=== PATIENT | female | born 1975 | race Caucasian/White ===

== ENCOUNTER 2023-02-22 11:29 | Emergency (ER) | payer MEDICAID, SELFPAY ==
[2023-02-22 11:30] VITALS: BP 142/108; PULSE 89; RESP 18; TEMP 36.5; O2SAT 97; BMI 22.8
[2023-02-22 12:55] LABS: Absolute Lymphocyte Count 1.18 X10^3/uL (0.83-4.51); Absolute Neutrophil Count 17.1 X10^3/uL (2.0-7.7); Basophil# 0.07 X10^3/uL; Basophil% 0.4 % (0-1); Eosinophil# 0.01 X10^3/uL; Eosinophils% 0.1 % (0-5); Hematocrit 48.9 % (37-47); Hemoglobin 14.9 g/dL (12.0-15.0); Lymphocyte # 1.18 X10^3/ul (0.83-4.51); Lymphocyte % 6.2 % (19-41); Mean Corp Hgb Conc 30.5 g/dL (32-36); Mean Corpuscular Hgb 30.3 pg (27.0-32.0); Mean Corpuscular Volume 99.6 fL (81-99); Mean Platelet Vol. 10.8 fl (6.2-12.0); Monocyte# 0.48 X10^3/uL; Monocyte% 2.5 % (0-10); NRBC Flagged by Analyzer 0 % (0-5); Neutrophil # 17.06 X10^3/uL (2.7-7.7); Neutrophil % 90.3 % (47-70); Platelet Count 276 K/mm3 (150-450); RBC Distribution Width CV 13.3 % (11.6-14.6); RBC Distribution Width SD 48.9 fl (35.1-43.9); Red Blood Count 4.91 M/mm3 (4.2-5.4); White Blood Count 18.9 K/mm3 (4.4-11.0)
--- NOTE | 2023-02-22 13:04 | NURSING ---
CHEMISTRIES HEMOLIZED
--- NOTE | 2023-02-22 13:13 | EDS_ITS ---
HPI <Dr. Serafin Cody DO - Last Filed: 02/23/23 21:35> HPI - GI History of Present Illness Chief Complaint: Nausea/Vomiting Informant: patient Abdominal Pain/Flank Pain Onset: Today Context: Gradual Onset Timing: Continuous Quality: Sharp Location: Diffuse Worsened by: Nothing Relieved by: Nothing Nausea/Vomiting/Emesis GI Symptom: Positive for Nausea and Vomiting Quality: Positive for Nonbilious; Negative for Blood streaks, Coffee ground or Hematemesis Diarrhea/Melena/Hematochezia GI Symptom: Positive for Diarrhea; Negative for Melena or Hematochezia Associated Symptoms Associated Symptoms: Negative for Dysuria, Frequency or Hematuria Narrative Narrative: Patient presents with abdominal pain that began today. Patient states it began rather suddenly approximately 6 hours prior to arrival. Patient states she has been unable to keep anything down. Daughter states that the patient had 2 seizures because she has been unable to keep her medications down. Patient states that the only thing that helps with her pain, nausea, and vomiting is drinking warm tap water. Patient denies any fevers or chills. Patient states her pain is sharp. Patient states her pain is diffuse across her abdomen. [facility] <Dr. Serafin Cody DO - Last Filed: 02/23/23 21:35> [facility] Medical History Barretts esophagus Home Medications pantoprazole 20 mg tablet,delayed release 20 mg PO DAILY 12/27/15 [History Last Taken Unknown] sertraline 50 mg tablet 50 mg PO DAILY 12/27/15 [History Last Taken Unknown] sucralfate 100 mg/mL oral suspension 1 g PO 4X/DAY 12/27/15 [History Last Taken Unknown] pseudoephedrine-guaifenesin ER 120 mg-1,200 mg tab,extend release 12hr (Mucinex D Maximum Strength) 1 ea PO BID ##14 02/13/16 [Rx Last Taken Unknown] cephalexin 500 mg capsule 500 mg PO BID #14 caps 02/22/23 [Rx Last Taken Unknown] ondansetron 4 mg disintegrating tablet 4 mg PO Q6H PRN nausea and vomiting #20 tabs 02/22/23 [Rx Last Taken Unknown] Allergy/AdvReac Type Severity Reaction Status Date / Time hydrocodone bitartrate Allergy Hives Verified 02/22/23 11:29 [From Vicodin] Surgical History no surgical history no surgical history Social History Smoking Status: Current every day smoker tobacco type: cigarettes ROS <Dr. Serafin Cody DO - Last Filed: 02/23/23 21:35> ROS ED Constitutional Constitutional ED: Denies chills or fever(s) Eyes Eyes: Denies blurry vision or change in vision ENT ENT ED: Denies rhinorrhea or sore throat Cardiovascular Cardiovascular: Denies chest pain or palpitations Respiratory/Chest Respiratory/Chest: Denies cough or dyspnea Gastrointestinal Gastrointestinal: Reports abdominal pain, diarrhea, nausea and vomiting Genitourinary Genitourinary ED: Denies dysuria or hematuria Musculoskeletal Musculoskeletal: Denies back pain or neck pain Integumentary Denies abscess or rash Neurologic Neurologic: Denies headache(s) or weakness Allergic/Immunologic Allergic/Immunologic ED: Denies mouth swelling or urticaria EXAM <Dr. Serafin Cody DO - Last Filed: 02/23/23 21:35> Physical Exam Const Vital Signs: 02/22/23 11:30 02/22/23 15:00 02/22/23 17:50 Temperature 97.7 F L Temperature Source Temporal Pulse Rate 89 75 Respiratory Rate 18 18 18 Blood Pressure 142/108 H Blood Pressure Mean 119 Pulse Ox 97 98 Oxygen Delivery Method Room Air Room Air Room Air <Marvin Katz MD - Last Filed: 02/22/23 18:28> Physical Exam Const Vital Signs: 02/22/23 11:30 02/22/23 15:00 02/22/23 17:50 Temperature 97.7 F L Temperature Source Temporal Pulse Rate 89 75 Respiratory Rate 18 18 18 Blood Pressure 142/108 H Blood Pressure Mean 119 Pulse Ox 97 98 Oxygen Delivery Method Room Air Room Air Room Air MDM <Dr. Serafin Cody DO - Last Filed: 02/23/23 21:35> MDM MDM Narrative Medical decision making narrative: Differential diagnosis includes bowel obstruction, perforation, electrolyte abnormality, peptic ulcer disease, gastritis, pancreatitis, urinary tract infection, pyelonephritis, and cyclic vomiting. CBC will be obtained to assess for leukocytosis and anemia. Basic metabolic profile will be obtained to assess for electrolyte abnormality and renal function. Lipase will be obtained to assess for pancreatitis. Urinalysis will be obtained to assess for urinary tract infection. CT scan of the abdomen and pelvis will be obtained to assess for bowel obstruction, perforation, and ascites. Lab Data Attestation: I reviewed the patient's lab results. Lab results narrative: CBC was reviewed. There is a leukocytosis of 18.9. Hemoglobin was stable at 14.9 and hematocrit was 48.9. Platelets were normal at 276. Basic metabolic profile was reviewed. Glucose was slightly elevated at 152. The remainder is within normal limits. Lipase was reviewed was normal at 11. Labs: Laboratory Results - last 24 hr 02/22/23 02/22/23 02/22/23 12:49 13:40 17:45 WBC 18.9 H RBC 4.91 Hgb 14.9 Hct 48.9 H MCV 99.6 H MCH 30.3 MCHC 30.5 L RDW Std Deviation 48.9 H RDW Coeff of Fina 13.3 Plt Count 276 MPV 10.8 Immature Gran % (Auto) 0.500 Neut % (Auto) 90.3 H Lymph % (Auto) 6.2 L [place] % (Auto) 2.5 Eos % (Auto) 0.1 Baso % (Auto) 0.4 Absolute Neuts (auto) 17.1 H Absolute Lymphs (auto) 1.18 Nucleated RBC % 0 Sodium Cancelled 137 Potassium Cancelled 4.0 Chloride Cancelled 106 Carbon Dioxide Cancelled 23.0 Anion Gap Cancelled 8 BUN Cancelled 14 Creatinine Cancelled 0.87 Estim Creat Clear Calc Cancelled 73.48 Est GFR (MDRD) Af Amer Cancelled 90 Est GFR (MDRD) Non-Af Cancelled 75 BUN/Creatinine Ratio Cancelled 16.1 Glucose Cancelled 152 H Calcium Cancelled 9.2 Lipase 11 L Urine Color Vale Urine Clarity Cloudy Urine pH 6.5 Ur Specific Cornelius 1.010 Urine Protein 100 H Urine Glucose (UA) Normal Urine Ketones 15 H Urine Occult Blood 250 H Urine Nitrite Positive H Urine Bilirubin Negative Urine Urobilinogen 1 H Ur Leukocyte Esterase 500 H Urine RBC > 100 SEEN Urine WBC 10-25 SEEN Ur Squamous Epith Cells 0-5 SEEN Urine Bacteria 1+ Urine Mucus 0 SEEN Radiography Diagnostic Testing: Clinical Impression(s) from Imaging Studies Abdomen/Pelvis CT 02/22/23 13:18 IMPRESSION: Subcentimeter hypoattenuated right hepatic nodule. Small hiatal hernia. Small fatty umbilical hernia. Electronically Signed: Reji Allen DO at 17:39 EST Reading Location ID and State: [facility] / [place] Tel [phone], Service support , Treatment and Re-Evaluation :: Smoking cessation was discussed. Patient was given IV fluids and Zofran. Patient had no improvement of her nausea with Zofran. Patient was given a dose of Reglan. Patient was also given a dose of Ativan. Care of the patient was turned over to the oncoming physician pending CT scan results. <Marvin Katz MD - Last Filed: 02/22/23 18:28> DICK Lab Data Labs: Laboratory Results - last 24 hr 02/22/23 02/22/23 02/22/23 12:49 13:40 17:45 WBC 18.9 H RBC 4.91 Hgb 14.9 Hct 48.9 H MCV 99.6 H MCH 30.3 MCHC 30.5 L RDW Std Deviation 48.9 H RDW Coeff of Fina 13.3 Plt Count 276 MPV 10.8 Immature Gran % (Auto) 0.500 Neut % (Auto) 90.3 H Lymph % (Auto) 6.2 L [place] % (Auto) 2.5 Eos % (Auto) 0.1 Baso % (Auto) 0.4 Absolute Neuts (auto) 17.1 H Absolute Lymphs (auto) 1.18 Nucleated RBC % 0 Sodium Cancelled 137 Potassium Cancelled 4.0 Chloride Cancelled 106 Carbon Dioxide Cancelled 23.0 Anion Gap Cancelled 8 BUN Cancelled 14 Creatinine Cancelled 0.87 Estim Creat Clear Calc Cancelled 73.48 Est GFR (MDRD) Af Amer Cancelled 90 Est GFR (MDRD) Non-Af Cancelled 75 BUN/Creatinine Ratio Cancelled 16.1 Glucose Cancelled 152 H Calcium Cancelled 9.2 Lipase 11 L Urine Color Vale Urine Clarity Cloudy Urine pH 6.5 Ur Specific Cornelius 1.010 Urine Protein 100 H Urine Glucose (UA) Normal Urine Ketones 15 H Urine Occult Blood 250 H Urine Nitrite Positive H Urine Bilirubin Negative Urine Urobilinogen 1 H Ur Leukocyte Esterase 500 H Urine RBC > 100 SEEN Urine WBC 10-25 SEEN Ur Squamous Epith Cells 0-5 SEEN Urine Bacteria 1+ Urine Mucus 0 SEEN Radiography Diagnostic Testing: Clinical Impression(s) from Imaging Studies Abdomen/Pelvis CT 02/22/23 13:18 IMPRESSION: Subcentimeter hypoattenuated right hepatic nodule. Small hiatal hernia. Small fatty umbilical hernia. Electronically Signed: Rejimaria d Allen at 17:39 EST Reading Location ID and State: [facility] / [place] Tel [phone], Service support , Treatment and Re-Evaluation :: Smoking cessation was discussed. Patient was given IV fluids and Zofran. Patient had no improvement of her nausea with Zofran. Patient was given a dose of Reglan. Patient was also given a dose of Ativan. Care of the patient was turned over to the oncoming physician pending CT scan results. Dr. Katz: Patient endorsed to me to check a CT scan on this patient with nausea and vomiting and leukocytosis. I do feel that her leukocytosis may be secondary to demargination from her vomiting. I reviewed the CT scan report which shows no evidence of an acute process, no obstruction. She was trying to drink water prior to the CT results. Her daughter is now at the bedside who states that she had attempted Zofran this morning, but unsuccessfully. Patient states she does not have enough Zofran at home so prescription was written. Additionally, her urinalysis had been sent, and she is positive for nitrites with 10-25 WBCs. She will be given a prescription for Keflex as well. I feel she can be discharged to follow-up with her primary care provider. Disposition is discharged in stable condition. Discharge Plan Triage Chief Complaint: Nausea/Vomiting ED Provider: Serafin Cody Dx/Rx/DC Orders Clinical Impression: Nausea and vomiting, Abdominal pain, HTN (hypertension), UTI (urinary tract infection) Instructions: ED Abdominal Pain Unkn Cause Fem, ED Cystitis Female Adult, ED Vomiting (Adult) Prescriptions: New ondansetron 4 mg tablet,disintegrating 4 mg PO Q6H PRN (Reason: nausea and vomiting) Qty: 20 0RF cephalexin 500 mg capsule 500 mg PO BID Qty: 14 0RF No Action sucralfate 1 GM/10 ML suspension 1 g PO 4X/DAY pantoprazole 20 MG tablet 20 mg PO DAILY sertraline 50 MG tablet 50 mg PO DAILY pseudoephedrine-guaifenesin [Mucinex D Maximum Strength] 1 EACH tablet extended release 12 hr 1 ea PO BID Qty: 14 0RF Primary Care Provider: Care Physician,No Primary Referrals: Care Physician,No Primary [Primary Care Provider] - Disposition Disposition: Home, Self Care Discharge Date/Time: 02/22/23 19:01
--- NOTE | 2023-02-22 13:18 | CT_ITS ---
STUDY: CT ABDOMEN AND PELVIS WITH CONTRAST REASON FOR EXAM: Female, 47 years old. Abdominal pain -- IV ONLY RADIATION DOSAGE (If Supplied By Facility): CTDIvol = ( 12.06 ) mGy, DLP = ( 532.97 ) mGycm TECHNIQUE: Transaxial images were obtained from the dome of the diaphragm to the symphysis pubis without oral contrast. IV 100mL Isovue-300 was administered. Sagittal and coronal images were reconstructed. Individualized dose optimization techniques were used for this CT. COMPARISON: None. FINDINGS: The visualized lung bases are unremarkable. The visualized portions of the heart are within normal limits. Hypoattenuated 7 mm right hepatic nodule in the liver. Normal gallbladder and extrahepatic biliary system. Normal spleen. Normal pancreas. Normal bilateral adrenal glands. Normal right kidney. Normal left kidney. Small hiatal hernia. Normal small intestine. Normal colon. The appendix is not visualized. Normal abdominal aorta. Normal inferior vena cava. Normal retroperitoneum. Normal urinary bladder. Small fatty umbilical hernia. Normal osseous structures. CT/Abdomen/Pelvis WITH Contrast IMPRESSION: Subcentimeter hypoattenuated right hepatic nodule. Small hiatal hernia. Small fatty umbilical hernia. Electronically Signed: Reji Allen DO at 17:39 EST Reading Location ID and State: [id number] / [place] Tel [phone], Service support ,
[2023-02-22] MEDS: Ondansetron 4 MG/2 ML Vial IV (13:40)
[2023-02-22] MEDS: 0.9% Normal Saline (1000mL) 1,000 ML 1000 ML IV (13:40)
[2023-02-22 14:00] LABS: Anion Gap 8 (5-15); BUN 14 mg/dL (7-18); BUN/Creat Ratio 16.1 RATIO (10-20); Calcium,Total 9.2 mg/dL (8.5-10.1); Chloride 106 mmol/L (98-107); Creatinine, Serum 0.87 mg/dL (0.55-1.02); EST Glomerular Filtration Rate 75 mL/min (>60); Est Glom Filt Rate - Afr Amer 90 mL/min (>60); Estimated Creatinine Clearance 73.48 ml/min; Glucose 152 mg/dL (74-106); Sodium Level 137 mmol/L (136-145)
[2023-02-22 14:01] LABS: Lipase 11 U/L (13-75)
[2023-02-22] MEDS: Metoclopramide 10 MG/2 ML Vial IV (14:22)
[2023-02-22 15:00] VITALS: RESP 18
[2023-02-22] MEDS: LORazepam 2 MG/ML Syringe 0.5 MG IV (15:04)
[2023-02-22 17:50] VITALS: PULSE 75; RESP 18; O2SAT 98
[2023-02-22 17:53] LABS: Mucous, Urine 0 SEEN /hpf (<or=2+)
[2023-02-22 18:00] LABS: Color, Urine Amber (Yellow); Glucose, Dipstick Normal (Normal); Ketone-Dipstick 15 mg/dl (Negative); Leukocyte Esterase-Dipstick 500 /ul (Negative); Nitrite-Dipstick Positive (Negative); Occult Blood-Urine 250 /ul (Negative); Protein-Dipstick 100 mg/dl (Negative); Urine Bilirubin Dipstick Negative (Negative); Urine Clarity Cloudy (Clear); Urine Urobilinogen 1 mg/dl (Normal); Urine pH 6.5 (5.0 - 8.0)
[2023-02-22 18:06] LABS: White Blood Cells 10-25 SEEN /hpf (0-5)
[2023-02-22 18:07] LABS: Bacteria 1+ /hpf (None Seen); Red Blood Cells-Urine > 100 SEEN /hpf (0-5); Squamous Epithelial Cells - UA 0-5 SEEN /hpf (5-10)
[2023-02-22] MEDS: Cephalexin 250 MG Capsule 500 MG PO (18:46)
== END 2023-02-22 19:01 | disposition home or self-care (01) ==
PROVIDERS: Emergency Provider Emergency Medicine; Visit Provider Emergency Medicine
DX: R11.2 Nausea with vomiting, unspecified (principal); N39.0 Urinary tract infection, site not specified; F17.210 Nicotine dependence, cigarettes, uncomplicated; I10 Essential (primary) hypertension; R10.9 Unspecified abdominal pain
CPT/HCPCS: 74177; 80048; 81001; 83690; 85025; 96361; 96374; 96375; 99285; J7030; Q9967; A4216; J2405

== ENCOUNTER 2023-02-24 09:22 | Emergency (ER) | payer MEDICAID, SELFPAY ==
[2023-02-24 09:23] VITALS: BP 180/120; PULSE 70; RESP 16; TEMP 36.2; O2SAT 99; BMI 22.4
[2023-02-24] MEDS: Ondansetron 4 MG/2 ML Vial IV (10:20)
[2023-02-24] MEDS: proCHLORPERazine 10 MG/2 ML Vial IM (10:20)
[2023-02-24] MEDS: 0.9% Normal Saline (1000mL) 1,000 ML 1000 ML IV (10:24)
[2023-02-24] MEDS: Ceftriaxone 1 GM/50 ML BAG IV (10:24)
[2023-02-24 10:35] LABS: Absolute Lymphocyte Count 1.57 X10^3/uL (0.83-4.51); Absolute Neutrophil Count 12.4 X10^3/uL (2.0-7.7); Basophil# 0.07 X10^3/uL; Basophil% 0.5 % (0-1); Eosinophil# 0.11 X10^3/uL; Eosinophils% 0.7 % (0-5); Hematocrit 45.3 % (37-47); Hemoglobin 15.1 g/dL (12.0-15.0); Lymphocyte # 1.57 X10^3/ul (0.83-4.51); Lymphocyte % 10.7 % (19-41); Mean Corp Hgb Conc 33.3 g/dL (32-36); Mean Corpuscular Volume 89.9 fL (81-99); Mean Platelet Vol. 10.1 fl (6.2-12.0); Monocyte# 0.45 X10^3/uL; Monocyte% 3.1 % (0-10); NRBC Flagged by Analyzer 0 % (0-5); Neutrophil # 12.41 X10^3/uL (2.7-7.7); Neutrophil % 84.6 % (47-70); Platelet Count 279 K/mm3 (150-450); Red Blood Count 5.04 M/mm3 (4.2-5.4); White Blood Count 14.7 K/mm3 (4.4-11.0)
[2023-02-24 11:04] LABS: ALB/GLOB Ratio 1.2 RATIO (0.9-2.4); AST(SGOT) 24 U/L (15-37); Alanine Aminotransfer ALT/SGPT 23 U/L (13-56); Albumin, Serum 4.1 g/dL (3.2-5.0); Alkaline Phosphatase 35 U/L (45-117); Anion Gap 11 (5-15); BUN 9 mg/dL (7-18); Calcium,Total 9.2 mg/dL (8.5-10.1); Chloride 103 mmol/L (98-107); Creatinine, Serum 0.82 mg/dL (0.55-1.02); EST Glomerular Filtration Rate 80 mL/min (>60); Est Glom Filt Rate - Afr Amer 97 mL/min (>60); Estimated Creatinine Clearance 77.96 ml/min; Globulin 3.4 g/dL (2.2-4.2); Glucose 137 mg/dL (74-106); Lipase 13 U/L (13-75); Potassium 3.4 mmol/L (3.5-5.1); Protein, Total 7.5 g/dL (6.4-8.2); Sodium Level 136 mmol/L (136-145)
[2023-02-24 11:22] VITALS: BP 180/95; PULSE 65; RESP 18; O2SAT 98
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
[2023-02-24] MEDS: LORazepam 2 MG/ML Syringe 1 MG IV (12:02)
[2023-02-24] MEDS: Potassium Chloride Oral Tablet 20 MEQ 40 MEQ PO (12:33)
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
[2023-02-24 12:53] VITALS: BP 176/78; PULSE 64; RESP 16; O2SAT 98
[2023-02-24 14:28] LABS: Reflex Lactate? Y
== END 2023-02-24 12:54 | disposition home or self-care (01) ==
PROVIDERS: Emergency Provider Emergency Medicine; Referring Provider Emergency Medicine; Visit Provider Emergency Medicine
DX: R11.2 Nausea with vomiting, unspecified (principal); N39.0 Urinary tract infection, site not specified; I10 Essential (primary) hypertension; R11.15 Cyclical vomiting syndrome unrelated to migraine; R10.13 Epigastric pain; K21.9 Gastro-esophageal reflux disease without esophagitis; Z79.899 Other long term (current) drug therapy; F17.210 Nicotine dependence, cigarettes, uncomplicated
CPT/HCPCS: 80053; 83605; 83690; 85025; 96361; 96365; 96372; 96375; 99284; J7030; A4216; J2405

== ENCOUNTER 2024-02-10 04:03 | Emergency (ER) | payer MEDICAID, SELFPAY ==
[2024-02-10] VITALS (7 sets, daily range): BP systolic 142–169; BP diastolic 73–89; PULSE 71–89; RESP 16–18; TEMP 36.1–37.4; O2SAT 96–99; BMI 25.0
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
--- NOTE | 2024-02-10 04:14 | CT_ITS ---
STUDY: CT BRAIN WITHOUT CONTRAST REASON FOR EXAM: Female, 48 years old. head injury. Head laceration. RADIATION DOSAGE (If Supplied By Facility): CTDIvol = ( 34.80 ) mGy, DLP = ( 1483.44 ) mGycm TECHNIQUE: Transaxial CT imaging of the brain was performed without administration of intravenous contrast material. Limited examination due to patient motion artifact. Individualized dose optimization techniques were used for this CT. COMPARISON: No relevant priors. FINDINGS: Normal soft tissue structures. Normal calvarium. Normal size ventricles and extra-axial spaces for the patient''s age. Normal white matter tracts of the cerebral hemispheres. Normal basal ganglia and thalami. Normal brainstem. Normal cerebellum. There is no intracranial hemorrhage. There are no findings of an acute ischemic infarction. Mucosal thickening of the right maxillary sinus. Opacification of the ethmoid sinuses as well as fullness of the nasal fossa. CT/Brain/Head without Contrast IMPRESSION: Normal unenhanced CT scan of the brain. Sinusitis. Electronically Signed: Rome Oneil MD at 9:04 EST ,
--- NOTE | 2024-02-10 04:14 | RAD_ITS ---
EXAM: XR RIGHT HUMERUS, 2 OR MORE VIEWS CLINICAL INDICATION: pain TECHNIQUE: Frontal and lateral views of the right humerus. COMPARISON: No relevant prior studies available. FINDINGS: BONES/JOINTS: Unremarkable. No acute fracture. No subluxation. Normal alignment. Preservation of the joint space. No sclerotic or destructive changes observed. SOFT TISSUES: Unremarkable. No soft tissue swelling or gas. No radiopaque foreign body. OTHER: The visualized right ribs are intact. The visualized right lung is clear RAD/Humerus min 2 Views IMPRESSION: Negative right humerus x-rays. Electronically Signed: Javy Gibson MD at 7:18 EST ,
--- NOTE | 2024-02-10 04:14 | RAD_ITS ---
EXAM: XR PELVIS, 1 OR 2 VIEWS CLINICAL INDICATION: fall TECHNIQUE: Frontal view of the pelvis. COMPARISON: No relevant prior studies available. FINDINGS: BONES/JOINTS: Unremarkable. No displaced fracture. No destructive or sclerotic lesions. Note that overlapping bowel shadows may however obscure fine detail. Sacroiliac joints are unremarkable. No widening of the pubic symphysis. The articular structures are unremarkable. SOFT TISSUES: Unremarkable. No soft tissue swelling or gas. RAD/Pelvis 1 or 2 Views IMPRESSION: No acute fracture or dislocation. Electronically Signed: Javy Gibson MD at 7:20 EST ,
--- NOTE | 2024-02-10 04:14 | CT_ITS ---
EXAM: CT CERVICAL SPINE WITHOUT INTRAVENOUS CONTRAST CLINICAL INDICATION: head injury TECHNIQUE: Helically acquired images were obtained of the cervical spine without intravenous contrast. 2D reformatted images were reviewed. This CT exam was performed using one or more of the following dose reduction techniques: automated exposure control, adjustment of the mA and/or kV according to patient size, and/or use of iterative reconstruction technique. RADIATION DOSE: Total DLP: 416.16 mGy-cm. COMPARISON: No relevant prior studies available. FINDINGS: LIMITATIONS: Multiple sets of images are obtained in an effort to include the entire cervical spine within the [id number]. Patient is tilted to the left. VERTEBRAE: Reversal of normal cervical lordosis is present due to patient positioning or muscle spasm. No compression fracture, posterior element fracture or facet dislocation. The odontoid is intact. Mild cervical facet arthritis is noted. DISCS/SPINAL CANAL/NEURAL FORAMINA: C5/6 and C6/7 disc spaces show degenerative narrowing with marginal osteophytes and uncinate hypertrophy. Broad-based annular bulges and posterior osteophytes mildly flatten the ventral aspect of the thecal sac at the degenerated levels ; uncinate hypertrophy causes left-sided neural foraminal encroachment at the C6/7 level. OTHER BONES/JOINTS: Mucosal thickening noted of the base of both maxillary antra, right greater than left, with a right maxillary air-fluid level. SOFT TISSUES: No precervical soft tissue swelling. MASTOID AIR CELLS: Visualized mastoid air cells are clear. DENTAL: Findings of periodontal disease and dental caries are demonstrated. LUNG APICES: No apical pneumothorax is identified. Visualized upper ribs and medial clavicles are intact. CT/Spine Cervical without Contras IMPRESSION: 1. Limited study. 2. Lower cervical degenerative disc disease. 3. No acute fracture or subluxation identified. Electronically Signed: Javy Gibson MD at 7:09 EST ,
[2024-02-10] MEDS: Ondansetron 4 MG/2 ML Vial IV (04:25)
[2024-02-10] MEDS: LORazepam 2 MG/ML Syringe 0.5 MG IV (04:26)
[2024-02-10] MEDS: Lidocaine 2% /Epi 1:100 (20ml) 20 ML VIAL INFILT (04:28)
[2024-02-10] MEDS: HYDROmorphone 1 MG/ML Syringe IV (04:28)
[2024-02-10 04:41] LABS: Absolute Lymphocyte Count 3.09 X10^3/uL (0.83-4.51); Absolute Neutrophil Count 11.5 X10^3/uL (2.0-7.7); Basophil# 0.07 X10^3/uL; Basophil% 0.4 % (0-1); Eosinophil# 0.56 X10^3/uL; Eosinophils% 3.5 % (0-5); Hematocrit 39.4 % (37-47); Hemoglobin 13.3 g/dL (12.0-15.0); Lymphocyte # 3.09 X10^3/ul (0.83-4.51); Lymphocyte % 19.4 % (19-41); Mean Corp Hgb Conc 33.8 g/dL (32-36); Mean Corpuscular Hgb 29.8 pg (27.0-32.0); Mean Corpuscular Volume 88.1 fL (81-99); Mean Platelet Vol. 10.5 fl (6.2-12.0); Monocyte# 0.65 X10^3/uL; Monocyte% 4.1 % (0-10); NRBC Flagged by Analyzer 0 % (0-5); Neutrophil # 11.46 X10^3/uL (2.7-7.7); Neutrophil % 72.2 % (47-70); Platelet Count 260 K/mm3 (150-450); RBC Distribution Width CV 13.2 % (11.6-14.6); RBC Distribution Width SD 42.7 fl (35.1-43.9); Red Blood Count 4.47 M/mm3 (4.2-5.4); White Blood Count 15.9 K/mm3 (4.4-11.0)
[2024-02-10 04:46] LABS: International Normalized Ratio 1.2; Prothrombin Time (Protime)PT. 14.9 SECONDS (11.7-14.9)
[2024-02-10 04:47] LABS: Partial Thromboplast Time 31.9 Seconds (24.1-36.2)
--- NOTE | 2024-02-10 04:48 | ED.RN ---
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
[2024-02-10 04:55] LABS: Alcohol, Blood (Medical)-Serum < 3.0 mg/dL
[2024-02-10 04:57] LABS: Anion Gap 5 (5-15); BUN 9 mg/dL (7-18); BUN/Creat Ratio 11.9 RATIO (10-20); Chloride 106 mmol/L (98-107); Creatinine, Serum 0.75 mg/dL (0.55-1.02); EST Glomerular Filtration Rate 88 mL/min (>60); Est Glom Filt Rate - Afr Amer 106 mL/min (>60); Estimated Creatinine Clearance 84.34 ml/min; Glucose 114 mg/dL (74-106); Potassium 3.4 mmol/L (3.5-5.1); Sodium Level 137 mmol/L (136-145)
[2024-02-10 05:10] LABS: CPK Total, Creatine Kinase 167 U/L (26-192)
--- NOTE | 2024-02-10 05:20 | RAD_ITS ---
EXAM: XR CHEST, 1 VIEW CLINICAL INDICATION: fall TECHNIQUE: 2 frontal views. Of the chest. COMPARISON: Previous chest radiographs of 02/13/2016. FINDINGS: Patient is rotated to the left. LUNGS AND PLEURAL SPACES: Unremarkable. No consolidation or edema. No pneumothorax. No effusion. HEART: Unremarkable. Cardiac silhouette not enlarged. Normal pulmonary vasculature. MEDIASTINUM: Central airways and mediastinal contour are unremarkable. No mediastinal widening. BONES/JOINTS: Unremarkable. No acute fracture. SOFT TISSUES: Unremarkable. RAD/Chest 1 View (Portable) IMPRESSION: No significant interval change. No radiographic evidence of acute cardiopulmonary disease. Electronically Signed: Javy Gibson MD at 7:20 EST ,
[2024-02-10 05:28] LABS: Amphetamine Urine VISTA POSITIVE (<1000 ng/mL); Barbiturate Urine VISTA NEGATIVE (< 200 ng/mL); Benzodiazepine Urine VISTA NEGATIVE (< 200 ng/mL); Cocaine Urine VISTA NEGATIVE (< 300 ng/mL); Ecstacy Urine VISTA POSITIVE (< 500 ng/mL); Methadone Urine VISTA NEGATIVE (< 300 ng/mL); PCP Urine VISTA NEGATIVE (< 25 ng/mL); THC Urine VISTA POSITIVE (< 50 ng/mL); Vista UDS pH Range 6
[2024-02-10] MEDS: Haloperidol Lactate 5 MG/ML Vial IV (07:19)
[2024-02-10] MEDS: DiphenhydrAMINE 50 MG/ML Syringe 25 MG IV (07:19)
--- NOTE | 2024-02-10 07:36 | EX.ED.DYSGE1 ---
HPI History of Present Illness Chief Complaint: Fall Informant: patient and EMS Narrative Narrative: Patient is a 48-year-old female with history of hypertension depression and cyclic vomiting syndrome. She states she was at work this evening when she tripped and fell and struck her head. She states she did sustain loss of consciousness. She states she does not have a bleeding disorder or take blood thinners. She reports that no one was around to witness the event and she is unsure of how long she was unconscious. She states when she awoke she noted that she had pain in her bilateral arms and it folic her right arm would not move. 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 Patient reports that the fall was mechanical that she slipped/tripped. However at this time she reports head and neck pain bilateral arm pain. She states her right arm is numb and that she cannot move it [facility] Medical History Barretts esophagus Home Medications ?Medication ?Instructions ?Recorded ?Last Taken ?Type NK 02/10/24 Unknown History Allergy/AdvReac Type Severity Reaction Status Date / Time hydrocodone bitartrate (From Allergy Hives Verified 02/10/24 04:11 Vicodin) Social History Smoking Status: Current every day smoker tobacco type: cigarettes ROS ROS ED Constitutional Constitutional ED: Denies chills or fever(s) Eyes Eyes: Denies blurry vision, change in vision or diplopia ENT ENT ED: Reports other Details: Positive nosebleed/nasal pain Cardiovascular Cardiovascular: Denies chest pain, palpitations or racing heartbeat Respiratory/Chest Respiratory/Chest: Denies cough or dyspnea Gastrointestinal Gastrointestinal: Denies abdominal pain, diarrhea, nausea or vomiting Musculoskeletal Musculoskeletal: Reports neck pain and other Details: Positive neck pain as well as bilateral arm pain Integumentary Reports other Details: Positive scalp abrasion/laceration Neurologic Neurologic: Reports headache(s), paresthesias and weakness Hematologic/Lymphatic Hematologic/Lymphatic: Denies easy bleeding or easy bruising EXAM Physical Exam Const Vital Signs: 02/10/24 04:04 02/10/24 04:18 02/10/24 05:04 Temperature 99.4 F H Temperature Source Oral Pulse Rate 78 71 Respiratory Rate 16 18 Blood Pressure 164/79 H Blood Pressure Mean 107 Pulse Ox 96 97 Oxygen Delivery Method Room Air Room Air Room Air 02/10/24 06:00 02/10/24 07:00 02/10/24 08:00 Temperature Temperature Source Pulse Rate 75 76 Respiratory Rate 18 18 Blood Pressure 142/73 H 142/86 H Blood Pressure Mean 96 104 Pulse Ox 97 98 Oxygen Delivery Method Positive well nourished and well developed General Appearance ED: well developed HEENT HEENT Narrative: Patient has a dermal layer abrasion that is roughly 2 cm in length to the midportion of the parietal section of the scalp without active bleeding. Otherwise no signs of depressed or basilar skull fracture No septal hematoma No obvious dental fracture or derangement to the maxilla or mandible Eyes PERRL and EOMs intact bilaterally Eyes Narrative: No subconjunctival hemorrhage noted No hyphema Neck Neck Narrative: No bony deformity or step-off of the cervical spine. There is diffuse pain on palpation of the neck Chest Wall palpation of chest normal Chest Narrative: No bony deformity or crepitance with palpation of the chest wall Resp normal respiratory effort and clear to auscultation bilaterally Cardio regular rate and regular rhythm GI normal to inspection, nondistended, normoactive bowel sounds, non-tender, non-distended and no masses GI Narrative: No voluntary guarding or rigidity or pulsatile mass Auscultation: normoactive bowel sounds Palpation: soft Back/Spine Back/Spine Narrative: No bony deformity or step-off of the thoracic or lumbar spine no midline tenderness to palpation Extremity Extremity Narrative: There is mild soft tissue swelling to the midportion of the right humerus. However there is no obvious bony deformity or joint effusion or sulcus sign noted. No obvious fracture noted. Pelvis is stable there is no shortening or external rotation of either lower extremity Patient's lower extremity and upper extremity compartments are soft and compressible going against compartment syndrome Right upper extremity has a strong distal radius pulse and capillary refill less than 3 seconds Patient does report extreme pain to even the lightest touch of both the right and left upper arm. She states it does not matter if you touch her in her fingertips or shoulder this will send pain down the entire arm. Neuro oriented x3 Neuro Narrative: Patient is awake alert and oriented to person place and time She states that there is paresthesias in her bilateral arms and she states that she is unable to move her right arm despite trying. However I feel this is most likely stress response and pain response and that there is no true neurologic dysfunction Sensorium / Orientation: alert Psych Psych Narrative: Patient has a tearful anxious/nervous affect Mood & Affect: anxious and tearful Skin Skin Narrative: Superficial abrasion to the midportion of the parietal section of the scalp as documented above MDM MDM MDM Narrative Medical decision making narrative: Patient reported a mechanical fall so I felt no need for cardiac or syncope workup. However she did strike her head and sustained an abrasion that was bleeding across her face and with her pain in bilateral arms there is concern for traumatic skull fracture versus traumatic subarachnoid or subdural hemorrhage. There is concern for cervical compression fracture and/or nervous compression. Patient may also have a nasal fracture orbital floor fracture or mandible or maxilla fracture. Patient could also have shoulder dislocation versus humeral fracture. Secondary to this basic labs and multiple imaging studies were obtained. As the patient was unsure of how long she was down there was concern for rhabdomyolysis with a CPK was added. The patient is white count is elevated at 15.9 but this is most likely stress response as there is no obvious signs of infection. Otherwise she has no signs of acute kidney injury and no clinically significant electrolyte abnormality which could account for her sensation of paresthesia. The imaging studies revealed no signs of acute fracture or dislocation but the cervical spine did document annular disc bulge that was compressing some of the thecal sac which could relate/cause her pain and sensation of numbness. Based on the fact that after multiple hours in the ER she still complaining of severe pain down bilateral arms with the inability to move them and decrease sensation the patient may have further cervical damage than is showing on her CT scan. As she is technically a trauma based on her fall with syncope she would not be appropriate to keep at this facility and therefore [facility] Was contacted. I discussed the case with Dr. Florez. At this time the patient will be sent from ER to ER so that they can perform a trauma evaluation and potential MRI of her cervical spine. The patient was informed that this needs to be done in order to ensure that there is no cervical spine injury despite CT scans and there is no obvious fracture or spinal cord derangement as her history and physical exam does suggest potential problems with the cervical spine. Patient states she agrees to this and the plan of care and therefore will be sent to [facility] For further evaluation History & Record Review Discussion w/independent historian: EMS personnel and Patient Lab Data Attestation: I reviewed the patient's lab results. Labs: Laboratory Results - last 24 hr 02/10/24 02/10/24 04:25 04:55 WBC 15.9 H RBC 4.47 Hgb 13.3 Hct 39.4 MCV 88.1 MCH 29.8 MCHC 33.8 RDW Std Deviation 42.7 RDW Coeff of Fina 13.2 Plt Count 260 MPV 10.5 Immature Gran % (Auto) 0.400 Neut % (Auto) 72.2 H Lymph % (Auto) 19.4 Walton % (Auto) 4.1 Eos % (Auto) 3.5 Baso % (Auto) 0.4 Absolute Neuts (auto) 11.5 H Absolute Lymphs (auto) 3.09 Nucleated RBC % 0 PT 14.9 INR 1.2 APTT 31.9 Sodium 137 Potassium 3.4 L Chloride 106 Carbon Dioxide 26.0 Anion Gap 5 BUN 9 Creatinine 0.75 Estim Creat Clear Calc 84.34 Est GFR (MDRD) Af Amer 106 Est GFR (MDRD) Non-Af 88 BUN/Creatinine Ratio 11.9 Glucose 114 H Calcium 9.0 Total Creatine Kinase 167 Urine Opiates Screen POSITIVE H Urine Methadone Screen NEGATIVE Ur Barbiturates Screen NEGATIVE Ur Phencyclidine Scrn NEGATIVE Ur Amphetamines Screen POSITIVE H MDMA (Ecstasy) Screen POSITIVE H U Benzodiazepines Scrn NEGATIVE Urine Cocaine Screen NEGATIVE U Cannabinoids Screen POSITIVE H Ur Drug Screen Comment Ethyl Alcohol < 3.0 Radiography Diagnostic Testing: Clinical Impression(s) from Imaging Studies Humerus X-Ray 02/10/24 04:00 IMPRESSION: Negative left humerus x-rays. Electronically Signed: Javy Gibson MD at 7:18 EST , Cervical Spine CT 02/10/24 04:14 IMPRESSION: 1. Limited study. 2. Lower cervical degenerative disc disease. 3. No acute fracture or subluxation identified. Electronically Signed: Javy Gibson MD at 7:09 EST , Facial/Sinus 02/10/24 04:14 IMPRESSION: No acute facial bone fracture. Sinusitis. Dental caries and periodontal disease. Electronically Signed: Javy Gibson MD at 7:14 EST , Humerus X-Ray 02/10/24 04:14 IMPRESSION: Negative right humerus x-rays. Electronically Signed: Javy Gibson MD at 7:18 EST , Pelvis X-Ray 02/10/24 04:14 IMPRESSION: No acute fracture or dislocation. Electronically Signed: Javy Gibson MD at 7:20 EST , Chest X-Ray 02/10/24 05:20 IMPRESSION: No significant interval change. No radiographic evidence of acute cardiopulmonary disease. Electronically Signed: Javy Gibson MD at 7:20 EST , 1 view chest x-ray as interpreted by the emergency medicine physician reveals no acute infiltrate pneumothorax or rib fracture Pelvis x-ray as interpreted by the emergency medicine physician reveals no acute fracture or dislocation Bilateral humeral x-rays as interpreted by the emergency medicine physician reveals no acute fracture or dislocation or joint effusion Discharge Plan Triage Chief Complaint: Fall ED Provider: Endy Taveras Dx/Rx/DC Orders Clinical Impression: Closed head injury, HTN (hypertension), Accidental fall, Paresthesia and pain of both upper extremities Prescriptions: No Action NK Primary Care Provider: Care Physician,No Primary Referrals: Care Physician,No Primary [Primary Care Provider] - Print Language: Vietnamese
[2024-02-10] MEDS: LORazepam 2 MG/ML Syringe 1 MG IV (08:09)
[2024-02-10 09:54] LABS: Bedside Glucose 113 mg/dL (74-106)
== END 2024-02-10 09:55 | disposition short-term general hospital (02) ==
PROVIDERS: Emergency Provider Emergency Medicine; Visit Provider Emergency Medicine
DX: S06.9XAA Unspecified intracranial injury with loss of consciousness status unknown, initial encounter (principal); I10 Essential (primary) hypertension; R20.2 Paresthesia of skin; M79.601 Pain in right arm; M79.602 Pain in left arm; W01.10XA Fall on same level from slipping, tripping and stumbling with subsequent striking against unspecified object, initial encounter; Y92.89 Other specified places as the place of occurrence of the external cause; F17.210 Nicotine dependence, cigarettes, uncomplicated
CPT/HCPCS: 70450; 70486; 71045; 72125; 72170; 73060; 80048; 80307; 82077; 82550; 82962; 85025; 85610; 85730; 96374; 96375; 96376; 99285; A4216; J2405

== ENCOUNTER 2024-05-11 18:05 | Inpatient (IN) | payer SELFPAY ==
[2024-05-11] VITALS (9 sets, daily range): BP systolic 99–153; BP diastolic 69–95; PULSE 66–92; RESP 16–18; TEMP 36.4–36.8; O2SAT 95–100; BMI 21.3
--- NOTE | 2024-05-11 19:10 | RAD_ITS ---
PROCEDURE: CHEST PA AND LATERAL REASON FOR EXAM: Chest pain TECHNIQUE: Frontal and lateral views of the chest. COMPARISON: None. FINDINGS: The heart size is normal. The mediastinal contour is unremarkable. Bilateral lower lung zone opacities, [id number] The bones are unremarkable. RAD/Chest PA and Lateral IMPRESSION: Bilateral lower lobe pneumonia Reading Location: [facility]
[2024-05-11 19:14] LABS: Absolute Lymphocyte Count 2.43 X10^3/uL (0.83-4.51); Absolute Neutrophil Count 5.1 X10^3/uL (2.0-7.7); Basophil# 0.06 X10^3/uL; Basophil% 0.7 % (0-1); Eosinophil# 0.07 X10^3/uL; Eosinophils% 0.8 % (0-5); Hematocrit 33.2 % (37-47); Hemoglobin 10.7 g/dL (12.0-15.0); Lymphocyte # 2.43 X10^3/ul (0.83-4.51); Lymphocyte % 29.5 % (19-41); Mean Corp Hgb Conc 32.2 g/dL (32-36); Mean Corpuscular Hgb 28.2 pg (27.0-32.0); Mean Corpuscular Volume 87.6 fL (81-99); Monocyte# 0.54 X10^3/uL; Monocyte% 6.6 % (0-10); NRBC Flagged by Analyzer 0 % (0-5); Neutrophil # 5.12 X10^3/uL (2.7-7.7); Neutrophil % 62.2 % (47-70); Platelet Count 317 K/mm3 (150-450); RBC Distribution Width CV 13.3 % (11.6-14.6); RBC Distribution Width SD 42.6 fl (35.1-43.9); Red Blood Count 3.79 M/mm3 (4.2-5.4); White Blood Count 8.2 K/mm3 (4.4-11.0)
--- NOTE | 2024-05-11 19:37 | ED.VIS.DYS ---
HPI History of Present Illness Chief Complaint: Shortness of Breath Detail of Chief Complaint: Cough of recent pneumonia. Informant: patient Onset/Context/Timing Onset: Weeks Context: gradual Timing: Continuous Current Severity: Moderate Maximum Severity: Moderate Worsened by: Coughing Associated Symptoms cough Chest Pain: Positive for None Narrative Narrative: 48-year-old female in January tripped and fell fractures of her neck had recent spine surgery at [facility] In January around [facility]. She was doing well until about 2 weeks ago she was diagnosed with pneumonia. Placed on Augmentin for a week that she is only been feeling worse and in the last 3 days developed bilateral lower extremity swelling. Denies chest pain. No hemoptysis. No history of DVT or PE. PE Risk Factors: Negative for Cancer, OCP + Smoking + > 35, Prior DVT or PE, Recent immobilization, Recent surgery or Recent travel Prior similar symptoms: No Recent Illness/Hospitalization: No PFSH FORMERLY [facility], 1928–1983 Medical History Barretts esophagus Home Medications ?Medication ?Instructions ?Recorded ?Last Taken ?Type NK 02/10/24 Unknown History Allergy/AdvReac Type Severity Reaction Status Date / Time hydrocodone bitartrate (From Allergy Hives Verified 05/11/24 18:10 Vicodin) Social History household members: significant other housing: house Smoking Status: Current every day smoker tobacco type: cigarettes ROS ROS ED ROS Narrative Cough. Fever and chills. Body aches. Shortness of breath Constitutional Constitutional ED: Reports chills and fever(s) Eyes Eyes: Denies blurry vision ENT ENT ED: Denies ear pain Cardiovascular Cardiovascular: Denies chest pain Respiratory/Chest Respiratory/Chest: Reports cough Gastrointestinal Gastrointestinal: Reports nausea; Denies abdominal pain, constipation, diarrhea, melena or vomiting Genitourinary Genitourinary ED: Denies dysuria or hematuria Musculoskeletal Musculoskeletal: Denies arthralgias Integumentary Denies abscess Neurologic Neurologic: Denies headache(s) Psychiatric Psychiatric: Denies anxiety Endocrine Endocrinology: Denies cold intolerance Hematologic/Lymphatic Hematologic/Lymphatic: Denies easy bleeding, easy bruising or lymphadenopathy Allergic/Immunologic Allergic/Immunologic ED: Denies mouth swelling, tongue swelling or urticaria EXAM Physical Exam Narrative Exam Narrative: 48-year-old female vital signs are stable afebrile. Pulse ox 97% on room air no hypoxia. H EENT exam pupils round react light. Moist mucous membranes. Neck she is in a cervical collar from her surgery. Trachea midline. Lungs coarse breath sounds with rhonchi in the right base. Heart regular rhythm rate about 90 no murmur. Chest wall and ribs nontender. Abdomen soft nontender. Back nontender. Moving all 4 extremities. She has 1+ pitting edema both lower extremities equal symmetrical. Calves are nontender without edema or cords. Neurologically she is awake and alert answering questions following commands. Const Vital Signs: 05/11/24 18:06 05/11/24 18:45 05/11/24 19:03 Temperature 97.5 F L Temperature Source Temporal Pulse Rate 92 Respiratory Rate 18 Respiratory Effort Normal Non-Labored Respiratory Depth Normal Respiratory Pattern Normal Blood Pressure 123/90 H Blood Pressure Mean 101 Pulse Ox 97 96 Oxygen Delivery Method Room Air Room Air Room Air 05/11/24 19:05 05/11/24 20:00 05/11/24 20:18 Temperature Temperature Source Pulse Rate 78 78 77 Respiratory Rate 16 18 Respiratory Effort Respiratory Depth Respiratory Pattern Normal Blood Pressure 99/69 102/89 H Blood Pressure Mean 79 93 Pulse Ox 99 98 Oxygen Delivery Method 05/11/24 21:00 Temperature Temperature Source Pulse Rate Respiratory Rate Respiratory Effort Respiratory Depth Respiratory Pattern Blood Pressure 151/95 H Blood Pressure Mean 113 Pulse Ox Oxygen Delivery Method Positive well nourished and well developed; Negative for obese, cachectic, contractures or unkempt General Appearance ED: well developed and NAD; Negative for unkempt, cachectic, contractures or pallor Nutritional Appearance: Negative for cachectic or obese HEENT Reports moist mucous membranes atraumatic; Negative for trauma or tenderness Eyes PERRL and EOMs intact bilaterally Neck no lymphadenopathy, supple, no meningeal signs and no JVD Neck Narrative: Neck collar in place from recent neck surgery. Resp normal respiratory effort and No clear to auscultation bilaterally Auscultation: rhonchi right lower Cardio regular rate, regular rhythm, S1 normal heart sound, S2 normal heart sound and no murmurs GI non-tender, non-distended and no masses Palpation: soft; Negative for tender, guarding or rebound tenderness present Back/Spine no CVA tenderness and normal to inspection Extremity Negative for normal to inspection Extremity Narrative: Bilateral lower extremity edema. Nontender no cords. General Extremety ED: Yes edema; Negative for tenderness General Extremity: edema Neuro oriented x3 and CN's II-XII intact bilaterally Sensorium / Orientation: alert, oriented to person, oriented to place and oriented to time; Negative for orientation impaired Motor Exam: strength 5/5 throughout Psych mental status grossly normal Appearance: Negative for unkempt Attitude: No agitated Mood & Affect: Negative for depressed, anxious or tearful Thought Process: normal thought process Skin no wounds General Skin Exam: Negative for jaundice or pallor Lesions: no lesions Rashes: no rashes MDM MDM MDM Narrative Medical decision making narrative: 48-year-old female right lower lobe pneumonia on chest x-ray. Will be started on IV Rocephin and Zithromax. She is already had outpatient Augmentin which she may have failed. Blood cultures will be obtained. She will go through a cardiac and respiratory workup. Repeat exam patient is doing well at 9:13 PM. Will be admitted for observation overnight have already spoken to the hospitalist. History & Record Review Discussion w/independent historian: Patient Lab Data Attestation: I reviewed the patient's lab results. Lab results narrative: CBC shows a white count 8. H&H 10.7 and 33. Platelets 317. Chemistries show a gap 5. Normal BUN and creatinine of 6 and 0.5. Glucose 110. Troponin negative. BNP only 42. Labs: Laboratory Results - last 24 hr 05/11/24 18:53 WBC 8.2 RBC 3.79 L Hgb 10.7 L Hct 33.2 L MCV 87.6 MCH 28.2 MCHC 32.2 RDW Std Deviation 42.6 RDW Coeff of Fina 13.3 Plt Count 317 MPV 10.0 Immature Gran % (Auto) 0.200 Neut % (Auto) 62.2 Lymph % (Auto) 29.5 [place] % (Auto) 6.6 Eos % (Auto) 0.8 Baso % (Auto) 0.7 Absolute Neuts (auto) 5.1 Absolute Lymphs (auto) 2.43 Nucleated RBC % 0 Sodium 139 Potassium 3.9 Chloride 104 Carbon Dioxide 29.0 Anion Gap 5 BUN 6 L Creatinine 0.57 Est GFR (MDRD) Af Amer 146 Est GFR (MDRD) Non-Af 121 BUN/Creatinine Ratio 10.5 Glucose 110 H Calcium 9.3 Troponin I High Sens < 3 L B-Natriuretic Peptide 42.7 Radiography Chest X-Ray - ED: 2 View, Read by ED Physician, Mediastinum, Bony Structures, Chronic Changes, Right Infiltrate (Right lower lobe pneumonia. And left lower lobe pneumonia.) and Left Infiltrate Diagnostic Testing: Clinical Impression(s) from Imaging Studies Chest X-Ray 05/11/24 19:10 IMPRESSION: Bilateral lower lobe pneumonia Reading Location: [facility] Chest x-ray, 2 views, AP and lateral, interpreted both by myself and the radiologist shows by lobar lower lobe pneumonia. Rhythm Strip Rhythm Strip: Sinus Rhythm Rate: 70 Ectopy: None EKG Initial EKG: Attestation: I personally reviewed and interpreted this EKG as follows: Interpretation: Sinus Rhythm and No Acute Injury Pattern Comments: Normal sinus rhythm rate of 70 no acute signs of MO or ischemia. No dysrhythmia. Discharge Plan Triage Chief Complaint: Shortness of Breath ED Provider: Brian Stevenson Dx/Rx/DC Orders Clinical Impression: Bilateral pneumonia, Failure of outpatient treatment, Hx of spinal surgery Prescriptions: No Action NK Primary Care Provider: Care Physician,No Primary Referrals: Care Physician,No Primary [Primary Care Provider] - Print Language: Albanian Disposition Disposition: [facility]
[2024-05-11 19:45] LABS: Anion Gap 5 (5-15); BUN 6 mg/dL (7-18); BUN/Creat Ratio 10.5 RATIO (10-20); Calcium,Total 9.3 mg/dL (8.5-10.1); Chloride 104 mmol/L (98-107); Creatinine, Serum 0.57 mg/dL (0.55-1.02); EST Glomerular Filtration Rate 121 mL/min (>60); Est Glom Filt Rate - Afr Amer 146 mL/min (>60); Glucose 110 mg/dL (74-106); Potassium 3.9 mmol/L (3.5-5.1); Sodium Level 139 mmol/L (136-145); Troponin-I HS < 3 pg/mL (3.0-54.0)
[2024-05-11 19:47] LABS: BNP,B-Type NATRIURETIC PEPTIDE 42.7 pg/mL (0-100)
[2024-05-11] MEDS: Ipratropium/Albuterol Sulfate 3 ML AMPUL.NEB INHALATION (20:00)
[2024-05-11] MEDS: Ceftriaxone 1 GM/50 ML BAG IV (20:09)
[2024-05-11] MEDS: Ondansetron 4 MG/2 ML Vial IV (20:09)
[2024-05-11] MEDS: Morphine 4 MG/ML Syringe IV (20:09)
--- NOTE | 2024-05-11 21:10 | PCM.HP.STD ---
HPI - General General Date of Admission: 05/11/24 Date of Service: 05/11/24 Chief Complaint: Dyspnea, cough HPI Narrative The patient is a 48 y/o F w/ PMHx: Former tobacco use, HTN, Chronic cannabis usage with Hx Cycle vomiting syndrome, GERD w/ Stovall's esophagus, Anxiety and Depression, significant 02/10/2024 trauma resulting in transfer and prolonged stay at tertiary facility with significant surgical intervention of the neck with fractures who presents to the [facility] ED on 05/11/24 with history of persistent cough and dyspnea worse with exertion in addition to fever chills, body aches, decreased appetite with nausea without emesis initially starting 2 weeks previous to current presentation with diagnosis of pneumonia at that time placed on Augmentin for a week however over the last 3 days she has felt more unwell prompting eventual ED reevaluation. Workup in the ED included T97.5 Temporal, heart rate 92, BP 120/90, respiratory rate 18, 97% room air with most recent repeat vitals T98.3, heart 70, BP 123/87, respiratory rate 16, 99% on room air, CBC with WC 8.7, he 1 10.7, MCV 87.6, platelet 317 without marked shift, BMP unremarkable, glucose 110, troponin less than 3, BNP 42.7, chest x-ray with bilateral lower lobe infiltrates concerning for bilateral pneumonia. In the ED patient ministered Zofran 4 mg IV x 1, morphine 4 mg IV x 1, DuoNeb therapy, azithromycin 5 mg IV x 1, Rocephin 1 g IV x 1. [facility] Medical History (Updated 05/11/24 @ 21:[address] Gloria Parekh MD) Former tobacco use GERD (gastroesophageal reflux disease) HTN (hypertension) Cyclical vomiting Cannabis dependence Anxiety and depression Barretts esophagus Home Medications ?Medication ?Instructions ?Recorded ?Last Taken ?Type NK 02/10/24 Unknown History Allergy/AdvReac Type Severity Reaction Status Date / Time hydrocodone bitartrate (From Allergy Hives Verified 05/11/24 18:10 Vicodin) Family History (Updated 05/11/24 @ 21:[address] Gloria Parekh MD) Mother COPD (chronic obstructive pulmonary disease) ETOH abuse Father ETOH abuse Surgical History (Updated 05/11/24 @ 21:[address] Gloria Parekh MD) S/P appendectomy Hx of spinal surgery Social History (Updated 05/11/24 @ 21:[address] Gloria Parekh MD) household members: other details: Currently staying with her mother while she recovers from her trauma. housing: house Smoking Status: Former smoker how long ago did patient quit smoking: Quit 02/10/24, smoked ~ 1 ppd since teen until quit. alcohol intake: never substance use type: marijuana ROS ROS Narrative Admission Review of Systems: CONSTITUTIONAL: No weight loss, + fever, chills, weakness or fatigue. HEENT: + Cough, congestion, rhinorrhea. Eyes: No visual loss, blurred vision, double vision or yellow sclerae. Ears, Nose, Throat: No hearing loss, sneezing. SKIN: No rash or itching, lesions, wounds. CARDIOVASCULAR: No chest pain, chest pressure or chest discomfort, palpitations, edema, orthopnea, syncopal events. RESPIRATORY: + Dyspnea, cough, occasional productive sputum. No wheezing, hemoptysis. GASTROINTESTINAL: + Anorexia/lack of appetite, nausea. No vomiting or diarrhea, abdominal pain, melena, BRBPR. GENITOURINARY: No dysuria, frequency, urgency or retention. NEUROLOGICAL: No headache, dizziness, syncope, paralysis, ataxia, numbness or tingling in the extremities, focal weakness, change in bowel or bladder control, seizure. MUSCULOSKELETAL: + muscle, back pain, joint pain or stiffness. HEMATOLOGIC: + Lab evidence of anemia. No history of easy bleeding or bruising. LYMPHATICS: No enlarged nodes. No history of splenectomy. PSYCHIATRIC: + History of anxiety and depression. ENDOCRINOLOGIC: No reports of sweating, cold or heat intolerance. No polyuria or polydipsia. ALLERGIES: + History of hives. Vital Signs Vital Signs Vital Signs: 05/11/24 18:06 05/11/24 18:45 05/11/24 19:03 Temperature 97.5 F L Temperature Source Temporal Pulse Rate 92 Respiratory Rate 18 Respiratory Effort Normal Non-Labored Respiratory Depth Normal Respiratory Pattern Normal Blood Pressure 123/90 H Blood Pressure Mean 101 Pulse Ox 97 96 Oxygen Delivery Method Room Air Room Air Room Air 05/11/24 19:05 05/11/24 20:00 05/11/24 20:18 Temperature Temperature Source Pulse Rate 78 78 77 Respiratory Rate 16 18 Respiratory Effort Respiratory Depth Respiratory Pattern Normal Blood Pressure 99/69 102/89 H Blood Pressure Mean 79 93 Pulse Ox 99 98 Oxygen Delivery Method 05/11/24 21:00 Temperature Temperature Source Pulse Rate Respiratory Rate Respiratory Effort Respiratory Depth Respiratory Pattern Blood Pressure 151/95 H Blood Pressure Mean 113 Pulse Ox Oxygen Delivery Method Physical Exam Narrative Physical Examination: General: Awaken as initially was sleeping, alert when she woke up, oriented x 3 and cooperative, seated upright in the ED bed, significantly fatigued and ill-appearing. Skin: Normal color, normal turgor, no icterus, no cyanosis except for occasional stage ecchymoses, abrasions. HEENT: AT/NC, EOMI, PERRLA, mildly dry MM, unable to evaluate carotid bruit or JVD as patient does have neck brace in place following her recent trauma and surgical intervention. Lungs: CTA bilaterally, moderate effort, mild decrease BL bases, no rales, ronchi or wheezing. Heart: Regular rate and rhythm; no gallop, rub audible. Abdomen: Soft, NTTP, ND, distant normal BS, no HSM. Extremities: No cyanosis, clubbing, or edema. Neurological: Awaken as initially was sleeping, alert when she woke up, oriented x 3 and cooperative, seated upright in the ED bed, significantly fatigued and ill-appearing, cognitive function appears intact; pupils equally reactive to light and accommodation, cranial nerves grossly normal, moving all 4 extremities, no focal deficits, strength moderately globally decreased secondary to acute presentation complicated by recent history of trauma and requirement of continued neck brace in place. Psychiatric: Affect appears flat, fatigued, ill-appearing, no acute evidence of depressive or anxiety feelings but does have underlying history. Results Lab / Micro Data 05/11/24 18:53 05/11/24 18:53 Labs: Laboratory Results - last 24 hr 05/11/24 18:53: WBC 8.2, RBC 3.79 L, Hgb 10.7 L, Hct 33.2 L, MCV 87.6, MCH 28.2, MCHC 32.2, RDW Std Deviation 42.6, RDW Coeff of Fina 13.3, Plt Count 317, MPV 10.0, Immature Gran % (Auto) 0.200, Neut % (Auto) 62.2, Lymph % (Auto) 29.5, [place] % (Auto) 6.6, Eos % (Auto) 0.8, Baso % (Auto) 0.7, Absolute Neuts (auto) 5.1, Absolute Lymphs (auto) 2.43, Nucleated RBC % 0, Sodium 139, Potassium 3.9, Chloride 104, Carbon Dioxide 29.0, Anion Gap 5, BUN 6 L, Creatinine 0.57, Est GFR (MDRD) Af Amer 146, Est GFR (MDRD) Non-Af 121, BUN/Creatinine Ratio 10.5, Glucose 110 H, Calcium 9.3, Troponin I High Sens < 3 L, B-Natriuretic Peptide 42.7 Rhythm Strip Rhythm Strip: Sinus Rhythm Rate: 70 Ectopy: None Imaging Radiology Impression Chest X-Ray 05/11/24 19:10 IMPRESSION: Bilateral lower lobe pneumonia Reading Location: [facility] Assessment & Plan Assessment/Plan (1) Bilateral pneumonia: (2) Failure of outpatient treatment: PLAN: Plan The patient is a 48 y/o F w/ PMHx: Former tobacco use, HTN, Chronic cannabis usage with Hx Cycle vomiting syndrome, GERD w/ Stovall's esophagus, Anxiety and Depression, significant 02/10/2024 trauma resulting in transfer and prolonged stay at tertiary facility with significant surgical intervention of the neck with fractures who presents to the [facility] ED on 05/11/24 with history of persistent cough and dyspnea worse with exertion in addition to fever chills, body aches, decreased appetite with nausea without emesis initially starting 2 weeks previous to current presentation with diagnosis of pneumonia at that time placed on Augmentin for a week however over the last 3 days she has felt more unwell prompting eventual ED re-evaluation. #1. Bilateral LL Pneumonia, failed outpatient treatment: Will admit to [facility] given stable appearance, given patient is maintaining appropriate vital signs with no evidence of any desaturation suspect likely will need less than 48 hours of inpatient evaluation/treatment of note, maintain on ATC duonebs, PRN albuterol, maintained on IV Rocephin and Azithromycin, HOB, IS parameters w/ pending sputum cultures, full respiratory viral panel, procalcitonin and urine antigens. #2. Normocytic anemia, appears new and chronicity, certainly may have occurred following her trauma with blood loss: Admission hemoglobin 10.7, MCV 87.6, previous lab values in the system noted to be normal, we will continue to trend CBC. #3. Recent history of significant trauma with neck fractures: Status post trauma 01/2024 transfer to tertiary facility, underwent significant intervention in the spine, continues to wear neck brace, encourage continued follow-up with her surgeon as previously arranged, will continue PT/OT evaluations which are ongoing outpatient. #4. Hypertension: Noted history, not on regimen, BP in the ED within normal range, continue to closely monitor, as needed IV hydralazine. #5. Anxiety depression: Per current list not on any regimen, encourage continued outpatient follow-up and evaluation with PCP/counseling as needed. #6. Chronic cannabis usage with history of previous cyclic emesis syndrome: Continue to encourage cessation especially given history of cyclic emesis syndrome associated as well as underlying anxiety/depressive history as this can be exacerbated. #7. Former tobacco use: Encourage continued tobacco cessation. #8. GERD with history of Stovall's esophagus: We will have Mylanta as needed. #9. DVT prophylaxis: Lovenox. Charges/Coding Visit Charges Inpatient E&M: 21870 Init Hosp L3
[2024-05-11] MEDS: Azithromycin 500 MG in 0.9% Normal Saline (250mL Bag) 250 ML 255 MG IV (21:44)
[2024-05-11 23:12] LABS: Procalcitonin 0.06 ng/mL (0.00-0.09)
[2024-05-11] MEDS: 0.9% Normal Saline (1000mL) 1,000 ML 100 ML IV (23:37)
[2024-05-12] VITALS (8 sets, daily range): BP systolic 129–155; BP diastolic 76–90; PULSE 60–88; RESP 14–24; TEMP 36.4–37.1; O2SAT 96–99; BMI 21.4
[2024-05-12] MEDS: Acetaminophen 325 MG Tablet 650 MG PO ×3 (06:52→19:48)
[2024-05-12 07:03] LABS: Absolute Lymphocyte Count 2.11 X10^3/uL (0.83-4.51); Absolute Neutrophil Count 5.7 X10^3/uL (2.0-7.7); Basophil# 0.05 X10^3/uL; Basophil% 0.6 % (0-1); Eosinophil# 0.09 X10^3/uL; Eosinophils% 1.1 % (0-5); Hematocrit 31.8 % (37-47); Hemoglobin 10.2 g/dL (12.0-15.0); Lymphocyte # 2.11 X10^3/ul (0.83-4.51); Lymphocyte % 24.9 % (19-41); Mean Corp Hgb Conc 32.1 g/dL (32-36); Mean Corpuscular Hgb 28.1 pg (27.0-32.0); Mean Corpuscular Volume 87.6 fL (81-99); Monocyte# 0.47 X10^3/uL; Monocyte% 5.6 % (0-10); NRBC Flagged by Analyzer 0 % (0-5); Neutrophil # 5.71 X10^3/uL (2.7-7.7); Neutrophil % 67.4 % (47-70); Platelet Count 273 K/mm3 (150-450); RBC Distribution Width CV 13.1 % (11.6-14.6); Red Blood Count 3.63 M/mm3 (4.2-5.4); White Blood Count 8.5 K/mm3 (4.4-11.0)
[2024-05-12] MEDS: Ipratropium/Albuterol Sulfate 3 ML AMPUL.NEB INHALATION ×4 (07:18→19:35)
[2024-05-12 07:25] LABS: ALB/GLOB Ratio 0.5 RATIO (0.9-2.4); AST(SGOT) 8 U/L (15-37); Alanine Aminotransfer ALT/SGPT 14 U/L (13-56); Alkaline Phosphatase 67 U/L (45-117); Anion Gap 2 (5-15); BUN 4 mg/dL (7-18); BUN/Creat Ratio 7.4 RATIO (10-20); Calcium,Total 8.8 mg/dL (8.5-10.1); Chloride 108 mmol/L (98-107); Creatinine, Serum 0.54 mg/dL (0.55-1.02); EST Glomerular Filtration Rate 128 mL/min (>60); Est Glom Filt Rate - Afr Amer 155 mL/min (>60); Estimated Creatinine Clearance 117.14 ml/min; Globulin 4.1 g/dL (2.2-4.2); Glucose 136 mg/dL (74-106); Potassium 3.9 mmol/L (3.5-5.1); Protein, Total 6.1 g/dL (6.4-8.2); Sodium Level 139 mmol/L (136-145)
[2024-05-12] MEDS: Enoxaparin 40 MG/0.4 ML Syringe SC (09:34)
[2024-05-12] MEDS: Lisinopril 5 MG Tablet PO (09:35)
[2024-05-12] MEDS: Methocarbamol 500 MG Tablet PO ×4 (09:35→21:55)
[2024-05-12] MEDS: Sertraline 100 MG Tablet PO (09:35)
--- NOTE | 2024-05-12 10:14 | PN.HOSP_ITS ---
Reason for Visit Reason for Visit: Diagnoses Pneumonia, unspecified organism (05/11/24) Other specified health status (05/11/24) Objective Data Objective Data Vital Signs: Vital Signs Temp Pulse Resp BP Pulse Ox O2 Del Method 98.3 F 66 16 130/86 H 96 Room Air 05/12/24 09:15 05/12/24 09:15 05/12/24 09:15 05/12/24 09:15 05/12/24 09:15 05/12/24 09:24 Oxygen Delivery Method Room Air Weight: 128 lb 4.944 oz Body Mass Index (BMI) 21.4 Intake & Output: Intake and Output for Last 24 Hours 05/10/24 05/11/24 05/12/24 23:59 23:59 23:59 Intake Total 305 / 305 450 / 450 Balance 305 / 305 450 / 450 Lab / Micro Data 05/12/24 06:57 05/12/24 06:57 Labs: Laboratory Results - last 24 hr 05/11/24 18:53: WBC 8.2, RBC 3.79 L, Hgb 10.7 L, Hct 33.2 L, MCV 87.6, MCH 28.2, MCHC 32.2, RDW Std Deviation 42.6, RDW Coeff of Fina 13.3, Plt Count 317, MPV 10.0, Immature Gran % (Auto) 0.200, Neut % (Auto) 62.2, Lymph % (Auto) 29.5, [place] % (Auto) 6.6, Eos % (Auto) 0.8, Baso % (Auto) 0.7, Absolute Neuts (auto) 5.1, Absolute Lymphs (auto) 2.43, Nucleated RBC % 0, Sodium 139, Potassium 3.9, Chloride 104, Carbon Dioxide 29.0, Anion Gap 5, BUN 6 L, Creatinine 0.57, Est GFR (MDRD) Af Amer 146, Est GFR (MDRD) Non-Af 121, BUN/Creatinine Ratio 10.5, G lucose 110 H, Calcium 9.3, Troponin I High Sens < 3 L, B-Natriuretic Peptide 42.7 05/11/24 22:27: Procalcitonin 0.06 05/12/24 06:57: WBC 8.5, RBC 3.63 L, Hgb 10.2 L, Hct 31.8 L, MCV 87.6, MCH 28.1, MCHC 32.1, RDW Std Deviation 42.0, RDW Coeff of Fina 13.1, Plt Count 273, MPV 10.0, Immature Gran % (Auto) 0.400, Neut % (Auto) 67.4, Lymph % (Auto) 24.9, [place] % (Auto) 5.6, Eos % (Auto) 1.1, Baso % (Auto) 0.6, Absolute Neuts (auto) 5.7, Absolute Lymphs (auto) 2.11, Nucleated RBC % 0, Sodium 139, Potassium 3.9, Chloride 108 H, Carbon Dioxide 29.0, Anion Gap 2 L, BUN 4 L, Creatinine 0.54 L, Estim Creat Clear Calc 117.14, Est GFR (MDRD) Af Amer 155, Est GFR (MDRD) Non-Af 128, BUN/Creatinine Ratio 7.4 L, Glucose 136 H, Calcium 8.8, Total Bilirubin 0.10 L, AST 8 L, ALT 14, Alkaline Phosphatase 67, Total Protein 6.1 L, Albumin 2.0 L, Globulin 4.1, Albumin/Globulin Ratio 0.5 L Micro: Microbiology 05/11/24 23:55 Mucosa - Nasopharyngeal Respiratory Panel (PCR) - Final 05/11/24 22:10 Urine, Clean Catch Legionella Antigen - Final 05/11/24 22:10 Urine, Clean Catch Streptococcus pneumoniae Antigen (M - Final Radiography Diagnostic Testing: Radiology Impression Chest X-Ray 05/11/24 19:10 IMPRESSION: Bilateral lower lobe pneumonia [facility] R[facility] Strip Rhythm Strip: Sinus Rhythm Rate: 70 Ectopy: None Physical Exam Narrative Seen and examined. Shortness of breath is better. Denies fever. Cough with clear to yellowish sputum. She has history of smoking since teenage a pack per day quit 3 months ago when she had neck surgery Physical exam General: Alert, Oriented x3, Cooperative HEENT: Atraumatic, PERRLA, EOMI, Normocephalic Oral: No Gingival or Mucosal Lesions/ Ulcerations Neck: Wearing a hard collar. recent cervical spine surgery. Chest wall/Lungs: Air entry diminished in bilateral lung bases. Bilateral coarse crepitations and wheezing. Cardiovascular: Regular rate, Regular Rhythm, Normal S1, Normal S2, No M/G/R Abdomen: Bowel Sounds Present, Soft, Non Tender, Non-Distended : No dysuria. No renal angle tenderness. No suprapubic tenderness. Extremities: No edema, Capillary Refill Less than 3 Seconds Skin: No rashes, No breakdown Musculoskeletal: No Tenderness to Palpation of Joints or Extremities Neurological: Cranial nerves II-XII grossly intact, DTR 2+/4. No acute focal neurological deficit. Psych/Mental Status: Normal Affect, Appropriate. Assessment & Plan Assessment/Plan (1) Bilateral pneumonia: (2) Failure of outpatient treatment: PLAN: Plan The patient is a 48 y/o F came to ED with increased shortness of breath, persistent cough, dyspnea worse with exertion in addition to fever chills body aches, decreased appetite and nausea without vomiting for last 2 weeks. She was diagnosed with pneumonia and was started on Augmentin about a week ago #1. Bilateral LL Pneumonia, failed outpatient treatment: Patient is admitted MedSurg floor. Failed outpatient treatment. On IV azithromycin and Rocephin. DuoNeb, Mucinex DM, incentive spirometry and Pep. Respiratory panel, urinary antigens are negative #2. Normocytic anemia, chronic: H&H 10.7/33.2%. On baseline. No significant change #3. Recent history of significant trauma with neck fractures: Status post trauma 01/2024 transfer to tertiary facility, underwent significant intervention in the spine, continues to wear neck brace, encourage continued follow-up with her surgeon as previously arranged, will continue PT/OT evaluations which are ongoing outpatient. #4. Hypertension: Not on antihypertensive medication. Monitor BP #5. Anxiety depression: Not on medication. Follow with PCP #6. Chronic cannabis usage with history of previous cyclic emesis syndrome: Patient is send she quit smoking cigarettes, cannabis use about 3 months ago. #7. Former tobacco use: Encourage continued tobacco cessation. #8. GERD with history of Stovall's esophagus: We will have Mylanta as needed. #9. DVT prophylaxis: Lovenox. Charges/Coding Visit Charges Inpatient E&M: 27324 Subs Hosp L2
[2024-05-12] MEDS: guaiFENesin/D-Methorphan TAB.SR.12H 2 TABLET PO ×2 (13:00→21:55)
[2024-05-12] MEDS: Ketorolac 15 MG/ML Vial IV ×2 (13:12→19:48)
--- NOTE | 2024-05-12 13:50 | CASEMGMT ---
SOFIA CM into pt room, pt states she is in pain and nurse is aware. Pt states she lives at home with her and daughter and they are very supportive. Denies any questions or needs at this time.
--- NOTE | 2024-05-12 14:01 | CASEMGMT ---
Social Work SW met w/pt as pt is listed as self pay. Pt reports to SW is in a lot of pain, pt visibly crying. SW left resources with pt and let her know they are self pay resources, as pt not up for reviewing at this time. SW provided the following resources to pt: [facility] assist, prescription assist, [facility] [employer], [facility] Hernandez, [facility], and [facility] resources. SW texted physician to let him know pt is in pain. FLORIAN Rice
[2024-05-12] MEDS: oxyCODONE 5 MG Tablet PO ×2 (16:29→20:53)
[2024-05-12] MEDS: 0.9% Saline Lock 10 ML Syringe IV (19:50)
[2024-05-12] MEDS: Ceftriaxone 1 GM/50 ML BAG IV (21:56)
[2024-05-12] MEDS: Azithromycin 500 MG in 0.9% Normal Saline (250mL Bag) 250 ML 255 MG IV (21:56)
[2024-05-13] VITALS (9 sets, daily range): BP systolic 100–157; BP diastolic 62–95; PULSE 67–81; RESP 16–18; TEMP 36.6–37.2; O2SAT 95–97; BMI 21.4
[2024-05-13] MEDS: oxyCODONE 5 MG Tablet PO ×3 (05:23→21:18)
[2024-05-13] MEDS: Acetaminophen 325 MG Tablet 650 MG PO ×2 (05:23→15:08)
[2024-05-13] MEDS: Ipratropium/Albuterol Sulfate 3 ML AMPUL.NEB INHALATION (07:45)
[2024-05-13] MEDS: Ketorolac 15 MG/ML Vial IV (08:01)
[2024-05-13] MEDS: Enoxaparin 40 MG/0.4 ML Syringe SC (08:02)
[2024-05-13] MEDS: guaiFENesin/D-Methorphan TAB.SR.12H 2 TABLET PO ×2 (08:03→22:58)
[2024-05-13] MEDS: Lisinopril 5 MG Tablet PO (08:03)
[2024-05-13] MEDS: Methocarbamol 500 MG Tablet PO ×4 (08:04→22:58)
[2024-05-13] MEDS: Sertraline 100 MG Tablet PO (08:04)
--- NOTE | 2024-05-13 14:43 | PCM.PN.HOSP ---
Reason for Visit Reason for Visit: Diagnoses Pneumonia, unspecified organism (05/11/24) Other specified health status (05/11/24) Objective Data Objective Data Vital Signs: Vital Signs Temp Pulse Resp BP Pulse Ox O2 Del Method 98.9 F 81 16 142/80 H 96 Room Air 05/13/24 05:19 05/13/24 07:40 05/13/24 11:27 05/13/24 05:19 05/13/24 09:30 05/13/24 11:27 Oxygen Delivery Method Room Air Weight: 128 lb 8.472 oz Body Mass Index (BMI) 21.4 Intake & Output: Intake and Output for Last 24 Hours 05/11/24 05/12/24 05/13/24 23:59 23:59 23:59 Intake Total 305 / 305 2230 / 2230 Balance 305 / 305 2230 / 2230 Lab / Micro Data 05/12/24 06:57 05/12/24 06:57 Micro: Microbiology 05/12/24 00:40 Sputum, Expectorated/Coughed Gram Stain - Final 05/12/24 00:40 Sputum, Expectorated/Coughed Respiratory Culture - Preliminary Appears to be normal respiratory [place]. Further studies to follow. 05/11/24 23:55 Mucosa - Nasopharyngeal Respiratory Panel (PCR) - Final 05/11/24 22:10 Urine, Clean Catch Legionella Antigen - Final 05/11/24 22:10 Urine, Clean Catch Streptococcus pneumoniae Antigen (M - Final Rhythm Strip Rhythm Strip: Sinus Rhythm Rate: 70 Ectopy: None Physical Exam Narrative Seen and examined. Patient complain of severe neck pain yesterday but seems better today. Incision has well-healed. Cough and shortness of breath is better today. She has history of smoking since teenage a pack per day quit 3 months ago when she had neck surgery Physical exam General: Alert, Oriented x3, Cooperative HEENT: Atraumatic, PERRLA, EOMI, Normocephalic Oral: No Gingival or Mucosal Lesions/ Ulcerations Neck: Wearing a hard collar. recent cervical spine surgery. Chest wall/Lungs: Air entry diminished in bilateral lung bases. Mild expiratory wheezing and crepitations. Tachypnea better. Cardiovascular: Regular rate, Regular Rhythm, Normal S1, Normal S2, No M/G/R Abdomen: Bowel Sounds Present, Soft, Non Tender, Non-Distended : No dysuria. No renal angle tenderness. No suprapubic tenderness. Extremities: No edema, Capillary Refill Less than 3 Seconds Skin: No rashes, No breakdown Musculoskeletal: No Tenderness to Palpation of Joints or Extremities Neurological: Cranial nerves II-XII grossly intact, DTR 2+/4. No acute focal neurological deficit. Psych/Mental Status: Normal Affect, Appropriate. Assessment & Plan Assessment/Plan (1) Bilateral pneumonia: (2) Failure of outpatient treatment: PLAN: Plan The patient is a 48 y/o F came to ED with increased shortness of breath, persistent cough, dyspnea worse with exertion in addition to fever chills body aches, decreased appetite and nausea without vomiting for last 2 weeks. She was diagnosed with pneumonia and was started on Augmentin about a week ago #1. Bilateral LL Pneumonia, failed outpatient treatment: Patient is admitted MedSurg floor. Failed outpatient treatment. On IV azithromycin and Rocephin. DuoNeb, Mucinex DM, incentive spirometry and Pep. Respiratory panel, urinary antigens are negative 05/13: Patient on IV antibiotic. Cough and shortness of breath is better. Gram stain of sputum culture shows normal respiratory [place] #2. Normocytic anemia, chronic: H&H 10.7/33.2%. On baseline. No significant change #3. Recent history of significant trauma with neck fractures: Status post trauma 01/2024 transfer to tertiary facility, underwent significant intervention in the spine, continues to wear neck brace, encourage continued follow-up with her surgeon as previously arranged, will continue PT/OT evaluations which are ongoing outpatient. 05/13: Posterior surgical incision at C-spine well-healed. She is tender that she is told not to laterally rotate her neck or flex or extend. PT and OT on board. #4. Hypertension: Not on antihypertensive medication. Monitor BP #5. Anxiety depression: Not on medication. Follow with PCP #6. Chronic cannabis usage with history of previous cyclic emesis syndrome: Patient is send she quit smoking cigarettes, cannabis use about 3 months ago. #7. Former tobacco use: Encourage continued tobacco cessation. #8. GERD with history of Stovall's esophagus: We will have Mylanta as needed. #9. DVT prophylaxis: Lovenox. Charges/Coding Visit Charges Inpatient E&M: 24847 Subs Hosp L2
[2024-05-13] MEDS: Permethrin 1% 1 APPLIC Bottle TOPICAL (15:01)
--- NOTE | 2024-05-13 23:54 | PCM.HOSP.N ---
Hospitalist Note Patient with lost access. Declining further attempts. Will transition to oral azithromycin and cefdinir.
[2024-05-14] MEDS: Cefdinir 300 MG Capsule PO ×2 (00:52→10:15)
[2024-05-14] MEDS: Azithromycin 250 MG Tablet 500 MG PO (00:53)
[2024-05-14 01:04] VITALS: BP 132/86; PULSE 60; RESP 16; TEMP 36.4; O2SAT 96
--- NOTE | 2024-05-14 04:36 | ED.RN ---
Late entry: multiple nurses attempted to start a new IV on pt and were unable to do so. Pt did not want any more attempts to be made. aware. switched omnicef and zithromax to PO
[2024-05-14 06:42] VITALS: BP 156/96; PULSE 60; RESP 17; TEMP 36.6; O2SAT 94
[2024-05-14 06:43] VITALS: BMI 21.3
[2024-05-14] MEDS: Enoxaparin 40 MG/0.4 ML Syringe SC (10:14)
[2024-05-14] MEDS: Methocarbamol 500 MG Tablet PO (10:15)
[2024-05-14] MEDS: guaiFENesin/D-Methorphan TAB.SR.12H 2 TABLET PO (10:15)
[2024-05-14] MEDS: Sertraline 100 MG Tablet PO (10:16)
[2024-05-14] MEDS: Lisinopril 5 MG Tablet PO (10:16)
--- NOTE | 2024-05-14 11:06 | DCINST_ITS ---
Discharge Instructions Diet Discharge Diet: 2000 mg Sodium Diet DC O2, CPAP, BIPAP needs Home O2 Discharge instructions: No Dressing / Incision Discharge Activity: Return to Normal Activity Weight Bearing Status: Weight bearing as tolerated Dressing / Incision Call your doctor if you observe: Fever of 101 or Higher, Coldness, Increased Pain, Numbness or Tingling, Change in Color, Inability to urinate, Inability to have a bowel movement, Shortness of breath, Dizziness, Fainting spells, Swelling in the ankles, Chest pain, Prolonged hiccupping, Increased palpitations (irregular heartbeat) and Calf discomfort Follow Up Care When: IN 2 WEEKS Test Results: Test results from this visit will be discussed in further detail at your follow- up appointment, if applicable. Discharge Plan Admission Admit Date/Time: 05/13/24 15:21 Primary Reason for Your Visit: Pneumonia Attending Provider: Hakeem Quiroz Primary Care Provider: Kevin Pink,Teresita Primary Consulting Providers: Gloria Parekh Discharge Orders/Prescriptions Prescriptions: New cefdinir 300 mg Capsule 300 mg PO Q12 5 Days Qty: 10 0RF dextromethorphan-guaifenesin 60-1,200 mg tablet extended release 12 hr 1 tab PO BID 7 Days Qty: 14 0RF Continued benzonatate 100 mg capsule 100 mg PO BID PRN (Reason: cough) methocarbamol 500 mg tablet 500 mg PO 4X/DAY albuterol sulfate 90 mcg/actuation aerosol powdr breath activated 2 inh inhalation Q6H PRN (Reason: shortness of breath) lisinopril 5 mg tablet 5 mg PO DAILY sertraline 100 mg tablet 100 mg PO Q24H Discontinued amoxicillin-pot clavulanate 875-125 mg tablet 1 tab PO Q12H Referrals / Follow Up: Care Physician,No Primary [Primary Care Provider] - Disposition Disposition (needs filled in before D/C Order can be placed): Home, Self Care
[2024-05-14 11:10] VITALS: O2SAT 96; O2SAT 98
--- NOTE | 2024-05-14 11:10 | DS.PCM_ITS ---
Providers Date of Admission: 05/13/24 Date of Discharge: 05/14/24 Primary Care Physician: No Primary Care Phys Reason For Visit: PNA, FAILED OUTPATIENT Diagnosis Discharge Diagnosis (1) Bilateral pneumonia: Status: Acute Code(s): J18.9 - Pneumonia, unspecified organism (2) Failure of outpatient treatment: Status: Acute Code(s): Z78.9 - Other specified health status Plan The patient is a 48 y/o F came to ED with increased shortness of breath, persistent cough, dyspnea worse with exertion in addition to fever chills body aches, decreased appetite and nausea without vomiting for last 2 weeks. She was diagnosed with pneumonia and was started on Augmentin about a week ago #1. Bilateral LL Pneumonia, failed outpatient treatment: Patient is admitted MedSurg floor. Failed outpatient treatment. On IV azithromycin and Rocephin. DuoNeb, Mucinex DM, incentive spirometry and Pep. Respiratory panel, urinary antigens are negative 05/13: Patient on IV antibiotic. Cough and shortness of breath is better. Gram stain of sputum culture shows normal respiratory [place] 05/14: Patient respiratory symptoms including shortness of breath and cough much improved. Lungs clear. Discharged on 5 days of cefdinir. She had 3 days of inpatient antibiotics. #2. Normocytic anemia, chronic: H&H 10.7/33.2%. On baseline. No significant change #3. Recent history of significant trauma with neck fractures: Status post trauma 01/2024 transfer to tertiary facility, underwent significant intervention in the spine, continues to wear neck brace, encourage continued follow-up with her surgeon as previously arranged, will continue PT/OT evaluations which are ongoing outpatient. 05/13: Posterior surgical incision at C-spine well-healed. She is tender that she is told not to laterally rotate her neck or flex or extend. PT and OT on board. 05/14: Advised follow-up with the [facility] spine surgeon. She has pain medication and muscle relaxant at home #4. Hypertension: Not on antihypertensive medication. Monitor BP #5. Anxiety depression: Not on medication. Follow with PCP #6. Chronic cannabis usage with history of previous cyclic emesis syndrome: Patient is send she quit smoking cigarettes, cannabis use about 3 months ago. #7. Former tobacco use: Encourage continued tobacco cessation. #8. GERD with history of Stovall's esophagus: We will have Mylanta as needed. #9. DVT prophylaxis: Lovenox. Discharge medication reconciliation done. Discharge follow-up instructions completed. Discharge process discussed with the patient and all questions were answered to patient's satisfaction. Follow with PCP in 1 to 2 weeks Total time spent, exact 35 minutes on discharge meds reconciliation, examination, coordination of care with nurses and ancillary staff, review of imaging and blood test and discussion with the patient on follow-up instructions. Medications at Discharge Home Medications albuterol sulfate 90 mcg/actuation breath activated powder inhaler 2 inh inhalation Q6H PRN shortness of breath 05/11/24 benzonatate 100 mg capsule 100 mg PO BID PRN cough 05/11/24 lisinopril 5 mg tablet 5 mg PO DAILY bp 05/11/24 methocarbamol 500 mg tablet 500 mg PO 4X/DAY pain/ cramps 05/11/24 sertraline 100 mg tablet 100 mg PO Q24H depression 05/11/24 cefdinir 300 mg capsule 300 mg PO Q12 5 days #10 caps 05/14/24 dextromethorphan-guaifenesin ER 60 mg-1,200 mg tab,extend release,12hr 1 tab PO BID 7 days #14 tabs 05/14/24 Physical Exam Narrative Seen and examined. Shortness of breath and cough much better. No fever. Neck pain is also improved. She has history of smoking since teenage a pack per day quit 3 months ago when she had neck surgery Physical exam General: Alert, Oriented x3, Cooperative HEENT: Atraumatic, PERRLA, EOMI, Normocephalic Oral: No Gingival or Mucosal Lesions/ Ulcerations Neck: Wearing a hard collar. recent cervical spine surgery. Chest wall/Lungs: Air entry diminished in bilateral lung bases. Dyspnea and tachypnea resolved. Wheezing much improved. Cardiovascular: Regular rate, Regular Rhythm, Normal S1, Normal S2, No M/G/R Abdomen: Bowel Sounds Present, Soft, Non Tender, Non-Distended : No dysuria. No renal angle tenderness. No suprapubic tenderness. Extremities: No edema, Capillary Refill Less than 3 Seconds Skin: No rashes, No breakdown Musculoskeletal: No Tenderness to Palpation of Joints or Extremities Neurological: Cranial nerves II-XII grossly intact, DTR 2+/4. No acute focal neurological deficit. Psych/Mental Status: Normal Affect, Appropriate. Weight / BMI Weight Weight: 128 lb 3.2 oz Body Mass Index (BMI) 21.3 ABG / Lab / Microbiology Data 05/12/24 06:57 05/12/24 06:57 Microbiology: Microbiology 05/11/24 19:51 Blood Culture (Wb) - Right Hand Blood Culture - Preliminary No growth in 48 hours. 05/11/24 19:51 Blood Culture (Wb) - Left Wrist Blood Culture - Preliminary No growth in 48 hours. 05/12/24 00:40 Sputum, Expectorated/Coughed Gram Stain - Final 05/12/24 00:40 Sputum, Expectorated/Coughed Respiratory Culture - Final 05/11/24 23:55 Mucosa - Nasopharyngeal Respiratory Panel (PCR) - Final 05/11/24 22:10 Urine, Clean Catch Legionella Antigen - Final 05/11/24 22:10 Urine, Clean Catch Streptococcus pneumoniae Antigen (M - Final D/C Instructions Discharge Diet: 2000 mg Sodium Diet Weight Bearing Status: Weight bearing as tolerated Call your doctor if you observe: Fever of 101 or Higher, Coldness, Increased Pain, Numbness or Tingling, Change in Color, Inability to urinate, Inability to have a bowel movement, Shortness of breath, Dizziness, Fainting spells, Swelling in the ankles, Chest pain, Prolonged hiccupping, Increased palpitations (irregular heartbeat) and Calf discomfort DC O2, CPAP, BIPAP Needs Home O2 Discharge instructions: No When: IN 2 WEEKS Meaningful Use Info Meaningful Use Meaningful Use Diagnoses (Choose all that apply): None applicable Ischemic Stroke Statin Dosing Therapy Reference: STATIN DOSE THERAPY REFERENCE: * Patients > 75 years receive moderate or high dose statin therapy. * Patients 75 years or YOUNGER should receive HIGH intensity statin dose unless contraindicated. You will be required to document reason for non-treatment if statin daily dose does not meet guidelines. HIGH DOSE STATIN THERAPY DAILY Atorvastatin > than or = to 40 mg Rosuvastatin > than or = to 20 mg Amlodipine + Atorvastatin > than or = to 2.5/40 mg Ezetimibe + Simvastatin 10/80 mg Simvastatin 80mg Discharge Plan Admission Admit Date/Time: 05/13/24 15:21 Primary Reason for Your Visit: Pneumonia Attending Provider: Hakeem Quiroz Primary Care Provider: Care Physician,No Primary Consulting Providers: Gloria Parekh Discharge Orders/Prescriptions Prescriptions: New cefdinir 300 mg Capsule 300 mg PO Q12 5 Days Qty: 10 0RF dextromethorphan-guaifenesin 60-1,200 mg tablet extended release 12 hr 1 tab PO BID 7 Days Qty: 14 0RF Continued benzonatate 100 mg capsule 100 mg PO BID PRN (Reason: cough) methocarbamol 500 mg tablet 500 mg PO 4X/DAY albuterol sulfate 90 mcg/actuation aerosol powdr breath activated 2 inh inhalation Q6H PRN (Reason: shortness of breath) lisinopril 5 mg tablet 5 mg PO DAILY sertraline 100 mg tablet 100 mg PO Q24H Discontinued amoxicillin-pot clavulanate 875-125 mg tablet 1 tab PO Q12H Referrals / Follow Up: Care Physician,No Primary [Primary Care Provider] - Disposition Disposition (needs filled in before D/C Order can be placed): Home, Self Care Charges/Coding Visit Charges Inpatient E&M: 07339 Disch Hosp >30min
[2024-05-14 11:33] VITALS: BP 150/55; PULSE 61; RESP 18; TEMP 36.8; O2SAT 98
== END 2024-05-14 12:00 | disposition home or self-care (01) | DRG 195 ==
LOC: ED 21:15 → MS3 21:30
PROVIDERS: Admitting Provider Family Medicine; Emergency Provider Emergency Medicine; Visit Provider Internal Medicine
DX: J18.9 Pneumonia, unspecified organism (principal); D64.9 Anemia, unspecified; I10 Essential (primary) hypertension; Z87.891 Personal history of nicotine dependence
CPT/HCPCS: 36415; 71046; 80048; 80053; 83880; 84145; 84484; 85025; 87040; 87070; 87205; 87449; 87633; 93005; 94640; 94668; 99285; 99406; A4216; J2405

== ENCOUNTER 2024-05-19 17:10 | Emergency (ER) | payer SELFPAY ==
[2024-05-19] VITALS (7 sets, daily range): BP systolic 133–159; BP diastolic 78–101; PULSE 71–117; RESP 14–18; TEMP 36.7–36.8; O2SAT 94–98; BMI 21.7
--- NOTE | 2024-05-19 17:29 | ED.RN ---
swelling to rt foot/ankle
--- NOTE | 2024-05-19 17:36 | EDS_ITS ---
HPI History of Present Illness Chief Complaint: Numb/Ting Informant: patient Onset/Context/Timing Onset: Days (3) Context: Gradual Onset Timing: Continuous Quality: Sharp Location: Neck Worsened by: Nothing Relieved by: Heat Associated Symptoms Associated Symptoms: Paresthesias, right lower extremity edema Narrative Narrative: Patient presents with neck pain, right leg swelling, and paresthesias that have been getting worse over the past 3 days. Patient describes her pain as sharp. Patient states it is over the posterior neck. Patient states she had recent neck surgery 3 months ago. Patient states she feels some knots in the back of her neck that are painful. Patient denies any fevers or chills. Patient states she recently got over pneumonia. Patient states her cough is improved. Patient admits to some nausea but denies any vomiting. 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 Gloria Parekh MD) Mother COPD (chronic obstructive pulmonary disease) ETOH abuse Father ETOH abuse Surgical History S/P appendectomy Hx of spinal surgery Social History household members: other details: Currently staying with her mother while she recovers from her trauma. housing: house Smoking Status: Former smoker how long ago did patient quit smoking: Quit 02/10/24, smoked ~ 1 ppd since teen until quit. alcohol intake: never substance use type: marijuana ROS ROS ED Constitutional Constitutional ED: Denies chills or fever(s) Eyes Eyes: Denies blurry vision or change in vision ENT ENT ED: Reports rhinorrhea; Denies sore throat Cardiovascular Cardiovascular: Denies chest pain or palpitations Respiratory/Chest Respiratory/Chest: Reports cough; Denies dyspnea Gastrointestinal Gastrointestinal: Reports nausea; Denies vomiting Genitourinary Genitourinary ED: Denies dysuria or hematuria Musculoskeletal Musculoskeletal: Denies back pain or neck pain Integumentary Denies abscess or rash Neurologic Neurologic: Reports paresthesias; Denies headache(s) Allergic/Immunologic Allergic/Immunologic ED: Denies mouth swelling or urticaria EXAM Physical Exam Const Vital Signs: 05/19/24 17:11 05/19/24 18:10 05/19/24 18:56 Temperature 98.1 F Temperature Source Temporal Pulse Rate 117 H 71 79 Respiratory Rate 18 14 14 Blood Pressure 136/101 H 159/96 H 135/90 H Blood Pressure Mean 112 117 105 Pulse Ox 98 97 94 Oxygen Delivery Method Room Air Room Air Room Air 05/19/24 19:00 05/19/24 20:00 05/19/24 21:00 Temperature Temperature Source Pulse Rate 74 75 81 Respiratory Rate 16 16 16 Blood Pressure 135/90 H 133/95 H 139/88 H Blood Pressure Mean 105 107 105 Pulse Ox 95 95 94 Oxygen Delivery Method Room Air Room Air Room Air 05/19/24 21:40 Temperature 98.2 F Temperature Source Pulse Rate 80 Respiratory Rate 16 Blood Pressure 144/78 H Blood Pressure Mean 100 Pulse Ox 96 Oxygen Delivery Method Positive well nourished and well developed General Appearance ED: well developed and NAD HEENT Reports moist mucous membranes Neck Neck Narrative: There is tenderness over the lower cervical and upper thoracic spine. Incision is well-healing. There is no erythema or warmth. There is no discharge or drainage. There are 3 tender swollen nodules over the lower cervical and upper thoracic spinous processes. These are firm. There is no fluctuance. General: tenderness Resp normal respiratory effort and clear to auscultation bilaterally Cardio regular rhythm Rate: tachycardic GI non-tender and non-distended Palpation: soft Neuro oriented x3, CN's II-XII intact bilaterally and no sensory deficits noted Sensorium / Orientation: alert Motor Exam: strength 5/5 throughout Psych mental status grossly normal MDM MDM MDM Narrative Medical decision making narrative: Differential diagnosis includes abscess, electrolyte abnormality, DVT, infection, and postoperative pain. CT scan of the cervical spine will be obtained to assess for fracture and swelling. CBC will be obtained to assess for leukocytosis and anemia. Basic metabolic profile will be obtained to assess for electrolyte abnormality renal function. Urinalysis will be obtained to assess for urinary tract infection and hematuria. Venous duplex of the right lower extremity will be obtained to assess for DVT. Lab Data Attestation: I reviewed the patient's lab results. Lab results narrative: CBC was reviewed. There is a mild anemia with a hemoglobin of 11.6 and hematocrit 36.5. Basic metabolic profile was reviewed and was within normal limits. Serum hCG was reviewed and was negative. Urinalysis was reviewed. There is no evidence of urinary tract infection or hematuria. Labs: Laboratory Results - last 24 hr 05/19/24 05/19/24 18:18 20:40 WBC 8.7 RBC 4.13 L Hgb 11.6 L Hct 36.5 L MCV 88.4 MCH 28.1 MCHC 31.8 L RDW Std Deviation 44.4 H RDW Coeff of Fina 13.9 Plt Count 447 MPV 9.7 Immature Gran % (Auto) 0.600 Neut % (Auto) 59.5 Lymph % (Auto) 30.7 [place] % (Auto) 5.7 Eos % (Auto) 2.8 Baso % (Auto) 0.7 Absolute Neuts (auto) 5.2 Absolute Lymphs (auto) 2.66 Nucleated RBC % 0 Sodium 139 Potassium 3.8 Chloride Direct 103 Carbon Dioxide 26.8 Anion Gap 10 BUN 9 Creatinine 0.51 L Estim Creat Clear Calc 124.03 Est GFR (MDRD) Non-Af 117 BUN/Creatinine Ratio 18.6 Glucose 102 H Calcium 8.9 Serum , Qual NEGATIVE Urine Color Yellow Urine Clarity Sl Cldy Urine pH 7.0 Ur Specific [place] 1.015 Urine Protein Negative Urine Glucose (UA) Normal Urine Ketones Negative Urine Occult Blood Negative Urine Nitrite Negative Urine Bilirubin Negative Urine Urobilinogen Normal Ur Leukocyte Esterase Negative Urine RBC 0-5 SEEN Urine WBC 0 SEEN Ur Squamous Epith Cells 0-5 SEEN Amorphous Sediment 1+ PHOS Urine Bacteria 0 SEEN Urine Mucus 0 SEEN Radiography Diagnostic Testing: Clinical Impression(s) from Imaging Studies Venous Duplex 05/19/24 18:14 IMPRESSION: No evidence of deep venous thrombosis in the bilateral femoral popliteal system. Reading Location: [facility] Cervical Spine CT 05/19/24 18:26 IMPRESSION: Interval posterior spinal fixation and instrumentation of the cervical and upper thoracic vertebral bodies as described. No obvious acute cervical fracture. One or more dose reduction techniques were used (e.g., Automated exposure control, adjustment of the mA and/or kV according to patient size, use of iterative reconstruction technique). Reading Location: [facility] Venous duplex of the right lower extremity was obtained. There is no evidence of DVT. CT scan of the cervical spine was obtained. There is no acute fracture. There is no soft tissue swelling noted. This was interpreted by the radiologist was also independently reviewed by myself. Treatment and Re-Evaluation :: Patient was given IV fluids, morphine, and Zofran. Patient was feeling better on reevaluation. Patient was advised of her findings. Patient was instructed to follow-up with her spine surgeon in 5 to 7 days. Patient was instructed return if worse in any way. Patient understood and was agreeable with the plan. All questions were answered. Discharge Plan Triage Chief Complaint: Numb/Ting ED Provider: Serafin Cody Dx/Rx/DC Orders Clinical Impression: Postoperative pain, Edema of right lower extremity Instructions: ED Post Op Wound Check, Pain Prescriptions: No Action benzonatate 100 mg capsule 100 mg PO BID PRN (Reason: cough) methocarbamol 500 mg tablet 500 mg PO 4X/DAY albuterol sulfate 90 mcg/actuation aerosol powdr breath activated 2 inh inhalation Q6H PRN (Reason: shortness of breath) lisinopril 5 mg tablet 5 mg PO DAILY sertraline 100 mg tablet 100 mg PO Q24H cefdinir 300 mg Capsule 300 mg PO Q12 5 Days Qty: 10 0RF dextromethorphan-guaifenesin 60-1,200 mg tablet extended release 12 hr 1 tab PO BID 7 Days Qty: 14 0RF Primary Care Provider: Jossie Alvarado Referrals: Jossie Alvarado, [Primary Care Provider] - 5-7 Days Activity Restrictions/Additional Instructions: Follow-up with your spine surgeon in 5 to 7 days. Print Language: Setswana Disposition Disposition: Home, Self Care
--- NOTE | 2024-05-19 18:14 | US_ITS ---
EXAM: BILATERAL LOWER EXTREMITY DOPPLER STUDY CLINICAL HISTORY: 48-year-old female, right lower extremity swelling and numbness. COMPARISON: None. TECHNIQUE: Duplex sonography of the bilateral lower extremities with color and spectral Doppler, with and without compression. FINDINGS: The bilateral external iliac, greater saphenous, common femoral, deep femoral, femoral, popliteal, posterior tibial, and peroneal veins are compressed normally and demonstrate color flow with respiratory variation by Doppler. There is no evidence of deep venous thrombosis in the bilateral femoral popliteal system. Additional focal ultrasound imaging was obtained in the patient's area of interest along the right anterior dickens. No fluid collection or mass visualized by ultrasound interrogation. US/Venous Duplex Imag/Limited/Uni IMPRESSION: No evidence of deep venous thrombosis in the bilateral femoral popliteal system . Reading Location: [id number]
[2024-05-19] MEDS: 0.9% Normal Saline (1000mL) 1,000 ML 1000 ML IV (18:20)
[2024-05-19] MEDS: Ondansetron 4 MG/2 ML Vial IV (18:24)
[2024-05-19] MEDS: Morphine 4 MG/ML Syringe IV (18:24)
--- NOTE | 2024-05-19 18:26 | CT_ITS ---
PROCEDURE: SPINE CERVICAL WITHOUT CONTRAS REASON FOR EXAM: 48-year-old female, injury/pain, right leg swelling and numbness x3 days, neck surgery 3 months ago. TECHNIQUE: Cervical spine CT without contrast. COMPARISON: CT C-spine 02/10/2024. FINDINGS: Interval posterior spinal fixation and instrumentation of the C2-C6 and T1-T2 vertebral bodies with laminectomies at the C3-6 vertebral bodies and bilateral bone grafting. Minimal osseous bridging of the bone graft material. The hardware appears intact without lucency or fracture. Alignment: Normal. Visualization of the spinal canal is limited by metallic streak artifact. Vertebrae: No obvious acute fracture. Soft Tissues: No large prevertebral hematoma CT/Spine Cervical without Contras IMPRESSION: Interval posterior spinal fixation and instrumentation of the cervical and uppe r thoracic vertebral bodies as described. No obvious acute cervical fracture. One or more dose reduction techniques were used (e.g., Automated exposure contr ol, adjustment of the mA and/or kV according to patient size, use of iterative reconstruction technique). Reading Location: [id number]
[2024-05-19 18:29] LABS: Absolute Lymphocyte Count 2.66 X10^3/uL (0.83-4.51); Absolute Neutrophil Count 5.2 X10^3/uL (2.0-7.7); Basophil# 0.06 X10^3/uL; Basophil% 0.7 % (0-1); Eosinophil# 0.24 X10^3/uL; Eosinophils% 2.8 % (0-5); Hematocrit 36.5 % (37-47); Hemoglobin 11.6 g/dL (12.0-15.0); Lymphocyte # 2.66 X10^3/ul (0.83-4.51); Lymphocyte % 30.7 % (19-41); Mean Corp Hgb Conc 31.8 g/dL (32-36); Mean Corpuscular Hgb 28.1 pg (27.0-32.0); Mean Corpuscular Volume 88.4 fL (81-99); Mean Platelet Vol. 9.7 fl (6.2-12.0); Monocyte# 0.49 X10^3/uL; Monocyte% 5.7 % (0-10); NRBC Flagged by Analyzer 0 % (0-5); Neutrophil # 5.17 X10^3/uL (2.7-7.7); Neutrophil % 59.5 % (47-70); Platelet Count 447 K/mm3 (150-450); RBC Distribution Width CV 13.9 % (11.6-14.6); RBC Distribution Width SD 44.4 fl (35.1-43.9); Red Blood Count 4.13 M/mm3 (4.2-5.4); White Blood Count 8.7 K/mm3 (4.4-11.0)
[2024-05-19 18:47] LABS: Anion Gap 10 (5-15); BUN 9 mg/dL (4-19); BUN/Creat Ratio 18.6 RATIO (10-20); Calcium 8.9 mg/dL (7.6-11.0); Carbon Dioxide 26.8 mmol/L (22.0-29.0); Chloride 103 mmol/L (96-108); Creatinine, Serum 0.51 mg/dL (0.70-1.20); EST Glomerular Filtration Rate 117 (>60); Estimated Creatinine Clearance 124.03 ml/min; Glucose 102 mg/dL (70-99); Potassium 3.8 mmol/L (3.3-5.1); Sodium Level 139 mmol/L (133-145)
[2024-05-19 19:10] LABS: Internal QC Validated? YES +Cl - CLEAR BKGD; Pregnancy, Serum, hCG Quali. NEGATIVE Negative
[2024-05-19 20:45] LABS: Bacteria 0 SEEN /hpf (None Seen); Mucous, Urine 0 SEEN /hpf (<or=2+); White Blood Cells 0 SEEN /hpf (0-5)
[2024-05-19 20:47] LABS: Glucose, Dipstick Normal (Normal); Ketone-Dipstick Negative (Negative); Leukocyte Esterase-Dipstick Negative /ul (Negative); Nitrite-Dipstick Negative (Negative); Occult Blood-Urine Negative /ul (Negative); Protein-Dipstick Negative (Negative); Specific Gravity, Urine 1.015 (1.002-1.030); Urine Bilirubin Dipstick Negative (Negative); Urine Urobilinogen Normal (Normal)
[2024-05-19 21:14] LABS: Color, Urine Yellow (Yellow)
[2024-05-19 21:15] LABS: Urine Clarity Sl Cldy (Clear)
[2024-05-19 21:19] LABS: Red Blood Cells-Urine 0-5 SEEN /hpf (0-5); Squamous Epithelial Cells - UA 0-5 SEEN /hpf (5-10)
[2024-05-19 21:20] LABS: Amorphous Sediment 1+ PHOS
== END 2024-05-19 21:55 | disposition home or self-care (01) ==
PROVIDERS: Emergency Provider Emergency Medicine; Visit Provider Emergency Medicine
DX: R20.0 Anesthesia of skin (principal); G89.18 Other acute postprocedural pain; R60.0 Localized edema; I10 Essential (primary) hypertension; Z79.899 Other long term (current) drug therapy
CPT/HCPCS: 72125; 80048; 81001; 84703; 85025; 93971; 96361; 96374; 96375; 99283; A4216; J2405

== ENCOUNTER 2024-10-03 14:59 | Emergency (ER) | payer MEDICAID, SELFPAY ==
[2024-10-03 15:00] VITALS: BP 117/87; PULSE 83; RESP 21; TEMP 36.3; O2SAT 97
--- NOTE | 2024-10-03 16:19 | EDS_ITS ---
HPI History of Present Illness Chief Complaint: Back Informant: patient Onset/Context/Timing Onset: Today Mechanism/Context: Blunt Injury and Fall (Slipped and fell injuring her right shoulder and right posterior lower rib cage.) Location of pain/injuries: Right shoulder Quality of Pain: Sharp Current Severity: Moderate Maximum Severity: Moderate Associated Symptoms Associated Symptoms: Negative for Parasthesias, Weakness, Loss of function, Inability to ambulate, Loss of consciousness or Amnesia Narrative Narrative: 49-year-old female history of cervical fracture where she had surgical repair. She has a neck brace. She was walking to her home yesterday slipped fell down about 3 steps injuring her right shoulder and right posterior rib cage. No head injury. No neck injury. She had her neck brace on. Complaining of pain and difficulty moving the right shoulder. And pain in the right posterior rib cage. Prior similar symptoms: No Recent Illness/Hospitalization: No [facility] Medical History Bilateral pneumonia Former tobacco use GERD (gastroesophageal reflux disease) HTN (hypertension) Cyclical vomiting Cannabis dependence Anxiety and depression Barretts esophagus Home Medications ?Medication ?Instructions ?Recorded ?Last Taken ?Type albuterol sulfate 90 mcg/actuation 2 inh inhalation Q6 H PRN shortness 05/11/24 Unknown History breath activated powder inhaler of breath benzonatate 100 mg capsule 100 mg PO BID PRN cough Unknown History lisinopril 5 mg tablet 5 mg PO DAILY bp 05/11/24 Un known History methocarbamol 500 mg tablet 500 mg PO 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 05/11/24 Unknown History sertraline 100 mg tablet 100 mg PO Q24H depression Unknown History cefdinir 300 mg capsule 300 mg PO Q12 5 days #10 cap s 05/14/24 Unknown Rx dextromethorphan-guaifenesin ER 60 1 tab PO BID 7 days #14 tabs 05/14/24 Unknown Rx mg-1,200 mg tab,extend release,12hr oxycodone-acetaminophen 5 mg-325 1 tab PO Q8H PRN pain 2 days #4 10/03/24 Unknown Rx mg tablet (Percocet) tabs Allergy/AdvReac Type Severity Reaction Status Date / Time hydrocodone bitartrate (From Allergy Hives Verified 10/03/24 16:46 Vicodin) Family History Mother COPD (chronic obstructive pulmonary disease) ETOH abuse Father ETOH abuse Surgical History S/P appendectomy Hx of spinal surgery Social History household members: other details: Currently staying with her mother while she recovers from her trauma. housing: house Smoking Status: Light Smoker (<10/day) how long ago did patient quit smoking: Quit 02/10/24, smoked ~ 1 ppd since teen until quit. alcohol intake: never substance use type: marijuana ROS ROS ED ROS Narrative Denies recent illness. Constitutional Constitutional ED: Denies chills or fever(s) Eyes Eyes: Denies blurry vision ENT ENT ED: Denies ear pain Cardiovascular Cardiovascular: Denies chest pain Respiratory/Chest Respiratory/Chest: Denies cough or dyspnea Gastrointestinal Gastrointestinal: Denies abdominal pain, diarrhea, nausea or vomiting Genitourinary Genitourinary ED: Denies dysuria or hematuria Musculoskeletal Musculoskeletal: Denies arthralgias or back pain Integumentary Denies abscess or Abrasions Neurologic Neurologic: Denies headache(s) Psychiatric Psychiatric: Denies anxiety Endocrine Endocrinology: Denies cold intolerance Hematologic/Lymphatic Hematologic/Lymphatic: Denies easy bleeding, easy bruising or lymphadenopathy Allergic/Immunologic Allergic/Immunologic ED: Denies mouth swelling, tongue swelling or urticaria EXAM Physical Exam Narrative Exam Narrative: Presenting female sitting upright in bed. Vital signs are stable afebrile. H EENT exam pupils round react to light. Moist mucous membranes. No trauma to her face or scalp. She is in a cervical collar. C-spine nontender. Lungs clear to auscultation bilaterally. Heart regular rhythm no murmur rate about 80. Anterior chest wall and anterior ribs are nontender. Abdomen soft nontender. Pelvic girdle intact. Moving all 4 extremities. No deformity. She has tenderness of the right shoulder and right posterior shoulder. There is no deformity. It is not dislocated. She is unable to lift her right arm overhead. Bilateral elbows forearms wrist and hands are nontender normal palliative senior np strength and sensation. Hips knees and ankles are nontender. Back her cervical, thoracic and lumbar spine are nontender. There is no bruising. She has pain to palpation of her right posterior rib cage. Neurologically she is awake alert. GCS 15. Answer questions following commands. Const Vital Signs: 10/03/24 15:00 10/03/24 17:01 Temperature 97.4 F L Temperature Source Temporal Pulse Rate 83 89 Respiratory Rate 21 H 15 Blood Pressure 117/87 H Blood Pressure Mean 97 Pulse Ox 97 100 Oxygen Delivery Method Room Air Positive well nourished and well developed; Negative for obese, cachectic, contractures or unkempt General Appearance ED: well developed; Negative for unkempt, cachectic, contractures or NAD Nutritional Appearance: Negative for cachectic or obese HEENT atraumatic; Negative for trauma or tenderness Eyes PERRL and EOMs intact bilaterally Neck No full ROM Neck Narrative: Nontender in a c-collar. Chest Wall inspection of chest normal and palpation of chest normal Resp normal respiratory effort and clear to auscultation bilaterally Cardio regular rhythm, S1 normal heart sound, S2 normal heart sound and no murmurs GI normal to inspection, nondistended, normoactive bowel sounds, non-tender, non- distended and no masses Auscultation: normoactive bowel sounds Palpation: soft; Negative for tender or guarding Back/Spine normal to inspection and no thoracic nor lumbar tenderness Back/Spine Narrative: Spine nontender. Right posterior rib cage tenderness. No crepitance. Extremity normal to inspection and full ROM Extremity Narrative: Except tenderness to the right shoulder with limited range of motion. She is unable to raise her right arm over her shoulder. There is no gross bony deformity. There is tenderness primarily posteriorly. Distal humerus, elbow, forearm, wrist and hand are nontender normal palliative senior np strength normal sensation. General Extremety ED: Yes tenderness; Negative for deformity or edema General Extremity: Negative for deformity or edema Neuro oriented x3, CN's II-XII intact bilaterally, moves all extremities, no focal motor deficits and no sensory deficits noted Gladis Coma Scale: document GCS findings Spontaneous Obeys Commands Oriented 15 Sensorium / Orientation: alert, oriented to place and oriented to time; Negative for orientation impaired Motor Exam: strength 5/5 throughout Psych mental status grossly normal Appearance: Negative for unkempt Mood & Affect: tearful Skin no rashes or lesions noted, no wounds, skin turgor normal and no jaundice Rashes: No rashes noted Trauma: Negative for abrasion Wounds: Negative for wounds noted MDM MDM MDM Narrative Medical decision making narrative: 49-year-old female fell last night at 3 AM this morning complaining of right shoulder and right posterior rib cage pain both will be x-rayed. Concern for possible rotator cuff is limited range of motion of the right shoulder might also be due to pain. Should be given IM morphine and p.o. Zofran. She has no spine tenderness. I do not think she needs any CAT scans. Repeat exam patient doing well at 5:35 PM. Pains improved after the IM injection of morphine. She still has limited range of motion in her right shoulder and this may be due to pain. We discussed if is not improving she needs further orthopedic evaluation to rule out a rotator cuff injury. The x- ray of her right shoulder and chest x-ray and ribs was unremarkable. Ice to all sore areas. Motrin Tylenol for pain. A total of 4 Percocet were prescribed for more severe pain. Radiography Diagnostic Testing: Clinical Impression(s) from Imaging Studies Shoulder X-Ray 10/03/24 16:35 IMPRESSION: No acute fracture or dislocation. Reading Location: [facility] Right shoulder x-ray, 4 views, interpreted both by myself and the radiologist shows no acute fracture. No dislocation. Chest x-ray, 2 views interpreted by myself again shows no acute fracture. No pneumothorax. Normal lung koenig. Normal cardiac silhouette. Discharge Plan Triage Chief Complaint: Back ED Provider: Brian Stevenson Dx/Rx/DC Orders Clinical Impression: Fall, Right shoulder strain, Contusion of rib on right side Instructions: ED Muscle Strain, Extremity Prescriptions: New oxycodone-acetaminophen [Percocet] 5-325 mg tablet 1 tab PO Q8H PRN (Reason: pain) 2 Days Qty: 4 0RF No Action benzonatate 100 mg capsule 100 mg PO BID PRN (Reason: cough) methocarbamol 500 mg tablet 500 mg PO 4X/DAY albuterol sulfate 90 mcg/actuation aerosol powdr breath activated 2 inh inhalation Q6H PRN (Reason: shortness of breath) lisinopril 5 mg tablet 5 mg PO DAILY sertraline 100 mg tablet 100 mg PO Q24H cefdinir 300 mg Capsule 300 mg PO Q12 5 Days Qty: 10 0RF dextromethorphan-guaifenesin 60-1,200 mg tablet extended release 12 hr 1 tab PO BID 7 Days Qty: 14 0RF Primary Care Provider: Jossie Alvarado Referrals: Heladio Tucker DO [Med Staff - Active Staff] - 10-14 Days if not better Jossie Alvarado DO [Primary Care Provider] - 1 Week if not improving Activity Restrictions/Additional Instructions: Ice to your right shoulder and right posterior rib cage. The x-rays were negative. Nothing broken or dislocated. The shoulder should progressively start getting better. Ice. Motrin and Tylenol for pain and swelling. Percocet for limited pain. If the shoulder is not getting better you need to have further evaluation with an orthopedic surgeon. If you do not get normal range of motion back you may need an MRI of the shoulder. But it may just be limited currently due to the pain. Percocet for more severe pain. Print Language: Romansh Disposition Disposition: Home, Self Care
--- NOTE | 2024-10-03 16:35 | RAD_ITS ---
PROCEDURE: CHEST PA AND LATERAL 10/03/2024 REASON FOR EXAM: FALL AND RIGHT LOWER POSTERIOR RIB INJURY TECHNIQUE: CHEST PA AND LATERAL COMPARISON: 05/11/2024 FINDINGS: Lungs/Pleura: Clear. Hazy opacities projecting over the [id number]-left mid lung zones secondary to shadow summation artifact from overlying breast soft tissues. Heart/Mediastinum: Normal in size. Bones/Soft tissues: Unremarkable. No acute right-sided rib fractures are seen. Partially imaged cervicothoracic metallic posterior instrumented fusion hardware. RAD/Chest PA and Lateral IMPRESSION: No acute cardiopulmonary disease. No acute fracture identified. Reading Location: [id number]
--- NOTE | 2024-10-03 16:35 | RAD_ITS ---
PROCEDURE: SHOULDER MIN 2 VIEWS 10/03/2024 REASON FOR EXAM: FALL TECHNIQUE: SHOULDER MIN 2 VIEWS COMPARISON: None. FINDINGS: No acute fracture or dislocation. Alignment is anatomic. Well preserved glenohumeral joint space. Mild degenerative arthrosis of the right AC joint. Partially imaged cervicothoracic metallic posterior instrumented fusion hardware. Imaged right lung field is clear. Unremarkable soft tissues. RAD/Shoulder min 2 Views IMPRESSION: No acute fracture or dislocation. Reading Location: [id number]
--- NOTE | 2024-10-03 16:35 | RAD_ITS ---
PROCEDURE: SHOULDER MIN 2 VIEWS 10/03/2024 REASON FOR EXAM: FALL TECHNIQUE: SHOULDER MIN 2 VIEWS COMPARISON: None. FINDINGS: No acute fracture or dislocation. Alignment is anatomic. Well preserved glenohumeral joint space. Mild degenerative arthrosis of the right AC joint. Partially imaged cervicothoracic metallic posterior instrumented fusion hardware. Imaged right lung field is clear. Unremarkable soft tissues. RAD/Shoulder min 2 Views IMPRESSION: No acute fracture or dislocation. Reading Location: [id number]
--- NOTE | 2024-10-03 16:35 | RAD_ITS ---
PROCEDURE: CHEST PA AND LATERAL 10/03/2024 REASON FOR EXAM: FALL AND RIGHT LOWER POSTERIOR RIB INJURY TECHNIQUE: CHEST PA AND LATERAL COMPARISON: 05/11/2024 FINDINGS: Lungs/Pleura: Clear. Hazy opacities projecting over the [id number]-erkdory-drcj-left mid lung zones secondary to shadow summation artifact from overlying breast soft tissues. Heart/Mediastinum: Normal in size. Bones/Soft tissues: Unremarkable. No acute right-sided rib fractures are seen. Partially imaged cervicothoracic metallic posterior instrumented fusion hardware. RAD/Chest PA and Lateral IMPRESSION: No acute cardiopulmonary disease. No acute fracture identified. Reading Location: [id number]
[2024-10-03 17:01] VITALS: PULSE 89; RESP 15; O2SAT 100
[2024-10-03 17:52] VITALS: BP 153/76; PULSE 83; RESP 16; TEMP 36.6; O2SAT 100
== END 2024-10-03 17:53 | disposition home or self-care (01) ==
PROVIDERS: Emergency Provider Emergency Medicine; Visit Provider Emergency Medicine
DX: S20.211A Contusion of right front wall of thorax, initial encounter (principal); I10 Essential (primary) hypertension; S46.911A Strain of unspecified muscle, fascia and tendon at shoulder and upper arm level, right arm, initial encounter; W10.9XXA Fall (on) (from) unspecified stairs and steps, initial encounter; Z79.899 Other long term (current) drug therapy; F41.8 Other specified anxiety disorders; Z90.49 Acquired absence of other specified parts of digestive tract; Z87.891 Personal history of nicotine dependence
CPT/HCPCS: 71046; 73030; 96372; 99282

== ENCOUNTER 2025-02-11 15:02 | Emergency (ER) | payer MEDICAID, SELFPAY ==
[2025-02-11 15:04] VITALS: BP 112/87; PULSE 85; RESP 18; TEMP 36.6; O2SAT 95; BMI 19.0
--- NOTE | 2025-02-11 16:53 | CT_ITS ---
PROCEDURE: SPINE CERVICAL WITHOUT CONTRAS 02/11/2025 REASON FOR EXAM: NECK PAIN, CT 6 RADICULOPATHY AND POSITIVE BLANCO TECHNIQUE: Procedure Code: CTS Modality: CT Procedure: SPINE CERVICAL WITHOUT CONTRAS Coronal and Sagittal reconstruction series were provided. One or more dose reduction techniques were used (e.g., Automated exposure control, adjustment of the mA and/or kV according to patient size, use of iterative reconstruction technique. RADIATION DOSE SUMMARY: CTDlvol: 12 mGy DLP: 248 mGycm FINDINGS: Prior posterior cervical fusion. Dorsal decompression at C3, C4, C5 and C6. Articular cervical screws and upper thoracic pedicle screws are intact. No compression deformity or subluxation. Normal occipital condyles, C1 and C2. Normal odontoid process. No skull base deformity. Fusion screws appear well seated without abnormal lucency. The lung apices are clear. No discrete soft tissue mass. A history supplied of radiculopathy. Given the presence of the fusion hardware, CT is limited secondary to streak artifact. No foraminal narrowing at C2-3. Right-sided bony foraminal narrowing at C3-4. Other levels demonstrate streak artifact with foraminal stenosis on the right at C5-6 and on the left at C6-7. CT/Spine Cervical without Contras IMPRESSION: Multilevel bony foraminal stenosis. Negative for fracture. If there is specif ic radiculopathy, recommend MRI Reading Location[facility]
--- OUTSIDE RECORDS SUMMARY | 2025-02-11 17:06 | XMS RPT_ITS | CCD ---
Author Organization [facility] Care Team Providers Care Physical Optics Teacher Name Role Phone ESSENCE CASILLAS, DR BAUER Primary Care Physician ESSENCE CASILLAS, DR BAUER Primary Care Unavailable LILLIAM CASILLAS, HARRIET Attending Unavailable HERLINDA CLARKE MD Attending Unavailable ESSENCE CASILLAS, DR BAUER Primary Care Unavailable HERLINDA CLARKE MD Attending Unavailable ESSENCE CASILLAS, DR BAUER Primary Care Unavailable ESSENCE CASILLAS, DR BAUER Primary Care Physician Unavailable Primary Care Provider UnavailSABINO Diaz Consulting Unavailable KENNY FISHER Admitting Unavailable SAMANTHA MCCLOUD Attending Unavailable LILLIAM CASILLAS, HARRIET Attending Unavailable ESSENCE CASILLAS, DR BAUER Primary Care Unavailable ESSENCE CASILLAS, DR BAUER Primary Care Unavailable PRASHANTH WEBER MD Attending Unavail able ESSENCE CASILLAS, DR ABUER Primary Care Unavailable HUBERT MIRZA, DR LISA Esteban Attending Swathi Alvarado DO, Dr. Juancarlos Bhandari Primary Care Provider Graham MIRZA, Dr. Torres Emergency Provider [phone] Richie Hakeem Attending Unavailable White, Gloria L Consulting Unavailable White, Gloria L Admitting Unavailable Care Physician, No Primary Primary Care Unava ilable Richie, Hakeem Consulting Unavailable Rcihie, Hakeem Attending Unavailable White, Gloria L Consulting Unavailable White, Gloria L Admitting Unavailable Care Physician, No Primary Primary Care Unava ilable Richie, Hakeem Consulting Unavailable Juancarlos Alvarado Primary Care Unavailable Juancarlos Alvarado Referring Unavailable Heladio Tucker Attending Unavailable RUPERT BAGLEY Attending Unavailable RUPERT BAGLEY Referring Unavailable Care Physician, No Primary Primary Care Unava ilable Care Physician, No Primary Primary Care Unava ilable Endy Taveras Attending Unavailable Juancarlos Alvarado Primary Care Unavailable Serafin Cody Attending Unavailable Juancarlos Alvarado Primary Care Unavailable Brian Stevenson Attending Unavailable Hakeem Quiroz Attending Unavailable Gloria Parekh Admitting Unavailable Gloria Parekh Consulting Unavailable Care Physician, No Primary Primary Care Unaemily ilJuancarlos Au Primary Care Unavailable Juancarlos Alvarado Referring Unavailable Heladio Tucker Attending Unavailable Gloria Parekh Attending Unavailable CELSO KNOWLES Referring Unavailable CELSO KNOWLES Attending Unavailable Allergies Allergy Classification Reported Allergen(s) Allergy Type Date of Onset Reaction(s) Facility (20 sources) Acetaminophen / HYDROcodone; Translations: [acetaminophen-hy drocodone] Drug Allergy 4 [facility], [facility] (6 sources) Promethazine; Translations: [promethazine] Drug Allergy [facility] (3 sources) Acetaminophen / HYDROcodone; Translations: [HYDROCODONE-ACET AMINOPHEN] Drug Allergy 4 [facility] (1 source) HYDROcodone Drug Allergy 5 [facility] Medications Current Medications Medication Drug Class(es) Dates Sig (Normalized) Sig (Original) acetaminophen 300 mg / butalbital 50 mg / caffeine 40 mg oral capsule (1 source) Barbiturate, Central Nervous System Stimulant, Methylxanthine Start: 12-08-2022 End: 12-11-2022 take 1 capsule by mouth every four hours as needed for headache, then take 6 capsules by mouth once daily as needed for headache Fioricet oral capsule - use generic Fioricet tablet Dose = 2 cap(s), Oral, q4h, PRN as needed for headache, not to exceed 6 capsules/day, X 3 day(s), # 18 cap(s), 0 Refill(s) Start Date: 12/08/22 Stop Date: 12/11/22 Status: Ordered acetaminophen 325 mg / oxyCODONE hydrochloride 5 mg oral tablet (7 sources) Opioid Agonist Start: 10-03-2024 take 1 tablet by mouth every eight hours as needed for pain Oxycodone-Acetam inophen (Percocet) 5-325 mg tablet Active 1 {tbl} PO Q8H as needed for pain 4 2 0 October 03, 2024 Contusion of rib on right side Strain of right shoulder Other specified injuries of thorax, initial encounter Start: 01-18-2014 End: 01-22-2014 Oxycodone-Acetaminophen 1 TA BLET tablet Discontinued 1 {tbl} PO EVERY 6 HOURS NEEDED as needed for Pain January 18, 2014 4:02pm January 22, 2014 2:19pm Start: 01-18-2014 End: 01-22-2014 take 1 tablet by mouth every six hours as needed Oxycodone-Acetaminophen Discontinued 1 TABLET PO EVERY 6 HOURS NEEDED January 18, 2014 3:02pm January 22, 2014 1:19pm Start: 02-06-2013 End: 03-13-2013 Oxycodone-Acetaminophen 1 TA BLET tablet Discontinued 1 - 2 {tbl} PO EVERY 4 HOURS NEEDED as needed for Pain February 06, 2013 1:00am March 13, 2013 11:13am Start: 02-06-2013 End: 03-13-2013 take 1 tablet by mouth every four hours as needed Oxycodone-Acetaminophen Discontinued 1 - 2 TABLET PO EVERY 4 HOURS NEEDED February 06, 2013 12:00am March 13, 2013 10:13am 200 actuat albuterol 0.09 mg/actuat dry powder inhaler (1 source) beta2-Adrenergic Agonist Start: 05-11-2024 Albuterol Sulfate 90 mcg/actuation aerosol powdr breath activated Active 2 NMA INHALATION EVERY 6 HOURS as needed for shortness of breath May 11, 2024 1:00am albuterol MDI (90 mcg/inh) CFC free inhalation aerosol (1 source) Start: 05-02-2024 take 2 puff(s) by inhalation every four hours albuterol MDI (90 mcg/inh) CFC free inhalation aerosol 2 puff(s), Inhalation, q4h, # 8.5 gram(s), 0 Refill(s) Start Date: 05/02/24 Status: Ordered Quantity: 8.5 Unit: g Repeat number: 1 atenolol 50 mg oral tablet (3 sources) beta-Adrenergic Mert Start: 06-21-2017 atenolol 50 mg oral tablet Dose : 50 mg = 1 tab(s), Oral, qDay, take 1 tablet by mouth once daily Start Date: 06/21/17 Status: Ordered benzonatate 100 mg oral capsule (2 sources) Non-narcotic Antitussive Start: 05-02-2024 End: 05-12-2024 take 1 capsule by mouth twice daily as needed for cough Benzonatate 100 mg capsule Active 100 mg PO TWICE A DAY as needed for cough May 11, 2024 1:00am cefdinir 300 mg oral capsule (1 source) Cephalosporin Antibacterial Start: 05-14-2024 take 1 capsule by mouth every twelve hours Cefdinir 300 mg Capsule Active 300 mg PO EVERY 12 HOURS 10 5 0 May 14, 2024 1:00am clindamycin 300 mg oral capsule (1 source) Lincosamide Antibacterial Start: 12-05-2021 End: 12-15-2021 clindamycin 300 mg oral capsule Dose : 300 mg = 1 cap(s), Oral, q6h, X 10 day(s), # 40 cap(s), 0 Refill(s), 12/15/21 13:02:00 EDT, Dental infection, 57.8 Start Date: 12/05/21 Stop Date: 12/15/21 Status: Ordered cyclobenzaprine hydrochloride 10 mg oral tablet (4 sources) Muscle Relaxant Start: 03-28-2024 End: 04-12-2024 take 1 tablet by mouth three times daily as needed for muscle spasms cyclobenzaprine (FLEXERIL) 10 mg tablet Indications: Right shoulder pain , Right shoulder injury Take 1 tablet by mouth three times a day as needed for muscle spasm for up to 7 days. 21 tablet 04/05/2024 04/12/2024 Active Start: 12-03-2022 End: 12-10-2022 cyclobenzaprine 10 mg oral t ablet Dose : 10 mg = 1 tab(s), Oral, TID, X 7 day(s), # 21 tab(s), 0 Refill(s), 12/10/22 4:16:00 PM EDT Start Date: 12/03/22 Stop Date: 12/10/22 Status: Ordered 12 hr dextromethorphan hydrobromide 60 mg / guaiFENesin 1200 mg extended release oral tablet (1 source) Uncompetitive K-lembov-K-aspartate Receptor Antagonist, Sigma-1 Agonist Start: 05-14-2024 Dextromethorphan-Guaifenesin 60-1,200 mg tablet extended release 12 hr Active 1 {tbl} PO TWICE A DAY 14 7 0 May 14, 2024 1:00am gabapentin 300 mg oral capsule (19 sources) Anti-epileptic Agent Start: 02-17-2024 take 2 caps ules by mout h thre e time s narda y gabapentin (NEURONTIN) 300 mg capsule Take 2 capsules by mouth three times a day for 4 doses. 8 capsule 02/17/2024 Active hydroCHLOROthiazide 12.5 mg oral tablet (6 sources) Thiazide Diuretic Start: 06-21-2017 hydroCHLOROthiazide 12.5 mg oral tablet Dose : 12.5 mg = 1 tab(s), Oral, qDay, take 1 tablet by mouth once daily Start Date: 06/21/17 Status: Ordered Start: 03-13-2013 End: 01-22-2014 take 1 capsule by mouth once daily Hydrochlorothiazide 12.5 MG capsule Discontinued 12.5 mg PO DAILY March 13, 2013 1:00am January 22, 2014 2:18pm lisinopril 5 mg oral tablet (1 source) Angiotensin Converting Enzyme Inhibitor Start: 05-11-2024 take 1 tablet by mouth once daily Lisinopril 5 mg tablet Active 5 mg PO DAILY May 11, 2024 1:00am bp methocarbamol 500 mg oral tablet (9 sources) Muscle Relaxant Start: 05-11-2024 take 1 tablet by mouth four times daily Methocarbamol 500 mg tablet Active 500 mg PO 4 TIMES DAILY May 11, 2024 1:00am pain/ cramps Start: 03-03-2024 End: 03-27-2024 take 1 tablet by mouth four times daily methocarbamol (ROBAXIN) 500 mg tablet Take 1 tablet by mouth four times daily for 14 days. 56 tablet 03/13/2024 03/27/2024 Active Start: 03-02-2024 End: 03-03-2024 take 1 tablet by mouth three times daily methocarbamol (ROBAXIN) 750 mg tablet Take 1 tablet by mouth three times a day for 5 doses. 5 tablet 03/02/2024 03/03/2024 Discontinued (Course of therapy completed) naproxen 500 mg oral tablet (2 sources) Nonsteroidal Anti-inflammatory Drug Start: 12-03-2022 End: 12-10-2022 naproxen 500 mg oral tablet Dose : 500 mg = 1 tab(s), Oral, BID, X 7 day(s), # 14 tab(s), 0 Refill(s), 12/10/22 4:17:00 PM EDT Start Date: 12/03/22 Stop Date: 12/10/22 Status: Ordered oxyCODONE hydrochloride 5 mg oral tablet (15 sources) Opioid Agonist Start: 02-24-2024 End: 04-12-2024 take 1 tablet by mouth every six hours as needed for pain oxyCODONE IR (ROXICODONE) 5 mg immediate release tablet Indications: Status post cervical spinal fusion Take 1 tablet by mouth every 6 hours as needed for pain for up to 7 days. for pain. 28 tablet 04/05/2024 04/12/2024 Active pantoprazole 40 mg delayed release oral tablet (9 sources) Proton Pump Inhibitor Start: 06-21-2017 pantoprazole 40 mg oral enteric coated tablet Dose : 40 mg = 1 tab(s), Oral, qDay, # 90 tab(s), 0 Refill(s) Start Date: 06/21/17 Status: Ordered Start: 12-27-2015 End: 02-10-2024 take 1 tablet by mouth once daily Pantoprazole 20 MG tablet Discontinued 20 mg PO DAILY December 27, 2015 12:00am February 10, 2024 7:50am Start: 06-21-2013 End: 01-22-2014 take 1 tablet by mouth once daily Pantoprazole 40 MG tablet Discontinued 40 mg PO DAILY 30 0 June 21, 2013 12:00am January 22, 2014 2:19pm predniSONE 10 mg oral tablet (1 source) Start: 05-02-2024 End: 05-14-2024 prednisone 10mg tab (TAPER) Taper 40-30-20-10 x 3 days each dose, Oral, qDay, Take with food/meal, # 30 tab(s), 0 Refill(s) Start Date: 05/02/24 Stop Date: 05/14/24 Status: Ordered Quantity: 30.0 Unit: tab(s) Repeat number: 1 sertraline 100 mg oral tablet (7 sources) Serotonin Reuptake Inhibitor Start: 05-11-2024 take 1 tablet by mouth every twenty-four hours Sertraline 100 mg tablet Active 100 mg PO Q24H May 11, 2024 1:00am depression Start: 06-21-2017 sertraline 100 mg oral tablet Dose : 100 mg = 1 tab(s), Oral, qDay, take 1 tablet by mouth once daily Start Date: 06/21/17 Status: Ordered Start: 12-27-2015 End: 02-10-2024 take 1 tablet by mouth once daily Sertraline 50 MG tablet Discontinued 50 mg PO DAILY December 27, 2015 12:00am February 10, 2024 7:50am SUMAtriptan 50 mg oral tablet (3 sources) Serotonin-1b and Serotonin-1d Receptor Agonist Start: 07-28-2017 SUMAtriptan 50 mg oral tablet Dose : 50 mg = 1 tab(s), Oral, Daily, PRN for migraine headache, # 9 tab(s), 0 Refill(s) Start Date: 07/28/17 Status: Ordered Completed/Discontinued Medications Medication Drug Class(es) Dates Sig (Normalized) Sig (Original) acetaminophen 500 mg oral tablet (15 sources) Start: 02-17-2024 End: 03-18-2024 take 2 tablets by mouth four times daily acetaminophen (TYLENOL) 500 mg tablet Take 2 tablets by mouth four times daily. 240 tablet 02/17/2024 03/18/2024 Start: 07-28-2017 Tylenol 325 mg oral capsule Dose : 650 mg = 2 cap(s), Oral, q4h, PRN as needed for pain, # 20 cap(s), 0 Refill(s) Start Date: 07/28/17 Status: Ordered Quantity: 20.0 Unit: cap(s) Repeat number: 1 amoxicillin 875 mg / clavulanate 125 mg oral tablet (6 sources) Penicillin-class Antibacterial Start: 05-11-2024 End: 05-14-2024 Amoxicillin-Pot Clavulanate 875-125 mg tablet Discontinued 1 {tbl} PO Q12H May 11, 2024 1:00am May 14, 2024 12:09pm atb Start: 05-02-2024 End: 05-09-2024 take 1 tablet by mouth every twelve hours amoxicillin-clavulanate 875 mg-125 mg or al tablet 1 tab(s), Oral, q12h, X 7 day(s), # 14 tab(s), 0 Refill(s), 05/09/24 3:34:00 PM EST, 61.4 Start Date: 05/02/24 Stop Date: 05/09/24 Status: Ordered Quantity: 14.0 Unit: tab(s) Repeat number: 1 Start: 01-08-2024 End: 01-15-2024 take 1 tablet by mouth every twelve hours amoxicillin-clavulanate 875 mg-125 mg or al tablet 1 tab(s), Oral, q12h, X 7 day(s), # 14 tab(s), 0 Refill(s), 01/15/24 2:12:00 PM EDT, 61.9 Start Date: 01/08/24 Stop Date: 01/15/24 Status: Ordered Start: 02-06-2013 End: 03-13-2013 Amoxicillin-Pot Clavulanate 875 MG tablet Discontinued 1 {tbl} PO Q12H 20 0 February 06, 2013 1:00am March 13, 2013 11:13am cephalexin 500 mg oral capsule (3 sources) Cephalosporin Antibacterial Start: 02-22-2023 End: 02-10-2024 take 1 capsule by mouth twice daily Cephalexin 500 mg capsule Discontinued 500 mg PO TWICE A DAY 14 0 February 22, 2023 1:00am February 10, 2024 7:49am diazePAM 2 mg oral tablet (2 sources) Benzodiazepine Start: 02-24-2023 End: 02-10-2024 take 1 tablet by mouth at bedtime as needed for anxiety and vomiting Diazepam (Valium) 2 mg tablet Discontinued 2 mg PO AT BEDTIME as needed for anxiety, nausea and vomiting 4 0 February 24, 2023 1:00am February 10, 2024 7:49am docusate sodium 50 mg / sennosides, alf 8.6 mg oral tablet (10 sources) Start: 02-17-2024 End: 03-18-2024 take 1 tablet by mouth twice daily senna-docusate (SENNA-S) 8.6-50 mg per tablet Take 1 tablet by mouth two times a day. 60 tablet 02/17/2024 03/18/2024 12 hr guaiFENesin 1200 mg / pseudoephedrine hydrochloride 120 mg extended release oral tablet (3 sources) alpha-Adrenergic Agonist Start: 02-13-2016 End: 02-10-2024 Pseudoephedrine-G uaifenesin (Mucinex D Er 1,200-120 Mg Tab) 1 EACH tablet extended release 12 hr Discontinued 1 NMA PO TWICE A DAY 14 February 13, 2016 1:00am February 10, 2024 7:50am ondansetron 4 mg disintegrating oral tablet (11 sources) Serotonin-3 Receptor Antagonist Start: 02-24-2023 End: 02-10-2024 take 1 tablet by mouth every eight hours as needed for nausea Ondansetron 4 mg tablet,disintegra ting Discontinued 4 mg PO EVERY 8 HOURS NEEDED as needed for Nausea 10 February 24, 2023 1:00am February 10, 2024 7:50am Start: 02-22-2023 End: 02-10-2024 take 1 tablet by mouth every six hours as needed for nausea and vomiting Ondansetron 4 mg tablet,disintegrating Discontinued 4 mg PO EVERY 6 HOURS as needed for nausea and vomiting 20 February 22, 2023 1:00am February 10, 2024 7:50am Start: 06-21-2017 Zofran 4 mg or al tablet Dose : 4 mg = 1 tab(s), Oral, q8h, PRN abdominal discomfort Start Date: 06/21/17 Status: Ordered Start: 06-13-2013 End: 01-22-2014 take 1 tablet by mouth every eight hours as needed for nausea Ondansetron (Zofran Odt) 8 MG Tab.Rapdis Discontinued 8 mg PO EVERY 8 HOURS NEEDED as needed for Nausea June 13, 2013 12:00am January 22, 2014 2:19pm polyethylene glycol 3350 75165 mg powder for oral solution (10 sources) Osmotic Laxative Start: 02-17-2024 End: 03-18-2024 polyethylene glycol 3350 17 gram packet Take 1 Packet by mouth once daily. Dissolve dose in 4 - 8 ounces of liquid and take as directed. 30 Packet 02/17/2024 03/18/2024 promethazine hydrochloride 25 mg rectal suppository (11 sources) Phenothiazine Start: 02-24-2023 End: 02-10-2024 take 25 mg rectal route every six hours as needed for nausea Promethazine (Promethegan) 25 mg suppository Discontinued 25 mg RECTAL EVERY 6 HOURS NEEDED as needed for Nausea 6 0 February 24, 2023 1:00am February 10, 2024 7:50am Start: 03-03-2020 End: 03-08-2020 promethazine 25 mg oral tabl et Dose : 25 mg = 1 tab(s), Oral, TID, # 15 tab(s), 0 Refill(s) Start Date: 03/03/20 Stop Date: 03/08/20 Status: Ordered Start: 10-08-2017 End: 10-11-2017 Phenergan 25 mg rectal suppo sitory Dose : 25 mg = 1 supp, Rectal, q6hr, # 12 supp, 0 Refill(s) Start Date: 10/08/17 Stop Date: 10/11/17 Status: Ordered Start: 01-18-2014 End: 01-22-2014 take 1 tablet by mouth every eight hours as needed for nausea Promethazine 25 MG tablet Discontinued 25 mg PO EVERY 8 HOURS NEEDED as needed for Nausea January 18, 2014 12:00am January 22, 2014 2:19pm sucralfate 1000 mg oral tablet (6 sources) Aluminum Complex Start: 07-28-2017 Carafate 1 g oral tablet Dose : 1 gram(s) = 1 tab(s), Oral, QID, # 120 tab(s), 0 Refill(s) Start Date: 07/28/17 Status: Ordered Start: 12-27-2015 End: 02-10-2024 take 1 g by mouth four times daily Sucralfate 1 GM/10 ML suspension Discontinued 1 g PO 4 TIMES DAILY December 27, 2015 12:00am February 10, 2024 7:50am Zofran ODT 4 mg oral tablet, disintegrating (3 sources) Start: 10-08-2017 End: 10-11-2017 Zofran ODT 4 mg oral tablet, disintegrating Dose : 4 mg = 1 tab(s), PO, TID, PRN as needed for nausea/vomiting, # 9 tab(s), 0 Refill(s) Start Date: 10/08/17 Stop Date: 10/11/17 Status: Ordered Problems Active Problems Problem Classification Problem Date Documented Da te Episodic/Chronic Acute bronchitis (3 sources) Acute bronchitis; Translations: [Acute bronchitis, unspecified] 02-14-2016 Episodic Anxiety disorders (18 sources) Anxiety; Translations: [Panic attack] 07-28-2017 Chronic Chronic obstructive pulmonary disease and bronchiectasis (1 source) Acute exacerbation of chronic obstructive airways disease; Translations: [Chronic obstructive pulmonary disease with (acute) exacerbation] Onset: 05-02-2024 Chronic Conditions associated with dizziness or vertigo (6 sources) Dizzy spells 07-28-2017 Episodic Disorders of lipid metabolism (19 sources) Hypercholesterolemia ; Translations: [Pure hypercholesterolemia , unspecified] Onset: 04-11-2013 04-11-2013 Chronic Disorders of teeth and jaw (1 source) Periapical abscess; Translations: [Periapical abscess without sinus] Onset: 12-05-2021 Episodic Ectopic (6 sources) Ectopic 10-08-2014 Episodic Esophageal disorders (6 sources) Stovall's esophagus 11-23-2015 Chronic Essential hypertension (20 sources) Hypertensive disorder; Translations: [Essential (primary) hypertension] Onset: 04-11-2013 08-28-2013 Chronic Fluid and electrolyte disorders (6 sources) Dehydration; Translations: [Dehydration] 06-14-2013 Episodic Headache; including migraine (6 sources) Migraine 07-28-2017 Chronic Mood disorders (9 sources) Depressive disorder; Translations: [Depression] 08-28-2013 Chronic Nausea and vomiting (18 sources) Vomiting; Translations: [Nausea and vomiting] 07-28-2017 Episodic Nonspecific chest pain (6 sources) Chest pain 07-28-2017 Episodic Comment on above: THINKS IS DUE TO PNE UMANN MARIE, DOCTORS ARE AWARE Nutritional deficiencies (19 sources) Vitamin D deficiency; Translations: [Vitamin D deficiency, unspecified] Onset: 04-11-2013 04-11-2013 Chronic Osteoarthritis (6 sources) Arthritis 07-28-2017 Chronic Other connective tissue disease (8 sources) History of cervical spine fusion; Translations: [Arthrodesis status] 02-23-2024 Episodic Other ear and sense organ disorders (3 sources) Otitis externa; Translations: [Unspecified otitis externa, unspecified ear] 06-07-2015 Chronic Other ear and sense organ disorders (3 sources) Excessive cerumen in ear canal ; Translations: [Impacted cerumen, left ear] 06-07-2015 Episodic Other gastrointestinal disorders (6 sources) Constipation 07-28-2017 Episodic Other gastrointestinal disorders (6 sources) Dysphagia 07-28-2017 Episodic Other injuries and conditions due to external causes (6 sources) At risk for falls 07-28-2017 Episodic Other injuries and conditions due to external causes (1 source) Closed injury of head; Translations: [Unspecified injury of head, initial encounter] 02-18-2024 Episodic Other injuries and conditions due to external causes (1 source) Other specified injuries of thorax, initial encounter; Translations: [Contusion of rib on right side] 10-03-2024 Episodic Other lower respiratory disease (6 sources) Dyspnea 10-14-2017 Episodic Other nervous system disorders (1 source) Pain in limb - multiple; Translations: [Paresthesia of skin] 02-18-2024 Episodic Other nervous system disorders (1 source) Postoperative pain ; Translations: [Other acute postprocedural pain] 05-27-2024 Episodic Other non-traumatic joint disorders (1 source) Pain of right shoulder joint; Translations: [Pain in right shoulder] Onset: 05-05-2024 Episodic Other nutritional; endocrine; and metabolic disorders (6 sources) Weight loss 07-28-2017 Episodic Comment on above: 65# IN LAST YEAR Other skin disorders (6 sources) Swollen ankle region 07-28-2017 Episodic Other upper respiratory disease (6 sources) Hoarse 07-28-2017 Episodic Residual codes; unclassified (6 sources) Chronic back pain 07-28-2017 Episodic Residual codes; unclassified (1 source) Edema of right lower limb; Translations: [Localized edema] 05-27-2024 Episodic Residual codes; unclassified (1 source) H/O Spinal surgery; Translations: [Other specified postprocedural states] 05-11-2024 Episodic Spinal cord injury (20 sources) 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; Translations: [Central cord syndrome at C3 level of cervical spinal cord, initial encounter] Onset: 02-10-2024 02-10-2024 Chronic Spondylosis; intervertebral disc disorders; other back problems (1 source) Neck pain; Translations: [Cervicalgia] Onset: 05-05-2024 Episodic Sprains and strains (1 source) Shoulder strain; Translations: [Strain of unspecified muscle, fascia and tendon at shoulder and upper arm level, right arm, initial encounter] 10-03-2024 Episodic Substance-related disorders (20 sources) Cannabis abuse; Translations: [Cigarette smoker ] Onset: 02-14-2024 07-28-2017 Chronic Superficial injury; contusion (1 source) Contusion of right front wall of thorax, initial encounter; Translations: [Contusion of right front wall of thorax, initial encounter] Onset: 10-09-2024 Episodic Unclassified (6 sources) Eye glasses, device (physical object) 07-28-2017 Comment on above: READING Unclassified (1 source) Unspecified intracranial injury with loss of consciousness status unknown, initial encounter; Translations: [Unspecified intracranial injury with loss of consciousness status unknown, initial encounter] Onset: 03-10-2024 Urinary tract infections (3 sources) Urinary tract infectious disease; Translations: [Urinary tract infection, site not specified] 02-22-2023 Episodic Past or Other Problems Problem Classification Problem Date Documented Date Episodic/Chronic Abdominal pain (20 sources) Abdominal pain; Translations: [Unspecified abdominal pain] Onset: 07-13-2013 02-22-2023 Episodic E Codes: Fall (20 sources) Fall; Translations: [Unspecified fall, initial encounter] Onset: 02-17-2024 02-17-2024 Episodic Open wounds of head; neck; and trunk (19 sources) Scalp laceration; Translations: [Laceration without foreign body of scalp, initial encounter] Onset: 02-17-2024 02-17-2024 Episodic Other connective tissue disease (19 sources) Bilateral weakness of upper limbs; Translations: [Other symptoms and signs involving the musculoskeletal system] Onset: 02-17-2024 02-17-2024 Episodic Other connective tissue disease (10 sources) H/O: arthrodesis; Translations: [Arthrodesis status] Onset: 03-20-2024 03-20-2024 Episodic Other connective tissue disease (3 sources) Arthrodesis status; Translations: [Arthrodesis status] Onset: 02-23-2024 Episodic Other disorders of stomach and duodenum (20 sources) Cyclical vomiting syndrome; Translations: [Cyclical vomiting syndrome unrelated to migraine] Onset: 06-20-2013 06-06-2015 Episodic Other injuries and conditions due to external causes (19 sources) Traumatic injury; Translations: [Injury, unspecified, initial encounter] Onset: 02-17-2024 02-17-2024 Episodic Other nervous system disorders (10 sources) Abnormal sensation; Translations: [Other disturbances of skin sensation] Onset: 03-20-2024 03-20-2024 Episodic Other nervous system disorders (10 sources) Numbness; Translations: [Anesthesia of skin] Onset: 03-20-2024 03-20-2024 Episodic Other nervous system disorders (1 source) Anesthesia of skin; Translations: [Anesthesia of skin] Onset: 06-01-2024 Episodic Pneumonia (except that caused by tuberculosis or sexually transmitted disease) (10 sources) Pneumonia; Translations: [Pneumonia, unspecified organism] Onset: 05-02-2024 07-28-2017 Episodic Residual codes; unclassified (10 sources) Presence of other specified devices; Translations: [Other postprocedural status] Onset: 03-20-2024 03-20-2024 Episodic Residual codes; unclassified (2 sources) Other specified health status; Translations: [Failure of outpatient treatment] Onset: 05-16-2024 05-11-2024 Episodic Spinal cord injury (3 sources) Central cord syndrome; Translations: [Central cord syndrome at unspecified level of cervical spinal cord, subsequent encounter] Onset: 02-23-2024 02-23-2024 Episodic Results Test Name Value Interpretation Reference Range Facility [facility] 10-26-2024 [facility] Telephone ([facility]) JENNIFER PRICE ([id number]) 1975 F Date Time Provider Department 10/26/24 CELSO KNOWLES [facility] During your visit today, we recorded the following information about you: Audelia Menchaca 10/26/2024 12:37 PM Signed Spoke with patient and she is advised of xray needed prior to appointment. She stated understanding and had no questions at this time Allergies As of Date: 10/26/2024 Noted Allergy Reaction HYDROCODONE-ACETAMINO PHEN 03/31/2013 4 - Hives 11 - Vomiting Date Reviewed: 02/23/2024 Reviewed by: Rosa Palomino MA - Fully Assessed Reason for Visit: Orders [681] Cmt: Xray order placed for 11/02/2024 appointment Prescriptions as of 10/26/2024 - gabapentin (NEURONTIN) 300 mg capsule Take 2 capsules by mouth three times a day for 4 doses. Problem List As Of Date 10/26/2024 Noted Resolved Vitamin D deficiency [E55.9] 04/11/2013 Hypertension [I10] 04/11/2013 Hypercholesteremia [E78.00] 04/11/2013 Cyclic vomiting syndrome [R11.15] 06/20/2013 Acute pelvic pain, female [R10.2] 07/13/2013 Central cord syndrome at C3 level of cervical s*02/10/2024 Nicotine use disorder, F17.2 [F17.200] 02/14/2024 Fall [W19.XXXA] 02/17/2024 Trauma [T14.90XA] 02/17/2024 Scalp laceration, initial encounter [S01.01XA] 02/17/2024 Bilateral arm weakness [R29.898] 02/17/2024 Dysesthesia [R20.8] 03/20/2024 Numbness [R20.0] 03/20/2024 Arthrodesis status [Z98.1] 03/20/2024 Presence of other specified devices [Z97.8] 03/20/2024 Encounter Status:Closed by AUDELIA MENCHACA on 10/26/24 [facility] Silvia 10-05-2024 [facility] Telephone ([facility]) JENNIFER PRICE ([id number]) 1975 F Date Time Provider Department 10/05/24 CELSO KNOWLES [facility] During your visit today, we recorded the following information about you: Kenyetta Bloom 10/05/2024 9:21 AM Signed Called patient to schedule a follow up with Dr Knowles, I had to leave a VM Allergies As of Date: 10/05/2024 Noted Allergy Reaction HYDROCODONE-ACETAMINO PHEN 03/31/2013 4 - Hives 11 - Vomiting Date Reviewed: 02/23/2024 Reviewed by: Rosa Palomino MA - Fully Assessed Prescriptions as of 10/05/2024 - gabapentin (NEURONTIN) 300 mg capsule Take 2 capsules by mouth three times a day for 4 doses. Problem List As Of Date 10/05/2024 Noted Resolved Vitamin D deficiency [E55.9] 04/11/2013 Hypertension [I10] 04/11/2013 Hypercholesteremia [E78.00] 04/11/2013 Cyclic vomiting syndrome [R11.15] 06/20/2013 Acute pelvic pain, female [R10.2] 07/13/2013 Central cord syndrome at C3 level of cervical s*02/10/2024 Nicotine use disorder, F17.2 [F17.200] 02/14/2024 Fall [W19.XXXA] 02/17/2024 Trauma [T14.90XA] 02/17/2024 Scalp laceration, initial encounter [S01.01XA] 02/17/2024 Bilateral arm weakness [R29.898] 02/17/2024 Dysesthesia [R20.8] 03/20/2024 Numbness [R20.0] 03/20/2024 Arthrodesis status [Z98.1] 03/20/2024 Presence of other specified devices [Z97.8] 03/20/2024 Encounter Status:Closed by KENYETTA BLOOM on 10/05/24 [facility] Chest PA and Lateralon 10-03 Chest PA and Lateral [facility] Imaging Services [address] [place] [id number] Chest PA and Lateral MR#: [id number] Acct: [id number] Name: JENNIFER PRICE Rep #: [id number] : 1975 F 49 From: Hugh Craig MD PCP: Dr. Juancarlos Alvarado, DO Status: REG ER Study: Chest PA and Lateral Date of Exam: 10/03/24 Exam# [id number] Ordering Dr: Brian Stevenson MD PROCEDURE: CHEST PA AND LATERAL 10/03/2024 REASON FOR EXAM: FALL AND RIGHT LOWER POSTERIOR RIB INJURY TECHNIQUE: CHEST PA AND LATERAL COMPARISON: 05/11/2024 FINDINGS: Lungs/Pleura: Clear. Hazy opacities projecting over the tdtcb-nylhiqt-wfdw-le ft mid lung zones secondary to shadow summation artifact from overlying breast soft tissues. Heart/Mediastinum: Normal in size. Bones/Soft tissues: Unremarkable. No acute right-sided rib fractures are seen. Partially imaged cervicothoracic metallic posterior instrumented fusion hardware. RAD/Chest PA and Lateral IMPRESSION: No acute cardiopulmonary disease. No acute fracture identified. Reading Location: [facility] CC: Dr. Brian Stevenson MD; Dr. Juancarlos Alvarado DO Job Interviewer: Signed Normal [facility] Emergency Department Summary on 10-03-2024 Emergency Department Summary [facility] Medical Records Department [address] [place] [address] Emergency Department Summary 10/03/24 MR#: [id number] Acct: [id number] Name: JENNIFER PRICE Rep #: [id number] : 1975 49 From: Brian Stevenson MD PCP: Dr. Juancarlos Alvarado DO Status:REG ER Location: ED HPI History of Present Illness Chief Complaint: Back Informant: patient Onset/Context/Timing Onset: Today Mechanism/Context: Blunt Injury and Fall (Slipped and fell injuring her right shoulder and right posterior lower rib cage.) Location of pain/injuries: Right shoulder Quality of Pain: Sharp Current Severity: Moderate Maximum Severity: Moderate Associated Symptoms Associated Symptoms: Negative for Parasthesias, Weakness, Loss of function, Inability to ambulate, Loss of consciousness or Amnesia Narrative Narrative: 49-year-old female history of cervical fracture where she had surgical repair. She has a neck brace. She was walking to her home yesterday slipped fell down about 3 steps injuring her right shoulder and right posterior rib cage. No head injury. No neck injury. She had her neck brace on. Complaining of pain and difficulty moving the right shoulder. And pain in the right posterior rib cage. Prior similar symptoms: No Recent Illness/Hospitalizati on: No PFSH PFSH Medical History Bilateral pneumonia Former tobacco use GERD (gastroesophageal reflux disease) HTN (hypertension) Cyclical vomiting Cannabis dependence Anxiety and depression Barretts esophagus Home Medications ???Medication ???Instructions ???Recorded ???Last Taken ???Type albuterol sulfate 90 mcg/actuation 2 inh inhalation Q6H PRN shortne ss 05/11/24 Unknown History breath activated powder inhaler of breath benzonatate 100 mg capsule 100 mg PO BID PRN cough 05/11/24 U nknown History lisinopril 5 mg tablet 5 mg PO DAILY bp 05/11/24 Unknown History methocarbamol 500 mg tablet 500 mg PO 4X/DAY pain/ cramps 04/23 Unknown History sertraline 100 mg tablet 100 mg PO Q24H depression 05/11/24 Unknown History cefdinir 300 mg capsule 300 mg PO Q12 5 days #10 caps 04/23 06/13 Unknown Rx dextromethorphan-guai fenesin ER 60 1 tab PO BID 7 days #14 tabs Unknown Rx mg-1,200 mg tab,extend release,12hr oxycodone-acetaminoph en 5 mg-325 1 tab PO Q8H PRN pain 2 days #4 Unknown Rx mg tablet (Percocet) tabs Allergy/AdvReac Type Severity Reaction Status Date / Time hydrocodone bitartrate (From Allergy Hives Verified 10/03/24 16:46 Vicodin) Family History Mother COPD (chronic obstructive pulmonary disease) ETOH abuse Father ETOH abuse Surgical History S/P appendectomy Hx of spinal surgery Social History household members: other details: Currently staying with her mother while she recovers from her trauma. housing: house Smoking Status: Light Smoker (<10/day) how long ago did patient quit smoking: Quit 02/10/24, smoked 1 ppd since teen until quit. alcohol intake: never substance use type: marijuana ROS ROS ED ROS Narrative Denies recent illness. Constitutional Constitutional ED: Denies chills or fever(s) Eyes Eyes: Denies blurry vision ENT ENT ED: Denies ear pain Cardiovascular Cardiovascular: Denies chest pain Respiratory/Chest Respiratory/Chest: Denies cough or dyspnea Gastrointestinal Gastrointestinal: Denies abdominal pain, diarrhea, nausea or vomiting Genitourinary Genitourinary ED: Denies dysuria or hematuria Musculoskeletal Musculoskeletal: Denies arthralgias or back pain Integumentary Denies abscess or Abrasions Neurologic Neurologic: Denies headache(s) Psychiatric Psychiatric: Denies anxiety Endocrine Endocrinology: Denies cold intolerance Hematologic/Lymphatic Hematologic/Lymphatic : Denies easy bleeding, easy bruising or lymphadenopathy Allergic/Immunologic Allergic/Immunologic ED: Denies mouth swelling, tongue swelling or urticaria EXAM Physical Exam Narrative Exam Narrative: Presenting female sitting upright in bed. Vital signs are stable afebrile. H EENT exam pupils round react to light. Moist mucous membranes. No trauma to her face or scalp. She is in a cervical collar. C-spine nontender. Lungs clear to auscultation bilaterally. Heart regular rhythm no murmur rate about 80. Anterior chest wall and anterior ribs are nontender. Abdomen soft nontender. Pelvic girdle intact. Moving all 4 extremities. No deformity. She has tenderness of the right shoulder and right posterior shoulder. There is no deformity. It is not dislocated. She is unable to lift her right arm overhead. Bilateral elbows for (more content not included)... Normal [facility] Shoulder min 2 Viewson 10-03 Shoulder min 2 Views [facility] Imaging Services [address] [place] [address] Shoulder min 2 Views MR#: [id number] Acct: [id number] Name: JENNIFER PRICE Rep #: [id number] : 1975 F 49 From: Hugh Craig MD PCP: Dr. Juancarlos Alvarado, DO Status: REG ER Study: Shoulder min 2 Views Date of Exam: 10/03/24 Exam# [id number] Ordering Dr: Brian Stevenson MD PROCEDURE: SHOULDER MIN 2 VIEWS 10/03/2024 REASON FOR EXAM: FALL TECHNIQUE: SHOULDER MIN 2 VIEWS COMPARISON: None. FINDINGS: No acute fracture or dislocation. Alignment is anatomic. Well preserved glenohumeral joint space. Mild degenerative arthrosis of the right AC joint. Partially imaged cervicothoracic metallic posterior instrumented fusion hardware. Imaged right lung field is clear. Unremarkable soft tissues. RAD/Shoulder min 2 Views IMPRESSION: No acute fracture or dislocation. Reading Location: [id number] CC: Dr. Brian Stevenson MD; Dr. Juancarlos Alvarado DO Job Interviewer: Signed Normal [facility] Basic Metabolic Profile (BMP )on 05-19-2024 Anion gap [Moles/Vol] 10 mmol/L Normal 5-15 [facility] Comment on above: Performed By: #### L 505.5000, L300.3900, L501.9100, L500.2500, L300.4310, L100.0100 #### [facility] [address] [place], [address] BUN/CRE 18.6 RATIO Normal 10-20 [facility] Comment on above: Performed By: #### L 505.5000, L300.3900, L501.9100, L500.2500, L300.4310, L100.0100 #### [facility] [address] [place], [address] Calcium [Mass/Vol] 8.9 mg/dL Normal 7.6-11.0 [facility] Comment on above: Performed By: #### L 505.5000, L300.3900, L501.9100, L500.2500, L300.4310, L100.0100 #### [facility] [address] [place], [address] Chloride [Moles/Vol] 103 mmol/L Normal 96-108 [facility] Comment on above: Performed By: #### L 505.5000, L300.3900, L501.9100, L500.2500, L300.4310, L100.0100 #### [facility] [address] [place], [address] CO2 [Moles/Vol] 26.8 mmol/L Normal 22.0-29.0 [facility] Comment on above: Performed By: #### L 505.5000, L300.3900, L501.9100, L500.2500, L300.4310, L100.0100 #### [facility] [address] [place], [address] Creatinine [Mass/Vol] 0.51 mg/dL Low 0.70-1.20 [facility] Comment on above: Performed By: #### L 505.5000, L300.3900, L501.9100, L500.2500, L300.4310, L100.0100 #### [facility] [address] [place], [address] ECRCL 124.03 ml/min Normal [facility] Comment on above: Performed By: #### L 505.5000, L300.3900, L501.9100, L500.2500, L300.4310, L100.0100 #### [facility] [address] [place], [address] GFR/1.73 sq M.predicted among non-blacks MDRD (S/P/Bld) [Vol rate/Area] 117 mL/min/{1.73_m2} Normal >60 [facility] Comment on above: Result Comment: mL/m in/1.73m2 CKD-EPI Creatinine Equation (2020) Performed By: #### L 505.5000, L300.3900, L501.9100, L500.2500, L300.4310, L100.0100 #### [facility] [address] [place], [address] Glucose [Mass/Vol] 102 mg/dL High 70-99 [facility] Comment on above: Performed By: #### L 505.5000, L300.3900, L501.9100, L500.2500, L300.4310, L100.0100 #### [facility] [address] [place], [address] Potassium [Moles/Vol] 3.8 mmol/L Normal 3.3-5.1 [facility] Comment on above: Performed By: #### L 505.5000, L300.3900, L501.9100, L500.2500, L300.4310, L100.0100 #### [facility] [address] [place], [address] Sodium [Moles/Vol] 139 mmol/L Normal 133-145 [facility] Comment on above: Performed By: #### L 505.5000, L300.3900, L501.9100, L500.2500, L300.4310, L100.0100 #### [facility] [address] [place], [address] Urea nitrogen [Mass/Vol] 9 mg/dL Normal 4-19 [facility] Comment on above: Performed By: #### L 505.5000, L300.3900, L501.9100, L500.2500, L300.4310, L100.0100 #### [facility] [address] [place], [address] CBC W/Diff, Automatedon 04-23 Absolute Lymph 2.66 X10 3/uL Normal 0.83-4.51 [facility] Comment on above: Performed By: #### L 505.5000, L300.3900, L501.9100, L500.2500, L300.4310, L100.0100 #### [facility] [address] [place], [address] Absolute Neut 5.2 X10 3/uL Normal 2.0-7.7 [facility] Comment on above: Performed By: #### L 505.5000, L300.3900, L501.9100, L500.2500, L300.4310, L100.0100 #### [facility] [address] [place], [address] Basophils/100 WBC (Bld) 0.7 % Normal 0-1 [facility] Comment on above: Performed By: #### L 505.5000, L300.3900, L501.9100, L500.2500, L300.4310, L100.0100 #### [facility] [address] [place], [address] Eosinophils/100 WBC (Bld) 2.8 % Normal 0-5 [facility] Comment on above: Performed By: #### L 505.5000, L300.3900, L501.9100, L500.2500, L300.4310, L100.0100 #### [facility] [address] [place], [address] Erythrocyte distribution width (RBC) [Ratio] 13.9 % Normal 11.6-14.6 [facility] Comment on above: Performed By: #### L 505.5000, L300.3900, L501.9100, L500.2500, L300.4310, L100.0100 #### [facility] [address] [place], [address] Hematocrit (Bld) [Volume fraction] 36.5 % Low 37-47 [facility] Comment on above: Performed By: #### L 505.5000, L300.3900, L501.9100, L500.2500, L300.4310, L100.0100 #### [facility] [address] [place], [address] Hemoglobin (Bld) [Mass/Vol] 11.6 g/dL Low 12.0-15.0 [facility] Comment on above: Performed By: #### L 505.5000, L300.3900, L501.9100, L500.2500, L300.4310, L100.0100 #### [facility] [address] [place], [address] IG% 0.600 Normal 0.0-0.9 [facility] Comment on above: Result Comment: IG% - Immature Granulocytes (promyelocytes, myelocytes and metamyelocytes) > 1% indicates that a LEFT SHIFT is Present. Performed By: #### L 505.5000, L300.3900, L501.9100, L500.2500, L300.4310, L100.0100 #### [facility] [address] [place], [address] Lymphocytes/100 WBC (Bld) 30.7 % Normal 19-41 [facility] Comment on above: Performed By: #### L 505.5000, L300.3900, L501.9100, L500.2500, L300.4310, L100.0100 #### [facility] [address] [place], [address] MCH (RBC) [Entitic mass] 28.1 pg Normal 27.0-32.0 [facility] Comment on above: Performed By: #### L 505.5000, L300.3900, L501.9100, L500.2500, L300.4310, L100.0100 #### [facility] [address] [place], [address] MCHC (RBC) [Mass/Vol] 31.8 g/dL Low 32-36 [facility] Comment on above: Performed By: #### L 505.5000, L300.3900, L501.9100, L500.2500, L300.4310, L100.0100 #### [facility] [address] [place], [address] MCV (RBC) [Entitic vol] 88.4 fL Normal 81-99 [facility] Comment on above: Performed By: #### L 505.5000, L300.3900, L501.9100, L500.2500, L300.4310, L100.0100 #### [facility] [address] [place], [address] Monocytes/100 WBC (Bld) 5.7 % Normal 0-10 [facility] Comment on above: Performed By: #### L 505.5000, L300.3900, L501.9100, L500.2500, L300.4310, L100.0100 #### [facility] [address] [place], [address] Neutrophils/100 WBC (Bld) 59.5 % Normal 47-70 [facility] Comment on above: Performed By: #### L 505.5000, L300.3900, L501.9100, L500.2500, L300.4310, L100.0100 #### [facility] [address] [place], [address] Nucleated RBC (Bld) [#/Vol] 0 10*3/uL Normal 0-5 [facility] Comment on above: Performed By: #### L 505.5000, L300.3900, L501.9100, L500.2500, L300.4310, L100.0100 #### [facility] [address] [place], [address] Platelet mean volume (Bld) [Entitic vol] 9.7 fL Normal 6.2-12.0 [facility] Comment on above: Performed By: #### L 505.5000, L300.3900, L501.9100, L500.2500, L300.4310, L100.0100 #### [facility] [address] [place], [address] Platelets (Bld) [#/Vol] 447 10*3/uL Normal 150-450 [facility] Comment on above: Performed By: #### L 505.5000, L300.3900, L501.9100, L500.2500, L300.4310, L100.0100 #### [facility] [address] [place], [address] RBC (Bld) [#/Vol] 4.13 10*6/uL Low 4.2-5.4 [facility] Comment on above: Performed By: #### L 505.5000, L300.3900, L501.9100, L500.2500, L300.4310, L100.0100 #### [facility] [address] [place], [address] RDW SD 44.4 fl High 35.1-43.9 [facility] Comment on above: Performed By: #### L 505.5000, L300.3900, L501.9100, L500.2500, L300.4310, L100.0100 #### [facility] [address] [place], [address] WBC (Bld) [#/Vol] 8.7 10*3/uL Normal 4.4-11.0 [facility] Comment on above: Performed By: #### L 505.5000, L300.3900, L501.9100, L500.2500, L300.4310, L100.0100 #### [facility] [address] [place], [address] Emergency Department Summary on 05-19-2024 Emergency Department Summary [facility] Medical Records Department [address] [place] [address] Emergency Department Summary 05/19/24 MR#: [id number] Acct: [id number] Name: JENNIFER PRICE Rep #: [id number] : 1975 48 From: Serafin Cody DO PCP: Dr. Juancarlos Alvarado, DO Status:DEP ER Location: ED HPI History of Present Illness Chief Complaint: Numb/Ting Informant: patient Onset/Context/Timing Onset: Days (3) Context: Gradual Onset Timing: Continuous Quality: Sharp Location: Neck Worsened by: Nothing Relieved by: Heat Associated Symptoms Associated Symptoms: Paresthesias, right lower extremity edema Narrative Narrative: Patient presents with neck pain, right leg swelling, and paresthesias that have been getting worse over the past 3 days. Patient describes her pain as sharp. Patient states it is over the posterior neck. Patient states she had recent neck surgery 3 months ago. Patient states she feels some knots in the back of her neck that are painful. Patient denies any fevers or chills. Patient states she recently got over pneumonia. Patient states her cough is improved. Patient admits to some nausea but denies any vomiting. [facility] Medical History Former tobacco use GERD (gastroesophageal reflux disease) HTN (hypertension) Cyclical vomiting Cannabis dependence Anxiety and depression Barretts esophagus Home Medications ???Medication ???Instructions ???Recorded ???Last Taken ???Type albuterol sulfate 90 mcg/actuation 2 inh inhalation Q6H PRN shortne ss 05/11/24 Unknown History breath activated powder inhaler of breath benzonatate 100 mg capsule 100 mg PO BID PRN cough 05/11/24 U nknown History lisinopril 5 mg tablet 5 mg PO DAILY bp 05/11/24 Unknown History methocarbamol 500 mg tablet 500 mg PO 4X/DAY pain/ cramps 04/23 Unknown History sertraline 100 mg tablet 100 mg PO Q24H depression 05/11/24 Unknown History cefdinir 300 mg capsule 300 mg PO Q12 5 days #10 caps 04/23 06/13 Unknown Rx dextromethorphan-guai fenesin ER 60 1 tab PO BID 7 days #14 tabs Unknown Rx mg-1,200 mg tab,extend release,12hr Allergy/AdvReac Type Severity Reaction Status Date / Time hydrocodone bitartrate (From Allergy Hives Verified 05/19/24 17:10 Vicodin) Family History (Updated 05/11/24 @ 21:[address] Gloria Parekh MD) Mother COPD (chronic obstructive pulmonary disease) ETOH abuse Father ETOH abuse Surgical History S/P appendectomy Hx of spinal surgery Social History household members: other details: Currently staying with her mother while she recovers from her trauma. housing: house Smoking Status: Former smoker how long ago did patient quit smoking: Quit 02/10/24, smoked 1 ppd since teen until quit. alcohol intake: never substance use type: marijuana ROS ROS ED Constitutional Constitutional ED: Denies chills or fever(s) Eyes Eyes: Denies blurry vision or change in vision ENT ENT ED: Reports rhinorrhea; Denies sore throat Cardiovascular Cardiovascular: Denies chest pain or palpitations Respiratory/Chest Respiratory/Chest: Reports cough; Denies dyspnea Gastrointestinal Gastrointestinal: Reports nausea; Denies vomiting Genitourinary Genitourinary ED: Denies dysuria or hematuria Musculoskeletal Musculoskeletal: Denies back pain or neck pain Integumentary Denies abscess or rash Neurologic Neurologic: Reports paresthesias; Denies headache(s) Allergic/Immunologic Allergic/Immunologic ED: Denies mouth swelling or urticaria EXAM Physical Exam Const Vital Signs: 05/19/24 17:11 05/19/24 18:10 05/19/24 18:56 Temperature 98.1 F Temperature Source Temporal Pulse Rate 117 H 71 79 Respiratory Rate 18 14 14 Blood Pressure 136/101 H 159/96 H 135/90 H Blood Pressure Mean 112 117 105 Pulse Ox 98 97 94 Oxygen Delivery Method Room Air Room Air Room Air 05/19/24 19:00 05/19/24 20:00 05/19/24 21:00 Temperature Temperature Source Pulse Rate 74 75 81 Respiratory Rate 16 16 16 Blood Pressure 135/90 H 133/95 H 139/88 H Blood Pressure Mean 105 107 105 Pulse Ox 95 95 94 Oxygen Delivery Method Room Air Room Air Room Air 05/19/24 21:40 Temperature 98.2 F Temperature Source Pulse Rate 80 Respiratory Rate 16 Blood Pressure 144/78 H Blood Pressure Mean 100 Pulse Ox 96 Oxygen Delivery Method Positive well nourished and well developed General Appearance ED: well developed and NAD HEENT Reports moist mucous membranes Neck Neck Narrative: There is tenderness over the lower cervical and upper thoracic spine. Incision is well-healing. (more content not included)... Normal [facility] ,Serum,hCG Quali.on 05-19-2024 HCG, SERUM QUAL Negative Normal [facility] [facility] Comment on above: Performed By: #### L 505.5000, L300.3900, L501.9100, L500.2500, L300.4310, L100.0100 #### [facility] [address] [place], [address] Spine Cervical without Contr ason 05-19-2024 Spine Cervical without Contras [facility] Imaging Services [address] [place] [address] Spine Cervical without Contras MR#: [id number] Acct: [id number] Name: JENNIFER PRICE Rep #: [id number] : 1975 F 48 From: Bobbi Robison nd, MD PCP: Dr. Juancarlos Alvarado, DO Status: REG ER Study: Spine Cervical without Contras Date of Exam: 0 05/19/24 Exam# [id number] Ordering Dr: Serafin Cody DO PROCEDURE: SPINE CERVICAL WITHOUT CONTRAS REASON FOR EXAM: 48-year-old female, injury/pain, right leg swelling and numbness x3 days, neck surgery 3 months ago. TECHNIQUE: Cervical spine CT without contrast. COMPARISON: CT C-spine 02/10/2024. FINDINGS: Interval posterior spinal fixation and instrumentation of the C2-C6 and T1-T2 vertebral bodies with laminectomies at the C3-6 vertebral bodies and bilateral bone grafting. Minimal osseous bridging of the bone graft material. The hardware appears intact without lucency or fracture. Alignment: Normal. Visualization of the spinal canal is limited by metallic streak artifact. Vertebrae: No obvious acute fracture. Soft Tissues: No large prevertebral hematoma CT/Spine Cervical without Contras IMPRESSION: Interval posterior spinal fixation and instrumentation of the cervical and upper thoracic vertebral bodies as described. No obvious acute cervical fracture. One or more dose reduction techniques were used (e.g., Automated exposure control, adjustment of the mA and/or kV according to patient size, use of iterative reconstruction technique). Reading Location: [id number] CC: Dr. Serafin Cody, DO; Dr. Juancarlos Alvarado, DO Job Interviewer: Signed Normal [facility] Urinalysis, Completeon 05-19 AMORPHOUS 1+ PHOS Normal [facility] Comment on above: Order Comment: CLEAN CATCH Performed By: #### L 505.5000, L300.3900, L501.9100, L500.2500, L300.4310, L100.0100 #### [facility] [address] [place], [address] EPI,SQUAMOUS 0-5 SEEN Normal 5-10 [facility] Comment on above: Order Comment: CLEAN CATCH Performed By: #### L 505.5000, L300.3900, L501.9100, L500.2500, L300.4310, L100.0100 #### [facility] [address] [place], [address] RBC 0-5 SEEN Normal 0-5 [facility] Comment on above: Order Comment: CLEAN CATCH Performed By: #### L 505.5000, L300.3900, L501.9100, L500.2500, L300.4310, L100.0100 #### [facility] [address] [place], [address] BACTERIA 0 SEEN Normal None Seen [facility] Comment on above: Order Comment: CLEAN CATCH Performed By: #### L 505.5000, L300.3900, L501.9100, L500.2500, L300.4310, L100.0100 #### [facility] [address] [place], [address] Mucus Ql (Urine sed) [address] [facility] Comment on above: Order Comment: CLEAN CATCH Performed By: #### L 505.5000, L300.3900, L501.9100, L500.2500, L300.4310, L100.0100 #### [facility] [address] [place], [place], [id number] WBC 0 SEEN Normal 0-5 [facility] Comment on above: Order Comment: CLEAN CATCH Performed By: #### L 505.5000, L300.3900, L501.9100, L500.2500, L300.4310, L100.0100 #### [facility] [address] [place], [address] Venous Duplex Imag/Limited/U nion 05-19-2024 Venous Duplex Imag/Limited/Uni [facility] Imaging Services [address] [place] [address] Venous Duplex Imag/Limited/Uni MR#: [id number] Acct: [id number] Name: JENNIFER PRICE Rep #: [id number] : 1975 F 48 From: Bobbi Robison nd, MD PCP: Dr. Juancarlos Alvarado DO Status: [facility] ER Study: Venous Duplex Imag/Limited/Uni Date of Exam: 0 05/19/24 Exam# [id number] Ordering Dr: Serafin Cody DO EXAM: BILATERAL LOWER EXTREMITY DOPPLER STUDY CLINICAL HISTORY: 48-year-old female, right lower extremity swelling and numbness. COMPARISON: None. TECHNIQUE: Duplex sonography of the bilateral lower extremities with color and spectral Doppler, with and without compression. FINDINGS: The bilateral external iliac, greater saphenous, common femoral, deep femoral, femoral, popliteal, posterior tibial, and peroneal veins are compressed normally and demonstrate color flow with respiratory variation by Doppler. There is no evidence of deep venous thrombosis in the bilateral femoral popliteal system. Additional focal ultrasound imaging was obtained in the patient's area of interest along the right anterior dickens. No fluid collection or mass visualized by ultrasound interrogation. US/Venous Duplex Imag/Limited/Uni IMPRESSION: No evidence of deep venous thrombosis in the bilateral femoral popliteal system. Reading Location: [facility] CC: Dr. Serafin Cody DO; Dr. Juancarlos Alvarado DO Job Interviewer: Signed Normal [facility] Basic Metabolic Profile (BMP )on 05-17-2024 BUN Normal 7-18 [facility] Comment on above: Result Comment: Canc elled via OM: Order cancelled - Patient discharged Performed By: #### L 500.2500 #### [facility] [address] [place], [address] BUN/CRE Normal 10-20 [facility] Comment on above: Result Comment: Canc elled via OM: Order cancelled - Patient discharged Performed By: #### L 500.2500 #### [facility] [address] [place], [address] CA,Total Normal 8.5-10.1 [facility] Comment on above: Result Comment: Canc elled via OM: Order cancelled - Patient discharged Performed By: #### L 500.2500 #### [facility] [address] [place], [address] CL Normal 98-107 [facility] Comment on above: Result Comment: Canc elled via OM: Order cancelled - Patient discharged Performed By: #### L 500.2500 #### [facility] [address] [place], [address] CO2 Normal 21.0-32.0 [facility] Comment on above: Result Comment: Canc elled via OM: Order cancelled - Patient discharged Performed By: #### L 500.2500 #### [facility] [address] [place], [address] CREAT,SERUM Normal 0.55-1.02 [facility] Comment on above: Result Comment: Canc elled via OM: Order cancelled - Patient discharged Performed By: #### L 500.2500 #### [facility] [address] [place], [address] EST GFR Normal >60 [facility] Comment on above: Result Comment: Canc elled via OM: Order cancelled - Patient discharged Performed By: #### L 500.2500 #### [facility] [address] [place], [address] EST GFR - AA Normal >60 [facility] Comment on above: Result Comment: Canc elled via OM: Order cancelled - Patient discharged Performed By: #### L 500.2500 #### [facility] [address] [place], [address] GAP Normal 5-15 [facility] Comment on above: Result Comment: Canc elled via OM: Order cancelled - Patient discharged Performed By: #### L 500.2500 #### [facility] [address] [place], [address] GLU Normal 74-106 [facility] Comment on above: Result Comment: Canc elled via OM: Order cancelled - Patient discharged Performed By: #### L 500.2500 #### [facility] [address] [place], [address] Potassium Normal 3.5-5.1 [facility] Comment on above: Result Comment: Canc elled via OM: Order cancelled - Patient discharged Performed By: #### L 500.2500 #### [facility] [address] [place], [address] Basic Metabolic Profile (BMP) Normal 136-145 [facility] Comment on above: Result Comment: Canc elled via OM: Order cancelled - Patient discharged Performed By: #### L 500.2500 #### [facility] [address] [place], [address] Culture, Blood (WB)on 2024 CUB Blood cultures x2, from two different sites No growth in 5 days. Normal [facility] Comment on above: Performed By: #### M 200.1000 #### [facility] [address] [place], [address] Basic Metabolic Profile (BMP )on 05-15-2024 BUN Normal 7-18 [facility] Comment on above: Result Comment: Canc elled via OM: Order cancelled - Patient discharged Performed By: #### L 100.0100, L500.2500 #### [facility] [address] [place], [address] BUN/CRE Normal 10-20 [facility] Comment on above: Result Comment: Canc elled via OM: Order cancelled - Patient discharged Performed By: #### L 100.0100, L500.2500 #### [facility] [address] [place], [address] CA,Total Normal 8.5-10.1 [facility] Comment on above: Result Comment: Canc elled via OM: Order cancelled - Patient discharged Performed By: #### L 100.0100, L500.2500 #### [facility] [address] [place], [address] CL Normal 98-107 [facility] Comment on above: Result Comment: Canc elled via OM: Order cancelled - Patient discharged Performed By: #### L 100.0100, L500.2500 #### [facility] [address] [place], [address] CO2 Normal 21.0-32.0 [facility] Comment on above: Result Comment: Canc elled via OM: Order cancelled - Patient discharged Performed By: #### L 100.0100, L500.2500 #### [facility] [address] [place], [address] CREAT,SERUM Normal 0.55-1.02 [facility] Comment on above: Result Comment: Canc elled via OM: Order cancelled - Patient discharged Performed By: #### L 100.0100, L500.2500 #### [facility] [address] [place], [address] EST GFR Normal >60 [facility] Comment on above: Result Comment: Canc elled via OM: Order cancelled - Patient discharged Performed By: #### L 100.0100, L500.2500 #### [place] [facility] [address] [place], [address] EST GFR - AA Normal >60 [facility] Comment on above: Result Comment: Canc elled via OM: Order cancelled - Patient discharged Performed By: #### L 100.0100, L500.2500 #### [facility] [address] [place], [address] GAP Normal 5-15 [facility] Comment on above: Result Comment: Canc elled via OM: Order cancelled - Patient discharged Performed By: #### L 100.0100, L500.2500 #### [facility] [address] [place], [address] GLU Normal 74-106 [facility] Comment on above: Result Comment: Canc elled via OM: Order cancelled - Patient discharged Performed By: #### L 100.0100, L500.2500 #### [facility] [address] [place], [address] Potassium Normal 3.5-5.1 [facility] Comment on above: Result Comment: Canc elled via OM: Order cancelled - Patient discharged Performed By: #### L 100.0100, L500.2500 #### [facility] [address] [place], [address] Basic Metabolic Profile (BMP) Normal 136-145 [facility] Comment on above: Result Comment: Canc elled via OM: Order cancelled - Patient discharged Performed By: #### L 100.0100, L500.2500 #### [facility] [address] [place], [address] CBC W/Diff, Automatedon 02-2 Absolute Neut Normal 2.0-7.7 [facility] Comment on above: Result Comment: Canc elled via OM: Order cancelled - Patient discharged Performed By: #### L 505.5000, L300.3900, L501.9100, L500.2500, L300.4310, L100.0100 #### [facility] [address] [place], [address] HCT Normal 37-47 [facility] Comment on above: Result Comment: Canc elled via OM: Order cancelled - Patient discharged Performed By: #### L 505.5000, L300.3900, L501.9100, L500.2500, L300.4310, L100.0100 #### [facility] [address] [place], [address] HGB Normal 12.0-15.0 [facility] Comment on above: Result Comment: Canc elled via OM: Order cancelled - Patient discharged Performed By: #### L 505.5000, L300.3900, L501.9100, L500.2500, L300.4310, L100.0100 #### [facility] [address] [place], [address] MCH Normal 27.0-32.0 [facility] Comment on above: Result Comment: Canc elled via OM: Order cancelled - Patient discharged Performed By: #### L 505.5000, L300.3900, L501.9100, L500.2500, L300.4310, L100.0100 #### [facility] [address] [place], [address] MCHC Normal 32-36 [facility] Comment on above: Result Comment: Canc elled via OM: Order cancelled - Patient discharged Performed By: #### L 505.5000, L300.3900, L501.9100, L500.2500, L300.4310, L100.0100 #### [facility] [address] [place], [address] MCV Normal 81-99 [facility] Comment on above: Result Comment: Canc elled via OM: Order cancelled - Patient discharged Performed By: #### L 505.5000, L300.3900, L501.9100, L500.2500, L300.4310, L100.0100 #### [facility] [address] [place], [address] NEUT% Normal 47-70 [facility] Comment on above: Result Comment: Canc elled via OM: Order cancelled - Patient discharged Performed By: #### L 505.5000, L300.3900, L501.9100, L500.2500, L300.4310, L100.0100 #### [facility] [address] [place], [address] PLT Normal 150-450 [facility] Comment on above: Result Comment: Canc elled via OM: Order cancelled - Patient discharged Performed By: #### L 505.5000, L300.3900, L501.9100, L500.2500, L300.4310, L100.0100 #### [facility] [address] [place], [address] RBC Normal 4.2-5.4 [facility] Comment on above: Result Comment: Canc elled via OM: Order cancelled - Patient discharged Performed By: #### L 505.5000, L300.3900, L501.9100, L500.2500, L300.4310, L100.0100 #### [facility] [address] [place], [address] RDW CV Normal 11.6-14.6 [facility] Comment on above: Result Comment: Canc elled via OM: Order cancelled - Patient discharged Performed By: #### L 505.5000, L300.3900, L501.9100, L500.2500, L300.4310, L100.0100 #### [facility] [address] [place], [address] RDW SD Normal 35.1-43.9 [facility] Comment on above: Result Comment: Canc elled via OM: Order cancelled - Patient discharged Performed By: #### L 505.5000, L300.3900, L501.9100, L500.2500, L300.4310, L100.0100 #### [facility] [address] [place], [address] WBC Normal 4.4-11.0 [facility] Comment on above: Result Comment: Canc elled via OM: Order cancelled - Patient discharged Performed By: #### L 505.5000, L300.3900, L501.9100, L500.2500, L300.4310, L100.0100 #### [facility] [address] [place], [place], [address] Discharge Instructionon 04-23 Discharge Instruction [facility] Medical Records Department [address] [place] [address] Instructions for Home/Discharge Instructions 05/14/24 1106 MR#: [id number] Acct: [id number] Name: JENNIFER PRICE Rep #: [id number] : 1975 48 From: Hakeem Quiroz MD PCP: Kevin Physician,No Primary Status:ADM IN Discharge Instructions Diet Discharge Diet: 2000 mg Sodium Diet DC O2, CPAP, BIPAP needs Home O2 Discharge instructions: No Dressing / Incision Discharge Activity: Return to Normal Activity Weight Bearing Status: Weight bearing as tolerated Dressing / Incision Call your doctor if you observe: Fever of 101 or Higher, Coldness, Increased Pain, Numbness or Tingling, Change in Color, Inability to urinate, Inability to have a bowel movement, Shortness of b reath, Dizziness, Fainting spells, Swelling in the ankles, Chest pain, Prolonged hiccupping, Increased palpitations (irregular heartbeat) and Calf discomfort Follow Up Care When: IN 2 WEEKS Test Results: Test results from this visit will be discussed in further detail at your follow-up appointment, if applicable. Discharge Plan Admission Admit Date/Time: 05/13/24 15:21 Primary Reason for Your Visit: Pneumonia Attending Provider: Hakeem Quiroz Primary Care Provider: Care Physician,No Primary Consulting Providers: Gloria Parekh Discharge Orders/Prescriptions Prescriptions: New cefdinir 300 mg Capsule 300 mg PO Q12 5 Days Qty: 10 0RF dextromethorphan-guai fenesin 60-1,200 mg tablet extended release 12 hr 1 tab PO BID 7 Days Qty: 14 0RF Continued benzonatate 100 mg capsule 100 mg PO BID PRN (Reason: cough) methocarbamol 500 mg tablet 500 mg PO 4X/DAY albuterol sulfate 90 mcg/actuation aerosol powdr breath activated 2 inh inhalation Q6H PRN (Reason: shortness of breath) lisinopril 5 mg tablet 5 mg PO DAILY sertraline 100 mg tablet 100 mg PO Q24H Discontinued amoxicillin-pot clavulanate 875-125 mg tablet 1 tab PO Q12H Referrals / Follow Up: Care Physician,No Primary [Primary Care Provider] - Disposition Disposition (needs filled in before D/C Order can be placed): Home, Self Care 05/14/24 1110 Hakeem Quiroz MD CC: Dr. Gloria Parekh MD; No Primary Care Physician Signed Normal [facility] Respiratory Cultureon 2024 RESPC List Antibiotics [place] 48 Hours? Rocephin, Zithromax List Antibiotics to be Started? Rocephin, Zithromax Mixed normal respiratory [place]. No Haemophilus, Streptococcus pneumoniae, beta-hemolytic Streptococcus or Staphylococcus aureus isolated. Normal [facility] Comment on above: Performed By: #### L 505.5000, L300.3900, L501.9100, L500.2500, L300.4310, L100.0100 #### [facility] [address] [place], [address] CBC W/Diff, Automatedon 04-23 Absolute Lymph 2.11 X10 3/uL Normal 0.83-4.51 [facility] Comment on above: Performed By: #### L 505.5000, L300.3900, L501.9100, L500.2500, L300.4310, L100.0100 #### [facility] [address] [place], [place], [id number] Absolute Neut 5.7 X10 3/uL Normal 2.0-7.7 [facility] Comment on above: Performed By: #### L 505.5000, L300.3900, L501.9100, L500.2500, L300.4310, L100.0100 #### [facility] [address] [place], [address] Basophils/100 WBC (Bld) 0.6 % Normal 0-1 [facility] Comment on above: Performed By: #### L 505.5000, L300.3900, L501.9100, L500.2500, L300.4310, L100.0100 #### [facility] [address] [place], [address] Eosinophils/100 WBC (Bld) 1.1 % Normal 0-5 [facility] Comment on above: Performed By: #### L 505.5000, L300.3900, L501.9100, L500.2500, L300.4310, L100.0100 #### [facility] [address] [place], [address] Erythrocyte distribution width (RBC) [Ratio] 13.1 % Normal 11.6-14.6 [facility] Comment on above: Performed By: #### L 505.5000, L300.3900, L501.9100, L500.2500, L300.4310, L100.0100 #### [facility] [address] [place], [place], [facility] Hematocrit (Bld) [Volume fraction] 31.8 % Low 37-47 [facility] Comment on above: Performed By: #### L 505.5000, L300.3900, L501.9100, L500.2500, L300.4310, L100.0100 #### [facility] [address] [place], [address] Hemoglobin (Bld) [Mass/Vol] 10.2 g/dL Low 12.0-15.0 [facility] Comment on above: Performed By: #### L 505.5000, L300.3900, L501.9100, L500.2500, L300.4310, L100.0100 #### [facility] [address] [place], [address] IG% 0.400 Normal 0.0-0.9 [facility] Comment on above: Result Comment: IG% - Immature Granulocytes (promyelocytes, myelocytes and metamyelocytes) > 1% indicates that a LEFT SHIFT is Present. Performed By: #### L 505.5000, L300.3900, L501.9100, L500.2500, L300.4310, L100.0100 #### [facility] [address] [place], [address] Lymphocytes/100 WBC (Bld) 24.9 % Normal 19-41 [facility] Comment on above: Performed By: #### L 505.5000, L300.3900, L501.9100, L500.2500, L300.4310, L100.0100 #### [facility] [address] [place], [address] MCH (RBC) [Entitic mass] 28.1 pg Normal 27.0-32.0 [facility] Comment on above: Performed By: #### L 505.5000, L300.3900, L501.9100, L500.2500, L300.4310, L100.0100 #### [facility] [address] [place], [address] MCHC (RBC) [Mass/Vol] 32.1 g/dL Normal 32-36 [facility] Comment on above: Performed By: #### L 505.5000, L300.3900, L501.9100, L500.2500, L300.4310, L100.0100 #### [facility] [address] [place], [address] MCV (RBC) [Entitic vol] 87.6 fL Normal 81-99 [facility] Comment on above: Performed By: #### L 505.5000, L300.3900, L501.9100, L500.2500, L300.4310, L100.0100 #### [facility] [address] [place], [address] Monocytes/100 WBC (Bld) 5.6 % Normal 0-10 [facility] Comment on above: Performed By: #### L 505.5000, L300.3900, L501.9100, L500.2500, L300.4310, L100.0100 #### [facility] [address] [place], [address] Neutrophils/100 WBC (Bld) 67.4 % Normal 47-70 [facility] Comment on above: Performed By: #### L 505.5000, L300.3900, L501.9100, L500.2500, L300.4310, L100.0100 #### [facility] [address] [place], [address] Nucleated RBC (Bld) [#/Vol] 0 10*3/uL Normal 0-5 [facility] Comment on above: Performed By: #### L 505.5000, L300.3900, L501.9100, L500.2500, L300.4310, L100.0100 #### [facility] [address] [place], [address] Platelet mean volume (Bld) [Entitic vol] 10.0 fL Normal 6.2-12.0 [facility] Comment on above: Performed By: #### L 505.5000, L300.3900, L501.9100, L500.2500, L300.4310, L100.0100 #### [facility] [address] [place], [address] Platelets (Bld) [#/Vol] 273 10*3/uL Normal 150-450 [facility] Comment on above: Performed By: #### L 505.5000, L300.3900, L501.9100, L500.2500, L300.4310, L100.0100 #### [facility] [address] [place], [address] RBC (Bld) [#/Vol] 3.63 10*6/uL Low 4.2-5.4 [facility] Comment on above: Performed By: #### L 505.5000, L300.3900, L501.9100, L500.2500, L300.4310, L100.0100 #### [facility] [address] [place], [address] RDW SD 42.0 fl Normal 35.1-43.9 [facility] Comment on above: Performed By: #### L 505.5000, L300.3900, L501.9100, L500.2500, L300.4310, L100.0100 #### [facility] [address] [place], [address] WBC (Bld) [#/Vol] 8.5 10*3/uL Normal 4.4-11.0 [facility] Comment on above: Performed By: #### L 505.5000, L300.3900, L501.9100, L500.2500, L300.4310, L100.0100 #### [facility] [address] [place], [address] Comprehensive Metabolic Prof [facility] 05-12-2024 Albumin [Mass/Vol] 2.0 g/dL Low 3.2-5.0 [facility] Comment on above: Performed By: #### L 505.5000, L300.3900, L501.9100, L500.2500, L300.4310, L100.0100 #### [facility] [address] [place], [address] Albumin/Globulin [Mass ratio] 0.5 {ratio} Low 0.9-2.4 [facility] Comment on above: Performed By: #### L 505.5000, L300.3900, L501.9100, L500.2500, L300.4310, L100.0100 #### [facility] [address] [place], [address] ALK P 67 U/L Normal 45-117 [facility] Comment on above: Performed By: #### L 505.5000, L300.3900, L501.9100, L500.2500, L300.4310, L100.0100 #### [facility] [address] [place], [address] ALT [Catalytic activity/Vol] 14 U/L Normal 13-56 [facility] Comment on above: Performed By: #### L 505.5000, L300.3900, L501.9100, L500.2500, L300.4310, L100.0100 #### [facility] [address] [place], [address] AST [Catalytic activity/Vol] 8 U/L Low 15-37 [facility] Comment on above: Performed By: #### L 505.5000, L300.3900, L501.9100, L500.2500, L300.4310, L100.0100 #### [facility] [address] [place], [address] Bilirubin [Mass/Vol] 0.10 mg/dL Low 0.20-1.00 [facility] Comment on above: Result Comment: For patients on eltrombopag therapy, use of Dimension [place] TBIL is not recommended. Performed By: #### L 505.5000, L300.3900, L501.9100, L500.2500, L300.4310, L100.0100 #### [facility] [address] [place], [address] BUN/CRE 7.4 RATIO Low 10-20 [facility] Comment on above: Performed By: #### L 505.5000, L300.3900, L501.9100, L500.2500, L300.4310, L100.0100 #### [facility] [address] [place], [address] CA,Total 8.8 mg/dL Normal 8.5-10.1 [facility] Comment on above: Performed By: #### L 505.5000, L300.3900, L501.9100, L500.2500, L300.4310, L100.0100 #### [facility] [address] [place], [address] Chloride [Moles/Vol] 108 mmol/L High 98-107 [facility] Comment on above: Performed By: #### L 505.5000, L300.3900, L501.9100, L500.2500, L300.4310, L100.0100 #### [facility] [address] [place], [address] CO2 [Moles/Vol] 29.0 mmol/L Normal 21.0-32.0 [facility] Comment on above: Performed By: #### L 505.5000, L300.3900, L501.9100, L500.2500, L300.4310, L100.0100 #### [facility] [address] [place], [address] Creatinine [Mass/Vol] 0.54 mg/dL Low 0.55-1.02 [facility] Comment on above: Result Comment: The validity of the calculated GFR GFRAA in patients over 70 years has not been determined. Clinical correlation is essential. Performed By: #### L 505.5000, L300.3900, L501.9100, L500.2500, L300.4310, L100.0100 #### [facility] [address] [place], [address] ECRCL 117.14 ml/min Normal [facility] Comment on above: Performed By: #### L 505.5000, L300.3900, L501.9100, L500.2500, L300.4310, L100.0100 #### [facility] [address] [place], [address] EST GFR - AA 155 mL/min Normal >60 [facility] Comment on above: Result Comment: Afri can Gabonese GFR Calc Performed By: #### L 505.5000, L300.3900, L501.9100, L500.2500, L300.4310, L100.0100 #### [facility] [address] [place], [address] GAP 2 Low 5-15 [facility] Comment on above: Performed By: #### L 505.5000, L300.3900, L501.9100, L500.2500, L300.4310, L100.0100 #### [facility] [address] [place], [address] GFR/1.73 sq M.predicted among non-blacks MDRD (S/P/Bld) [Vol rate/Area] 128 mL/min/{1.73_m2} Normal >60 [facility] Comment on above: Result Comment: Non- GFR Calc Performed By: #### L 505.5000, L300.3900, L501.9100, L500.2500, L300.4310, L100.0100 #### [facility] [address] [place], [address] Globulin (S) [Mass/Vol] 4.1 g/dL Normal 2.2-4.2 [facility] Comment on above: Performed By: #### L 505.5000, L300.3900, L501.9100, L500.2500, L300.4310, L100.0100 #### [facility] [address] [place], [address] Glucose [Mass/Vol] 136 mg/dL High 74-106 [facility] Comment on above: Result Comment: Fast ing Glucose result greater than or equal to 126 mg/dL suggests DIABETES MELLITUS per A.D.A. criteria. Performed By: #### L 505.5000, L300.3900, L501.9100, L500.2500, L300.4310, L100.0100 #### [facility] [address] [place], [address] Potassium [Moles/Vol] 3.9 mmol/L Normal 3.5-5.1 [facility] Comment on above: Performed By: #### L 505.5000, L300.3900, L501.9100, L500.2500, L300.4310, L100.0100 #### [facility] [address] [place], [address] Sodium [Moles/Vol] 139 mmol/L Normal 136-145 [facility] Comment on above: Performed By: #### L 505.5000, L300.3900, L501.9100, L500.2500, L300.4310, L100.0100 #### [facility] [address] [place], [address] T PROT 6.1 g/dL Low 6.4-8.2 [facility] Comment on above: Performed By: #### L 505.5000, L300.3900, L501.9100, L500.2500, L300.4310, L100.0100 #### [facility] [address] [place], [address] Urea nitrogen [Mass/Vol] 4 mg/dL Low 7-18 [facility] Comment on above: Performed By: #### L 505.5000, L300.3900, L501.9100, L500.2500, L300.4310, L100.0100 #### [facility] [address] [place], [address] Gram Stainon 05-12-2024 GS List Antibiotics Las t 48 Hours? Rocephin, Zithromax List Antibiotics to be Started? Rocephin, Zithromax Acceptable Specimen? Yes (<25 Epithelial cells per/lpf) Gram Stain No organisms seen No cells seen Normal [facility] Comment on above: Performed By: #### L 505.5000, L300.3900, L501.9100, L500.2500, L300.4310, L100.0100 #### [facility] [address] [place], [address] RESPIRATORY PANEL MOLECULARo n 05-12-2024 RP PANEL Normal Reference Range = Not Detected Nucleic acid amplification test method ADENOVIRUS Not Detected INFLUENZA A Not Detected INFLUENZA A (SUBTYPE H1) Not Detected INFLUENZA A (SUBTYPE H3) Not Detected INFLUENZA B Not Detected HUMAN METAPHNEUMO Not Detected PARAINFLUENZA 1 Not Detected PARAINFLUENZA 2 Not Detected PARAINFLUENZA 3 Not Detected PARAINFLUENZA 4 Not Detected RHINOVIRUS Not Detected RSV A Not Detected RSV B Not Detected Normal [facility] Comment on above: Performed By: #### L 505.5000, L300.3900, L501.9100, L500.2500, L300.4310, L100.0100 #### [facility] [address] [place], [address] BNP,B-Type NATRIURETIC PEPTI Zoey 05-11-2024 Natriuretic peptide B (Bld) [Mass/Vol] 42.7 pg/mL Normal 0-100 [facility] Comment on above: Performed By: #### L 505.5000, L300.3900, L501.9100, L500.2500, L300.4310, L100.0100 #### [facility] [address] [place], [address] Basic Metabolic Profile (BMP )on 05-11-2024 BUN/CRE 10.5 RATIO Normal 10-20 [facility] Comment on above: Order Comment: 'TROP ' Serial specimen #1, #2 or #3: 1 Performed By: #### L 505.5000, L300.3900, L501.9100, L500.2500, L300.4310, L100.0100 #### [facility] [address] [place], [address] CA,Total 9.3 mg/dL Normal 8.5-10.1 [facility] Comment on above: Order Comment: 'TROP ' Serial specimen #1, #2 or #3: 1 Performed By: #### L 505.5000, L300.3900, L501.9100, L500.2500, L300.4310, L100.0100 #### [facility] [address] [place], [address] Chloride [Moles/Vol] 104 mmol/L Normal 98-107 [facility] Comment on above: Order Comment: 'TROP ' Serial specimen #1, #2 or #3: 1 Performed By: #### L 505.5000, L300.3900, L501.9100, L500.2500, L300.4310, L100.0100 #### [facility] [address] [place], [address] CO2 [Moles/Vol] 29.0 mmol/L Normal 21.0-32.0 [facility] Comment on above: Order Comment: 'TROP ' Serial specimen #1, #2 or #3: 1 Performed By: #### L 505.5000, L300.3900, L501.9100, L500.2500, L300.4310, L100.0100 #### [facility] [address] [place], [address] Creatinine [Mass/Vol] 0.57 mg/dL Normal 0.55-1.02 [facility] Comment on above: Order Comment: 'TROP ' Serial specimen #1, #2 or #3: 1 Result Comment: The validity of the calculated GFR GFRAA in patients over 70 years has not been determined. Clinical correlation is essential. Performed By: #### L 505.5000, L300.3900, L501.9100, L500.2500, L300.4310, L100.0100 #### [facility] [address] [place], [address] EST GFR - AA 146 mL/min Normal >60 [facility] Comment on above: Order Comment: 'TROP ' Serial specimen #1, #2 or #3: 1 Result Comment: Afri can Gabonese GFR Calc Performed By: #### L 505.5000, L300.3900, L501.9100, L500.2500, L300.4310, L100.0100 #### [facility] [address] [place], [address] GAP 5 Normal 5-15 [facility] Comment on above: Order Comment: 'TROP ' Serial specimen #1, #2 or #3: 1 Performed By: #### L 505.5000, L300.3900, L501.9100, L500.2500, L300.4310, L100.0100 #### [facility] [address] [place], [address] GFR/1.73 sq M.predicted among non-blacks MDRD (S/P/Bld) [Vol rate/Area] 121 mL/min/{1.73_m2} Normal >60 [facility] Comment on above: Order Comment: 'TROP ' Serial specimen #1, #2 or #3: 1 Result Comment: Non- GFR Calc Performed By: #### L 505.5000, L300.3900, L501.9100, L500.2500, L300.4310, L100.0100 #### [facility] [address] [place], [address] Glucose [Mass/Vol] 110 mg/dL High 74-106 [facility] Comment on above: Order Comment: 'TROP ' Serial specimen #1, #2 or #3: 1 Result Comment: Fast ing Glucose result from 100 to 125 mg/dL suggests IMPAIRED HOMEOSTASIS per A.D.A. criteria. Performed By: #### L 505.5000, L300.3900, L501.9100, L500.2500, L300.4310, L100.0100 #### [facility] [address] [place], [address] Potassium [Moles/Vol] 3.9 mmol/L Normal 3.5-5.1 [facility] Comment on above: Order Comment: 'TROP ' Serial specimen #1, #2 or #3: 1 Performed By: #### L 505.5000, L300.3900, L501.9100, L500.2500, L300.4310, L100.0100 #### [facility] [address] [place], [address] Sodium [Moles/Vol] 139 mmol/L Normal 136-145 [facility] Comment on above: Order Comment: 'TROP ' Serial specimen #1, #2 or #3: 1 Performed By: #### L 505.5000, L300.3900, L501.9100, L500.2500, L300.4310, L100.0100 #### [facility] [address] [place], [address] Urea nitrogen [Mass/Vol] 6 mg/dL Low 7-18 [facility] Comment on above: Order Comment: 'TROP ' Serial specimen #1, #2 or #3: 1 Performed By: #### L 505.5000, L300.3900, L501.9100, L500.2500, L300.4310, L100.0100 #### [facility] [address] [place], [address] CBC W/Diff, Automatedon - 0-2024 Absolute Lymph 2.43 X10 3/uL Normal 0.83-4.51 [facility] Comment on above: Performed By: #### L 505.5000, L300.3900, L501.9100, L500.2500, L300.4310, L100.0100 #### [facility] [address] [place], [address] Absolute Neut 5.1 X10 3/uL Normal 2.0-7.7 [facility] Comment on above: Performed By: #### L 505.5000, L300.3900, L501.9100, L500.2500, L300.4310, L100.0100 #### [facility] [address] [place], [address] Basophils/100 WBC (Bld) 0.7 % Normal 0-1 [facility] Comment on above: Performed By: #### L 505.5000, L300.3900, L501.9100, L500.2500, L300.4310, L100.0100 #### [facility] [address] [place], [address] Eosinophils/100 WBC (Bld) 0.8 % Normal 0-5 [facility] Comment on above: Performed By: #### L 505.5000, L300.3900, L501.9100, L500.2500, L300.4310, L100.0100 #### [facility] [address] [place], [address] Erythrocyte distribution width (RBC) [Ratio] 13.3 % Normal 11.6-14.6 [facility] Comment on above: Performed By: #### L 505.5000, L300.3900, L501.9100, L500.2500, L300.4310, L100.0100 #### [facility] [address] [place], [address] Hematocrit (Bld) [Volume fraction] 33.2 % Low 37-47 [facility] Comment on above: Performed By: #### L 505.5000, L300.3900, L501.9100, L500.2500, L300.4310, L100.0100 #### [facility] [address] [place], [address] Hemoglobin (Bld) [Mass/Vol] 10.7 g/dL Low 12.0-15.0 [facility] Comment on above: Performed By: #### L 505.5000, L300.3900, L501.9100, L500.2500, L300.4310, L100.0100 #### [facility] [address] [place], [address] IG% 0.200 Normal 0.0-0.9 [facility] Comment on above: Result Comment: IG% - Immature Granulocytes (promyelocytes, myelocytes and metamyelocytes) > 1% indicates that a LEFT SHIFT is Present. Performed By: #### L 505.5000, L300.3900, L501.9100, L500.2500, L300.4310, L100.0100 #### [facility] [address] [place], [address] Lymphocytes/100 WBC (Bld) 29.5 % Normal 19-41 [facility] Comment on above: Performed By: #### L 505.5000, L300.3900, L501.9100, L500.2500, L300.4310, L100.0100 #### [facility] [address] [place], [address] MCH (RBC) [Entitic mass] 28.2 pg Normal 27.0-32.0 [facility] Comment on above: Performed By: #### L 505.5000, L300.3900, L501.9100, L500.2500, L300.4310, L100.0100 #### [facility] [address] [place], [address] MCHC (RBC) [Mass/Vol] 32.2 g/dL Normal 32-36 [facility] Comment on above: Performed By: #### L 505.5000, L300.3900, L501.9100, L500.2500, L300.4310, L100.0100 #### [facility] [address] [place], [address] MCV (RBC) [Entitic vol] 87.6 fL Normal 81-99 [facility] Comment on above: Performed By: #### L 505.5000, L300.3900, L501.9100, L500.2500, L300.4310, L100.0100 #### [facility] [address] [place], [address] Monocytes/100 WBC (Bld) 6.6 % Normal 0-10 [facility] Comment on above: Performed By: #### L 505.5000, L300.3900, L501.9100, L500.2500, L300.4310, L100.0100 #### [facility] [address] [place], [address] Neutrophils/100 WBC (Bld) 62.2 % Normal 47-70 [facility] Comment on above: Performed By: #### L 505.5000, L300.3900, L501.9100, L500.2500, L300.4310, L100.0100 #### [facility] [address] [place], [address] Nucleated RBC (Bld) [#/Vol] 0 10*3/uL Normal 0-5 [facility] Comment on above: Performed By: #### L 505.5000, L300.3900, L501.9100, L500.2500, L300.4310, L100.0100 #### [facility] [address] [place], [address] Platelet mean volume (Bld) [Entitic vol] 10.0 fL Normal 6.2-12.0 [facility] Comment on above: Performed By: #### L 505.5000, L300.3900, L501.9100, L500.2500, L300.4310, L100.0100 #### [facility] [address] [place], [address] Platelets (Bld) [#/Vol] 317 10*3/uL Normal 150-450 [facility] Comment on above: Performed By: #### L 505.5000, L300.3900, L501.9100, L500.2500, L300.4310, L100.0100 #### [facility] [address] [place], [address] RBC (Bld) [#/Vol] 3.79 10*6/uL Low 4.2-5.4 [facility] Comment on above: Performed By: #### L 505.5000, L300.3900, L501.9100, L500.2500, L300.4310, L100.0100 #### [facility] [address] [place], [address] RDW SD 42.6 fl Normal 35.1-43.9 [facility] Comment on above: Performed By: #### L 505.5000, L300.3900, L501.9100, L500.2500, L300.4310, L100.0100 #### [facility] [address] [place], [address] WBC (Bld) [#/Vol] 8.2 10*3/uL Normal 4.4-11.0 [facility] Comment on above: Performed By: #### L 505.5000, L300.3900, L501.9100, L500.2500, L300.4310, L100.0100 #### [facility] [address] [place], [address] Chest PA and Lateralon 05-11 Chest PA and Lateral [facility] Imaging Services [address] [place] [address] Chest PA and Lateral MR#: [id number] Acct: [id number] Name: JENNIFER PRICE Rep #: [id number] : 1975 F 48 From: Lacho Estrada MD PCP: Care Physician,No Primary Status: REG ER Study: Chest PA and Lateral Date of Exam: 05/11/24 Exam# [id number] Ordering Dr: Brian Stevenson MD PROCEDURE: CHEST PA AND LATERAL REASON FOR EXAM: Chest pain TECHNIQUE: Frontal and lateral views of the chest. COMPARISON: None. FINDINGS: The heart size is normal. The mediastinal contour is unremarkable. Bilateral lower lung zone opacities, [id number] ft The bones are unremarkable. RAD/Chest PA and Lateral IMPRESSION: Bilateral lower lobe pneumonia Reading Location: [facility] CC: Dr. 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 Informant: patient Onset/Context/Timing Onset: Weeks Context: gradual Timing: Continuous Current Severity: Moderate Maximum Severity: Moderate Worsened by: Coughing Associated Symptoms cough Chest Pain: Positive for None Narrative Narrative: 48-year-old female in January tripped and fell fractures of her neck had recent spine surgery at [facility] In January around [facility]. She was doing well until about 2 weeks ago she was diagnosed with pneumonia. Placed on Augmentin for a week that she is only been feeling worse and in the last 3 days developed bilateral lower extremity swelling. Denies chest pain. No hemoptysis. No history of DVT or PE. PE Risk Factors: Negative for Cancer, OCP + Smoking + > 35, Prior DVT or PE, Recent immobilization, Recent surgery or Recent travel Prior similar symptoms: No Recent Illness/Hospitalizati on: No PFSH PFS Medical History Barretts esophagus Home Medications ???Medication ???Instructions ???Recorded ???Last Taken ???Type NK 02/10/24 Unknown History Allergy/AdvReac Type Severity Reaction Status Date / Time hydrocodone bitartrate (From Allergy Hives Verified 05/11/24 18:10 Vicodin) Social History household members: significant other housing: house Smoking Status: Current every day smoker tobacco type: cigarettes ROS ROS ED ROS Narrative Cough. Fever and chills. Body aches. Shortness of breath Constitutional Constitutional ED: Reports chills and fever(s) Eyes Eyes: Denies blurry vision ENT ENT ED: Denies ear pain Cardiovascular Cardiovascular: Denies chest pain Respiratory/Chest Respiratory/Chest: Reports cough Gastrointestinal Gastrointestinal: Reports nausea; Denies abdominal pain, constipation, diarrhea, melena or vomiting Genitourinary Genitourinary ED: Denies dysuria or hematuria Musculoskeletal Musculoskeletal: Denies arthralgias Integumentary Denies abscess Neurologic Neurologic: Denies headache(s) Psychiatric Psychiatric: Denies anxiety Endocrine Endocrinology: Denies cold intolerance Hematologic/Lymphatic Hematologic/Lymphatic : Denies easy bleeding, easy bruising or lymphadenopathy Allergic/Immunologic Allergic/Immunologic ED: Denies mouth swelling, tongue swelling or urticaria EXAM Physical Exam Narrative Exam Narrative: 48-year-old female vital signs are stable afebrile. Pulse ox 97% on room air no hypoxia. H EENT exam pupils round react light. Moist mucous membranes. Neck she is in a cervical collar from her surgery. Trachea midline. Lungs coarse breath sounds with rhonchi in the right base. Heart regular rhythm rate about 90 no murmur. Chest wall and ribs nontender. Abdomen soft nontender. Back nontender. Moving all 4 extremities. She has 1+ pitting edema both lower extremities equal symmetrical. Calves are nontender without edema or cords. Neurologically she is awake and alert answering questions following commands. Const Vital Signs: 05/11/24 18:06 05/11/24 18:45 05/11/24 19:03 Temperature 97.5 F L Temperature Source Temporal Pulse Rate 92 Respiratory Rate 18 Respiratory Effort Normal Non-Labored Respiratory Depth Normal Respiratory Pattern Normal Blood Pressure 123/90 H Blood Pressure Mean 101 Pulse Ox 97 96 Oxygen Delivery Method Room Air Room Air Room Air 05/11/24 19:05 05/11/24 20:00 05/11/24 20:18 Temperature Temperature Source Pulse Rate 78 78 77 Respiratory Rate 16 18 Respiratory Effort Respiratory Depth Respiratory Pattern Normal Blood Pressure 99/69 102/89 H Blood Pressure Mean 79 93 Pulse Ox 99 98 Oxygen Delivery Method 05/11/24 21:00 Temperature Temperature Source Pulse Rate Respiratory Rate Respiratory Effort Respiratory Depth Respiratory Pattern Blood Pressure 151/95 H Blood Pressure Mean 113 Pulse Ox Oxygen Delivery Method Positive well nourished and well developed; Negative for obese, cachectic, contractures or unkempt General Appearance ED: well developed and NAD; Negative for unkempt, cachectic, contractures or pallor Nutritional Appearance: Negative for cachectic or obese HEENT Reports moist mucous membranes atraumatic; Negative for trauma or tenderness Eyes PERRL (more content not included)... Normal [facility] H AND P Exam - Hospitaliston 05-11-2024 H&P Exam - Hospitalist [facility] Medical Records Department [address] [place] [address] H P Exam - Hospitalist 05/11/24 2110 MR#: [id number] Acct: [id number] Name: JENNIFER PRICE Rep #: [id number] : 1975 48 From: Gloria Parekh MD PCP: Care Physician,No Primary Status:ADM DOMINICK Location: [place] [address] HPI - General General Date of Admission: 05/11/24 Date of Service: 05/11/24 Chief Complaint: Dyspnea, cough HPI Narrative The patient is a 48 y/o F w/ PMHx: Former tobacco use, HTN, Chronic cannabis usage with Hx Cycle vomiting syndrome, GERD w/ Stovall's esophagus, Anxiety and Depression, significant 02/10/2024 trauma resulting in transfer and prolonged stay at tertiary facility with significant surgical intervention of the neck with fractures who presents to the [facility] ED on 05/11/24 with history of persistent cough and dyspnea worse with exertion in addition to fever chills, body aches, decreased appetite with nausea without emesis initially starting 2 weeks previous to current presentation with diagnosis of pneumonia at that time placed on Augmentin for a week however over the last 3 days she has felt more unwell prompting eventual ED reevaluation. Workup in the ED included T97.5 Temporal, heart rate 92, BP 120/90, respiratory rate 18, 97% room air with most recent repeat vitals T98.3, heart 70, BP 123/87, respiratory rate 16, 99% on room air, CBC with WC 8.7, he 1 10.7, MCV 87.6, platelet 317 without marked shift, BMP unremarkable, glucose 110, troponin less than 3, BNP 42.7, chest x-ray with bilateral lower lobe infiltrates concerning for bilateral pneumonia. In the ED patient ministered Zofran 4 mg IV x 1, morphine 4 mg IV x 1, DuoNeb therapy, azithromycin 5 mg IV x 1, Rocephin 1 g IV x 1. [facility] Medical History (Updated 05/11/24 @ 21:[address] Gloria Parekh MD) Former tobacco use GERD (gastroesophageal reflux disease) HTN (hypertension) Cyclical vomiting Cannabis dependence Anxiety and depression Barretts esophagus Home Medications ???Medication ???Instructions ???Recorded ???Last Taken ???Type NK 02/10/24 Unknown History Allergy/AdvReac Type Severity Reaction Status Date / Time hydrocodone bitartrate (From Allergy Hives Verified 05/11/24 18:10 Vicodin) Family History (Updated 05/11/24 @ 21:[address] Gloria Parekh MD) Mother COPD (chronic obstructive pulmonary disease) ETOH abuse Father ETOH abuse Surgical History (Updated 05/11/24 @ 21:[address] Gloria Parekh MD) S/P appendectomy Hx of spinal surgery Social History (Updated 05/11/24 @ 21:[address] Gloria Parekh MD) household members: other details: Currently staying with her mother while she recovers from her trauma. housing: house Smoking Status: Former smoker how long ago did patient quit smoking: Quit 02/10/24, smoked 1 ppd since teen until quit. alcohol intake: never substance use type: marijuana ROS ROS Narrative Admission Review of Systems: CONSTITUTIONAL: No weight loss, + fever, chills, weakness or fatigue. HEENT: + Cough, congestion, rhinorrhea. Eyes: No visual loss, blurred vision, double vision or yellow sclerae. Ears, Nose, Throat: No hearing loss, sneezing. SKIN: No rash or itching, lesions, wounds. CARDIOVASCULAR: No chest pain, chest pressure or chest discomfort, palpitations, edema, orthopnea, syncopal events. RESPIRATORY: + Dyspnea, cough, occasional productive sputum. No wheezing, hemoptysis. GASTROINTESTINAL: + Anorexia/lack of appetite, nausea. No vomiting or diarrhea, abdominal pain, melena, BRBPR. GENITOURINARY: No dysuria, frequency, urgency or retention. NEUROLOGICAL: No headache, dizziness, syncope, paralysis, ataxia, numbness or tingling in the extremities, focal weakness, change in bowel or bladder control, seizure. MUSCULOSKELETAL: + muscle, back pain, joint pain or stiffness. HEMATOLOGIC: + Lab evidence of anemia. No history of easy bleeding or bruising. LYMPHATICS: No enlarged nodes. No history of splenectomy. PSYCHIATRIC: + History of anxiety and depression. ENDOCRINOLOGIC: No reports of sweating, cold or heat intolerance. No polyuria or polydipsia. ALLERGIES: + History of hives. Vital Signs Vital Signs Vital Signs: 05/11/24 18:06 05/11/24 18:45 05/11/24 19:03 Temperature 97.5 F L Temperature Source Temporal Pulse Rate 92 Respiratory Rate 18 Respiratory Effort Normal Non-Labored Respiratory Depth Normal Respiratory Pattern Normal Blood Pressure 123/90 H Blood Pressure Mean 101 Pulse Ox 97 96 Oxygen Delivery Method Room Air Room Air Room Air 05/11/24 19:05 05/11/24 20:00 05/11/24 20:18 Temperature Temperature Source Pulse Rate 78 78 77 Respiratory Rate 16 18 Respiratory Effort Respiratory Depth Respiratory Pattern Normal Blood Pressure 99/69 102/89 H B (more content not included)... Normal [facility] L501.4020on 05-11-2024 TROPONIN-I HS < 3 Low 3.0-54.0 [facility] Comment on above: Order Comment: 'TROP ' Serial specimen #1, #2 or #3: 1 Result Comment: Plea se Note: New Test Units and Gender Specific Reference Ranges. For more information see Policy Stat Procedure [place] High Sensitivity Troponin (TNIH) and attachments. Performed By: #### L 505.5000, L300.3900, L501.9100, L500.2500, L300.4310, L100.0100 #### [facility] [address] [place], [address] Legionella Antigen Urineon 0 05-11-2024 LEGU URINE, CLEAN CATCH Legionella Antigen result interpretation: L pneumo Ag Ur Ql Negative Presumptive negative for Legionella pneumophila serogroup 1 antigen in urine, suggesting no recent or current infection. Legionella Ag, Urine Negative (See interpretation below) Normal [facility] Comment on above: Performed By: #### L 505.5000, L300.3900, L501.9100, L500.2500, L300.4310, L100.0100 #### [facility] [address] [place], [address] Procalcitoninon 05-11-2024 Procalcitonin 0.06 ng/mL Normal 0.00-0.09 [facility] Comment on above: Result Comment: A procalcitonin (PCT) level above 2.0 ng/mL on the first day of ICU admission is associated with a high risk for progression to severe sepsis and/or septic shock. A PCT level below 0.5 ng/mL on the first day of ICU admission is associated with a low risk for progression to severe and/or septic shock. Note: Concentrations <0.5 ng/mL do not exclude an infection on account of localized infections (without systemic signs) which can be associated with such low concentrations, or a systemic infection in its initial stages (<6 hours). Furthermore, increased procalcitonin can occur without infection. PCT concentrations between 0.5 and 2.0 ng/mL should be interpreted taking into account the patient's history. It is recommended to retest PCT within 6-24 hours if any concentrations <2 ng/mL are obtained. Performed By: #### L 505.5000, L300.3900, L501.9100, L500.2500, L300.4310, L100.0100 #### [facility] [address] [place], [address] Strep pneumoniae Antig(UR,CS F)on 05-11-2024 STPAG URINE INTERPRETATION Strep pneumoniae Antig(UR,CSF) Negative Urine Presumptive negative for pneumococcal pneumonia, suggesting no current or recent pneumococcal infection. Infection due to S pneumoniae cannot be ruled out since the antigen present in the sample may be below the detection limit of the test. Strep pneumo Test Negative URINE (See interpretation below) Normal [facility] Comment on above: Performed By: #### L 505.5000, L300.3900, L501.9100, L500.2500, L300.4310, L100.0100 #### [facility] [address] [place], [address] XR SHOULDER MINIMUM 2 VIEWS RIGHTon 05-05-2024 XR SHOULDER MINIMUM 2 VIEWS RIGHT ORIGINAL EXAMINATION: XR right shoulder four views 05/05/2024 3:16 pm COMPARISON: None HISTORY: ORDERING SYSTEM PROVIDED HISTORY: Reason for Exam: FALL IN JANUARY. COUGH/PNEUMONIA RECENTLY & INCREASING PAIN IN RIGHT SHOULDER FOR LAST 2 DAYS. Pain; previous neck surgery, FINDINGS: No acute fracture, dislocation, bony lytic process or periosteal reaction is seen in the visualized bones and joints. No significant degenerative or erosive type of arthritis or soft tissue calcification. Glenohumeral and AC joints are normal. No decrease in subacromial space. IMPRESSION: No significant skeletal abnormality is seen. Interpreted by: Sandra Bourgeois MD Preliminary Report By: Sandra Bourgeois MD Electronically signed By Sandra Bourgeois MD Dictated Date: 05/05/2024 3:32:34 PM Prelim Date: 05/05/2024 3:33:10 PM Sign Date: 05/05/2024 3:33:10 PM Ordering Provider: CARLYN Spencer [facility] XR CHEST 1 VIEWon 05-02-2024 XR CHEST 1 VIEW ORIGINAL EXAMINATION: ONE XRAY VIEW OF THE CHEST05/02/2024 3:04 pm COMPARISON: 12/04/2019 HISTORY: ORDERING SYSTEM PROVIDED HISTORY: Reason for Exam: Cough, congestion, SOB; former smoker FINDINGS: Cardiomediastinal contours are within normal limits. Hazy infiltrative changes can be seen within the right lower lung. There is no edema. No pneumothorax or pleural effusion. No acute osseous abnormalities. Postsurgical changes of the lower cervical spine are noted with hardware intact. IMPRESSION: Right lower lung pneumonia, follow-up to complete resolution.. I have personally reviewed the images of this examination and agree with the resident's findings and interpretation. Interpreted by: Sandra Bourgeois MD Preliminary Report By: Pau Hayward Electronically signed By Sandra Bourgeois MD Dictated Date: 05/02/2024 3:09:26 PM Prelim Date: 05/02/2024 3:24:51 PM Sign Date: 05/02/2024 3:24:51 PM Ordering Provider: CARLYN MENDOZA [facility] CNCOon 04-11-2024 CNCO Letter Text [facility] CNPNon 04-11-2024 CNPN Telephone ([facility]) JENNIFER PRIEC ([id number]) 1975 F Date Time Provider Department 04/11/24 CELSO KNOWLES [facility] During your visit today, we recorded the following information about you: Kenyetta Bloom 04/11/2024 4:08 PM Signed [facility] No-Show Documentation Jennifer Price no showed for an appointment on 04-11-24 with Celso Knowles MD. at 1:45 pm. The patient was was scheduled for a post-operative visit. I called and spoke with the patient regarding missed appointment. No The patient stated the reason that they missed the appointment was because no reason given I had to leave a . Resources discussed/offered to patient: No No show determined to be fault of patient: Yes This is the patients second no show in the last 12 months. Patient was no rescheduled. Letter mailed regular mail AND certified : No Is this the Third or Fourth No Show? Teresita Bloom April 11, 2024 4:07 PM Allergies As of Date: 04/11/2024 Noted Allergy Reaction HYDROCODONE-ACETAMINO PHEN 03/31/2013 4 - Hives 11 - Vomiting Date Reviewed: 02/23/2024 Reviewed by: Rosa Palomino MA - Fully Assessed Prescriptions as of 04/11/2024 - oxyCODONE IR (ROXICODONE) 5 mg immediate release tablet Take 1 tablet by mouth every 6 hours as needed for pain for up to 7 days. for pain. - cyclobenzaprine (FLEXERIL) 10 mg tablet Take 1 tablet by mouth three times a day as needed for muscle spasm for up to 7 days. - gabapentin (NEURONTIN) 300 mg capsule Take 2 capsules by mouth three times a day for 4 doses. Problem List As Of Date 04/11/2024 Noted Resolved Vitamin D deficiency [E55.9] 04/11/2013 Hypertension [I10] 04/11/2013 Hypercholesteremia [E78.00] 04/11/2013 Cyclic vomiting syndrome [R11.15] 06/20/2013 Acute pelvic pain, female [R10.2] 07/13/2013 Central cord syndrome at C3 level of cervical s*02/10/2024 Nicotine use disorder, F17.2 [F17.200] 02/14/2024 Fall [W19.XXXA] 02/17/2024 Trauma [T14.90XA] 02/17/2024 Scalp laceration, initial encounter [S01.01XA] 02/17/2024 Bilateral arm weakness [R29.898] 02/17/2024 Dysesthesia [R20.8] 03/20/2024 Numbness [R20.0] 03/20/2024 Arthrodesis status [Z98.1] 03/20/2024 Presence of other specified devices [Z97.8] 03/20/2024 Encounter Status:Closed by KENYETTA BLOOM on 04/11/24 [facility] 04-05-2024 [facility] Telephone ([facility]) JENNIFER PRICE ([id number]) 1975 F Date Time Provider Department 04/05/24 CELSO KNOWLES [facility] During your visit today, we recorded the following information about you: Kenyetta Bloom 04/05/2024 12:56 PM Signed Spoke to patient to inform her to have x-rays done before seeing Dr Knowles on 04-11-24, she will do so. Allergies As of Date: 04/05/2024 Noted Allergy Reaction HYDROCODONE-ACETAMINO PHEN 03/31/2013 4 - Hives 11 - Vomiting Date Reviewed: 02/23/2024 Reviewed by: Rosa Palomino MA - Fully Assessed Prescriptions as of 04/05/2024 - oxyCODONE IR (ROXICODONE) 5 mg immediate release tablet Take 1 tablet by mouth every 6 hours as needed for pain for up to 7 days. for pain. - gabapentin (NEURONTIN) 300 mg capsule Take 2 capsules by mouth three times a day for 4 doses. Problem List As Of Date 04/05/2024 Noted Resolved Vitamin D deficiency [E55.9] 04/11/2013 Hypertension [I10] 04/11/2013 Hypercholesteremia [E78.00] 04/11/2013 Cyclic vomiting syndrome [R11.15] 06/20/2013 Acute pelvic pain, female [R10.2] 07/13/2013 Central cord syndrome at C3 level of cervical s*02/10/2024 Nicotine use disorder, F17.2 [F17.200] 02/14/2024 Fall [W19.XXXA] 02/17/2024 Trauma [T14.90XA] 02/17/2024 Scalp laceration, initial encounter [S01.01XA] 02/17/2024 Bilateral arm weakness [R29.898] 02/17/2024 Dysesthesia [R20.8] 03/20/2024 Numbness [R20.0] 03/20/2024 Arthrodesis status [Z98.1] 03/20/2024 Presence of other specified devices [Z97.8] 03/20/2024 Encounter Status:Closed by KENYETTA BLOOM on 04/05/24 [facility] Silvia 03-20-2024 ANDIEN Telephone ([facility]) ALBERTJENNIFER Powell ([id number]) 1975 F Date Time Provider Department 03/20/24 CELSO KNOWLES During your visit today, we recorded the following information about you: Rosa Palomino MA 03/20/2024 11:10 AM Signed Spoke with Jennifer. She is aware to complete xrays prior to her appointment on 03/28/2024 Allergies As of Date: 03/20/2024 Noted Allergy Reaction HYDROCODONE-ACETAMINO PHEN 03/31/2013 4 - Hives 11 - Vomiting Date Reviewed: 02/23/2024 Reviewed by: Rosa Palomino MA - Fully Assessed Prescriptions as of 03/20/2024 - methocarbamol (ROBAXIN) 500 mg tablet Take 1 tablet by mouth four times daily for 14 days. - oxyCODONE IR (ROXICODONE) 5 mg immediate release tablet Take 1 tablet by mouth every 6 hours as needed for pain for up to 7 days. for pain. - gabapentin (NEURONTIN) 300 mg capsule Take 2 capsules by mouth three times a day for 4 doses. Problem List As Of Date 03/20/2024 Noted Resolved Vitamin D deficiency [E55.9] 04/11/2013 Hypertension [I10] 04/11/2013 Hypercholesteremia [E78.00] 04/11/2013 Cyclic vomiting syndrome [R11.15] 06/20/2013 Acute pelvic pain, female [R10.2] 07/13/2013 Central cord syndrome at C3 level of cervical s*02/10/2024 Nicotine use disorder, F17.2 [F17.200] 02/14/2024 Fall [W19.XXXA] 02/17/2024 Trauma [T14.90XA] 02/17/2024 Scalp laceration, initial encounter [S01.01XA] 02/17/2024 Bilateral arm weakness [R29.898] 02/17/2024 Encounter Status:Closed by ROSA PALOMINO on 03/20/24 [facility] Silvia 02-25-2024 CNPN Telephone (AGPOB3) JENNIFER PRICE ([id number]) 1975 F Date Time Provider Department 02/25/24 CLINTON MARCOS During your visit today, we recorded the following information about you: Charo Biswas 02/25/2024 1:59 PM Signed ----- Message from Rach Shannon sent at 02/25/2024 12:42 PM EST ----- Regarding: [facility]nrpi-Vawer-Hobrtunke n refiil issue Subject Line Format: Orthopedics / [Provider Name or Open AND Body Part] / [Issue] Patient has been identified by name and Date of (Y/N): y Patient: Jennifer Price Date of : 1975 Previous Provider Seen: Yana Body Part(s) Identified: back Diagnosis/Reason For Visit: n/a Reason for the call/escalation: Patient states medication instructions or dosage is wrong for her oxycodone States that it needs to be 10mg 1 week supply-------pharmacy [facility] If reason for call/escalation is discharge from ED/ER or Hospital, which facility was the patient seen at: n/a Was an appointment scheduled (Y/N): n/a Person calling if other than patient: n/a Return call to if other than patient: n/a Best contact number: [phone] Thank you, Rach Lopez February 25, 2024 12:42 PM Charo Biswas 02/25/2024 2:30 PM Signed Patient was advised that Dr. Knowles send in 5MG IR. She will pick that up from the pharmacy and take as directed. Allergies As of Date: 02/25/2024 Noted Allergy Reaction HYDROCODONE-ACETAMINO PHEN 03/31/2013 4 - Hives 11 - Vomiting Date Reviewed: 02/23/2024 Reviewed by: Rosa Palomino MA - Fully Assessed Reason for Visit: Patient Question [7187] Cmt: RX Prescriptions as of 02/25/2024 - oxyCODONE IR (ROXICODONE) 5 mg immediate release tablet Take 1 tablet by mouth every 6 hours as needed for pain for up to 7 days. for pain. - oxyCODONE IR (ROXICODONE) 5 mg immediate release tablet Take 1 tablet by mouth every 6 hours as needed for pain for up to 1 day. - acetaminophen (TYLENOL) 500 mg tablet Take 2 tablets by mouth four times daily. - gabapentin (NEURONTIN) 300 mg capsule Take 2 capsules by mouth three times a day for 4 doses. - polyethylene glycol 3350 17 gram packet Take 1 Packet by mouth once daily. Dissolve dose in 4 - 8 ounces of liquid and take as directed. - senna-docusate (SENNA-S) 8.6-50 mg per tablet Take 1 tablet by mouth two times a day. Problem List As Of Date 02/25/2024 Noted Resolved Vitamin D deficiency [E55.9] 04/11/2013 Hypertension [I10] 04/11/2013 Hypercholesteremia [E78.00] 04/11/2013 Cyclic vomiting syndrome [R11.15] 06/20/2013 Acute pelvic pain, female [R10.2] 07/13/2013 Central cord syndrome at C3 level of cervical s*02/10/2024 Nicotine use disorder, F17.2 [F17.200] 02/14/2024 Fall [W19.XXXA] 02/17/2024 Trauma [T14.90XA] 02/17/2024 Scalp laceration, initial encounter [S01.01XA] 02/17/2024 Bilateral arm weakness [R29.898] 02/17/2024 Encounter Status:Closed by CHARO BISWAS on 02/25/24 [facility] CNOVon 02-23-2024 CNOV Office Visit ([facility] ) JENNIFER [id number]) 1975 F Date Time Provider Department 02/23/24 2:00 PM CELSO KNOWLES During your visit today, we recorded the following information about you: Pulse Weight Height 68/minute 64.4 kg 1.651 m Rosa Palomino SVITLANA 02/23/2024 2:29 PM Signed 48 y/o female presents to office for a routine post op. She had fallen at work and fell. She reports she was unable to use any limbs for a few minutes. She presented to the ED and had surgery of C2-T2 fusion. She states she is overall feeling much better. She is still finding it difficult with her right arm. She was completing PT in rehab, but will need a new order for PT. She will also need a refill on her pain medication. Celso Knowles MD 02/23/2024 2:29 PM Signed Celso Knowles MD [facility] Orthopedics - Orthopaedic Spine Surgeon [address] [facility], [facility] [address], [place] [address] Phone: [phone] ([phone] FAX: [phone] Spine Surgery Post-op Follow-up Service Date: 02/23/2024 Surgery Date: 02/10/2024 Surgery(ies): C2-T2 PSF, C3-6 laminectomy Pre-operative Symptoms: Dysesthetic upper extremity pain, bilateral hand weakness, episode of quadriplegia HPI: Jennifer Price is seen for 2 week post operative follow up. She is doing very well. She has had almost complete resolution of numbness and dysesthetic pain in the upper extremities. Has had significant improvement in bilateral upper extremity strength. She was discharged from [facility] secondary to rapid improvement in symptoms. She has at home and plans to start outpatient physical therapy soon. She has been compliant with collar wear. She has minimal pain in cervical spine. ALLERGIES Allergen Reactions Hydrocodone-Acetami* Hives, Vomiting Current Outpatient Medications Medication Sig Dispense Refill acetaminophen (TYLENOL) 500 mg tablet Take 2 tablets by mouth four times daily. 240 tablet 0 polyethylene glycol 3350 17 gram packet Take 1 Packet by mouth once daily. Dissolve dose in 4 - 8 ounces of liquid and take as directed. 30 Packet 0 senna-docusate (SENNA-S) 8.6-50 mg per tablet Take 1 tablet by mouth two times a day. 60 tablet 0 gabapentin (NEURONTIN) 300 mg capsule Take 2 capsules by mouth three times a day for 4 doses. 8 capsule 0 No current facility-administered medications for this visit. Physical Examination: Vital Signs: Pulse 68 Ht 165.1 cm (5' 5) Wt 64.4 kg (142 lb) LMP 05/28/2014 SpO2 98% BMI 23.63 kg/m? General Appearance: Well nourished, well developed, and no apparent distress. Incision: Clean, dry, and intact. No active drainage. No erythema. Sensory: Sensation intact to light touch in C5-T1 and L1-S1 dermatomes. 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 Long Tract Signs: No clonus. No Hoffmanns. Reflexes: Symmetric, non-brisk. Imaging AP and lateral x-rays of the cervical spine were obtained independent interpreted. Imaging demonstrates C2-T2 posterior spinal fusion instrumentation in stable position as compared to postoperative images. No evidence of hardware loosening or failure. Assessment 48 year old female who presents 2 weeks status-post C2-T2 PSF, C3-6 laminectomy: recovering well. Plan Hard cervical collar at all times except showering. Continue with restrictions on bending, lifting, and twisting. Referral to outpatient PT provided. Follow-up in 4 weeks for repeat x-rays and evaluation. Advised to call the office if symptoms worsen or new symptoms develop. Patient expressed understanding and is in agreement with plan. Celso Knowles MD Orthopaedic Spine Surgery This note was generated all or in part using [employer] voice recognition software. Please excuse any minor errors in spelling, grammar, or punctuation. Celso Knowles MD 02/25/2024 10:49 AM Signed Addended by: CELSO KNOWLES on: 02/25/2024 10:49 AM Modules accepted: Orders Allergies As of Date: 02/23/2024 Noted Allergy Reaction HYDROCODONE-ACETAMINO PHEN 03/31/2013 4 - Hives 11 - Vomiting Date Reviewed: 02/23/2024 Reviewed by: Rosa Palomino MA - Fully Assessed Reason for Visit: Post Op [174] Cmt: C2-T2 fusion 02/09 Primary Visit Diagnosis:Status post cervical spinal fusion [Z98.1] Other Visit Diagnosis:Central cord syndrome, subsequent encounter ([facility]) [S14.129D] Order(s):CONSULT TO PHYSICAL THERAPY [9032] Order #: [id number]: 1 FUTURE oxyCODONE IR (ROXICODONE) 5 mg immediate release tabletTake 1 tablet by mouth every 6 hours as needed for pain for up to 7 days. for pain.Disp: 28 tabletR (more content not included)... [facility] XR CERVICAL 2V AP/LATon 12-0 XR CERVICAL 2V AP/LAT * * *Final Report* * * DATE OF EXAM: Feb 23 2024 1:45PM RHX [id number] - XR CERVICAL 2V AP/LAT / PROCEDURE REASON: S/P cervical spinal fusion * * * * Physician Interpretation * * * * XR CERVICAL 2V AP/LAT Ordering Physician: CELSO KNOWLES CERVICAL SPINE SERIES 2 VIEWS Clinical Statement: Status post cervical spinal fusion. Comparison 02/11/2024 FINDINGS: Postoperative changes status post multilevel decompression with fusion from the C2-T2 levels. The hardware is intact. The alignment is unchanged. No prevertebral soft tissue swelling. The upper lungs are clear. IMPRESSION: Postoperative changes status post C2-L2 fusion. No hardware complication identified. Job Interviewer: PSCB Transcribe Date/Time: Feb 26 2024 6:19A Dictated by : MEGHA CRABTREE MD This examination was interpreted and the report reviewed and electronically signed by: MEGHA CRABTREE MD on Feb 26 2024 6:21AM EST [id number] [facility] JENNIFER PRICE ([id number]) 1975 F Date Time Provider Department 02/21/24 CELSO KNOWLES AGPOB1 During your visit today, we recorded the following information about you: Benton Vargas 02/21/2024 9:58 AM Signed ----- Message from Lilian Fierro sent at 02/21/2024 8:05 AM EST ----- Regarding: Orthopedics / Celso Knowles) Neck: (Cervical) Pain / Post Op Within 90 Day Period Orthopedics / Celso Knowles) Neck: (Cervical) Pain / Post Op Within 90 Day Period Patient has been identified by name and Date of (Y/N): Y Patient: Jennifer Price Date of : 1975 Previous Provider Seen: Yana Body Part(s) Identified: Neck Diagnosis/Reason For Visit: Post Op Reason for the call/escalation: Pt needs post op appt scheduled has been released from [facility] If reason for call/escalation is discharge from ED/ER or Hospital, which facility was the patient seen at: na Was an appointment scheduled (Y/N): n Person calling if other than patient: pt Return call to if other than patient: pt Best contact number: [phone] Thank you, Lilian Gutierrez February 21, 2024 8:05 AM Benton Vargas 02/21/2024 10:00 AM Signed Patient has been scheduled at [facility]. Benton Kennedy February 21, 2024 10:00 AM Allergies As of Date: 02/21/2024 Noted Allergy Reaction HYDROCODONE-ACETAMINO PHEN 03/31/2013 4 - Hives 11 - Vomiting Date Reviewed: 02/14/2024 Reviewed by: Thania Street, RN - Fully Assessed Reason for Visit: Appointment [186] Cmt: Received message from Dr. Knowles asking me to scheduled a post op visit Prescriptions as of 02/21/2024 - acetaminophen (TYLENOL) 500 mg tablet Take 2 tablets by mouth four times daily. - gabapentin (NEURONTIN) 300 mg capsule Take 2 capsules by mouth three times a day for 4 doses. - polyethylene glycol 3350 17 gram packet Take 1 Packet by mouth once daily. Dissolve dose in 4 - 8 ounces of liquid and take as directed. - senna-docusate (SENNA-S) 8.6-50 mg per tablet Take 1 tablet by mouth two times a day. 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 Knowles would like for her to have xrays done prior to the time of her appointment. I made her aware that if these are not completed we will have to reschedule her appointment. She understood and said she will have them done here at [facility] prior to her appointment on 02/23/24. Allergies As of Date: 02/21/2024 Noted Allergy Reaction HYDROCODONE-ACETAMINO PHEN 03/31/2013 4 - Hives 11 - Vomiting Date Reviewed: 02/14/2024 Reviewed by: Thania Street, RN - Fully Assessed Reason for Visit: Appointment [186] Prescriptions as of 02/21/2024 - acetaminophen (TYLENOL) 500 mg tablet Take 2 tablets by mouth four times daily. - gabapentin (NEURONTIN) 300 mg capsule Take 2 capsules by mouth three times a day for 4 doses. - polyethylene glycol 3350 17 gram packet Take 1 Packet by mouth once daily. Dissolve dose in 4 - 8 ounces of liquid and take as directed. - senna-docusate (SENNA-S) 8.6-50 mg per tablet Take 1 tablet by mouth two times a day. Problem List As Of Date 02/21/2024 Noted Resolved Vitamin D deficiency [E55.9] 04/11/2013 Hypertension [I10] 04/11/2013 Hypercholesteremia [E78.00] 04/11/2013 Cyclic vomiting syndrome [R11.15] 06/20/2013 Acute pelvic pain, female [R10.2] 07/13/2013 Central cord syndrome at C3 level of cervical s*02/10/2024 Nicotine use disorder, F17.2 [F17.200] 02/14/2024 Fall [W19.XXXA] 02/17/2024 Trauma [T14.90XA] 02/17/2024 Scalp laceration, initial encounter [S01.01XA] 02/17/2024 Bilateral arm weakness [R29.898] 02/17/2024 Encounter Status:Closed by ANTHONY BYRD on 02/21/24 Normal [facility] Basic metabolic 2000 panelon 02-18-2024 Anion gap [Moles/Vol] 11 mmol/L 8 - 15 mmol/L [facility] Calcium [Mass/Vol] 9.1 mg/dL 8.5 - 10. 2 mg/dL [facility] Chloride [Moles/Vol] 100 mmol/L 98 - 10 7 mmol/L [facility] CO2 [Moles/Vol] 24 mmol/L 22 - 30 mmol/L [facility] Creatinine [Mass/Vol] 0.64 mg/dL 0.58 - 0.96 mg/dL [facility] GFR/1.73 sq M.predicted among non-blacks MDRD (S/P/Bld) [Vol rate/Area] 111 mL/min/{1.73_m2} - PINF [facility] Comment on above: Estimated Glomerular Filtration Rate (eGFR) is calculated using the 2020 CKD-EPI creatinine equation. This equation utilizes serum creatinine, sex, and age as parameters. The creatinine assay has traceable calibration to isotope dilution-mass spectrometry. Refer to KDIGO guidelines for clinical interpretation. In patients with unstable renal function, e.g. those with acute kidney injury, the eGFR may not accurately reflect actual GFR. Glucose [Mass/Vol] 97 mg/dL 74 - 99 mg/dL [facility] Comment on above: The [place] Diab[employer] s Association (ADA) provides guidance for cutoff values for fasting glucose and random glucose. The ADA defines fasting as no caloric intake for at least 8 hours. Fasting plasma glucose results between 100 to 125 mg/dL indicate increased risk for diabetes (prediabetes). Fasting plasma glucose results greater than or equal to 126 mg/dL meet the criteria for diagnosis of diabetes. In the absence of unequivocal hyperglycemia, results should be confirmed by repeat testing. In a patient with classic symptoms of hyperglycemia or hyperglycemic crisis, random plasma glucose results greater than or equal to 200 mg/dL meet the criteria for diagnosis of diabetes. Reference: Standards of Medical Care in Diabetes 2016, [place] [employer] Association. Diabetes Care. 2016.39(Suppl 1). Interpretation and review of laboratory results Abnormal [facility] Potassium [Moles/Vol] 4.5 mmol/L 3.7 - 5.1 mmol/L [facility] Sodium [Moles/Vol] 135 mmol/L Low 136 - 144 mmol/L [facility] Urea nitrogen [Mass/Vol] 12 mg/dL 7 - 21 mg/dL [facility] Anion gap [Moles/Vol] 11 mmol/L Normal 8-15 [facility] Comment on above: Order Comment: Speci men Type: BLOOD SPECIMEN Ordering Facility: [facility] Diandra Summers Address: [address] [place] [address] Performed By: #### 2 4321-2 #### [facility] CLIA [id number] [address] [place] [address] [place] Calcium [Mass/Vol] 9.1 mg/dL Normal 8.5-10.2 [facility] Comment on above: Order Comment: Speci men Type: BLOOD SPECIMEN Ordering Facility: [facility] Address: [address] [place] [address] Performed By: #### 2 4321-2 #### [facility] CLIA [id number] [address] [place] [address] [place] Chloride [Moles/Vol] 100 mmol/L Normal 98-107 [facility] Comment on above: Order Comment: Speci men Type: BLOOD SPECIMEN Ordering Facility: [facility] Address: [address] [place] [address] Performed By: #### 2 4321-2 #### [facility] CLIA [id number] [address] [place] [address] [place] CO2 [Moles/Vol] 24 mmol/L Normal 22-30 [facility] Comment on above: Order Comment: Speci men Type: BLOOD SPECIMEN Ordering Facility: [facility] Address: [address] [place] [address] Performed By: #### 2 4321-2 #### [facility] CLIA [id number] [address] [place] [address] [place] Creatinine [Mass/Vol] 0.64 mg/dL Normal 0.58-0.96 [facility] Comment on above: Order Comment: Speci men Type: BLOOD SPECIMEN Ordering Facility: [facility] Address: [address] [place] [address] Performed By: #### 2 4321-2 #### [facility] CLIA [id number] [address] [place] [address] [place] Creatinine and Glomerular filtration rate.predicted panel (S/P/Bld) 111 mL/min/1.73m??? Normal >=60 [facility] Comment on above: Order Comment: Speci men Type: BLOOD SPECIMEN Ordering Facility: [facility] Address: [address] [place] [address] Result Comment: Xiomara mated Glomerular Filtration Rate (eGFR) is calculated using the 2020 CKD-EPI creatinine equation. This equation utilizes serum creatinine, sex, and age as parameters. The creatinine assay has traceable calibration to isotope dilution-mass spectrometry. Refer to KDIGO guidelines for clinical interpretation. In patients with unstable renal function, e.g. those with acute kidney injury, the eGFR may not accurately reflect actual GFR. Performed By: #### 2 4321-2 #### [facility] CLIA [id number] [address] [place] [address] [place] Glucose [Mass/Vol] 97 mg/dL Normal 74-99 [facility] Comment on above: Order Comment: Oneida adame Type: BLOOD SPECIMEN Ordering Facility: [facility] Address: [address] [place] [address] Result Comment: The [place] Diabetes Association (ADA) provides guidance for cutoff values for fasting glucose and random glucose. The ADA defines fasting as no caloric intake for at least 8 hours. Fasting plasma glucose results between 100 to 125 mg/dL indicate increased risk for diabetes (prediabetes). Fasting plasma glucose results greater than or equal to 126 mg/dL meet the criteria for diagnosis of diabetes. In the absence of unequivocal hyperglycemia, results should be confirmed by repeat testing. In a patient with classic symptoms of hyperglycemia or hyperglycemic crisis, random plasma glucose results greater than or equal to 200 mg/dL meet the criteria for diagnosis of diabetes. Reference: Standards of Medical Care in Diabetes 2016, [place] [employer]. Diabetes Care. 2016.39(Suppl 1). Performed By: #### 2 4321-2 #### [facility] CLIA [id number] [address] [place] [address] [place] Potassium [Moles/Vol] 4.5 mmol/L Normal 3.7-5.1 [facility] Comment on above: Order Comment: Oneida adame Type: BLOOD SPECIMEN Ordering Facility: [facility] Address: [address] [place] [address] Performed By: #### 2 4321-2 #### [facility] CLIA [id number] [address] [place] [address] [place] Sodium [Moles/Vol] 135 mmol/L Low 136-144 [facility] Comment on above: Order Comment: Speci men Type: BLOOD SPECIMEN [facility] [place] [place] Address: [address] [place] [address] Performed By: #### 2 4321-2 #### [facility] CLIA [id number] [address] Urea nitrogen [Mass/Vol] 12 mg/dL Normal 7-21 [facility] Comment on above: Order Comment: Speci men Type: BLOOD SPECIMEN Ordering Facility: [facility] Address: [address] [place] [address] Performed By: #### 2 4321-2 #### [facility] CLIA [id number] [address] CBC panel Auto (Bld)on 02-17 Erythrocyte distribution width (RBC) [Ratio] 13.2 % 11.5 - 15.0 % [facility] Hematocrit (Bld) [Volume fraction] 37.0 % 36.0 - 46.0 % [facility] Hemoglobin (Bld) [Mass/Vol] 11.7 g/dL 11.5 - 15.5 g/dL [facility] Interpretation and review of laboratory results Abnormal [facility] MCH (RBC) [Entitic mass] 29.6 pg 26.0 - 34.0 pg [facility] MCHC (RBC) [Mass/Vol] 31.6 g/dL 30.5 - 36.0 g/dL [facility] MCV (RBC) [Entitic vol] 93.7 fL 80.0 - 100.0 fL [facility] Nucleated RBC (Bld) [#/Vol] NINF [facility] Platelet mean volume (Bld) [Entitic vol] 10.8 fL 9.0 - 12.7 fL [facility] Platelets (Bld) [#/Vol] 228 10*3/uL [facility] RBC (Bld) [#/Vol] 3.95 10*6/uL 3.90 - 5.2 0 m/uL [facility] WBC (Bld) [#/Vol] 11.41 10*3/uL [facility] Erythrocyte distribution width (RBC) [Ratio] 13.2 % Normal 11.5-15.0 [facility] Comment on above: Order Comment: Speci men Type: BLOOD SPECIMEN Ordering Facility: [facility] Address: [address] [place] [address] Performed By: #### 5 8410-2 #### [facility] CLIA [id number] [address] [place] Hematocrit (Bld) [Volume fraction] 37.0 % Normal 36.0-46.0 [facility] Comment on above: Order Comment: Speci men Type: BLOOD SPECIMEN Ordering Facility: [facility] Address: [address] [place] [address] Performed By: #### 5 8410-2 #### [facility] CLIA [id number] [address] [place] [address] [place] Hemoglobin (Bld) [Mass/Vol] 11.7 g/dL Normal 11.5-15.5 [facility] Comment on above: Order Comment: Speci men Type: BLOOD SPECIMEN Ordering Facility: [facility] Address: [address] [place] [address] Performed By: #### 5 8410-2 #### [facility] CLIA [id number] [address] [place] MCH (RBC) [Entitic mass] 29.6 pg Normal 26.0-34.0 [facility] Comment on above: Order Comment: Speci men Type: BLOOD SPECIMEN Ordering Facility: [facility] Address: [address] [place] [address] Performed By: #### 5 8410-2 #### [facility] CLIA [id number] [address] [place] MCHC (RBC) [Mass/Vol] 31.6 g/dL Normal 30.5-36.0 [facility] Comment on above: Order Comment: Speci men Type: BLOOD SPECIMEN Ordering Facility: [facility] Address: [address] [place] [address] Performed By: #### 5 8410-2 #### [facility] CLIA [id number] [address] [place] [address] [place] MCV (RBC) [Entitic vol] 93.7 fL Normal 80.0-100.0 [facility] Comment on above: Order Comment: Speci men Type: BLOOD SPECIMEN Ordering Facility: [facility] Address: [address] [place] [address] Performed By: #### 5 8410-2 #### [facility] CLIA [id number] [address] [place] [address] [place] Nucleated RBC (Bld) [#/Vol] 10*3/uL Normal <0.01 [facility] Comment on above: Order Comment: Speci men Type: BLOOD SPECIMEN Ordering Facility: [facility] Address: [address] [place] [address] Performed By: #### 5 8410-2 #### [facility] CLIA [id number] [address] [place] [address] [place] Platelet mean volume (Bld) [Entitic vol] 10.8 fL Normal 9.0-12.7 [facility] Comment on above: Order Comment: Speci men Type: BLOOD SPECIMEN Ordering Facility: [facility] Address: [address] [place] [address] Performed By: #### 5 8410-2 #### [facility] CLIA [id number] [address] [place] [address] [place] Platelets (Bld) [#/Vol] 228 10*3/uL Normal 150-400 [facility] Comment on above: Order Comment: Speci men Type: BLOOD SPECIMEN Ordering Facility: [facility] Address: [address] [place] [address] Performed By: #### 5 8410-2 #### [facility] CLIA [id number] [address] [place] [address] [place] RBC (Bld) [#/Vol] 3.95 10*6/uL Normal 3.90-5.20 [facility] Comment on above: Order Comment: Speci men Type: BLOOD SPECIMEN Ordering Facility: [facility] Address: [address] [place] [address] Performed By: #### 5 8410-2 #### [facility] CLIA [id number] [address] [place] [address] [place] WBC (Bld) [#/Vol] 11.41 10*3/uL High 3.70-11.00 [facility] Comment on above: Order Comment: Speci men Type: BLOOD SPECIMEN Ordering Facility: [facility] Sum[facility] Address: [facility] [place] [address] Performed By: #### 5 8410-2 #### [facility] CLIA [id number] [address] [place] [address] [place] Basic metabolic 2000 panelon 02-17-2024 Anion gap [Moles/Vol] 15 mmol/L Normal 8-15 [facility] Comment on above: Order Comment: Speci men Type: BLOOD SPECIMENOrdering Facility: [facility] Address: [address] [place] [address] Performed By: #### 2 4321-2 ####[facility]ORY[facility]IA [id number] [place] [address] [place] Calcium [Mass/Vol] 9.0 mg/dL Normal 8.5-10.2 [facility] Comment on above: Order Comment: Speci men Type: BLOOD SPECIMENOrdering Facility: [facility] Address: [address] [place] [address] Performed By: #### 2 4321-2 ####[facility]ORY[facility] [id number] [place] [address] [place] Chloride [Moles/Vol] 95 mmol/L Low 98-107 [facility] Comment on above: Order Comment: Speci men Type: BLOOD SPECIMENOrdering Facility: [facility] Address: [address] [place] [address] Performed By: #### 2 4321-2 ####[facility]ORY[facility] [id number] [place] [address] [place] CO2 [Moles/Vol] 22 mmol/L Normal 22-30 [facility] Comment on above: Order Comment: Speci men Type: BLOOD SPECIMENOrdering Facility: [facility] Address: [address] [place] [address] Performed By: #### 2 4321-2 ####[facility]ORYCLIA [id number] [place] [id number] [place] OF [facility] Creatinine [Mass/Vol] 0.58 mg/dL Normal 0.58-0.96 [facility] Comment on above: Order Comment: Rafiajoana adame Type: BLOOD SPECIMENOrdering Facility: [facility] Address: [address] [place] [address] Performed By: #### 2 4321-2 ####[facility] [id number] [address] Creatinine and Glomerular filtration rate.predicted panel (S/P/Bld) 113 mL/min/1.73m??? Normal >=60 [facility] Comment on above: Order Comment: Rafiajoana adame Type: BLOOD SPECIMENOrdering Facility: [facility] Address: [address] [place] [address] Result Comment: Xiomara mated Glomerular Filtration Rate (eGFR) is calculated using the 2020 CKD-EPI creatinine equation. This equation utilizes serum creatinine, sex, and age as parameters. The creatinine assay has traceable calibration to isotope dilution-mass spectrometry. Refer to KDIGO guidelines for clinical interpretation. In patients with unstable renal function, e.g. those with acute kidney injury, the eGFR may not accurately reflect actual GFR. Performed By: #### 2 4321-2 ####[facility] [id number] [address] STATES OF [facility] Glucose [Mass/Vol] 125 mg/dL High 74-99 [facility] Comment on above: Order Comment: Oneida adame Type: BLOOD SPECIMENOrdering Facility: [facility] Address: [address] [place] [address] Result Comment: The [place] Diabetes Association (ADA) provides guidance for cutoff values for fasting glucose and random glucose. The ADA defines fasting as no caloric intake for at least 8 hours. Fasting plasma glucose results between 100 to 125 mg/dL indicate increased risk for diabetes (prediabetes). Fasting plasma glucose results greater than or equal to 126 mg/dL meet the criteria for diagnosis of diabetes. In the absence of unequivocal hyperglycemia, results should be confirmed by repeat testing. In a patient with classic symptoms of hyperglycemia or hyperglycemic crisis, random plasma glucose results greater than or equal to 200 mg/dL meet the criteria for diagnosis of diabetes. Reference: Standards of Medical Care in Diabetes 2016, [place] [employer]. Diabetes Care. 2016.39(Suppl 1). Performed By: #### 2 4321-2 ####[facility]ORY[facility]IA [id number] [address] OF [facility] Potassium [Moles/Vol] 3.8 mmol/L Normal 3.7-5.1 [facility] Comment on above: Order Comment: Speci wendi Type: BLOOD SPECIMENOrdering Facility: [facility] Address: [address] [place] [address] Performed By: #### 2 4321-2 ####[facility] [id number] [address] STATES [facility] Sodium [Moles/Vol] 132 mmol/L Low 136-144 [facility] Comment on above: Order Comment: Speci wendi Type: BLOOD SPECIMENOrdering Facility: [facility] Address: [address] [place] [address] Performed By: #### 2 4321-2 ####[facility]ORYCLIA [id number] [address] Urea nitrogen [Mass/Vol] 12 mg/dL Normal 7-21 [facility] Comment on above: Order Comment: Speci men Type: BLOOD SPECIMENOrdering Facility: [facility] Address: [address] [place] [address] Performed By: #### 2 4321-2 ####[facility]ORYCLIA [id number] [address] OF [facility] CBC panel Auto (Bld)on 02-16 Erythrocyte distribution width (RBC) [Ratio] 13.4 % Normal 11.5-15.0 [facility] Comment on above: Order Comment: Speci men Type: BLOOD SPECIMENOrdering Facility: [facility] Address: [address] [place] [address] Performed By: #### 5 8410-2 ####[facility]ORYCLIA [id number] [address] Hematocrit (Bld) [Volume fraction] 42.4 % Normal 36.0-46.0 [facility] Comment on above: Order Comment: Speci men Type: BLOOD SPECIMENOrdering Facility: [facility] Address: [address] [place] [address] Performed By: #### 5 8410-2 ####[facility]ORYCLIA [id number] [address] OF [facility] Hemoglobin (Bld) [Mass/Vol] 13.7 g/dL Normal 11.5-15.5 [facility] Comment on above: Order Comment: Speci men Type: BLOOD SPECIMENOrdering Facility: [facility] Address: [address] [place] [address] Performed By: #### 5 8410-2 ####[facility]ORYCLIA [id number] [address] MCH (RBC) [Entitic mass] 29.7 pg Normal 26.0-34.0 [facility] Comment on above: Order Comment: Speci men Type: BLOOD SPECIMENOrdering Facility: [facility] Address: [address] [place] [address] Performed By: #### 5 8410-2 ####[facility]ORYCLIA [id number] [address] MCHC (RBC) [Mass/Vol] 32.3 g/dL Normal 30.5-36.0 [facility] Comment on above: Order Comment: Speci men Type: BLOOD SPECIMENOrdering Facility: [facility] Address: [address] [place] [address] Performed By: #### 5 8410-2 ####[facility]ORYCLIA [id number] [address] MCV (RBC) [Entitic vol] 92.0 fL Normal 80.0-100.0 [facility] Comment on above: Order Comment: Speci men Type: BLOOD SPECIMENOrdering Facility: [facility] Address: [address] [place] [address] Performed By: #### 5 8410-2 ####[facility]ORYCLIA [id number] [address] [place] Nucleated RBC (Bld) [#/Vol] 10*3/uL Normal <0.01 [facility] Comment on above: Order Comment: Speci men Type: BLOOD SPECIMENOrdering Facility: [facility] Address: [address] [place] [address] Performed By: #### 5 8410-2 ####[facility]ORYCLIA [id number] [address] [place] Platelet mean volume (Bld) [Entitic vol] 10.4 fL Normal 9.0-12.7 [facility] Comment on above: Order Comment: Speci men Type: BLOOD SPECIMENOrdering Facility: [facility] Address: [address] [place] [address] Performed By: #### 5 8410-2 ####[facility]ORYCLIA [id number] [address] [place] Platelets (Bld) [#/Vol] 254 10*3/uL Normal 150-400 [facility] Comment on above: Order Comment: Speci men Type: BLOOD SPECIMENOrdering Facility: [facility] Address: [address] [place] [address] Performed By: #### 5 8410-2 ####[facility]ORYCLIA [id number] [place] [address] [place] RBC (Bld) [#/Vol] 4.61 10*6/uL Normal 3.90-5.20 [facility] Comment on above: Order Comment: Speci men Type: BLOOD SPECIMENOrdering Facility: [facility] Address: [address] [place] [address] Performed By: #### 5 8410-2 ####[facility] [facility]ATORYCLIA [id number] [place] [address] [place] WBC (Bld) [#/Vol] 14.11 10*3/uL High 3.70-11.00 [facility] Comment on above: Order Comment: Oneida adame Type: BLOOD SPECIMENOrdering Facility: [facility] Address: [address] [place] [address] Performed By: #### 5 8410-2 ####[facility]ORYCLIA [id number] [place] [address] [facility] CNDSon 02-17-2024 [facility] HNO ID: [id number] Author: GILDARDO DRAKE MD Service: General Surgery Author Type: Physician Copy Lathe Operator Type: Discharge Summary Filed: 02/17/2024 14:20 Note Text: Attestation signed by Gildardo Drake MD at 02/17/2024 2:20 PM Attending Attestation The patient will be discharged. I spent less than 30 minutes coordinating the discharge. Gildardo Drake MD DISCHARGE SUMMARY PATIENT NAME: Jennifer Price Code Status: Full Code Highest Readmission Risk Score: 19 The 30 day readmissions risk score is derived from an internally validated risk model which evaluates patient level characteristics, utilization history, medication orders and lab results up until the day of discharge. Patients with a score of 40 or above are considered highest risk for readmission. Specific patient level drivers will be listed at the bottom of the summary. Admission Information Admission Information ADMIT DATE: 02/10/2024 DISCHARGE DATE: 02/17/2024 MY DOCTORS AND MEDICAL TEAM: My Main Hospital Doctor: Gildardo Drake MD Primary Care Provider: No primary care provider on file. My Medical Team Members: Treatment Team: Attending Provider: Gildardo Drake MD Consulting: Celso Knowles MD MY CONDITION AT DISCHARGE: Stable REASON I WAS IN THE HOSPITAL: For evaluation and treatment of injuries sustained from a fall. SUMMARY OF WHAT HAPPENED WHILE I WAS IN THE HOSPITAL: Patient was evaluated in the ED at [facility] on 02/10/2024 as a trauma transfer from an outside hospital. She had reportedly had a mechanical fall at home earlier that morning. When she woke up from her fall, she had severe pain, weakness, and numbness in both of her arms. Due to her fall and neurological symptoms, she would undergo extensive CT, MRI, and X-ray imaging. She was found to have a scalp laceration, a possible C4 facet fracture, and central cord syndrome. Her scalp laceration would be repaired with lenny, and she was admitted under the trauma surgery service to the surgical intensive care unit. The orthopedic spine surgery team was consulted for management of her spine injury. She would be taken emergently to the operating room with Dr. Celso Knowles for C2-T2 posteriorspinal fusion with instrumentation, KAI surgical drain placement, and C3-C6 laminectomy. Her neck was immobilized in a hard cervical collar as well. She would be monitored post operatively in the ICU for MAP goals. She would be given as needed pain medication and her neurological exam was monitored closely. Her bilateral arm pain, numbness, and weakness improved throughout her admission (left greater than right). She was transferred to the regular nursing floor in stable condition. She would tolerate a diet and have return of bowel function. She was evaluated by physical and occupational therapy, and they would recommend placement at an acute rehab facility. Her KAI surgical drain was removed on 02/16/2024. She is to continue wearing her cervical collar at all times. She would be deemed medically stable for discharge to an acute rehab facility by the attending trauma surgeon on 02/17/2024. Ms Price will need to follow up with in one week. Her scalp lenny will need to be removed at [facility] on 02/21/2024. OTHER PROBLEMS/DIAGNOSIS: Principal Problem: Central cord syndrome at C3 level of cervical spinal cord, initial encounter ([facility]) Active Problems: Nicotine use disorder, F17.2 Fall Trauma Scalp laceration, initial encounter Bilateral arm weakness Resolved Problems: * No resolved hospital problems. * Operations/Procedures : 1. OR with Dr. Knowles on 02/09: a. C2-T2 posterior spinal fusion with instrumentation b. C3-6 laminectomy 2. Scalp laceration repaired with lenny on 02/09 TEST RESULTS NOT AVAILABLE AT THIS TIME: No pending results Discharge Disposition Discharge Disposition: Acute Care Facility Activity When You Leave the Hospital Do not bend over at the waist to lift heavy objects No driving for: Until cleared by your spinal surgeon. No prolonged bedrest, longer than 8 hours in a 24 hour period No walking restrictions Other: Continue wearing your cervical collar (neck brace) at all times until cleared by your spinal surgeon to remove it. Diet Instructions Avoid Alcohol Drink 6 to 8 glasses of fluids per day Regular For Pain When You Leave the Hospital No alcohol or driving while on pain medication Use acetaminophen (Tylenol) as recommended on the bottle Use the dispensed medication (see prescription) You should use an bkle-wqe-nusslcx stool softener (Docusate sodium) and/or a fiber supplement (Metamucil, Fiber Con) every day while taking prescribed pain medication Wound/Surgical Site Care Keep your dress (more content not included)... Normal [facility] NURSING PROGon 02-17-2024 NURSING PROG HNO ID: [id number] Author: SYDNEE QURESHI RN Service: Nursing Author Type: Registered Nurse Type: Nursing Progress Note Filed: 02/17/2024 10:56 Note Text: RN attempted to report off to nursing at [facility]. No answer. Unfortunately RN will not be able to give report to facility. Normal [facility] NURSING PROG HNO ID: [id number] Author: SYDNEE QURESHI RN Service: Nursing Author Type: Registered Nurse Type: Nursing Progress Note Filed: 02/17/2024 10:33 Note Text: RN attempted to call report to [facility], nursing supervisor [employer]aking shop transferred me to Missy the nurse to take report. Once transferred via phone she did not black pickler. RN attempted again. No response. Will attempt later in am if no callback. Patient enroute via spouse to [facility] to be admitted there. Normal [facility] Basic metabolic 2000 panelon 02-16-2024 Anion gap [Moles/Vol] 14 mmol/L Normal 8-15 [facility] Comment on above: Order Comment: Speci men Type: BLOOD SPECIMENOrdering Facility: [facility] Address: [address] [place] [address] Performed By: #### 2 4321-2 ####[facility] LABORATORYCLIA [id number] [place] [address] [place] Calcium [Mass/Vol] 9.3 mg/dL Normal 8.5-10.2 [facility] Comment on above: Order Comment: Speci men Type: BLOOD SPECIMENOrdering Facility: [facility] Address: [address] [place] [address] Performed By: #### 2 4321-2 ####[facility] LABORATORYCLIA [id number] [place] [address] [place] Chloride [Moles/Vol] 96 mmol/L Low 98-107 [facility] Comment on above: Order Comment: Speci men Type: BLOOD SPECIMENOrdering Facility: [facility] Address: [address] [place] [address] Performed By: #### 2 4321-2 ####[facility] LABORATORYCLIA [id number] [place] [address] [place] CO2 [Moles/Vol] 23 mmol/L Normal 22-30 [facility] Comment on above: Order Comment: Speci men Type: BLOOD SPECIMENOrdering Facility: [facility] Address: [address] [place] [address] Performed By: #### 2 4321-2 ####[facility] LABORATORYCLIA [id number] [place] [address] [place] Creatinine [Mass/Vol] 0.57 mg/dL Low 0.58-0.96 [facility] Comment on above: Order Comment: Speci men Type: BLOOD SPECIMENOrdering Facility: [facility] Address: [address] [place] [address] Performed By: #### 2 4321-2 ####[facility]IA [id number] [place] [id number] [place] Creatinine and Glomerular filtration rate.predicted panel (S/P/Bld) 114 mL/min/1.73m??? Normal >=60 [facility] Comment on above: Order Comment: Oneida adame Type: BLOOD SPECIMENOrdering Facility: [facility] Address: [address] [place] [address] Result Comment: Xiomara mated Glomerular Filtration Rate (eGFR) is calculated using the 2020 CKD-EPI creatinine equation. This equation utilizes serum creatinine, sex, and age as parameters. The creatinine assay has traceable calibration to isotope dilution-mass spectrometry. Refer to KDIGO guidelines for clinical interpretation. In patients with unstable renal function, e.g. those with acute kidney injury, the eGFR may not accurately reflect actual GFR. Performed By: #### 2 4321-2 ####[facility]PITALIA [id number] [place] [id number] [place] Glucose [Mass/Vol] 126 mg/dL High 74-99 [facility] Comment on above: Order Comment: Oneida adame Type: BLOOD SPECIMENOrdering Facility: [facility] Address: [address] [place] [address] Result Comment: The [place] Diabetes [employer] (ADA) provides guidance for cutoff values for fasting glucose and random glucose. The ADA defines fasting as no caloric intake for at least 8 hours. Fasting plasma glucose results between 100 to 125 mg/dL indicate increased risk for diabetes (prediabetes). Fasting plasma glucose results greater than or equal to 126 mg/dL meet the criteria for diagnosis of diabetes. In the absence of unequivocal hyperglycemia, results should be confirmed by repeat testing. In a patient with classic symptoms of hyperglycemia or hyperglycemic crisis, random plasma glucose results greater than or equal to 200 mg/dL meet the criteria for diagnosis of diabetes. Reference: Standards of Medical Care in Diabetes 2016, [place] [employer]. Diabetes Care. 2016.39(Suppl 1). Performed By: #### 2 4321-2 ####[facility] LABORATORYIA [id number] [address] [place] Potassium [Moles/Vol] 4.0 mmol/L Normal 3.7-5.1 [facility] Comment on above: Order Comment: Speci men Type: BLOOD SPECIMENOrdering Facility: [facility] Address: [address] [place] [address] Performed By: #### 2 4321-2 ####[facility] LABORATORYCLIA [id number] [address] [place] Sodium [Moles/Vol] 133 mmol/L Low 136-144 [facility] Comment on above: Order Comment: Speci men Type: BLOOD SPECIMENOrdering Facility: [facility] Address: [address] [place] [address] Performed By: #### 2 4321-2 ####[facility] LABORATORYCLIA [id number] [address] STATES OF [facility] Urea nitrogen [Mass/Vol] 10 mg/dL Normal 7-21 [facility] Comment on above: Order Comment: Speci men Type: BLOOD SPECIMENOrdering Facility: [facility] Address: [address] [place] [address] Performed By: #### 2 4321-2 ####[facility] LABORATORYCLIA [id number] [address] [place] CBC panel Auto (Bld)on 02-15 Erythrocyte distribution width (RBC) [Ratio] 13.3 % Normal 11.5-15.0 [facility] Comment on above: Order Comment: Speci men Type: BLOOD SPECIMENOrdering Facility: [facility] Address: [address] [place] [address] Performed By: #### 5 8410-2 ####[facility] LABORATORYCLIA [id number] [address] STATES OF [facility] Hematocrit (Bld) [Volume fraction] 48.4 % High 36.0-46.0 [facility] Comment on above: Order Comment: Speci men Type: BLOOD SPECIMENOrdering Facility: [facility] Address: [address] [place] [address] Performed By: #### 5 8410-2 ####[facility] LABORATORYCLIA [id number] [address] STATES OF [facility] Hemoglobin (Bld) [Mass/Vol] 15.8 g/dL High 11.5-15.5 [facility] Comment on above: Order Comment: Speci men Type: BLOOD SPECIMENOrdering Facility: [facility] Address: [address] [place] [address] Performed By: #### 5 8410-2 ####[facility] LABORATORYCLIA [id number] [address] OF [facility] MCH (RBC) [Entitic mass] 29.9 pg Normal 26.0-34.0 [facility] Comment on above: Order Comment: Speci men Type: BLOOD SPECIMENOrdering Facility: [facility] Address: [address] [place] [address] Performed By: #### 5 8410-2 ####[facility] LABORATORYCLIA [id number] [address] MCHC (RBC) [Mass/Vol] 32.6 g/dL Normal 30.5-36.0 [facility] Comment on above: Order Comment: Speci men Type: BLOOD SPECIMENOrdering Facility: [facility] Address: [address] [place] [address] Performed By: #### 5 8410-2 ####[facility] LABORATORYCLIA [id number] [address] [place] MCV (RBC) [Entitic vol] 91.5 fL Normal 80.0-100.0 [facility] Comment on above: Order Comment: Speci men Type: BLOOD SPECIMENOrdering Facility: [facility] Address: [address] [place] [address] Performed By: #### 5 8410-2 ####[facility] LABORATORYCLIA [id number] [address] OF [facility] Nucleated RBC (Bld) [#/Vol] 10*3/uL Normal <0.01 [facility] Comment on above: Order Comment: Speci men Type: BLOOD SPECIMENOrdering Facility: [facility] Address: [address] [place] [address] Performed By: #### 5 8410-2 ####[facility] LABORATORYCLIA [id number] [address] [place] Platelet mean volume (Bld) [Entitic vol] 10.5 fL Normal 9.0-12.7 [facility] Comment on above: Order Comment: Speci men Type: BLOOD SPECIMENOrdering Facility: [facility] Address: [address] [place] [address] Performed By: #### 5 8410-2 ####[facility] LABORATORYCLIA [id number] [address] [place] Platelets (Bld) [#/Vol] 220 10*3/uL Normal 150-400 [facility] Comment on above: Order Comment: Speci men Type: BLOOD SPECIMENOrdering Facility: [facility] Address: [address] [place] [address] Performed By: #### 5 8410-2 ####[facility] LABORATORYCLIA [id number] [place] [address] [place] RBC (Bld) [#/Vol] 5.29 10*6/uL High 3.90-5.20 [facility] Comment on above: Order Comment: Speci men Type: BLOOD SPECIMENOrdering Facility: [facility] Address: [address] [place] [address] Performed By: #### 5 8410-2 ####[facility] LABORATORYCLIA [id number] [place] [address] [place] WBC (Bld) [#/Vol] 12.40 10*3/uL High 3.70-11.00 [facility] Comment on above: Order Comment: Speci men Type: BLOOD SPECIMENOrdering Facility: [facility] Address: [address] [place] [address] Performed By: #### 5 8410-2 ####[facility] [id number] [place] [address] [place] [facility] THERAPY NTon 02-16-2024 THERAPY NT HNO ID: [id number] Author: JANE WONG PT Service: Physical Therapy Author Type: Long Wall Shear Operator Type: Therapy (PT/OT/Speech/Resp) Filed: 02/16/2024 15:26 Note Text: Attestation signed by Jane Wong PT at 02/16/2024 3:26 PM I reviewed and agree with the documentation corresponding to this therapy visit. SIGNATURE: Jane Wong PT DATE: February 16, 2024 TIME: 3:26 PM Physical Therapy Treatment Summary SERVICE DATE: 02/16/2024 SERVICE TIME: 1324 to 1340 ROOM: [place] [address] PT 6 Clicks Score: 17 DISCHARGE RECOMMENDATIONS Acute Rehab Recommended Discharge Disposition Due to: Functional deficits requiring ongoing therapy service prior to discharge home., Patient requires active, intensive rehabilitation by multiple therapy disciplines. Anticipate the patient will tolerate 3 hours of therapy per day., Functional status decline, Requires multiple therapy disciplines ASSESSMENT Response to Therapy Interventions: Good Participation in Activities, Improved Tolerance for Activity Patient continues to require intermittent hands-on assist and cues to maintain spinal precautions. Pt is very motivated to return to her prior level of function- pt would tolerate 15hrs of therapy weekly- continue to recommend Acute Rehab at discharge. 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 THERAPY DIAGNOSIS Reduced mobility-other, Unsteadiness on feet, Abnormalities of gait and mobility-other TREATMENT INTERVENTIONS Therapeutic Activity (48582) Timed Code Treatment (minutes): 16 Skilled Treatment Time (minutes): 16 Therapeutic Activity (89137) Treatment Minutes: 16 $ Therapeutic Activity (19694) Billed Units: 1 unit Cues for bed mobility, transfers, toileting, and ambulation. Pt continues to present with decreased strength in her RUE and required intermittent assist for r hand positioning on walker needle control cheniller. See grid below for details- pt able to recite 3/3 precautions this date. TRAINING AND EDUCATION PROVIDED Benefits of In-Hospital Mobility, Discharge Planning, Disease Specific Education, Falls Prevention, Home Safety, Role of Physical Therapy, Transfers, Exercise Program, Gait Pattern, Reduction of Deviations, Precautions/Restricti ons THERAPEUTIC SKILLS USED Activity Dosing, Assessment of Tolerance Including Vitals Response to Activity, Cues for Sequencing/Proper Technique for Activity, Physical Assist, Movement Facilitation FUNCTIONAL STATUS mobility performed during session in bold, other mobility completed during prior session and may no longer be correct or appropriate to complete. Bed Mobility Rolling: Minimal Assistance Supine To Sit: Minimal Assistance, Additional Information Cues for log roll technique- pt able to complete via long sit pivot while maintaining spinal precautions Sit to Supine: Contact Guard Assistance, Additional Information Increased time and effort from the right side of the bed. Cues for continuous breathing. Cues for reverse log roll, pt completed via long sit pivot while maintaining spinal precautions. Transfers Sit To Stand: Contact Guard Assistance, Additional Information Cues to increase safety overall, pt slightly impulsive. Cues to complete to FWW with appropriate hand placement to avoid retro LOB. Stand To Sit: Contact Guard Assistance, Additional Information Cues for body positioning towards the HOB to allow for optimal bed mobility. Cues for hand placement to prevent retro LOB Bed to Chair Gait Minimal Assistance, Additional Information Cues for tall, upright posture and forward gaze. Cues during directional changes and conversation to maintain spinal precautions- pt occasionally twisting. Slight path deviation and instability. Intermittent difficulty keeping RUE on needle control cheniller due to weakness. Gait Device: Wheeled Walker General Deviations/Observatio ns: Holly decreased, Step length decreased Gait Distance (feet): 50 feet intervals Stairs GOALS Transfer Supine to/from Sit with: Stand By Assistance Transfer Sit to/from Stand with: Stand By Assistance Ambulate with: Stand By Assistance Distan (more content not included)... Normal [facility] Basic metabolic 2000 panelon 02-15-2024 Anion gap [Moles/Vol] 13 mmol/L Normal 8-15 [facility] Comment on above: Order Comment: Speci men Type: BLOOD SPECIMENOrdering Facility: [facility] Address: [address] [place] [address] Performed By: #### 2 4321-2 ####[facility] LABORATORYCLIA [id number] [place] [address] [place] Calcium [Mass/Vol] 8.8 mg/dL Normal 8.5-10.2 [facility] Comment on above: Order Comment: Speci men Type: BLOOD SPECIMENOrdering Facility: [facility] Address: [address] [place] [address] Performed By: #### 2 4321-2 ####[facility] LABORATORYCLIA [id number] [place] [address] [place] Chloride [Moles/Vol] 97 mmol/L Low 98-107 [facility] Comment on above: Order Comment: Speci men Type: BLOOD SPECIMENOrdering Facility: [facility] Address: [address] [place] [address] Performed By: #### 2 4321-2 ####[facility] LABORATORYCLIA [id number] [place] [address] [place] CO2 [Moles/Vol] 23 mmol/L Normal 22-30 [facility] Comment on above: Order Comment: Speci men Type: BLOOD SPECIMENOrdering Facility: [facility] Address: [address] [place] [address] Performed By: #### 2 4321-2 ####[facility] LABORATORYCLIA [id number] [place] [id number] [place] Creatinine [Mass/Vol] 0.56 mg/dL Low 0.58-0.96 [facility] Comment on above: Order Comment: Oneida adame Type: BLOOD SPECIMENOrdering Facility: [facility] Address: [address] [place] [address] Performed By: #### 2 4321-2 ####[facility]ITALCLIA [id number] [address] Creatinine and Glomerular filtration rate.predicted panel (S/P/Bld) 114 mL/min/1.73m??? Normal >=60 [facility] Comment on above: Order Comment: Oneida daame Type: BLOOD SPECIMENOrdering Facility: [facility] Address: [address] [place] [address] Result Comment: Xiomara mated Glomerular Filtration Rate (eGFR) is calculated using the 2020 CKD-EPI creatinine equation. This equation utilizes serum creatinine, sex, and age as parameters. The creatinine assay has traceable calibration to isotope dilution-mass spectrometry. Refer to KDIGO guidelines for clinical interpretation. In patients with unstable renal function, e.g. those with acute kidney injury, the eGFR may not accurately reflect actual GFR. Performed By: #### 2 4321-2 ####[facility] LABORATORYCLIA [id number] [address] [place] Glucose [Mass/Vol] 115 mg/dL High 74-99 [facility] Comment on above: Order Comment: Oneida adame Type: BLOOD SPECIMENOrdering Facility: [facility] Address: [address] [place] [address] Result Comment: The [place] Diabetes [employer] (ADA) provides guidance for cutoff values for fasting glucose and random glucose. The ADA defines fasting as no caloric intake for at least 8 hours. Fasting plasma glucose results between 100 to 125 mg/dL indicate increased risk for diabetes (prediabetes). Fasting plasma glucose results greater than or equal to 126 mg/dL meet the criteria for diagnosis of diabetes. In the absence of unequivocal hyperglycemia, results should be confirmed by repeat testing. In a patient with classic symptoms of hyperglycemia or hyperglycemic crisis, random plasma glucose results greater than or equal to 200 mg/dL meet the criteria for diagnosis of diabetes. Reference: Standards of Medical Care in Diabetes 2016, [place] [employer]. Diabetes Care. 2016.39(Suppl 1). Performed By: #### 2 4321-2 ####[facility] LABORATORYCLIA [id number] [address] STATES OF [facility] Potassium [Moles/Vol] 4.4 mmol/L Normal 3.7-5.1 [facility] Comment on above: Order Comment: Speci men Type: BLOOD SPECIMENOrdering Facility: [facility] Address: [address] [place] [address] Performed By: #### 2 4321-2 ####[facility] LABORATORYCLIA [id number] [address] STATES [facility] Sodium [Moles/Vol] 133 mmol/L Low 136-144 [facility] Comment on above: Order Comment: Speci men Type: BLOOD SPECIMENOrdering Facility: [facility] Address: [address] [place] [address] Performed By: #### 2 4321-2 ####[facility] LABORATORYCLIA [id number] [address] STATES [facility] Urea nitrogen [Mass/Vol] 11 mg/dL Normal 7-21 [facility] Comment on above: Order Comment: Speci men Type: BLOOD SPECIMENOrdering Facility: [facility] Address: [address] [place] [address] Performed By: #### 2 4321-2 ####[facility]ORATORYCLIA [id number] [address] [place] CBC panel Auto (Bld)on 02-14 Erythrocyte distribution width (RBC) [Ratio] 13.1 % Normal 11.5-15.0 [facility] Comment on above: Order Comment: Speci men Type: BLOOD SPECIMENOrdering Facility: [facility] Address: [address] [place] [address] Performed By: #### 5 8410-2 ####[facility] LABORATORYCLIA [id number] [address] Hematocrit (Bld) [Volume fraction] 43.7 % Normal 36.0-46.0 [facility] Comment on above: Order Comment: Speci men Type: BLOOD SPECIMENOrdering Facility: [facility] Address: [address] [place] [address] Performed By: #### 5 8410-2 ####[facility] LABORATORYCLIA [id number] [address] Hemoglobin (Bld) [Mass/Vol] 14.2 g/dL Normal 11.5-15.5 [facility] Comment on above: Order Comment: Speci men Type: BLOOD SPECIMENOrdering Facility: [facility] Address: [address] [place] [address] Performed By: #### 5 8410-2 ####[facility] LABORATORYCLIA [id number] [address] MCH (RBC) [Entitic mass] 29.4 pg Normal 26.0-34.0 [facility] Comment on above: Order Comment: Speci men Type: BLOOD SPECIMENOrdering Facility: [facility] Address: [address] [place] [address] Performed By: #### 5 8410-2 ####[facility] LABORATORYCLIA [id number] [address] [place] MCHC (RBC) [Mass/Vol] 32.5 g/dL Normal 30.5-36.0 [facility] Comment on above: Order Comment: Speci men Type: BLOOD SPECIMENOrdering Facility: [facility] Address: [address] [place] [address] Performed By: #### 5 8410-2 ####[facility] LABORATORYCLIA [id number] [address] MCV (RBC) [Entitic vol] 90.5 fL Normal 80.0-100.0 [facility] Comment on above: Order Comment: Speci men Type: BLOOD SPECIMENOrdering Facility: [facility] Address: [address] [place] [address] Performed By: #### 5 8410-2 ####[facility] LABORATORYCLIA [id number] [address] [place] Nucleated RBC (Bld) [#/Vol] 10*3/uL Normal <0.01 [facility] Comment on above: Order Comment: Speci men Type: BLOOD SPECIMENOrdering Facility: [facility] Address: [address] [place] [address] Performed By: #### 5 8410-2 ####[facility] LABORATORYCLIA [id number] [address] [place] Platelet mean volume (Bld) [Entitic vol] 10.9 fL Normal 9.0-12.7 [facility] Comment on above: Order Comment: Speci men Type: BLOOD SPECIMENOrdering Facility: [facility] Address: [address] [place] [address] Performed By: #### 5 8410-2 ####[facility] LABORATORYCLIA [id number] [address] [place] Platelets (Bld) [#/Vol] 191 10*3/uL Normal 150-400 [facility] Comment on above: Order Comment: Speci men Type: BLOOD SPECIMENOrdering Facility: [facility] Address: [address] [place] [address] Performed By: #### 5 8410-2 ####[facility] LABORATORYCLIA [id number] [address] [place] RBC (Bld) [#/Vol] 4.83 10*6/uL Normal 3.90-5.20 [facility] Comment on above: Order Comment: Speci men Type: BLOOD SPECIMENOrdering Facility: [facility] Address: [address] [place] [address] Performed By: #### 5 8410-2 ####[facility] LABORATORYCLIA [id number] [place] [address] [place] WBC (Bld) [#/Vol] 9.27 10*3/uL Normal 3.70-11.00 [facility] Comment on above: Order Comment: Speci men Type: BLOOD SPECIMENOrdering Facility: [facility] Address: [address] [place] [id number] Performed By: #### 5 8410-2 ####[facility] LABORATORYCLIA [id number] [place] [address] [facility] THERAPY NTon 02-15-2024 THERAPY NT HNO ID: [id number] Author: ANTONIO CARBALLO, OTR/L Service: Occupational Therapy Author Type: Occupational Therapist Type: Therapy (PT/OT/Speech/Resp) Filed: 02/15/2024 15:06 Note Text: Occupational Therapy Treatment Summary SERVICE DATE: 02/15/2024 SERVICE TIME: 1311 to 1336 ROOM: [place] [address] OT 6 Clicks Score: 16 DISCHARGE RECOMMENDATIONS Acute Rehab Recommended Discharge Disposition Due to: Functional deficits requiring ongoing therapy service prior to discharge home., ADL impairment, Patient requires active, intensive rehabilitation by multiple therapy disciplines. Anticipate the patient will tolerate 3 hours of therapy per day., Dominant side deficits, Requires multiple therapy disciplines ASSESSMENT Response to Therapy Interventions: Good Participation in Activities, Requires Additional Time to Complete Activities Patient is very motivated for therapy this date and agrees to get up to the bathroom. Participates in functional mobility to bathroom and completes toileting and clothing management well with fall guarding for safety. Patient demonstrates good ability to manage clothing in standing and is able to stand at sink for grooming. Facilitated grooming at sink to increase activity tolerance and independence in ADLs. Completes oral care with education for one handed grooming techniques and patient requires verbal cues for washing face as she becomes distracting discussing current medical acuity. Provided patient with emotional support and reassurance as she demonstrates difficulty coping due to various life difficulties. Patient reports she is motivated to continue to improve and be more independent as she was at baseline. Anticipating patient to tolerate 3 hrs of therapy 5x/week and is appropriate for acute rehab at discharge due to being well below baseline functioning. 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 counter; +central cord syndrome s/p C2-T2 posterior spinal fusion with C3-6 posterior cervical decompression on 02/09 Relevant Past Medical History: +THC, depression HOME LIVING Patient Lives With: Spouse Assistance Available: Part-Time Entry To Home: Stairs, With Rail Number Of Stairs Into Home: 2 Number Of Stairs To Bed/Bath: 0 Tub/Shower Type: standard Equipment Owned: Shower Chair PRIOR FUNCTIONAL LEVEL Within Functional Limits independent, working, driving Baseline Cognition: Oriented to self, Oriented to place, Oriented to time, Oriented to situation SUBJECTIVE Pt agreeable to therapy and very motivated to get up and wants to get washed up but prefers showering so defers sponge bath offer COGNITION Responsiveness: Alert, Awake Follows Commands: 3-step Commands Confusion Assessment Method (CAM - ICU Score): Negative (02/14/24) THERAPY DIAGNOSIS Reduced mobility-other, Decreased activities of daily living (ADL) TREATMENT INTERVENTIONS Self Half-Way Management (60450) Timed Code Treatment (minutes): 25 Skilled Treatment Time (minutes): 25 Self Half-Way Management (52579) Treatment Minutes: 25 $ Self Half-Way Management (55546) Billed Units: 2 units TRAINING AND EDUCATION PROVIDED Activity Adaptation/Compensato ry Strategies, Adaptive Equipment/DME, Benefits of In-Hospital Mobility, Command Following, Functional Mobility Involving ADLs THERAPEUTIC SKILLS USED Activity Dosing, Cues for Sequencing/Proper Technique for Activity, Cuing Tactile, Cuing Verbal, Movement Facilitation, Physical Assist, Therapeutic Use of Self FUNCTIONAL STATUS mobility performed during session in bold, other mobility completed during prior session and may no longer be correct or appropriate to complete. Activities of Daily Living Assist Level Additional Information Feeding Minimal Assistance Grooming Stand By Assistance, Additional Information Pt completes grroming standing at sink with fall guard for safety. Set up for grooming provided and verbal cues to initiate washing face, Educated pt one one handed grooming techniques to increase independence in ADLs/IADLs Bathing Upper Body Moderate Assistance Bathing Lower Body Maximal Assistance Dressing Upper Body Moderate Assistance Dressing Lower Body Maximal Assistance Toileting Contact Guard Assistance, Additional Information Pt completes toileting seated at toilet with prei-care seated Mobility Assist Level Additional Information Bed Mobility Supine To Sit: Minimal Assistance Sit to Stand Contact Guard Assistance, Additional Information Verbal cues for hand placement Stand to Sit Contact Guard Assistance, Additional Information Educated on eccentric control Bed to Chair Minimal Assistance Bed To Chair Transfer Type: Stepping Toilet/Commode Contact Guard Assistance, Additional Information Fall guard for safety Shower Functional Mobility Contact Guard A (more content not included)... Normal [facility] THERAPY NT HNO ID: [id number] Author: JANE WONG, PT Service: Physical Therapy Author Type: Physical Therapist Type: Therapy (PT/OT/Speech/Resp) Filed: 02/15/2024 09:49 Note Text: Physical Therapy Treatment Summary SERVICE DATE: 02/15/2024 SERVICE TIME: 900 ROOM: [place] [address] PT 6 Clicks Score: 17 DISCHARGE RECOMMENDATIONS Acute Rehab Recommended Discharge Disposition Due to: Functional deficits requiring ongoing therapy service prior to discharge home., Patient requires active, intensive rehabilitation by multiple therapy disciplines. Anticipate the patient will tolerate 3 hours of therapy per day., Functional status decline, Requires multiple therapy disciplines ASSESSMENT Response to Therapy Interventions: Good Participation in Activities, Improved Tolerance for Activity Goals ongoing. Patient very motivated to participate, able to tolerate increased ambulation distance this date. Patient remains below baseline, using a wheeled walker to ambulate, demo weakness in Left arm/hand. Continue to rec acute rehab at discharge. Patient would be an excellent acute rehab candidate as she has good support at home and can tolerate 3 hours of combined therapies a day. Patient was independent and working prior to fall. 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 counter; +central cord syndrome s/p C2-T2 posterior spinal fusion with C3-6 posterior cervical decompression on 02/09 Relevant Past Medical History: +THC, depression HOME LIVING Patient Lives With: Spouse Assistance Available: Part-Time Entry To Home: Stairs, With Rail Number Of Stairs Into Home: 2 Number Of Stairs To Bed/Bath: 0 Tub/Shower Type: standard Equipment Owned: Shower Chair PRIOR FUNCTIONAL LEVEL Within Functional Limits independent, working, driving SUBJECTIVE Pleasant and cooperative THERAPY DIAGNOSIS Reduced mobility-other, Unsteadiness on feet, Abnormalities of gait and mobility-other TREATMENT INTERVENTIONS Therapeutic Activity (42147) Therapeutic Activity (70348) Treatment Minutes: 27 $ Therapeutic Activity (00807) Billed Units: 2 units Education regarding importance of OOB, to chair, ambulate in room to regulate BP, improve lung function and overall blood flow, and to aid with bodily functions somewhat dependent on gravity. See grid for functional mobility facilitated and education provided Education on spinal precautions - limiting bending, lifting, twisting. Issued and reviewed handout of post op spinal precautions. Pt demo good understanding. - patient able to verbalize understanding but will need reinforcement Encouraged increased ambulation at home with frequent position changes, educated on log roll for into/out of bed and pillow use between knees, encouraged patient to place frequently used objects at/near shoulder height to avoid excessive overhead reaching or bending down to reach for objects, encouraged patient to use handrail for the steps for safety Encouraged patient to complete active range of motion Bilateral lower extremities in available planes x10-15 reps mutliple times a day. Patient states she has been doing active range of motion Left hand often. Encouraged patient to continue. Answered questions on acute rehab and expectations at discharge. Timed Code Treatment (minutes): 27 Skilled Treatment Time (minutes): 27 TRAINING AND EDUCATION PROVIDED Benefits of In-Hospital Mobility, Discharge Planning, Disease Specific Education, Falls Prevention, Home Safety, Role of Physical Therapy, Transfers, Exercise Program, Gait Pattern, Reduction of Deviations, Precautions/Restricti ons THERAPEUTIC SKILLS USED Activity Dosing, Assessment of Tolerance Including Vitals Response to Activity, Cues for Sequencing/Proper Technique for Activity, Physical Assist, Movement Facilitation FUNCTIONAL STATUS Bed Mobility Rolling: Minimal Assistance Cues for log roll Supine To Sit: Minimal Assistance Assist at trunk Transfers Sit To Stand: Minimal Assistance Cues for hand placement Stand To Sit: Minimal Assistance Cues to reach back to chair, lower slowly Bed to Chair Gait Minimal Assistance Patient motivated to ambulate, ambulated several trials into the hallway with wheeled walker. Cues for upright posture and forward gaze. Patient unsteady at times but no loss of balance. Decreased pace vs baseline. Gait Device: Wheeled Walker General Deviations/Observatio ns: Holly decreased, Step length decreased Gait Distance (feet): 50 feet intervals Stairs GOALS Transfer Supine to/from Sit with: Stand By Assistance Transfer Sit to/from Stand with: Stand By Assistance Ambulate with: Stand By Assistance Distance: 50'x2 Device: No Device Ambulate Up and Down Steps with: Stand By Assistance Number of Steps: 4 Device: Rail Goal: standing bi (more content not included)... Normal [facility] Basic metabolic 2000 panelon 02-14-2024 Anion gap [Moles/Vol] 9 mmol/L Normal 8-15 [facility] Comment on above: Order Comment: Speci men Type: BLOOD SPECIMENOrdering Facility: [facility] Address: [address] [place] [address] Performed By: #### 2 4321-2, , 2776-03 ####[facility] LABORATORYCLIA [id number] [place] [address] [place] Calcium [Mass/Vol] 8.7 mg/dL Normal 8.5-10.2 [facility] Comment on above: Order Comment: Speci men Type: BLOOD SPECIMENOrdering Facility: [facility] Address: [address] [place] [address] Performed By: #### 2 4321-2, , 2776-03 ####[facility] LABORATORYCLIA [id number] [place] [address] [place] Chloride [Moles/Vol] 98 mmol/L Normal 98-107 [facility] Comment on above: Order Comment: Speci men Type: BLOOD SPECIMENOrdering Facility: [facility] Address: [address] [place] [address] Performed By: #### 2 4321-2, , 2776-03 ####[facility] LABORATORYCLIA [id number] [place] [address] [place] CO2 [Moles/Vol] 26 mmol/L Normal 22-30 [facility] Comment on above: Order Comment: Speci men Type: BLOOD SPECIMENOrdering Facility: [facility] Address: [address] [place] [address] Performed By: #### 2 4321-2, , 2776-03 ####[facility] LABORATORYCLIA [id number] [place] [address] [place] Creatinine [Mass/Vol] 0.58 mg/dL Normal 0.58-0.96 [facility] Comment on above: Order Comment: Speci men Type: BLOOD SPECIMENOrdering Facility: [facility] Address: [address] [place] [address] Performed By: #### 2 4321-2, 26384-4, 1 ####[facility]OSPITALIA [id number] [place] [id number] [place] Creatinine and Glomerular filtration rate.predicted panel (S/P/Bld) 113 mL/min/1.73m??? Normal >=60 [facility] Comment on above: Order Comment: Oneida adame Type: BLOOD SPECIMENOrdering Facility: [facility] Address: [address] [place] [address] Result Comment: Xiomara mated Glomerular Filtration Rate (eGFR) is calculated using the 2020 CKD-EPI creatinine equation. This equation utilizes serum creatinine, sex, and age as parameters. The creatinine assay has traceable calibration to isotope dilution-mass spectrometry. Refer to KDIGO guidelines for clinical interpretation. In patients with unstable renal function, e.g. those with acute kidney injury, the eGFR may not accurately reflect actual GFR. Performed By: #### 2 4321-2, 65018-3, 27709-19 ####[facility] LABORATORYCLIA [id number] [place] [id number] [place] Glucose [Mass/Vol] 88 mg/dL Normal 74-99 [facility] Comment on above: Order Comment: Oneida adame Type: BLOOD SPECIMENOrdering Facility: [facility] Address: [address] [place] [address] Result Comment: The [place] Diabetes [employer] (ADA) provides guidance for cutoff values for fasting glucose and random glucose. The ADA defines fasting as no caloric intake for at least 8 hours. Fasting plasma glucose results between 100 to 125 mg/dL indicate increased risk for diabetes (prediabetes). Fasting plasma glucose results greater than or equal to 126 mg/dL meet the criteria for diagnosis of diabetes. In the absence of unequivocal hyperglycemia, results should be confirmed by repeat testing. In a patient with classic symptoms of hyperglycemia or hyperglycemic crisis, random plasma glucose results greater than or equal to 200 mg/dL meet the criteria for diagnosis of diabetes. Reference: Standards of Medical Care in Diabetes 2016, [place] [employer] Association. Diabetes Care. 2016.39(Suppl 1). Performed By: #### 2 4321-2, , 2776-03 ####[facility] LABORATORYCLIA [id number] [place] [address] [place] Potassium [Moles/Vol] 3.9 mmol/L Normal 3.7-5.1 [facility] Comment on above: Order Comment: Speci men Type: BLOOD SPECIMENOrdering Facility: [facility] Address: [address] [place] [address] Performed By: #### 2 4321-2, , 2776-03 ####[facility] LABORATORYCLIA [id number] [place] [address] [place] Sodium [Moles/Vol] 133 mmol/L Low 136-144 [facility] Comment on above: Order Comment: Speci men Type: BLOOD SPECIMENOrdering Facility: [facility] Address: [address] [place] [address] Performed By: #### 2 4321-2, , 2776-03 ####[facility] LABORATORYCLIA [id number] [address] STATES OF [facility] Urea nitrogen [Mass/Vol] 9 mg/dL Normal 7-21 [facility] Comment on above: Order Comment: Speci men Type: BLOOD SPECIMENOrdering Facility: [facility] Address: [address] [place] [address] Performed By: #### 2 4321-2, , 2776-03 ####[facility] LABORATORYCLIA [id number] [address] STATES OF [facility] CBC panel Auto (Bld)on 02-13 Erythrocyte distribution width (RBC) [Ratio] 13.1 % Normal 11.5-15.0 [facility] Comment on above: Order Comment: Speci men Type: BLOOD SPECIMENOrdering Facility: [facility] Address: [address] [place] [address] Performed By: #### 5 8410-2 ####[facility] LABORATORYCLIA [id number] [place] [address] [place] Hematocrit (Bld) [Volume fraction] 41.4 % Normal 36.0-46.0 [facility] Comment on above: Order Comment: Speci men Type: BLOOD SPECIMENOrdering Facility: [facility] Address: [address] [place] [address] Performed By: #### 5 8410-2 ####[facility] LABORATORYCLIA [id number] [address] [place] Hemoglobin (Bld) [Mass/Vol] 13.5 g/dL Normal 11.5-15.5 [facility] Comment on above: Order Comment: Speci men Type: BLOOD SPECIMENOrdering Facility: [facility] Address: [address] [place] [address] Performed By: #### 5 8410-2 ####[facility] LABORATORYCLIA [id number] [address] [place] MCH (RBC) [Entitic mass] 29.5 pg Normal 26.0-34.0 [facility] Comment on above: Order Comment: Speci men Type: BLOOD SPECIMENOrdering Facility: [facility] Address: [address] [place] [address] Performed By: #### 5 8410-2 ####[facility] LABORATORYCLIA [id number] [address] [place] MCHC (RBC) [Mass/Vol] 32.6 g/dL Normal 30.5-36.0 [facility] Comment on above: Order Comment: Speci men Type: BLOOD SPECIMENOrdering Facility: [facility] Address: [address] [place] [address] Performed By: #### 5 8410-2 ####[facility] LABORATORYCLIA [id number] [address] [place] MCV (RBC) [Entitic vol] 90.4 fL Normal 80.0-100.0 [facility] Comment on above: Order Comment: Speci men Type: BLOOD SPECIMENOrdering Facility: [facility] Address: [address] [place] [address] Performed By: #### 5 8410-2 ####[facility] LABORATORYCLIA [id number] [address] [place] Nucleated RBC (Bld) [#/Vol] 10*3/uL Normal <0.01 [facility] Comment on above: Order Comment: Speci men Type: BLOOD SPECIMENOrdering Facility: [facility] Address: [address] [place] [address] Performed By: #### 5 8410-2 ####[facility] LABORATORYCLIA [id number] [address] [place] Platelet mean volume (Bld) [Entitic vol] 10.7 fL Normal 9.0-12.7 [facility] Comment on above: Order Comment: Speci men Type: BLOOD SPECIMENOrdering Facility: [facility] Address: [address] [place] [address] Performed By: #### 5 8410-2 ####[facility] LABORATORYCLIA [id number] [address] Platelets (Bld) [#/Vol] 183 10*3/uL Normal 150-400 [facility] Comment on above: Order Comment: Speci men Type: BLOOD SPECIMENOrdering Facility: [facility] Address: [address] [place] [address] Performed By: #### 5 8410-2 ####[facility] LABORATORYCLIA [id number] [address] [place] RBC (Bld) [#/Vol] 4.58 10*6/uL Normal 3.90-5.20 [facility] Comment on above: Order Comment: Speci men Type: BLOOD SPECIMENOrdering Facility: [facility] Address: [address] [place] [address] Performed By: #### 5 8410-2 ####[facility] LABORATORYCLIA [id number] [address] [place] WBC (Bld) [#/Vol] 11.21 10*3/uL High 3.70-11.00 [facility] Comment on above: Order Comment: Speci men Type: BLOOD SPECIMENOrdering Facility: [facility] Address: [facility] [place] [address] Performed By: #### 5 8410-2 ####[facility] LABORATORYCLIA [id number] [place] [address] [place] CONSULT PROGon 02-14-2024 CONSULT PROG HNO ID: [id number] Author: DENILSON VIRK MD Service: General Surgery Author Type: Physician Type: Consult Progress Note Filed: 02/14/2024 10:33 Note Text: INPATIENT SICU PROGRESS NOTE SERVICE DATE: 02/14/2024 SERVICE TIME: 7:43 AM Subjective Patient seen and examined this morning, RUE improved mobility sensation and strength, plan for MAP goals to end today, poss Rnf today 02/13 Current Facility-Administered Medications Medication Dose Route Frequency bacitracin 500 unit/gram 1 Packet 1 Packet TOPICAL PRN NaCl 0.9% iv flush bag 20 mL INTRAVENOUS PRN oxyCODONE IR 5-10 mg tab(s) (ROXICODONE) 5-10 mg ORAL q 4 H PRN ondansetron 4 mg tab(s) (ZOFRAN) 4 mg ORAL q 6 H PRN Or ondansetron (PF) 4 mg injection (ZOFRAN) 4 mg INTRAVENOUS q 6 H PRN senna-docusate 8.6-50 mg 1 tablet (SENNA-S) 1 tablet ORAL BID polyethylene glycol 3350 17 g packet 17 g ORAL DAILY NORepinephrine 16 mg in D5W 250 mL (LEVOPHED) 0.6-15 mcg/min INTRAVENOUS CONTINUOUS phentolamine injection 5 mg (REGITINE) Extravasation Antidote 5 mg SUBCUTANEOUS PRN HYDROmorphone 0.4 mg injection (DILAUDID) 0.4 mg INTRAVENOUS q 3 H PRN acetaminophen 1,000 mg tab(s) (TYLENOL) 1,000 mg ORAL QID methocarbamol 750 mg tab(s) (ROBAXIN) 750 mg ORAL TID potassium chloride 20-40 mEq oral powder (KLOR-CON) 20-40 mEq ORAL/FEEDING TUBE PRN Or potassium chloride iv piggyback 20 mEq/100 mL 20 mEq INTRAVENOUS PRN magnesium sulfate iv piggyback in sterile water 2 g 50 mL 2 g INTRAVENOUS PRN calcium gluconate iv piggyback 2 g in NaCl (iso-osmotic) 100 mL 2 g INTRAVENOUS PRN(NO DISPENSE) gabapentin 300 mg cap(s) (NEURONTIN) 300 mg ORAL TID phosphorus 250 mg tab(s) (K PHOS NEUTRAL) 250 mg ORAL PC and HS prochlorperazine 5 mg injection (COMPAZINE) 5 mg INTRAVENOUS q 6 H PRN Objective VITAL SIGNS BP 164/94 Pulse 56 Temp (Src) 98.6 (Oral) Resp 9 Ht 5' 5 (1.65m) Wt 142 lb 13.7 oz (64.8kg) SpO2 95% LMP 05/28/2014 BMI 23.77 kg/(m2). O2 Therapy: Room Air Temp (24hrs), Av.1 ?C (98.7 ?F), Min:36.8 ?C (98.2 ?F), Max:37.2 ?C (99 ?F) Date 02/13/24 07 - 02/14/24 0659 02/14/24 07 - 02/15/24 0659 Shift 8338-8598 3644-0889 0820-0209 24 Hour Total 6119-0492 6760-1643 8412-5952 24 Hour Total INTAKE PO 200 760 960 PO 200 760 960 IV 9470 515 5892 Volume (mL) (NaCl 0.9% 1,000 mL iv bolus) 1000 1000 Volume (mL) (magnesium sulfate iv piggyback in sterile water 2 g 50 mL) 50 50 Volume (mL) (calcium gluconate iv piggyback 2 g in NaCl (iso-osmotic) 100 mL) 200 200 Shift Total 200 4121 606 4403 OUTPUT Urine 590 7111 945 5261 Void (ml) 590 041 966 5457 Amount Voided Before Bladder Scan 120 120 Urine Not Saved. 5 x 4 x 9 x Tubes 15 15 35 65 Drain/Tube Output (Drain/Tube 02/11/24 0140 Jose Miguel López Posterior Neck) 15 15 35 65 # of BMs Number of BMs 0 x 0 x Shift Total 605 0062 844 2257 Weight (kg) 64.7 64.7 64.8 64.8 64.8 64.8 64.8 64.8 PHYSICAL EXAM: GENERAL: Alert. No distress. Resting comfortably. NEURO: AANDOx3. No focal neurologic deficits. Sensation grossly intact. HEENT: Normocephalic. Atraumatic. EOMI. C collar at all times LUNGS: Unlabored breathing. Equal excursion bilaterally. CARDIAC: Regular rate, on tele, Good perfusion throughout. ABDOMEN: Soft, non-tender, non-distended. No rebound or guarding. EXTREMITIES: BHANDARI. No deformities. RUE improved mobility sensation and strength SKIN: No obvious jaundice or pallor. KAI drain in place sero sang output DATA: Diagnostic tests reviewed for today's visit: No results for input(s): BODSITE, CTYPE, PH, PCO2, PO2, BE, HCO3, CO2CT, O2HB, COHB, MHGB, TEMP, PHTC, PCO2T, PO2T, O2AD in the last 72 hours. 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 She suffered a GLF on 02/10/2024 in which she hit her head on a kitchen counter and had LOC. She presented to [facility] where she obtained a CT and MRI of her C-spine that was concerning for central cord syndrome and was subsequently transferred to [facility] for further management. Hospital course: - 02/09 SICU admission, MAPs goals > 80 - 02/10 cont MAP goals - 02/11 cont MAPs goals - 02/12 cont MAP goals - 02/13 plan for RNF Neuro: Central cord (more content not included)... Normal [facility] Calcium.ionized [Moles/Vol]o n 02-14-2024 Calcium.ionized (BldV) [Mass/Vol] 1.09 mmol/L Normal 1.08-1.30 [facility] Comment on above: Order Comment: Speci men Type: BLOOD SPECIMENOrdering Facility: [facility] Address: [address] [place] [address] Performed By: #### 1 995-0 ####[facility] LABORATORYCLIA [id number] [place] [address] [place] Calcium.ionized adjusted to pH 7.4 (Bld) [Moles/Vol] 1.11 mmol/L Normal 1.08-1.30 [facility] Comment on above: Order Comment: Speci men Type: BLOOD SPECIMENOrdering Facility: [facility] Address: [address] [place] [address] Performed By: #### 1 995-0 ####[facility] LABORATORYCLIA [id number] [place] [address] [place] Magnesium SerPl-mCncon 02-13 Magnesium [Mass/Vol] 1.6 mg/dL Low 1.7-2.3 [facility] Comment on above: Order Comment: Speci men Type: BLOOD SPECIMENOrdering Facility: [facility] Address: [address] [place] [address] Performed By: #### 2 4321-2, 85378-0, 2777-1 ####[facility] LABORATORYCLIA [id number] [place] [address] [place] Phosphate SerPl-mCncon 02-13 Phosphate [Mass/Vol] 3.5 mg/dL Normal 2.7-4.8 [facility] Comment on above: Order Comment: Speci men Type: BLOOD SPECIMENOrdering Facility: [facility] Address: [address] [place] [address] Performed By: #### 2 4321-2, 09811-4, 2777- ####[facility] LABORATORYCLIA [id number] [place] [address] [place] Basic metabolic 2000 panelon 02-13-2024 Anion gap [Moles/Vol] 8 mmol/L Normal 8-15 [facility] Comment on above: Order Comment: Speci men Type: BLOOD SPECIMENOrdering Facility: [facility] Address: [address] [place] [address] Performed By: #### 2 4321-2, , 2776-03 ####[facility] LABORATORYCLIA [id number] [place] [address] [place] Calcium [Mass/Vol] 8.8 mg/dL Normal 8.5-10.2 [facility] Comment on above: Order Comment: Speci men Type: BLOOD SPECIMENOrdering Facility: [facility] Address: [address] [place] [address] Performed By: #### 2 4320-2, , 2776-03 ####[facility] LABORATORYCLIA [id number] [place] [address] [place] Chloride [Moles/Vol] 98 mmol/L Normal 98-107 [facility] Comment on above: Order Comment: Speci men Type: BLOOD SPECIMENOrdering Facility: [facility] Address: [address] [place] [address] Performed By: #### 2 4321-2, , 2776-03 ####[facility] LABORATORYCLIA [id number] [place] [address] [place] CO2 [Moles/Vol] 29 mmol/L Normal 22-30 [facility] Comment on above: Order Comment: Speci men Type: BLOOD SPECIMENOrdering Facility: [facility] Address: [address] [place] [address] Performed By: #### 2 4321-2, , 2776-03 ####[facility] LABORATORYCLIA [id number] [place] [address] [place] Creatinine [Mass/Vol] 0.60 mg/dL Normal 0.58-0.96 [facility] Comment on above: Order Comment: Oneida adame Type: BLOOD SPECIMENOrdering Facility: [facility] Address: [address] [place] [address] Performed By: #### 2 4321-2, , 2776-03 ####[facility] LABORATORYCLIA [id number] [place] [id number] [facility] [place] Creatinine and Glomerular filtration rate.predicted panel (S/P/Bld) 112 mL/min/1.73m??? Normal >=60 [facility] Comment on above: Order Comment: Oneida adame Type: BLOOD SPECIMENOrdering Facility: [facility] Address: [address] [place] [address] Result Comment: Xiomara mated Glomerular Filtration Rate (eGFR) is calculated using the 2020 CKD-EPI creatinine equation. This equation utilizes serum creatinine, sex, and age as parameters. The creatinine assay has traceable calibration to isotope dilution-mass spectrometry. Refer to KDIGO guidelines for clinical interpretation. In patients with unstable renal function, e.g. those with acute kidney injury, the eGFR may not accurately reflect actual GFR. Performed By: #### 2 4321-2, , 2776-03 ####[facility] LABORATORYCLIA [id number] [place] [id number] [place] Glucose [Mass/Vol] 97 mg/dL Normal 74-99 [facility] Comment on above: Order Comment: Oneida adame Type: BLOOD SPECIMENOrdering Facility: [facility] Address: [address] [place] [address] Result Comment: The [place] Diabetes [employer] (ADA) provides guidance for cutoff values for fasting glucose and random glucose. The ADA defines fasting as no caloric intake for at least 8 hours. Fasting plasma glucose results between 100 to 125 mg/dL indicate increased risk for diabetes (prediabetes). Fasting plasma glucose results greater than or equal to 126 mg/dL meet the criteria for diagnosis of diabetes. In the absence of unequivocal hyperglycemia, results should be confirmed by repeat testing. In a patient with classic symptoms of hyperglycemia or hyperglycemic crisis, random plasma glucose results greater than or equal to 200 mg/dL meet the criteria for diagnosis of diabetes. Reference: Standards of Medical Care in Diabetes 2016, [place] [employer]. Diabetes Care. 2016.39(Suppl 1). Performed By: #### 2 4321-2, , 2776-03 ####[facility] LABORATORYCLIA [id number] [place] [address] [place] Potassium [Moles/Vol] 4.1 mmol/L Normal 3.7-5.1 [facility] Comment on above: Order Comment: Speci men Type: BLOOD SPECIMENOrdering Facility: [facility] Address: [address] [place] [address] Performed By: #### 2 4321-2, , 2776-03 ####[facility] LABORATORYCLIA [id number] [address] [place] Sodium [Moles/Vol] 135 mmol/L Low 136-144 [facility] Comment on above: Order Comment: Speci men Type: BLOOD SPECIMENOrdering Facility: [facility] Address: [address] [place] [address] Performed By: #### 2 4321-2, , 2776-03 ####[facility] LABORATORYCLIA [id number] [address] [place] Urea nitrogen [Mass/Vol] 9 mg/dL Normal 7-21 [facility] Comment on above: Order Comment: Speci men Type: BLOOD SPECIMENOrdering Facility: [facility] Address: [address] [place] [address] Performed By: #### 2 4321-2, , 2776-03 ####[facility] LABORATORYCLIA [id number] [place] [address] [place] CBC panel Auto (Bld)on 02-12 Erythrocyte distribution width (RBC) [Ratio] 13.2 % Normal 11.5-15.0 [facility] Comment on above: Order Comment: Speci men Type: BLOOD SPECIMENOrdering Facility: [facility] Address: [address] [place] [address] Performed By: #### 5 8410-2 ####[facility] LABORATORYCLIA [id number] [address] Hematocrit (Bld) [Volume fraction] 39.3 % Normal 36.0-46.0 [facility] Comment on above: Order Comment: Speci men Type: BLOOD SPECIMENOrdering Facility: [facility] Address: [address] [place] [address] Performed By: #### 5 8410-2 ####[facility] LABORATORYCLIA [id number] [address] [facility] Hemoglobin (Bld) [Mass/Vol] 13.1 g/dL Normal 11.5-15.5 [facility] Comment on above: Order Comment: Speci men Type: BLOOD SPECIMENOrdering Facility: [facility] Address: [address] [place] [address] Performed By: #### 5 8410-2 ####[facility] LABORATORYCLIA [id number] [address] MCH (RBC) [Entitic mass] 29.4 pg Normal 26.0-34.0 [facility] Comment on above: Order Comment: Speci men Type: BLOOD SPECIMENOrdering Facility: [facility] Address: [address] [place] [address] Performed By: #### 5 8410-2 ####[facility] LABORATORYCLIA [id number] [address] [place] MCHC (RBC) [Mass/Vol] 33.3 g/dL Normal 30.5-36.0 [facility] Comment on above: Order Comment: Speci men Type: BLOOD SPECIMENOrdering Facility: [facility] Address: [address] [place] [address] Performed By: #### 5 8410-2 ####[facility] LABORATORYCLIA [id number] [address] MCV (RBC) [Entitic vol] 88.3 fL Normal 80.0-100.0 [facility] Comment on above: Order Comment: Speci men Type: BLOOD SPECIMENOrdering Facility: [facility] Address: [address] [place] [address] Performed By: #### 5 8410-2 ####[facility]ORATORYCLIA [id number] [address] Nucleated RBC (Bld) [#/Vol] 10*3/uL Normal <0.01 [facility] Comment on above: Order Comment: Speci men Type: BLOOD SPECIMENOrdering Facility: [facility] Address: [address] [place] [address] Performed By: #### 5 8410-2 ####[facility] LABORATORYCLIA [id number] [address] [place] Platelet mean volume (Bld) [Entitic vol] 10.6 fL Normal 9.0-12.7 [facility] Comment on above: Order Comment: Speci men Type: BLOOD SPECIMENOrdering Facility: [facility] Address: [address] [place] [address] Performed By: #### 5 8410-2 ####[facility]ORATORYCLIA [id number] [address] [place] Platelets (Bld) [#/Vol] 225 10*3/uL Normal 150-400 [facility] Comment on above: Order Comment: Speci men Type: BLOOD SPECIMENOrdering Facility: [facility] Address: [address] [place] [address] Performed By: #### 5 8410-2 ####[facility]ORATORYCLIA [id number] [address] [place] RBC (Bld) [#/Vol] 4.45 10*6/uL Normal 3.90-5.20 [facility] Comment on above: Order Comment: Speci men Type: BLOOD SPECIMENOrdering Facility: [facility] Address: [address] [place] [address] Performed By: #### 5 8410-2 ####[facility]ORATORYCLIA [id number] [address] [place] WBC (Bld) [#/Vol] 13.84 10*3/uL High 3.70-11.00 [facility] Comment on above: Order Comment: Speci men Type: BLOOD SPECIMENOrdering Facility: [facility] Address: [address] [place] [id number] Performed By: #### 5 8410-2 ####[facility] LABORATORYCLIA [id number] [address] CONSULT PROGon 02-13-2024 CONSULT PROG HNO ID: [id number] Author: OBED BRYANT MD Service: General Surgery Author Type: Physician Type: Consult Progress Note Filed: 02/13/2024 08:43 Note Text: INPATIENT SICU PROGRESS NOTE SERVICE DATE: 02/13/2024 SERVICE TIME: 6:58 AM Subjective Patient seen and examined this morning, Feeling in better spirits, improved mobility to RUE, sensation improved on RUE, sensation AND strength intact LLE and bilateral LE. Current Facility-Administered Medications Medication Dose Route Frequency bacitracin 500 unit/gram 1 Packet 1 Packet TOPICAL PRN NaCl 0.9% iv flush bag 20 mL INTRAVENOUS PRN oxyCODONE IR 5-10 mg tab(s) (ROXICODONE) 5-10 mg ORAL q 4 H PRN ondansetron 4 mg tab(s) (ZOFRAN) 4 mg ORAL q 6 H PRN Or ondansetron (PF) 4 mg injection (ZOFRAN) 4 mg INTRAVENOUS q 6 H PRN senna-docusate 8.6-50 mg 1 tablet (SENNA-S) 1 tablet ORAL BID polyethylene glycol 3350 17 g packet 17 g ORAL DAILY NORepinephrine 16 mg in D5W 250 mL (LEVOPHED) 0.6-15 mcg/min INTRAVENOUS CONTINUOUS phentolamine injection 5 mg (REGITINE) Extravasation Antidote 5 mg SUBCUTANEOUS PRN HYDROmorphone 0.4 mg injection (DILAUDID) 0.4 mg INTRAVENOUS q 3 H PRN ALPRAZolam 0.5 mg tab(s) (XANAX) 0.5 mg ORAL TID PRN acetaminophen 1,000 mg tab(s) (TYLENOL) 1,000 mg ORAL QID methocarbamol 750 mg tab(s) (ROBAXIN) 750 mg ORAL TID potassium chloride 20-40 mEq oral powder (KLOR-CON) 20-40 mEq ORAL/FEEDING TUBE PRN Or potassium chloride iv piggyback 20 mEq/100 mL 20 mEq INTRAVENOUS PRN magnesium sulfate iv piggyback in sterile water 2 g 50 mL 2 g INTRAVENOUS PRN calcium gluconate iv piggyback 2 g in NaCl (iso-osmotic) 100 mL 2 g INTRAVENOUS PRN(NO DISPENSE) gabapentin 300 mg cap(s) (NEURONTIN) 300 mg ORAL TID phosphorus 250 mg tab(s) (K PHOS NEUTRAL) 250 mg ORAL PC and HS prochlorperazine 5 mg injection (COMPAZINE) 5 mg INTRAVENOUS q 6 H PRN Objective VITAL SIGNS BP 95/58 Pulse 61 Temp (Src) 97.7 (Oral) Resp 10 Ht 5' 5 (1.65m) Wt 142 lb 10.2 oz (64.7kg) SpO2 93% LMP 05/28/2014 BMI 23.74 kg/(m2). O2 Therapy: Room Air Temp (24hrs), Av.6 ?C (97.9 ?F), Min:36.5 ?C (97.7 ?F), Max:36.8 ?C (98.2 ?F) Date 02/12/24 07 - 02/13/24 0659 02/13/24 07 - 02/14/24 0659 Shift 3894-6274 0728-6579 0007-3619 24 Hour Total 8988-5580 2364-8813 0816-0745 24 Hour Total INTAKE PO 500 300 800 PO 500 300 800 IV 200 200 Volume (mL) (calcium gluconate iv piggyback 2 g in NaCl (iso-osmotic) 100 mL) 200 200 Shift Total 290 119 8190 OUTPUT Urine 1000 424 912 8109 Void (ml) 400 999 719 7807 Urine Not Saved. 2 x 2 x 4 x Output ([REMOVED] External Collection Device 02/12/24 0300 [facility] 02/12/24 1000) 600 600 Tubes 40 30 50 120 Drain/Tube Output (Drain/Tube 02/11/24 0140 Jose Miguel López Posterior Neck) 40 30 50 120 # of BMs Number of BMs 0 x 0 x Shift Total 1040 561 804 4259 Weight (kg) 63.1 63.1 64.7 64.7 64.7 64.7 64.7 64.7 PHYSICAL EXAM: GENERAL: Alert. No distress. Resting comfortably. NEURO: AANDOx3. No focal neurologic deficits. Sensation grossly intact. HEENT: Normocephalic. Atraumatic. EOMI. LUNGS: Unlabored breathing. Equal excursion bilaterally. CARDIAC: Regular rate. Good perfusion throughout. ABDOMEN: Soft, non-tender, non-distended. No rebound or guarding. EXTREMITIES: BHANDARI. No deformities. Improved sensation AND strength on Rue, intact LUE sensation 7 strength AND bilat LE SKIN: No obvious jaundice or pallor. Back Kai drain sero sang. DATA: Diagnostic tests reviewed for today's visit: No results for input(s): BODSITE, CTYPE, PH, PCO2, PO2, BE, HCO3, CO2CT, O2HB, COHB, MHGB, TEMP, PHTC, PCO2T, PO2T, O2AD in the last 72 hours. Recent Labs 02/13/24 0209 02/12/24 0420 02/11/24 0424 02/10/24 1724 CREAT 0.60 0.50* 0.55* 1.16* BUN 9 7 6* 6* NA 135* 129* 134* 132* K 4.1 3.5* 3.5* 3.4* CHLOR 98 93* 100 97* CO2 29 25 22 24 ANION 8 11 12 11 GLUC 97 156* 153* 98 CA 8.8 8.8 8.0* 8.9 P 3.3 2.9 2.7 -- MG 2.1 1.9 1.5* -- ALB -- -- -- 4.0 AST -- -- -- 32 ALT -- -- -- 13 ALKPHOS -- -- -- 42 TBILI -- -- -- 0.3 WBC 13.84* 14.93* 17.33* 11.44* HB 13.1 13.3 12.9 13.5 HCT 39.3 39.3 38.3 41.1 PLT 225 236 231 225 Assessment AND Plan ACTIVE PROBLEM LIST Vitamin D Deficiency Hypertension Hypercholesteremia Cyclic Vomiting Syndrome Acute Pelvic Pain, Female 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 She suffered a GLF on 02/10/2024 in which she hit her head on a kitchen counter and had LOC. She presented to [facility] where she obtained a CT and MRI of her C-spine that was concerning for central cord syndrome and was subsequently transferred to [facility] for further management. Hospital course: - 1 (more content not included)... Normal [facility] Calcium.ionized [Moles/Vol]o n 02-13-2024 Calcium.ionized (BldV) [Mass/Vol] 1.13 mmol/L Normal 1.08-1.30 [facility] Comment on above: Order Comment: Speci men Type: BLOOD SPECIMENOrdering Facility: [facility] Address: [address] [place] [address] Performed By: #### 1 995-0 ####[facility] LABORATORYCLIA [id number] [place] [address] [place] Calcium.ionized adjusted to pH 7.4 (Bld) [Moles/Vol] 1.16 mmol/L Normal 1.08-1.30 [facility] Comment on above: Order Comment: Speci men Type: BLOOD SPECIMENOrdering Facility: [facility] Address: [address] [place] [address] Performed By: #### 1 995-0 ####[facility] LABORATORYCLIA [id number] [place] [address] [place] Magnesium SerPl-ncon 02-12 Magnesium [Mass/Vol] 2.1 mg/dL Normal 1.7-2.3 [facility] Comment on above: Order Comment: Speci men Type: BLOOD SPECIMENOrdering Facility: [facility] Address: [address] [place] [address] Performed By: #### 2 4321-2, 44246-8, 2777-1 ####[facility] LABORATORYCLIA [id number] [place] [id number] [place] Phosphate SerPl-mCncon 02-12 Phosphate [Mass/Vol] 3.3 mg/dL Normal 2.7-4.8 [facility] Comment on above: Order Comment: Speci men Type: BLOOD SPECIMENOrdering Facility: [facility] Address: [facility] [place] [address] Performed By: #### 2 4321-2, 32923-6, 2777-1 ####[facility] LABORATORYCLIA [id number] [place] [address] [place] US ABD RIGHT UPPER QUADRANTo n 02-13-2024 US ABD RIGHT UPPER QUADRANT * * *Final Report* * * DATE OF EXAM: Feb 13 2024 6:55AM [id number] - US ABD RIGHT UPPER QUADRANT / PROCEDURE REASON: Liver lesion * * * * Physician Interpretation * * * * EXAMINATION: RIGHT UPPER QUADRANT ULTRASOUND CLINICAL HISTORY: Liver lesion TECHNIQUE: Sonography of the right upper quadrant was performed. Images were obtained and stored in a permanent archive. MQ: [id number] COMPARISON: CT abdomen 02/11/2024 and 06/16/2013 RESULT: Pancreas: Normal sonographic appearance. Portions obscured: tail Liver: Echotexture: Normal, homogeneous. Echogenicity: Normal Surface contour: Smooth Lesions: Within the inferior aspect of the right hepatic lobe there is a 0.9 x 1 x 0.8 cm hyperechoic lesion. This corresponds to the recent CT. Sonographic characteristics would be suggestive of benign hemangioma. In comparison to CT abdomen from May 2013, this lesion is also not significantly changed. Biliary: No intrahepatic biliary duct dilation. CBD: 0.7 cm at the hilum. Main portal vein is patent Gallbladder: Normal in appearance Right Kidney: No hydronephrosis. Ascites: None. IMPRESSION: 1. 1 cm right hepatic lobe lesion with sonographic characteristics consistent with hemangioma. This also appears to be relatively stable compared to 2014. 2. Slight prominence of the common bile duct of uncertain etiology. Negative for cholelithiasis. Job Interviewer: PSCB Transcribe Date/Time: Feb 13 2024 7:30A Dictated by : ROSANGELA MORENO MD This examination was interpreted and the report reviewed and electronically signed by: ROSANGELA MORENO MD on Feb 13 2024 7:35AM EST [id number] N Normal [facility] XR HAND 3V PA/LAT/OBL RTon 1 04-14-2023 XR HAND 3V PA/LAT/OBL RT * * *Final Report* * * DATE OF EXAM: Feb 13 2024 5:03PM [id number] - XR HAND 3V PA/LAT/OBL RT / PROCEDURE REASON: Trauma * * * * Physician Interpretation * * * * EXAM: XR HAND 3V PA/LAT/OBL RT PATIENT HISTORY: Right hand pain TECHNIQUE: PA, lateral, and oblique radiograph of the right hand COMPARISON: No relevant prior available FINDINGS: No acute fracture or dislocation. No soft tissue swelling. Angiocatheter at radial wrist. IMPRESSION: Negative for fracture or malalignment of the right hand. Job Interviewer: PSCB Transcribe Date/Time: Feb 13 2024 6:36P Dictated by : JEOVANY PERAZA MD This examination was interpreted and the report reviewed and electronically signed by: JEOVANY PERAZA MD on Feb 13 2024 6:38PM EST [id number] N Normal [facility] Basic metabolic 2000 panelon 02-12-2024 Anion gap [Moles/Vol] 11 mmol/L Normal 8-15 [facility] Comment on above: Order Comment: Speci men Type: BLOOD SPECIMENOrdering Facility: [facility] Address: [address] [place] [address] Performed By: #### 2 777-1, 58582-8, ####[facility] LABORATORYCLIA [id number] [place] [address] [place] Calcium [Mass/Vol] 8.8 mg/dL Normal 8.5-10.2 [facility] Comment on above: Order Comment: Speci men Type: BLOOD SPECIMENOrdering Facility: [facility] Address: [address] [place] [address] Performed By: #### 2 777-1, 89161-0, ####[facility] LABORATORYCLIA [id number] [place] [address] [place] Chloride [Moles/Vol] 93 mmol/L Low 98-107 [facility] Comment on above: Order Comment: Speci men Type: BLOOD SPECIMENOrdering Facility: [facility] Address: [address] [place] [address] Performed By: #### 2 777-1, , ####[facility] LABORATORYCLIA [id number] [address] CO2 [Moles/Vol] 25 mmol/L Normal 22-30 [facility] Comment on above: Order Comment: Speci men Type: BLOOD SPECIMENOrdering Facility: [facility] Address: [address] [place] [address] Performed By: #### 2 777-1, , ####[facility]ITALIA [id number] [address] [facility] Creatinine [Mass/Vol] 0.50 mg/dL Low 0.58-0.96 [facility] Comment on above: Order Comment: Speci men Type: BLOOD SPECIMENOrdering Facility: [facility] Address: [address] [place] [address] Performed By: #### 2 777-1, , ####[facility]OSPITALIA [id number] [address] Creatinine and Glomerular filtration rate.predicted panel (S/P/Bld) 117 mL/min/1.73m??? Normal >=60 [facility] Comment on above: Order Comment: Speci men Type: BLOOD SPECIMENOrdering Facility: [facility] Address: [address] [place] [address] Result Comment: Xiomara mated Glomerular Filtration Rate (eGFR) is calculated using the 2020 CKD-EPI creatinine equation. This equation utilizes serum creatinine, sex, and age as parameters. The creatinine assay has traceable calibration to isotope dilution-mass spectrometry. Refer to KDIGO guidelines for clinical interpretation. In patients with unstable renal function, e.g. those with acute kidney injury, the eGFR may not accurately reflect actual GFR. Performed By: #### 2 777-1, 12701-3, ####[facility] LABORATORYCLIA [id number] [place] [address] [place] Glucose [Mass/Vol] 156 mg/dL High 74-99 [facility] Comment on above: Order Comment: Speci men Type: BLOOD SPECIMENOrdering Facility: [facility] Address: [address] [place], [place] [id number] Result Comment: The [place] [employer] (ADA) provides guidance for cutoff values for fasting glucose and random glucose. The ADA defines fasting as no caloric intake for at least 8 hours. Fasting plasma glucose results between 100 to 125 mg/dL indicate increased risk for diabetes (prediabetes). Fasting plasma glucose results greater than or equal to 126 mg/dL meet the criteria for diagnosis of diabetes. In the absence of unequivocal hyperglycemia, results should be confirmed by repeat testing. In a patient with classic symptoms of hyperglycemia or hyperglycemic crisis, random plasma glucose results greater than or equal to 200 mg/dL meet the criteria for diagnosis of diabetes. Reference: Standards of Medical Care in Diabetes 2016, [place] [employer]. Diabetes Care. 2016.39(Suppl 1). Performed By: #### 2 777-1, 03948-5, ####[facility] LABORATORYCLIA [id number] [place] [address] [place] Potassium [Moles/Vol] 3.5 mmol/L Low 3.7-5.1 [facility] Comment on above: Order Comment: Rafiai men Type: BLOOD SPECIMENOrdering Facility: [facility] Address: [address] [place] [address] Performed By: #### 2 777-1, , ####[facility] LABORATORYCLIA [id number] [place] [address] [place] Sodium [Moles/Vol] 129 mmol/L Low 136-144 [facility] Comment on above: Order Comment: Speci men Type: BLOOD SPECIMENOrdering Facility: [facility] Address: [address] [place], [place] [address] Performed By: #### 2 777-1, 61221-5, ####[facility] LABORATORYCLIA [id number] [address] OF [facility] Urea nitrogen [Mass/Vol] 7 mg/dL Normal 7-21 [facility] Comment on above: Order Comment: Speci men Type: BLOOD SPECIMENOrdering Facility: [facility] Address: [address] [place] [address] Performed By: #### 2 777-1, 61403-4, 70865-8 ####[facility] LABORATORYCLIA [id number] [address] STATES OF [facility] CBC panel Auto (Bld)on 02-11 Erythrocyte distribution width (RBC) [Ratio] 12.8 % Normal 11.5-15.0 [facility] Comment on above: Order Comment: Speci men Type: BLOOD SPECIMENOrdering Facility: [facility] Address: [address] [place] [address] Performed By: #### 5 8410-2 ####[facility] LABORATORYCLIA [id number] [address] STATES OF [facility] Hematocrit (Bld) [Volume fraction] 39.3 % Normal 36.0-46.0 [facility] Comment on above: Order Comment: Speci men Type: BLOOD SPECIMENOrdering Facility: [facility] Address: [address] [place] [address] Performed By: #### 5 8410-2 ####[facility]ORATORYCLIA [id number] [address] [place] Hemoglobin (Bld) [Mass/Vol] 13.3 g/dL Normal 11.5-15.5 [facility] Comment on above: Order Comment: Speci men Type: BLOOD SPECIMENOrdering Facility: [facility] Address: [address] [place] [address] Performed By: #### 5 8410-2 ####[facility] LABORATORYCLIA [id number] [address] MCH (RBC) [Entitic mass] 29.4 pg Normal 26.0-34.0 [facility] Comment on above: Order Comment: Speci men Type: BLOOD SPECIMENOrdering Facility: [facility] Address: [address] [place] [address] Performed By: #### 5 8410-2 ####[facility]ORATORYCLIA [id number] [address] MCHC (RBC) [Mass/Vol] 33.8 g/dL Normal 30.5-36.0 [facility] Comment on above: Order Comment: Speci men Type: BLOOD SPECIMENOrdering Facility: [facility] Address: [address] [place] [address] Performed By: #### 5 8410-2 ####[facility] LABORATORYCLIA [id number] [address] MCV (RBC) [Entitic vol] 86.9 fL Normal 80.0-100.0 [facility] Comment on above: Order Comment: Speci men Type: BLOOD SPECIMENOrdering Facility: [facility] Address: [address] [place] [address] Performed By: #### 5 8410-2 ####[facility]ORATORYCLIA [id number] [address] Nucleated RBC (Bld) [#/Vol] 10*3/uL Normal <0.01 [facility] Comment on above: Order Comment: Speci men Type: BLOOD SPECIMENOrdering Facility: [facility] Address: [address] [place] [address] Performed By: #### 5 8410-2 ####[facility]ORATORYCLIA [id number] [address] Platelet mean volume (Bld) [Entitic vol] 10.7 fL Normal 9.0-12.7 [facility] Comment on above: Order Comment: Speci men Type: BLOOD SPECIMENOrdering Facility: [facility] Address: [address] [place] [address] Performed By: #### 5 8410-2 ####[facility]ORATORYCLIA [id number] [address] [place] Platelets (Bld) [#/Vol] 236 10*3/uL Normal 150-400 [facility] Comment on above: Order Comment: Speci men Type: BLOOD SPECIMENOrdering Facility: [facility] Address: [address] [place] [address] Performed By: #### 5 8410-2 ####[facility]ORATORYCLIA [id number] [address] OF [facility] RBC (Bld) [#/Vol] 4.52 10*6/uL Normal 3.90-5.20 [facility] Comment on above: Order Comment: Speci men Type: BLOOD SPECIMENOrdering Facility: [facility] Address: [address] [place] [address] Performed By: #### 5 8410-2 ####[facility]ORATORYCLIA [id number] [address] STATES OF [facility] WBC (Bld) [#/Vol] 14.93 10*3/uL High 3.70-11.00 [facility] Comment on above: Order Comment: Speci men Type: BLOOD SPECIMENOrdering Facility: [facility] Address: [address] [place] [address] Performed By: #### 5 8410-2 ####[facility]ORATORYCLIA [id number] [address] OF [facility] CONSULT PROGon 02-12-2024 CONSULT PROG HNO ID: [id number] Author: OBED BRYANT MD Service: General Surgery Author Type: Physician Type: Consult Progress Note Filed: 02/12/2024 11:34 Note Text: INPATIENT SICU PROGRESS NOTE SERVICE DATE: 02/12/2024 SERVICE TIME: 9:32 AM Subjective 48 yo female s/p C2-T2 posterior spinal fusion with C3-C6 posterior cervical decompression. Reporting continued weakness to bilateral UE but reports improvement. Denies any LE issues. Reports feeling more calm than yesterday. Tolerating diet. Current Facility-Administered Medications Medication Dose Route Frequency bacitracin 500 unit/gram 1 Packet 1 Packet TOPICAL PRN NaCl 0.9% iv flush bag 20 mL INTRAVENOUS PRN oxyCODONE IR 5-10 mg tab(s) (ROXICODONE) 5-10 mg ORAL q 4 H PRN ondansetron 4 mg tab(s) (ZOFRAN) 4 mg ORAL q 6 H PRN Or ondansetron (PF) 4 mg injection (ZOFRAN) 4 mg INTRAVENOUS q 6 H PRN senna-docusate 8.6-50 mg 1 tablet (SENNA-S) 1 tablet ORAL BID polyethylene glycol 3350 17 g packet 17 g ORAL DAILY NORepinephrine 16 mg in D5W 250 mL (LEVOPHED) 0.6-15 mcg/min INTRAVENOUS CONTINUOUS phentolamine injection 5 mg (REGITINE) Extravasation Antidote 5 mg SUBCUTANEOUS PRN HYDROmorphone 0.4 mg injection (DILAUDID) 0.4 mg INTRAVENOUS q 3 H PRN ALPRAZolam 0.5 mg tab(s) (XANAX) 0.5 mg ORAL TID PRN acetaminophen 1,000 mg tab(s) (TYLENOL) 1,000 mg ORAL QID methocarbamol 750 mg tab(s) (ROBAXIN) 750 mg ORAL TID potassium chloride 20-40 mEq oral powder (KLOR-CON) 20-40 mEq ORAL/FEEDING TUBE PRN Or potassium chloride iv piggyback 20 mEq/100 mL 20 mEq INTRAVENOUS PRN magnesium sulfate iv piggyback in sterile water 2 g 50 mL 2 g INTRAVENOUS PRN calcium gluconate iv piggyback 2 g in NaCl (iso-osmotic) 100 mL 2 g INTRAVENOUS PRN(NO DISPENSE) gabapentin 300 mg cap(s) (NEURONTIN) 300 mg ORAL TID phosphorus 250 mg tab(s) (K PHOS NEUTRAL) 250 mg ORAL PC and HS prochlorperazine 5 mg injection (COMPAZINE) 5 mg INTRAVENOUS q 6 H PRN potassium phosphate 45 mmol in NaCl 0.9% 500 mL 45 mmol INTRAVENOUS ONCE Objective VITAL SIGNS BP 157/87 Pulse 59 Temp (Src) 97.9 (Oral) Resp 12 Ht 5' 5 (1.65m) Wt 139 lb 1.8 oz (63.1kg) SpO2 93% LMP 05/28/2014 BMI 23.15 kg/(m2). O2 Therapy: Nasal Cannula, Liters: 2 Temp (24hrs), Av.8 ?C (98.3 ?F), Min:36.6 ?C (97.9 ?F), Max:37.1 ?C (98.8 ?F) Date 02/11/24699 - 02/12/24 0602/12/24699 - 02/13/24 0659 Shift 5721-9049 1671-8944 7955-1408 24 Hour Total 0462-7931 9521-8769 0234-5246 24 Hour Total INTAKE PO 120 120 PO 120 120 IV 500 300 800 Volume (mL) (magnesium sulfate iv piggyback in sterile water 2 g 50 mL) 100 100 Volume (mL) (calcium gluconate iv piggyback 2 g in NaCl (iso-osmotic) 100 mL) 200 200 Volume (mL) (potassium phosphate 45 mmol in NaCl 0.9% 500 mL) 500 500 Shift Total 500 120 300 920 OUTPUT Urine 1000 0732 953 0555 Void (ml) 850 1200 2050 Urine Incontinence/Not Saved 2 x 2 x Urine Not Saved. 1 x 1 x Output ( External Collection Device 02/12/24 0300 [facility]) 700 700 Output ([REMOVED] Indwelling Urinary Catheter 02/10/24 2249 [facility] Weiss 16 Fr 02/11/24 1000) 150 150 Emesis 150 150 Emesis (ml) 150 150 Tubes 90 70 40 200 Drain/Tube Output (Drain/Tube 02/11/24 0140 Jose [facility] L[facility]pez Posterior Neck) 90 70 40 200 Shift Total 1090 2401 845 6988 Weight (kg) 66.4 66.4 63.1 63.1 63.1 63.1 63.1 63.1 PHYSICAL EXAM: GENERAL: Alert. No distress. Resting comfortably. In C collar NEURO: AANDOx3.Bilateral UE weakness. 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 HEENT: Normocephalic. Atraumatic. EOMI. LUNGS: Unlabored breathing. Equal excursion bilaterally. CARDIAC: Regular rate, on tele, Good perfusion throughout. ABDOMEN: Soft, non-tender, non-distended. No rebound or guarding. EXTREMITIES: BHANDARI. No deformities. SKIN: No obvious jaundice or pallor. DATA: Diagnostic tests reviewed for today's visit: No results for input(s): BODSITE, CTYPE, PH, PCO2, PO2, BE, HCO3, CO2CT, O2HB, COHB, MHGB, TEMP, PHTC, PCO2T, PO2T, O2AD in the last 72 hours. 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 S (more content not included)... Normal [facility] Calcium.ionized [Moles/Vol]o n 02-12-2024 Calcium.ionized (BldV) [Mass/Vol] 1.09 mmol/L Normal 1.08-1.30 [facility] Comment on above: Order Comment: Speci men Type: BLOOD SPECIMENOrdering Facility: [facility] Address: [address] [place] [address] Performed By: #### 1 995-0 ####[facility]ORATORYCLIA [id number] [place] [address] [place] Calcium.ionized adjusted to pH 7.4 (Bld) [Moles/Vol] 1.14 mmol/L Normal 1.08-1.30 [facility] Comment on above: Order Comment: [place] men Type: BLOOD SPECIMENOrdering Facility: [facility] Address: [address] [place], [place] [address] Performed By: #### 1 995-0 ####[facility]ORATORYCLIA [id number] [place] [address] [place] ECG COMPLETEon 02-12-2024 ECG COMPLETE Ventricular Rate : 5 8 BPM Atrial Rate : 58 BPM P-R Interval : 124 ms QRS Duration : 80 ms Q-T Interval : 460 ms QTC Calculation(Bazett) : 451 ms Calculated P [place] : 15 degrees Calculated R [place] : 31 degrees Calculated T [place] : 14 degrees SINUS BRADYCARDIA OTHERWISE NORMAL ECG NO PREVIOUS ECGS AVAILABLE Confirmed by MD ROWE VINAY ([id number]) on 02/14/2024 8:12:52 AM NAME : JENNIFER PRICE PID : [id number] : 1975 Gender : Female Race : ORD : [id number] Procedure Date : Feb 12 2024 23:28:36 Edit Date : Feb 14 2024 08:12:55 Diagnosis: SINUS BRADYCARDIA OTHERWISE NORMAL ECG NO PREVIOUS ECGS AVAILABLE Confirmed by MD ROWE VINAY ([id number]) on 02/14/2024 8:12:52 AM Test Reason : Arrhythmia Location : [address] : [place] [address] Overread By : MD ROWE VINAY Edited By : MD ROWE VINAY Referred By : , Acquired by : HELADIO DELA CRUZ [facility] Magnesium SerPl-mCncon 02-11 Magnesium [Mass/Vol] 1.9 mg/dL Normal 1.7-2.3 [facility] Comment on above: Order Comment: Speci men Type: BLOOD SPECIMENOrdering Facility: [facility] Address: [address] [place] [address] Performed By: #### 2 777-1, 54003-9, 18758-1 ####[facility]ORATORYCLIA [id number] [place] [address] [place] Phosphate SerPl-mCncon 02-11 Phosphate [Mass/Vol] 2.9 mg/dL Normal 2.7-4.8 [facility] Comment on above: Order Comment: Speci men Type: BLOOD SPECIMENOrdering Facility: [facility] Address: [address] [place] [address] Performed By: #### 2 777-1, 44424-7, 49834-3 ####[facility]ORATORYCLIA [id number] [address] THERAPY NTon 02-12-2024 THERAPY NT HNO ID: [id number] Author: ALE SALAZAR PT Service: Physical Therapy Author Type: Physical Therapist Type: Therapy (PT/OT/Speech/Resp) Filed: 02/12/2024 17:35 Note Text: Physical Therapy Evaluation Summary SERVICE DATE: 02/12/2024 SERVICE TIME: 1530 to 1546 ROOM: [place] [address] PT 6 Clicks Score: 17 DISCHARGE RECOMMENDATIONS Acute Rehab Recommended Discharge Disposition Due to: Functional deficits requiring ongoing therapy service prior to discharge home., Patient requires active, intensive rehabilitation by multiple therapy disciplines. 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 THERAPY DIAGNOSIS Reduced mobility-other, Unsteadiness on feet, Abnormalities of gait and mobility-other TREATMENT INTERVENTIONS Evaluation Skilled Treatment Time (minutes): 16 $ Evaluation-Moderate (78085) Billed Units: 1 unit Cues for safe mobility per grid below Cues for safe transfers Steps recliner to/from bed multiple times--steps forward/backward/pivo ting around--limited by arterial line monitor Educated on ARF LOC--pt receptive and agreeable TRAINING AND EDUCATION PROVIDED Benefits of In-Hospital Mobility, Discharge Planning, Disease Specific Education, Falls Prevention, Home Safety, Role of Physical Therapy, Transfers THERAPEUTIC SKILLS USED Activity Dosing, Assessment of Tolerance Including Vitals Response to Activity, Cues for Sequencing/Proper Technique for Activity, Physical Assist, Movement Facilitation FUNCTIONAL STATUS Bed Mobility Transfers Sit To Stand: Minimal Assistance, Additional Information cues for hand placement and safety Stand To Sit: Minimal Assistance, Additional Information cues for hand placement and safety Bed to Chair Gait Minimal Assistance, Additional Information Gait Device: Hand Held Assist Gait Distance (feet): steps recliner to/from bedx2--limited by art line monitoring Stairs Range of Motion: WFL (bilat LEs) Strength: WFL (bilat LEs) GOALS Transfer Supine to/from Sit with: Stand By Assistance Transfer Sit to/from Stand with: Stand By Assistance Ambulate with: Stand By Assistance Distance: 50'x2 Device: No Device Ambulate Up and Down Steps with: Stand By Assistance Number of Steps: 4 Device: Rail Goal: standing bilat LE AROM exercises--for balance x10 reps with CG/SB Rehab Potential: Good PLAN PT Frequency: Once Daily (5-7) Treatment Interventions: Education, Functional Mobility Training, Balance Training, Neuromuscular Re-education SIGNATURE: Ale Salazar PT PATIENT NAME: Jennifer Price DATE: February 12, 2024 TIME: 5:33 PM Normal [facility] THERAPY NT HNO ID: [id number] Author: RANDALL CEJA OTR/L Service: Occupational Therapy Author Type: Occupational Therapist Type: Therapy (PT/OT/Speech/Resp) Filed: 02/12/2024 11:59 Note Text: Occupational Therapy Evaluation Summary SERVICE DATE: 02/12/2024 SERVICE TIME: 1035 to 1102 ROOM: [place] [address] OT 6 Clicks Score: 14 DISCHARGE RECOMMENDATIONS Acute Rehab Recommended Discharge Disposition Due to: Functional deficits requiring ongoing therapy service prior to discharge home., ADL impairment, Patient requires active, intensive rehabilitation by multiple therapy disciplines. 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 counter; +central cord syndrome s/p C2-T2 posterior spinal fusion with C3-6 posterior cervical decompression HOME LIVING Patient Lives With: Spouse Assistance Available: Part-Time Entry To Home: Stairs, With Rail Number Of Stairs Into Home: 2 Number Of Stairs To Bed/Bath: 0 Tub/Shower Type: standard Equipment Owned: Shower Chair PRIOR FUNCTIONAL LEVEL Within Functional Limits independent, working, driving Baseline Cognition: Oriented to self, Oriented to place, Oriented to time, Oriented to situation SUBJECTIVE agreeable to session; very motivated to get better; tearful during session due to recent life events/stressors COGNITION Responsiveness: Alert Follows Commands: 3-step Commands THERAPY DIAGNOSIS Reduced mobility-other, Decreased activities of daily living (ADL) TREATMENT INTERVENTIONS Evaluation, Therapeutic Activity (78892) Timed Code Treatment (minutes): 10 Skilled Treatment Time (minutes): 27 $ Evaluation - High (46927) Billed Units: 1 unit Therapeutic Activity (41625) Treatment Minutes: 10 $ Therapeutic Activity (01288) Billed Units: 1 unit Facilitated safe bed mobility with min verbal cues and min assistance to transition safely. Instructed patient on safe sit to stand transfer and utilizing L UE to assist into standing. Stood on patient's R side to offer additional support due to R sided weakness (UE and LE). Provided min assistance with fall guarding and min verbal cues for step sequencing and safety when transitioning from bed to bedside commode. Pt able to complete toileting/gianfranco-care with min assistance. Then facilitated safe sit to stand transfer from commode and over to chair with min verbal cues for proper hand and body placement as well as fall guarding assistance due to R sided weakness and impaired motor planning. Instructed patient on self guided exercises to range R wrist/digits as well shoulder and elbow. TRAINING AND EDUCATION PROVIDED Activity Adaptation/Compensato ry Strategies, Adaptive Equipment/DME, Assistive Device Use, Bed Mobility, Benefits of In-Hospital Mobility, Cognitive Skills, Command Following, Expected Functional Level, Functional Mobility Involving ADLs, Grooming Tasks, Lower Extremity Dressing, Orientation, Positioning, Precautions/Restricti ons, Safety/Judgment, Role of Occupational Therapy, Sitting Balance to Improve [place] with ADLs/Self-Care, Standing Balance to Improve [place] with ADLs/Self-Care, Transfer - Sit to Stand, Transfer - Toilet/Commode, Transfer - Bed to Chair, Toileting , Exercise Program THERAPEUTIC SKILLS USED Activity Dosing, Assessment of Tolerance Including Vitals Response to Activity, Cues for Sequencing/Proper Technique for Activity, Cuing Verbal, Physical Assist FUNCTIONAL STATUS Activities of Daily Living Assist Level Additional Information Feeding Minimal Assistance Grooming Moderate Assistance Bathing Upper Body Moderate Assistance Bathing Lower Body Maximal Assistance Dressing Upper Body Moderate Assistance Dressing Lower Body Maximal Assistance Toileting Minimal Assistance Mobility Assist Level Additional Information Bed Mobility Supine To Sit: Minimal Assistance Sit to Stand Minimal Assistance Stand to Sit Minimal Assistance Bed to Chair Minimal Assistance Bed To Chair Transfer Type: Stepping Toilet/Commode Minimal Assistance (to BSC) Shower Functional Mobility ROM R Upper Extremity ROM Comments: R shoulder ~90* AROM, R elbow intact; no active extension in wrist (+tenodesis); needle control cheniller flexion intact ~50% L Upper Extremity ROM Comments: L UE WFL STRENGTH Right Upper Extremity Strength Comments: R shoulder 2+/5, R elbow 3/5, R needle control cheniller 3/5 Left Upper Extremity Strength Comments: L UE 4/5 ACTIVITY TOLERANCE Standing Activity: steps from bed to BSC; then from BSC to chair BALANCE Static Sitting Balance: Good Dynamic Sitting Balance: Fair Static Standing Balance: Fair Dynamic Standing Balance: Jerome (more content not included)... Normal [facility] ALLIED HEALTHon 02-11-2024 ALLIED HEALTH HNO ID: [id number] Author: OBIE MONTENEGRO RT(Miguel) Service: Radiology Author Type: Technologist Type: Allied Health Filed: 02/11/2024 11:42 Note Text: Radiology Service Progress Note DATE OF SERVICE: February 11, 2024 TIME: 11:41 AM PATIENT IDENTITY VERIFICATION COMPLETED USING TWO (2) STANDARD IDENTIFIERS: Name and Date of confirmed by patient verbally and Name and Date of confirmed by identification band. FALL SCREENING: Has the patient had 2 falls in the last year or 1 fall with injury or currently using an Ambulatory Assistive Device (Walker, Cane, Wheelchair, Crutches, etc.)? Inpatient: Screened on floor PATIENT GENDER DATA: Female. status: : No status: NO. PATIENT RELEVANT IMPLANT DATA REVIEWED: Not Applicable PATIENT PRESENTS WITH AN IMPLANTABLE OR ATTACHED ANIMAL CARE ASSISTANT: No ALLERGIES: Reviewed and unchanged CONTRAST ALLERGY: NO. EXAM: CT -CONTRAST INDUCED NEPHROPATHY RISK FACTORS: Not applicable CREATININE: Creatinine Date Value Ref Range Status 02/11/2024 0.55 (L) 0.58 - 0.96 mg/dL Final 02/10/2024 1.16 (H) 0.58 - 0.96 mg/dL Final 02/05/2014 0.74 0.70 - 1.40 mg/dL Final Estimated Glomerular Filtration Rate Date Value Ref Range Status 02/11/2024 115 >=60 mL/min/1.73m? Final Comment: Estimated Glomerular Filtration Rate (eGFR) is calculated using the 2020 CKD-EPI creatinine equation. This equation utilizes serum creatinine, sex, and age as parameters. The creatinine assay has traceable calibration to isotope dilution-mass spectrometry. Refer to KDIGO guidelines for clinical interpretation. In patients with unstable renal function, e.g. those with acute kidney injury, the eGFR may not accurately reflect actual GFR. eGFR- Date Value Ref Range Status 02/05/2014 >60 Final P.O.C.T. RESULTS: POC done: Yes, See Lab Tab February 11, 2024 TREATMENT: N/A and No Hydration needed. PERIPHERAL IV DATA: Inpatient - refer to [facility] documentation RADIOLOGY DEPARTMENT: CT; Exam(s) Completed: Abdomen/Pelvis SIGNATURE: RT Stan(R) PATIENT NAME: Jennifer Price DATE: February 11, 2024 TIME: 11:41 AM Normal [facility] ANES POSTPROC EVALon 024 ANES POSTPROC EVAL HNO ID: [id number] Author: PATITO DE LA PAZ MD Service: Anesthesiology Author Type: Anesthesiologist Type: Anesthesia Postprocedure Evaluation Filed: 02/11/2024 06:48 Note Text: POST ANESTHESIA EVALUATION NOTE : 1975 Procedure Summary Date: 02/10/24 Room / Location: [place] OR / [place] OR Anesthesia Start: 2228 Anesthesia Stop: Procedure: POSTERIOR SEGMENTAL INSTRUMENTATION FOLLOWING CERVICAL FUSION 7-12 LEVELS (Neck) Diagnosis: Central cord syndrome (HCC) (Central cord syndrome (HCC) [S14.129A]) Surgeons: Celso Knowles MD Responsible Provider: Patito De La Paz MD Anesthesia Type: general ASA Status: 3 - Emergent Anesthesia Type: general Airway Type: ETT Last Vitals Vitals Value Taken Time BP 145/98 02/11/24334 Temp 36.7 ?C (98.1 ?F) 02/11/24334 HR SpO2 82 02/11/24334 Resp 19 02/11/24334 SpO2 96 % 02/11/24334 Vitals shown include unfiled device data. Post Anesthesia Patient Status Patient Evaluation: PACU. PACU/ICU Patient Condition: stable. Anticipated Disposition: ICU planned admission. Neurological Status: sleepy but arousable. Pulmonary Status: breathing comfortably on supplemental oxygen Airway Control: returned to baseline unsupported. Cardiovascular Status: stable. Pain Management: clinically adequate Postoperative Hydration: acceptable. Intraoperative Events: no significant anesthesia events Post Operative Nausea/Vomiting Status: no significant post operative nausea or vomiting Recommendation: continue current plan of care and further care per PACU/ICU/floor team. Anesthesia Observations No Documentation SIGNATURE: Patito De La Paz MD PATIENT NAME: Jennifer Price DATE: February 11, 2024 TIME: 6:44 AM CSN: [id number] [facility] BRIEF OP NOTon 02-11-2024 BRIEF OP NOT HNO ID: [id number] Author: ESEQUIEL JEFFRIES MD Service: Orthopaedic Surgery Author Type: Resident Type: Brief Op Note Filed: 02/11/2024 03:17 Note Text: BRIEF OPERATIVE / PROCEDURE NOTE LOG ID: [id number] Surgery/Procedure Date: 02/10/2024 Incision/Procedure Start Time: 11:31 PM Incision Close/Procedure End Time: 2:16 AM Surgeon(s)/Procedural ist(s) and Copy Lathe Operator(s): Surgeons and Role: * Celso Knowles MD - Primary * Esequiel Jeffries MD - Resident - Assisting No Additional Staff Procedure(s): C2-T2 posterior spinal fusion with C3-C6 posterior cervical decompression Anesthesia: General Specimens: None Complications: None Implant: Implant Name Type Inv. Item Serial No. Top Loader Lot No. LRB No. Used Action GRAFT BONE SUB DBM PUTTY OSTEOSURGE - [id number] Bone GRAFT BONE SUB DBM PUTTY OSTEOSURGE [id number] [employer] [id number] N/A 1 Implanted GRAFT BONE SUB L DEMINERALIZED BONE FIBER SYRINGE STRAND - [id number] Bone GRAFT BONE SUB L DEMINERALIZED BONE FIBER SYRINGE STRAND [id number] [employer] [id number] N/A 1 Implanted CAP QUARTEX LOCKING THREAD SPINE - [id number] Implant CAP QUARTEX LOCKING THREAD SPINE [employer] N/A 14 Implanted SCREW QUARTEX 3.5MM 12MM BONE POLYAXIAL SPINE Implant [employer] N/A 8 Implanted QUARTEX POLYAXIAL SCREW 5.0MM X 26MM [id number] Implant [employer] N/A 2 Implanted QUARTEX POLYAXIAL SCREW 5.0MM X 24MM 1149.5024 Implant [employer] N/A 2 Implanted QUARTEX POLYAXIAL SCREW 3.5MM X 10MM Implant [employer] N/A 2 Implanted QUARTEX POLYAXIAL SCREW 3.5MM X 16MM Implant [employer] N/A 1 Implanted QUARTEX CURVED TIP 4.0MM X 110MM 1149.7610 Implant [employer] N/A 2 Implanted TAP Implant N/A 1 Implanted Pre-Op/Pre-Procedure Diagnosis: Central cord syndrome (HCC) [S14.129A] Post-Op/Post-Procedur e Diagnosis: Central cord syndrome (HCC) [S14.129A] Weight Bearing Status: Okay to mobilize after uprights completed Post-Op Plan: -Management per primary -Pain control -MAP goal >80 -Dressings: Mepilex dressing x 10 days -Diet: per primary -DVTppx: SCDs, hold chemo ppx -Ancef 2g x 2 doses -Decadron 6mg q6hr x 24hrs -Upright cervical films in collar -Maintain weiss -Maintain cervical collar at all times -KAI drain to suction; record output q 8hr shift -Bed rest pending upright cervical films -Dispo: pending SIGNATURE: Esequiel Jeffries MD PATIENT NAME: Jennifer Price DATE: February 11, 2024 TIME: 3:12 AM Normal [facility] Basic metabolic 2000 panelon 02-11-2024 Anion gap [Moles/Vol] 12 mmol/L Normal 8-15 [facility] Comment on above: Order Comment: Speci men Type: BLOOD SPECIMENOrdering Facility: [facility] Address: [address] [place] [address] Performed By: #### 1 0123-9, 2776-03, 19969-3 ####[facility] LABORATORYCLIA [id number] [place] [address] [place] Calcium [Mass/Vol] 8.0 mg/dL Low 8.5-10.2 [facility] Comment on above: Order Comment: Speci men Type: BLOOD SPECIMENOrdering Facility: [facility] Address: [address] [place] [address] Performed By: #### 1 9123-9, 2776-03, 52132-4 ####[facility] LABORATORYCLIA [id number] [place] [address] [place] Chloride [Moles/Vol] 100 mmol/L Normal 98-107 [facility] Comment on above: Order Comment: Speci men Type: BLOOD SPECIMENOrdering Facility: [facility] Address: [address] [place] [address] Performed By: #### 1 9123-9, 2776-03, ####[facility] LABORATORYCLIA [id number] [place] [address] [place] CO2 [Moles/Vol] 22 mmol/L Normal 22-30 [facility] Comment on above: Order Comment: Speci men Type: BLOOD SPECIMENOrdering Facility: [facility] Address: [address] [place] [address] Performed By: #### 1 9123-9, 2776-03, ####[facility] LABORATORYCLIA [id number] [place] [address] [place] Creatinine [Mass/Vol] 0.55 mg/dL Low 0.58-0.96 [facility] Comment on above: Order Comment: Speci men Type: BLOOD SPECIMENOrdering Facility: [facility] Address: [address] [place] [address] Performed By: #### 1 9123-9, 27709-19, 82855-0 ####[facility] LABORATORYCLIA [id number] [address] [place] Creatinine and Glomerular filtration rate.predicted panel (S/P/Bld) 115 mL/min/1.73m??? Normal >=60 [facility] Comment on above: Order Comment: Oneida adame Type: BLOOD SPECIMENOrdering Facility: [facility] Address: [address] [place] [address] Result Comment: Xiomara mated Glomerular Filtration Rate (eGFR) is calculated using the 2020 CKD-EPI creatinine equation. This equation utilizes serum creatinine, sex, and age as parameters. The creatinine assay has traceable calibration to isotope dilution-mass spectrometry. Refer to KDIGO guidelines for clinical interpretation. In patients with unstable renal function, e.g. those with acute kidney injury, the eGFR may not accurately reflect actual GFR. Performed By: #### 1 9123-9, 2777-1, 50404-1 ####[facility]IA [id number] [place] [address] [place] Glucose [Mass/Vol] 153 mg/dL High 74-99 [facility] Comment on above: Order Comment: Oneida adame Type: BLOOD SPECIMENOrdering Facility: [facility] Address: [address] [place] [address] Result Comment: The [place] Diabetes Association (ADA) provides guidance for cutoff values for fasting glucose and random glucose. The ADA defines fasting as no caloric intake for at least 8 hours. Fasting plasma glucose results between 100 to 125 mg/dL indicate increased risk for diabetes (prediabetes). Fasting plasma glucose results greater than or equal to 126 mg/dL meet the criteria for diagnosis of diabetes. In the absence of unequivocal hyperglycemia, results should be confirmed by repeat testing. In a patient with classic symptoms of hyperglycemia or hyperglycemic crisis, random plasma glucose results greater than or equal to 200 mg/dL meet the criteria for diagnosis of diabetes. Reference: Standards of Medical Care in Diabetes 2016, [place] Diabetes Association. Diabetes Care. 2016.39(Suppl 1). Performed By: #### 1 9123-9, 2777-1, 14209-7 ####[facility]ITALCLIA [id number] [place] [address] [place] Potassium [Moles/Vol] 3.5 mmol/L Low 3.7-5.1 [facility] Comment on above: Order Comment: Speci men Type: BLOOD SPECIMENOrdering Facility: [facility] Address: [address] [place] [address] Performed By: #### 1 9123-9, 27771, 19471-0 ####[facility] LABORATORYCLIA [id number] [address] Sodium [Moles/Vol] 134 mmol/L Low 136-144 [facility] Comment on above: Order Comment: Speci men Type: BLOOD SPECIMENOrdering Facility: [facility] Address: [address] [place] [address] Performed By: #### 1 9123-9, 27709-19, 61433-0 ####[facility] LABORATORYCLIA [id number] [address] STATES [facility] Urea nitrogen [Mass/Vol] 6 mg/dL Low 7-21 [facility] Comment on above: Order Comment: Speci men Type: BLOOD SPECIMENOrdering Facility: [facility] Address: [address] [place] [address] Performed By: #### 1 9123-9, 27709-19, 66112-5 ####[facility] LABORATORYCLIA [id number] [address] CBC panel Auto (Bld)on 02-10 Erythrocyte distribution width (RBC) [Ratio] 13.1 % Normal 11.5-15.0 [facility] Comment on above: Order Comment: Speci men Type: BLOOD SPECIMENOrdering Facility: [facility] Address: [address] [place] [address] Performed By: #### 5 8410-2 ####[facility] LABORATORYCLIA [id number] [address] Hematocrit (Bld) [Volume fraction] 38.3 % Normal 36.0-46.0 [facility] Comment on above: Order Comment: Speci men Type: BLOOD SPECIMENOrdering Facility: [facility] Address: [address] [place] [address] Performed By: #### 5 8410-2 ####[facility] LABORATORYCLIA [id number] [address] STATES OF [facility] Hemoglobin (Bld) [Mass/Vol] 12.9 g/dL Normal 11.5-15.5 [facility] Comment on above: Order Comment: Speci men Type: BLOOD SPECIMENOrdering Facility: [facility] Address: [address] [place] [address] Performed By: #### 5 8410-2 ####[facility] LABORATORYCLIA [id number] [address] MCH (RBC) [Entitic mass] 30.0 pg Normal 26.0-34.0 [facility] Comment on above: Order Comment: Speci men Type: BLOOD SPECIMENOrdering Facility: [facility] Address: [address] [place] [address] Performed By: #### 5 8410-2 ####[facility] LABORATORYCLIA [id number] [address] MCHC (RBC) [Mass/Vol] 33.7 g/dL Normal 30.5-36.0 [facility] Comment on above: Order Comment: Speci men Type: BLOOD SPECIMENOrdering Facility: [facility] Address: [address] [place] [address] Performed By: #### 5 8410-2 ####[facility] LABORATORYCLIA [id number] [address] [place] MCV (RBC) [Entitic vol] 89.1 fL Normal 80.0-100.0 [facility] Comment on above: Order Comment: Speci men Type: BLOOD SPECIMENOrdering Facility: [facility] Address: [address] [place] [address] Performed By: #### 5 8410-2 ####[facility] LABORATORYCLIA [id number] [address] Nucleated RBC (Bld) [#/Vol] 10*3/uL Normal <0.01 [facility] Comment on above: Order Comment: Speci men Type: BLOOD SPECIMENOrdering Facility: [facility] Address: [address] [place] [address] Performed By: #### 5 8410-2 ####[facility] LABORATORYCLIA [id number] [address] Platelet mean volume (Bld) [Entitic vol] 10.5 fL Normal 9.0-12.7 [facility] Comment on above: Order Comment: Speci men Type: BLOOD SPECIMENOrdering Facility: [facility] Address: [facility] [place] [address] Performed By: #### 5 8410-2 ####[facility] LABORATORYCLIA [id number] [address] [place] Platelets (Bld) [#/Vol] 231 10*3/uL Normal 150-400 [facility] Comment on above: Order Comment: Speci men Type: BLOOD SPECIMENOrdering Facility: [facility] Address: [address] [place] [address] Performed By: #### 5 8410-2 ####[facility] LABORATORYCLIA [id number] [address] [place] RBC (Bld) [#/Vol] 4.30 10*6/uL Normal 3.90-5.20 [facility] Comment on above: Order Comment: Speci men Type: BLOOD SPECIMENOrdering Facility: [facility] Address: [address] [place] [address] Performed By: #### 5 8410-2 ####[facility] LABORATORYCLIA [id number] [address] [place] WBC (Bld) [#/Vol] 17.33 10*3/uL High 3.70-11.00 [facility] Comment on above: Order Comment: Speci men Type: BLOOD SPECIMENOrdering Facility: [facility] Address: [address] [place] [address] Performed By: #### 5 8410-2 ####[facility] LABORATORYCLIA [id number] [address] OF [facility] CONSULT PROGon 02-11-2024 CONSULT PROG HNO ID: [id number] Author: KAMILAH BURLESON MD Service: General Surgery Author Type: Resident Type: Consult Progress Note Filed: 02/11/2024 11:07 Note Text: INPATIENT SICU PROGRESS NOTE SERVICE DATE: 02/11/2024 SERVICE TIME: 7:02 AM Subjective 48 yo female who is POD#0 s/p C2-T2 posterior spinal fusion with C3-C6 posterior cervical decompression. Currently complaining of severe neck and back and neck pain along with increased pain and burning of the RUE. Weak bilateral UE strength.Can wiggle toes bilaterally. Current Facility-Administered Medications Medication Dose Route Frequency bacitracin 500 unit/gram 1 Packet 1 Packet TOPICAL PRN NaCl 0.9% iv flush bag 20 mL INTRAVENOUS PRN iv contrast (radiology procedure) INTRAVENOUS DIRECTED PRN iv contrast (radiology procedure) INTRAVENOUS DIRECTED PRN sertraline 100 mg tab(s) (ZOLOFT) 100 mg ORAL DAILY potassium chloride ER 20-40 mEq tab(s) (KLOR-CON) 20-40 mEq ORAL/FEEDING TUBE PRN Or potassium chloride iv piggyback 20 mEq/100 mL 20 mEq INTRAVENOUS PRN magnesium sulfate iv piggyback in sterile water 2 g 50 mL 2 g INTRAVENOUS PRN phosphorus 500 mg tab(s) (K PHOS NEUTRAL) 500 mg ORAL/FEEDING TUBE PRN(NO DISPENSE) calcium gluconate iv piggyback 2 g in NaCl (iso-osmotic) 100 mL 2 g INTRAVENOUS PRN(NO DISPENSE) NaCl 0.9% iv infusion 100 mL/hr INTRAVENOUS CONTINUOUS acetaminophen 1,000 mg tab(s) (TYLENOL) 1,000 mg ORAL q 6 H oxyCODONE IR 5-10 mg tab(s) (ROXICODONE) 5-10 mg ORAL q 4 H PRN ondansetron 4 mg tab(s) (ZOFRAN) 4 mg ORAL q 6 H PRN Or ondansetron (PF) 4 mg injection (ZOFRAN) 4 mg INTRAVENOUS q 6 H PRN senna-docusate 8.6-50 mg 1 tablet (SENNA-S) 1 tablet ORAL BID polyethylene glycol 3350 17 g packet 17 g ORAL DAILY pantoprazole DR 40 mg tab(s) (PROTONIX) 40 mg ORAL BEFORE BREAKFAST DAILY ceFAZolin iv piggyback 2 g in D5W (iso-osmotic) 100 mL (ANCEF) 2 g INTRAVENOUS q 8 HR dexAMETHasone sodium phosphate 6 mg injection (DECADRON) 6 mg INTRAVENOUS q 6 H NORepinephrine 16 mg in D5W 250 mL (LEVOPHED) 0.6-15 mcg/min INTRAVENOUS CONTINUOUS phentolamine injection 5 mg (REGITINE) Extravasation Antidote 5 mg SUBCUTANEOUS PRN gabapentin 100 mg cap(s) (NEURONTIN) 100 mg ORAL TID methocarbamol 750 mg tab(s) (ROBAXIN) 750 mg ORAL TID PRN HYDROmorphone 0.4 mg injection (DILAUDID) 0.4 mg INTRAVENOUS q 3 H PRN Objective VITAL SIGNS BP 170/81 Pulse 76 Temp (Src) 98.1 (Temporal) Resp 17 Ht 5' 5 (1.65m) Wt 146 lb 6.2 oz (66.4kg) SpO2 98% LMP 05/28/2014 BMI 24.36 kg/(m2). O2 Therapy: Nasal Cannula, Liters: 2 Temp (24hrs), Av.5 ?C (97.7 ?F), Min:36 ?C (96.8 ?F), Max:36.8 ?C (98.2 ?F) Date 02/10/24 07 - 02/11/24 0659 02/11/24 0700 - 02/12/24 0659 Shift 9208-7809 0166-6537 3604-0080 24 Hour Total 8969-3696 0314-4369 9166-5533 24 Hour Total INTAKE IV 1800 1800 Volume (mL) (ceFAZolin iv piggyback 2 g in D5W (iso-osmotic) 100 mL (ANCEF)) 100 100 Volume (mL) (vancomycin iv piggyback 1 g in D5W 200 mL (VANCOCIN)) 200 200 Volume (mL) (tranexamic acid (CYKLOKAPRON) in NaCl 0.7% 1,000 mg 100 mL) 100 100 Volume (mL) (NaCl 0.9% iv infusion) 1400 1400 Shift Total 1800 1800 OUTPUT Urine 850 850 OR Urine Output 300 300 Output ( Indwelling Urinary Catheter 02/10/24 6791 [facility] Weiss 16 Fr) 550 550 Tubes 80 80 Drain/Tube Output (Drain/Tube 02/11/24 0140 [facility] Posterior Neck) 80 80 Blood 50 50 Estimated Blood loss 50 50 Shift Total 980 980 Weight (kg) 68 68 66.4 66.4 66.4 66.4 66.4 66.4 PHYSICAL EXAM: GENERAL: Alert. No distress. Resting comfortably. NEURO: AANDOx3.Bilateral UE weakness. Sensation grossly intact. HEENT: Normocephalic. Atraumatic. EOMI. LUNGS: Unlabored breathing. Equal excursion bilaterally. CARDIAC: Regular rate, on tele, Good perfusion throughout. ABDOMEN: Soft, non-tender, non-distended. No rebound or guarding. EXTREMITIES: BHANDARI. No deformities. SKIN: No obvious jaundice or pallor. DATA: Diagnostic tests reviewed for today's visit: No results for input(s): BODSITE, CTYPE, PH, PCO2, PO2, BE, HCO3, CO2CT, O2HB, COHB, MHGB, TEMP, PHTC, PCO2T, PO2T, O2AD in the last 72 hours. Recent Labs 02/11/24 0424 02/10/24 1724 CREAT 0.55* 1.16* BUN 6* 6* NA 134* 132* K 3.5* 3.4* CHLOR 100 97* CO2 22 24 ANION 12 11 GLUC 153* 98 CA 8.0* 8.9 P 2.7 -- MG 1.5* -- ALB -- 4.0 AST -- 32 ALT -- 13 ALKPHOS -- 42 TBILI -- 0.3 WBC 17.33* 11.44* HB 12.9 13.5 HCT 38.3 41.1 PLT 231 225 Assessment AND Plan ACTIVE PROBLEM LIST Vitamin D Deficiency Hypertension Hypercholesteremia Cyclic Vomiting Syndrome Acute Pelvic Pain, Female 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 She (more content not included)... Normal [facility] CT ABD/PEL W IVCONon 024 CT ABD/PEL W IVCON * * *Final Report* * * DATE OF EXAM: Feb 11 2024 11:43AM [facility] 0530 - CT ABD/PEL W IVCON / PROCEDURE REASON: Abdominal trauma, blunt * * * * Physician Interpretation * * * * EXAMINATION: CT ABDOMEN AND PELVIS WITH IV CONTRAST CLINICAL HISTORY: 48-year-old female with past surgical history of appendectomy, salpingectomy, presenting following ground level fall 02/09/2024. TECHNIQUE: CT of the abdomen and pelvis is performed using standard technique, scanning from just above the dome of the diaphragm to the symphysis pubis. MQ: CTAP_3 Contrast: IV: 100 ml of Omnipaque 350 : ml of CT Radiation dose: Integrated Dose-length product (DLP) for this visit = 590 mGy*cm. CT Dose Reduction Employed: Automated exposure control(AEC) and iterative recon COMPARISON: Chest and pelvis radiographs 02/11/2024, CT lumbar spine 02/10/[address] abdomen and pelvis 06/16/2013. RESULT: Limitations: The upper extremities overlying the body and motion related image degradation. Liver: 1 cm hypodensity right lobe inferiorly. Biliary: No bile duct dilation. Gallbladder phrygian cap. Spleen: Unremarkable. Pancreas: Unremarkable. Adrenals: No mass. Kidneys: Symmetric enhancement. No calculi. No hydronephrosis. GI tract: No dilation or wall thickening. Lymph nodes: No abdominal or pelvic lymphadenopathy. Mesentery/Peritoneum: No hemoperitoneum. Small fat-containing umbilical hernia. Retroperitoneum: No hematoma. Vasculature: - Abdominal aorta and iliac arteries: Atherosclerotic calcifications without aneurysm. - Celiac and SMA: Patent. - Portal venous system (SMV, splenic vein, portal vein and branches): Patent. - Hepatic veins: Patent. Pelvis: Small volume air within the nondependent urinary bladder. Small volume fluid within the vagina. Trace free fluid within the pelvis. Bones/Soft Tissues: No acute bony abnormality. Lower thorax: Left lower lobe volume loss and consolidation with air bronchograms. Localizer images: No additional findings. IMPRESSION: 1 cm hepatic hypodensity. Consider further lesion characterization, cyst versus solid, with follow-up right upper quadrant ultrasound. Small volume air within the urinary bladder. Finding may be related to urinary bladder catheterization or other urinary bladder instrumentation. Small volume fluid within the vagina and trace free fluid within the pelvis. Findings may be physiologic. Left lower lobe volume loss with consolidation, possible atelectasis or pneumonia. Job Interviewer: PSCB Transcribe Date/Time: Feb 11 2024 12:34P Dictated by : REX SANCHES MD This examination was interpreted and the report reviewed and electronically signed by: REX SANCHES MD on Feb 11 2024 12:54PM EST [id number] Normal [facility] Calcium.ionized [Moles/Vol]o n 02-11-2024 Calcium.ionized (BldV) [Mass/Vol] 1.04 mmol/L Low 1.08-1.30 [facility] Comment on above: Order Comment: Speci men Type: BLOOD SPECIMENOrdering Facility: [facility] Address: [address] [place] [address] Performed By: #### 1 995-0 ####[facility] LABORATORYCLIA [id number] [place] [address] [place] Calcium.ionized adjusted to pH 7.4 (Bld) [Moles/Vol] 1.04 mmol/L Low 1.08-1.30 [facility] Comment on above: Order Comment: Speci men Type: BLOOD SPECIMENOrdering Facility: [facility] Address: [address] [place] [address] Performed By: #### 1 995-0 ####[facility] LABORATORYCLIA [id number] [place] [address] [place] Magnesium SerPl-mCncon 02-10 Magnesium [Mass/Vol] 1.5 mg/dL Low 1.7-2.3 [facility] Comment on above: Order Comment: Speci men Type: BLOOD SPECIMENOrdering Facility: [facility] Address: [address] [place] [address] Performed By: #### 1 9123-9, 2777-1, 99847-2 ####[facility] LABORATORYCLIA [id number] [place] [address] [place] Phosphate SerPl-mCncon 02-10 Phosphate [Mass/Vol] 2.7 mg/dL Normal 2.7-4.8 [facility] Comment on above: Order Comment: Speci men Type: BLOOD SPECIMENOrdering Facility: [facility] Address: [address] [place], [place] [address] Performed By: #### 1 9123-9, 2777-1, 56220-4 ####[facility]ITALIA [id number] [address] STAPHYLOCOCCUS AUREUS AND MR SA SCREEN, PCR, NASALon 02-11-2024 S. aureus and MRSA panel MEAGAN+probe (Nose) Not detected Normal Not Detected [facility] Comment on above: Order Comment: Speci men Type: SWABOrdering Facility: [facility] Address: [address] [place] [address] Performed By: #### S APCR ####[facility] LABORATORYCLIA [id number] [address] OF [facility] THERAPY NTon 02-11-2024 THERAPY NT HNO ID: [id number] Author: BERKLEY STANTON CCC-MEDICAL OFFICER Service: Speech/Swallow Author Type: Speech Language Pathologist Type: Therapy (PT/OT/Speech/Resp) Filed: 02/11/2024 15:29 Note Text: Speech Therapy Clinical Swallow Evaluation SERVICE DATE: 02/11/2024 SERVICE TIME: 1455 to 1513 ROOM: [place] [id number] IMPRESSION: Functional oropharyngeal phases of swallowing: without identified risk for aspiration - will follow for swallow strategies due to patient fatigue and cervical collar Diet Recommendations: Regular Consistency Thin Liquids IDDSI Level 0 Swallowing Precautions Recommendations: Alert (patient should be fully alert for P.O. intake) Sit upright 90 degrees for all PO Small Bite/Sip Feed / Eat at a slow rate Nursing Recommendations: Reinforce use of swallowing strategies Recommended Discharge Disposition: Continued Skilled Speech Therapy Current Hospital Course: 02/09 admitted post fall, hit head on counter, pain bilateral lower extremities, central cord syndrome C3 level of cervical spine. Rehabilitation Precautions: Aspiration Precautions, Dysphagia, Spine Reason for Speech Therapy Consult: swallow evaluation post fall Relevant Past Medical History: HTN Response to Therapy Interventions: Fatigue Subjective: The patient is alert, talking in full sentences and able participate. Patient wearing cervical collar. Current Status Oral Hygiene: Clear, dry oral cavity, Oral Health Assessment Tool (OHAT) Dentition: Retains Natural Dentition Current Diet Textures: NPO Current Level Of Communication: Verbal Current Management Of Secretions: Able to self-manage Oral Motor Exam: Within Functional Limits Oral Health Assessment Tool (OHAT) Lips: 0 Tongue: 0 Gums and Tissues: 0 Saliva: 0 Natural Teeth: 0 Dentures: N/A Oral Cleanliness: 0 Dental Pain: 0 OHAT Total Score: 0 Swallow Position Of Patient During Assessment: Upright In Bed Consistencies Presented: Thin Liquids IDDSI Level 0, Pureed IDDSI Level 4, Solid Compensatory Strategies Utilized During Assessment: Alert (patient should be fully alert for P.O. intake), Sit upright 90 degrees for all PO, Supervision/Assistanc e for meals., Small Bite/Sip, Feed / Eat at a slow rate Clinical Swallow Oral Pharyngeal Swallow Assessment: Within Functional Limits Except Preparatory / Oral Phase: Within Functional Limits Pharyngeal Phase: Within Functional Limits Patient wearing cervical collar Patient alert but keeping eyes closed due to pain Vocal quality is clear No excess oral or pharyngeal secretions No attempt to feed herself due to being distracted by pain Good lip seal on straw and spoon Patient demonstrates good ability to chew a solid with no oral residual No signs/symptoms of aspiration at bedside with thin liquid, puree or solid Recommend a regular diet and thin liquids when medically ready for oral feeds Patient will benefit from Speech Therapy to implement swallow and feeding strategies as diet is initiated Patient /Caregiver Goals: Eat/Drink Without Restrictions Goals for Plan of Care: Goals: SWALLOWING: Patient / Caregiver will demonstrate knowledge of taught compensatory strategies and dietary consistency recommendations to optimize functional swallow function without overt clinical signs and symptoms of aspiration or dysphagia Swallow Goals: Patient will tolerate Regular Consistency diet consistency while utilizing compensatory/swallowi ng strategies given minimal cues in 90% of trials so that the patient will minimize the signs/symptoms of dysphagia. Patient will tolerate Thin Liquids IDDSI Level 0 consistency while utilizing compensatory/swallowi ng strategies given minimal cues in 90% of trials so that the patient will minimize the signs/symptoms of dysphagia. Patient, Caregiver, Family will demonstrate adequate return of knowledge of all compensatory strategies/instructio n to effectively assist the patient in immediate safety with oral intake and swallowing. Speech Rehab Potential: Good Patient will be discontinued from speech therapy when no further skilled needs are identified in this setting. PLAN: ST Frequency: 2 Times Per Week Treatment Interventions: Dysphagia Management Plan for next visit: Dietary Consistencies, Swallowing Strategies Plan of Care Developed with: Patient, Nurse, Physician TREATMENT INTERVENTIONS: Therapy Diagnosis: Dysphagia, unspecified Interventions Provided: Clinical Swallow Evaluation (88696) $ Clinical Swallow Evaluation (21220) Billed Units: 1 unit Training and Education Provided in: Dysphagia Management The following therapeutic skills were used:: Education on role of discipline / importance of activity, Verbal cuing, Instruction in self-monitoring / self-assessment Skilled Treatment Time (minutes): 18 Home Environment Prior Functional Level: Within Functional Limits Patient Lives With: Spouse Prior Swallowing Function/Diet (more content not included)... Normal [facility] THERAPY NT HNO ID: [id number] Author: KALPANA MONDRAGON OTR/Charity Service: Occupational Therapy Author Type: Occupational Therapist Type: Therapy (PT/OT/Speech/Resp) Filed: 02/11/2024 08:29 Note Text: OCCUPATIONAL THERAPY MISSED VISIT SERVICE DATE: 02/11/2024 SERVICE TIME: 827 ROOM: [place] [address] Patient not seen due to Clinical Appropriateness. Per ortho and general surgery teams, pt is on bedrest pending upright x-rays of spine post surgery. OT will hold at this time. SIGNATURE: MERON Emerson/Charity PATIENT NAME: Jennifer Price DATE: February 11, 2024 TIME: 8:29 AM Normal [facility] XR CERVICAL 2V AP/LATon 01-21 XR CERVICAL 2V AP/LAT * * *Final Report* * * DATE OF EXAM: Feb 11 2024 12:04PM AKX 5308 - XR CERVICAL 2V AP/LAT / PROCEDURE REASON: Post-operative / post-procedure assessment, asymptomatic * * * * Physician Interpretation * * * * TECHNIQUE: XR CERVICAL 2V AP/LAT EXAM DATE: 02/11/2024 12:04 PM COMPARISON STUDIES: 02/10/2024 CLINICAL HISTORY: Post-operative / post-procedure assessment, asymptomatic RESULT: Counting reference: Craniocervical junction. Anatomic Variants: None. Posterior instrumented fusion C2-T2 with C3-C6 dorsal decompression Slight retrolisthesis C3/4, C4/5 Vertebral body and disc heights maintained with multilevel endplate osteophytes IMPRESSION: C2-T2 fusion Job Interviewer: MARIA E Transcribe Date/Time: Feb 11 2024 2:33P Dictated by : SOM FATIMA MD This examination was interpreted and the report reviewed and electronically signed by: SOM FATIMA MD on Feb 11 2024 2:35PM EST [id number] Normal [facility] XR CERVICAL 2V AP/LAT * * *Final Report* * * DATE OF EXAM: Feb 11 2024 2:10AM AKO 5308 - XR CERVICAL 2V AP/LAT / PROCEDURE REASON: CSPINE POSTERIOR FUSION * * * * Physician Interpretation * * * * INTRAOPERATIVE FLUOROSCOPIC EXAMINATION DATE: 02/11/24 COMPARISON: 02/10/24 cervical spine x-rays HISTORY: Posterior fusion ENCOUNTER: Not applicable TECHNIQUE: Images from fluoroscopic examination of the cervical spine during operative procedure were submitted for interpretation. Fluoroscopic Radiation Summary: Plane A, Air Kerma: 2.6393 Dose Area Product (DAP): Fluoro time: 0:36 min:sec RESULT: Examination is limited due to fluoroscopic technique. 13 fluoroscopic image(s) Posterior instrumented fusion C2-T2 hardware placement with dorsal decompression IMPRESSION: C2-T2 fusion hardware placement Please refer to operative notes for full details. Job Interviewer: MARIA E Transcribe Date/Time: Feb 11 2024 9:17A Dictated by : SOM FATIMA MD This examination was interpreted and the report reviewed and electronically signed by: SOM FATIMA MD on Feb 11 2024 12:16PM EST [id number] Normal [facility] XR CHEST 1V FRONTALon 2023 XR CHEST 1V FRONTAL * * *Final Report* * * DATE OF EXAM: Feb 11 2024 10:37AM AKX 5290 - XR CHEST 1V FRONTAL / PROCEDURE REASON: Chest trauma * * * * Physician Interpretation * * * * EXAMINATION: CHEST RADIOGRAPH (SINGLE VIEW AP OR PA) CLINICAL HISTORY: Chest trauma pain MQ: XC1_5 Comparison: None RESULT: Patient is rotated Lines, tubes, and devices: EKG wires. Partially seen cervicothoracic spinal fusion hardware.. Lungs and pleura: No consolidation. No lung mass. No pleural effusion. Cardiomediastinal silhouette: Normal cardiomediastinal silhouette. Other: . IMPRESSION: No acute radiographic abnormality. Job Interviewer: [facility] Transcribe Date/Time: Feb 11 2024 11:11A Dictated by : SOM FATIMA MD This examination was interpreted and the report reviewed and electronically signed by: SOM FATIMA MD on Feb 11 2024 11:14AM EST [id number] Normal [facility] XR HUMERUS 2V AP/LAT RTon XR HUMERUS 2V AP/LAT RT * * *Final Repor t* * * DATE OF EXAM: Feb 11 2024 10:37AM AKX 5355 - XR HUMERUS 2V AP/LAT RT / PROCEDURE REASON: Trauma * * * * Physician Interpretation * * * * TECHNIQUE: XR HUMERUS 2V AP/LAT RT EXAM DATE: 02/11/2024 10:37 AM COMPARISON STUDIES: 03/31/13 CLINICAL HISTORY: Trauma. Pain RESULT: No acute fracture or dislocation. Alignment intact. IMPRESSION: No acute abnormality Job Interviewer: [facility] Transcribe Date/Time: Feb 11 2024 11:09A Dictated by : SOM FATIMA MD This examination was interpreted and the report reviewed and electronically signed by: SOM FATIMA MD on Feb 11 2024 11:11AM EST [id number] Normal [facility] XR PELVIS 1V APon 02-11-2024 XR PELVIS 1V AP * * *Final Report* * * DATE OF EXAM: Feb 11 2024 10:37AM AKX 5239 - XR PELVIS 1V AP / PROCEDURE REASON: Pelvic trauma * * * * Physician Interpretation * * * * TECHNIQUE: XR PELVIS 1V AP EXAM DATE: 02/11/2024 10:37 AM COMPARISON STUDIES: None CLINICAL HISTORY: Trauma. Pain RESULT: Bilateral hip and SI joints maintained. No acute fracture or dislocation. IMPRESSION: No acute abnormal Job Interviewer: [facility] Transcribe Date/Time: Feb 11 2024 11:04A Dictated by : SOM FATIMA MD This examination was interpreted and the report reviewed and electronically signed by: SOM FATIMA MD on Feb 11 2024 11:09AM EST [id number] Normal [facility] XR VERIFY LEVEL [id number] 02-11-2024 XR VERIFY LEVEL C-SPINE-NB * * *Final Report* * * DATE OF EXAM: Feb 11 2024 12:12AM [id number] - XR VERIFY LEVEL C-SPINE-NB / PROCEDURE REASON: CSPINE POSTERIOR FUSION VERIFICATION * * * * Physician Interpretation * * * * EXAMINATION: XR VERIFY LEVEL C-SPINE-NB CLINICAL HISTORY: Intraoperative localization Technique: XR VERIFY LEVEL C-SPINE-NB Comparison: Cervical CT 02/10/2024 IMPRESSION: A single lateral radiograph is provided for localization. Surgical marker is present, with tip overlying the C2-C3 interspinous space, just above the C3 spinous process. The surgeon is in agreement. Communicated with CELSO KNOWLES on 02/11/2024 12:32 AM via verbal communication. --END OF FINDING-- Job Interviewer: MARIA E Transcribe Date/Time: Feb 11 2024 12:23A Dictated by : VERONIKA TURNER MD This examination was interpreted and the report reviewed and electronically signed by: VERONIKA TURNER MD on Feb 11 2024 12:33AM EST [id number] Normal [facility] ALLIED HEALTHon 02-10-2024 ALLIED HEALTH HNO ID: [id number] Author: OBIE MONTENEGRO RT(Miguel) Service: Radiology Author Type: Technologist Type: Allied Health Filed: 02/10/2024 17:04 Note Text: Radiology Service Progress Note PATIENT NAME: Jennifer Price DATE OF SERVICE: February 10, 2024 TIME: 5:03 PM PATIENT IDENTITY VERIFICATION COMPLETED USING TWO (2) IDENTIFIERS: Name and Date of confirmed by patient verbally and Name and Date of confirmed by identification band. FALL SCREENING: Has the patient had 2 falls in the last year or 1 fall with injury or currently using an Ambulatory Assistive Device (Walker, Cane, Wheelchair, Crutches, etc.)? Emergency Room Patient: Screened in ED PATIENT GENDER DATA: Female. status: : No status: NO. PATIENT RELEVANT IMPLANT DATA REVIEWED: Not Applicable PATIENT PRESENTS WITH AN IMPLANTABLE OR ATTACHED ANIMAL CARE ASSISTANT: No RADIOLOGY DEPARTMENT: CT; Exam(s) Completed: Spine PERIPHERAL IV DATA: Not applicable SIGNED BY: RT Stan(R) February 10, 2024 5:03 PM [facility] HEALTH HNO ID: [id number] Author: SHAYNE DORADO Tech Service: Radiology Author Type: B2B Outside Sales Representative Type: Allied Health Filed: 02/10/2024 16:06 Note Text: Radiology Service Progress Note PATIENT NAME: Jennifer Price DATE OF SERVICE: February 10, 2024 TIME: 4:06 PM PATIENT IDENTITY VERIFICATION COMPLETED USING TWO (2) IDENTIFIERS: Name and Date of confirmed by patient verbally and Name and Date of confirmed by identification band. FALL SCREENING: Has the patient had 2 falls in the last year or 1 fall with injury or currently using an Ambulatory Assistive Device (Walker, Cane, Wheelchair, Crutches, etc.)? Emergency Room Patient: Screened in ED PATIENT GENDER DATA: Female. status: : No status: NO. PATIENT RELEVANT IMPLANT DATA REVIEWED: Not Applicable PATIENT PRESENTS WITH AN IMPLANTABLE OR ATTACHED ANIMAL CARE ASSISTANT: No RADIOLOGY DEPARTMENT: CT; Exam(s) Completed: Brain and Spine PERIPHERAL IV DATA: Not applicable SIGNED BY: Payal Desir February 10, 2024 4:06 PM [facility] HEALTH HNO ID: [id number] Author: BRANT SINGER Tech Service: ? Author Type: B2B Outside Sales Representative Type: Allied Health Filed: 02/10/2024 13:12 Note Text: Radiology Service Progress Note PATIENT NAME: Jennifer Price DATE OF SERVICE: February 10, 2024 TIME: 1:11 PM PATIENT IDENTITY VERIFICATION COMPLETED USING TWO (2) IDENTIFIERS: Name and Date of confirmed by patient verbally and Name and Date of confirmed by identification band. FALL SCREENING: Has the patient had 2 falls in the last year or 1 fall with injury or currently using an Ambulatory Assistive Device (Walker, Cane, Wheelchair, Crutches, etc.)? Emergency Room Patient: Screened in ED PATIENT GENDER DATA: Female. status: : No status: NO. PATIENT RELEVANT IMPLANT DATA REVIEWED: Not Applicable PATIENT PRESENTS WITH AN IMPLANTABLE OR ATTACHED ANIMAL CARE ASSISTANT: No RADIOLOGY DEPARTMENT: MR; Exam(s) Completed: Spine: Cervical spine and Thoracic spine PERIPHERAL IV DATA: Not applicable SIGNED BY: Payal Welsh February 10, 2024 1:11 PM Normal [facility] ANES PRE-OPon 02-10-2024 ANES PRE-OP HNO ID: [id number] Author: PATITO DE LA PAZ MD Service: Anesthesiology Author Type: Anesthesiologist Type: Anesthesia Preprocedure Evaluation Filed: 02/10/2024 23:41 Note Text: ANESTHESIOLOGY DAY OF SURGERY NOTE : 1975 Procedure Information Date/Time: 02/10/241905 Procedure: POSTERIOR SEGMENTAL INSTRUMENTATION FOLLOWING CERVICAL FUSION 7-12 LEVELS (Neck) Location: [place] OR 12 / [place] OR Surgeons: Celso Knowles MD Estimated body mass index is 24.96 kg/m? as calculated from the following: Height as of this encounter: 165.1 cm (5' 5). Weight as of this encounter: 68 kg (150 lb). Most recent hematocrit and potassium results: Hematocrit 41.1 02/10/2024 Potassium 3.4 02/10/2024 Relevant Problems CARDIO (+) Hypertension I - PHYSICAL EVALUATION AIRWAY Patient intubated: No. Tracheostomy tube not present Mallampati: III. TM distance: >3 FB. Neck ROM: limited flexion and extension. Mouth opening: adequate. Short neck: no. Thick neck: no DENTAL Dental findings: missing tooth/teeth and poor dentition. II - ANESTHESIA PLAN ASA Score: 3; emergent. Anesthetic Plan: general Airway type: ETT NPO Status: adequate Anesthetic plan additional comments: Pertinent h/o HTN, HLD, depression, and cervical stenosis presented to ED after GLF with + head strike and neuro deficits in BUE c/f acute central cord syndrome presenting to OR for further management. Consent obtained for GA + arterial line, appropriately NPO, difficult airway equipment immediately available if needed. Beta Mert Monitoring Plan Monitoring plan: standard ASA and invasive hemodynamic monitoring. Monitoring method: arterial Line Post Procedure Analgesic Plan Postoperative analgesic plan: multimodal analgesia. Informed Consent Anesthetic risks, benefits, alternatives, personnel and consent discussed: yes. Patient / Responsible Libertarian agrees to proceed: yes Patient / Surrogate agrees to blood products: Yes Potential Anesthesia issues that may suggest increased risk of complications or contraindication to planned procedure: potential difficult intubation. Vitals Value Taken Time BP Pulse 79 02/10/242032 Resp 18 02/10/242032 Temp SpO2 97 % 11/21/24 2033 Vitals shown include unfiled device data. Facility-Administered Medications as of 02/10/2024 Medication Dose Route Frequency bacitracin 500 unit/gram 1 Packet 1 Packet TOPICAL PRN [COMPLETED] lidocaine 1%-EPINEPHrine 1:100,000 5 mL injection 5 mL INTRADERMAL ONCE [COMPLETED] fentaNYL 50 mcg/mL 50 mcg injection (SUBLIMAZE) 50 mcg INTRAVENOUS ONCE [COMPLETED] LORazepam 1 mg tab(s) (ATIVAN) 1 mg ORAL ONCE [COMPLETED] fentaNYL 50 mcg/mL 50 mcg injection (SUBLIMAZE) 50 mcg INTRAVENOUS ONCE NaCl 0.9% iv flush bag 20 mL INTRAVENOUS PRN iv contrast (radiology procedure) INTRAVENOUS DIRECTED PRN iv contrast (radiology procedure) INTRAVENOUS DIRECTED PRN [COMPLETED] dexAMETHasone sodium phosphate (PF) 10 mg injection (DECADRON) 10 mg INTRAVENOUS ONCE [COMPLETED] fentaNYL 50 mcg/mL 50 mcg injection (SUBLIMAZE) 50 mcg INTRAVENOUS ONCE Outpatient Medications as of 02/10/2024 Medication Sig LORazepam (ATIVAN) 0.5 mg tab Take 1 tablet by mouth twice daily. Cholecalciferol, Vitamin D3, 2,000 unit cap Take 1 tablet by mouth once daily. atenolol (TENORMIN) 50 mg tablet Take 0.5 tablets by mouth once daily. lisinopril (ZESTRIL) 5 mg tablet Take 1 tablet by mouth once daily. ondansetron orally disintegrating (ZOFRAN ODT) 8 mg disintegrating tablet Take 1 tablet by mouth every 8 hours as needed. pantoprazole (PROTONIX) 40 mg tablet Take 1 tablet by mouth daily before breakfast. Take on empty stomach, 1/2 hr before meal. potassium chloride SR (KLOR-CON M20) 20 mEq tablet Take 2 tablets by mouth twice daily. sertraline 100 mg tablet Take 1 tablet by mouth once daily. acetaminophen (TYLENOL) 325 mg tablet Take 650 mg by mouth every 6 hours as needed. omeprazole 20 mg capsule Take 1 capsule by mouth daily before breakfast. 1/2 hr before meal. I have interviewed and examined the patient. I have reviewed the medical record and/or the pre-anesthesia evaluation, pertinent labs, and test results. This contains updated information obtained within 48 hours of Surgery/Procedure. SIGNATURE: Patito De La Paz MD PATIENT NAME: Jennifer rPice DATE: February 10, 2024 TIME: 8:33 PM CSN: [id number] Normal [facility] Alcohol, Blood (Medical)-Ser umon 02-10-2024 SERUM ETOH < 3.0 Normal [facility] Comment on above: Result Comment: The serum:whole blood ethanol ratio is approximately 1.14 and varies slightly with hematocrit. Medical Alcohol reference interval and critical value in non-tolerant individuals; 50 - 100 Impairment 100 Intoxication 100 - 250 Severe Poisoning 250 - 400 Deep/possible fatal coma Performed By: #### L 505.5000, L300.3900, L501.9100, L500.2500, L300.4310, L100.0100 #### [facility] [address] [place], [address] Basic Metabolic Profile (BMP )on 02-10-2024 BUN/CRE 11.9 RATIO Normal 10-20 [facility] Comment on above: Performed By: #### L 505.5000, L300.3900, L501.9100, L500.2500, L300.4310, L100.0100 #### [facility] [address] [place], [address] CA,Total 9.0 mg/dL Normal 8.5-10.1 [facility] Comment on above: Performed By: #### L 505.5000, L300.3900, L501.9100, L500.2500, L300.4310, L100.0100 #### [facility] [address] [place], [address] Chloride [Moles/Vol] 106 mmol/L Normal 98-107 [facility] Comment on above: Performed By: #### L 505.5000, L300.3900, L501.9100, L500.2500, L300.4310, L100.0100 #### [facility] [address] [place], [address] CO2 [Moles/Vol] 26.0 mmol/L Normal 21.0-32.0 [facility] Comment on above: Performed By: #### L 505.5000, L300.3900, L501.9100, L500.2500, L300.4310, L100.0100 #### [facility] [address] [place], [address] Creatinine [Mass/Vol] 0.75 mg/dL Normal 0.55-1.02 [facility] Comment on above: Result Comment: The validity of the calculated GFR GFRAA in patients over 70 years has not been determined. Clinical correlation is essential. Performed By: #### L 505.5000, L300.3900, L501.9100, L500.2500, L300.4310, L100.0100 #### [facility] [address] [place], [address] ECRCL 84.34 ml/min Normal [facility] Comment on above: Performed By: #### L 505.5000, L300.3900, L501.9100, L500.2500, L300.4310, L100.0100 #### [facility] [address] [place], [address] EST GFR - AA 106 mL/min Normal >60 [facility] Comment on above: Result Comment: Afri can Gabonese GFR Calc Performed By: #### L 505.5000, L300.3900, L501.9100, L500.2500, L300.4310, L100.0100 #### [facility] [address] [place], [address] GAP 5 Normal 5-15 [facility] Comment on above: Performed By: #### L 505.5000, L300.3900, L501.9100, L500.2500, L300.4310, L100.0100 #### [facility] [address] [place], [address] GFR/1.73 sq M.predicted among non-blacks MDRD (S/P/Bld) [Vol rate/Area] 88 mL/min/{1.73_m2} Normal >60 [facility] Comment on above: Result Comment: Non- GFR Calc Performed By: #### L 505.5000, L300.3900, L501.9100, L500.2500, L300.4310, L100.0100 #### [facility] [address] [place], [address] Glucose [Mass/Vol] 114 mg/dL High 74-106 [facility] Comment on above: Result Comment: Fast ing Glucose result from 100 to 125 mg/dL suggests IMPAIRED HOMEOSTASIS per A.D.A. criteria. Performed By: #### L 505.5000, L300.3900, L501.9100, L500.2500, L300.4310, L100.0100 #### [facility] [address] [place], [address] Potassium [Moles/Vol] 3.4 mmol/L Low 3.5-5.1 [facility] Comment on above: Performed By: #### L 505.5000, L300.3900, L501.9100, L500.2500, L300.4310, L100.0100 #### [facility] [address] [place], [address] Sodium [Moles/Vol] 137 mmol/L Normal 136-145 [facility] Comment on above: Performed By: #### L 505.5000, L300.3900, L501.9100, L500.2500, L300.4310, L100.0100 #### [facility] [address] [place], [address] Urea nitrogen [Mass/Vol] 9 mg/dL Normal 7-18 [facility] Comment on above: Performed By: #### L 505.5000, L300.3900, L501.9100, L500.2500, L300.4310, L100.0100 #### [facility] [address] [place], [address] Bedside Glucoseon 02-10-2024 FINGERSTICK GLU 113 mg/dL High 74-106 [facility] Comment on above: Result Comment: ALFREDO JIMENEZKATERIN OF PATIENT CARE PER NURSING PROTOCOL Performed By: #### L 505.5000, L300.3900, L501.9100, L500.2500, L300.4310, L100.0100 #### [facility] [address] [place], [place], [address] Brain/Head without Contrasto n 02-10-2024 Brain/Head without Contrast [facility] Imaging Services [address] [place], [place] [address] Brain/Head without Contrast MR#: [id number] Acct: [id number] Name: JENNIFER PRICE Rep #: [id number] : 1975 F 48 From: [place] feliciano MD PCP: Care Physician,No Primary Status: REG ER Study: Brain/Head without Contrast Date of Exam: 01/21 04/14 Exam# [id number] Ordering Dr: Endy Taveras DO [id number] STUDY: CT BRAIN WITHOUT CONTRAST REASON FOR EXAM: Female, 48 years old. head injury. Head laceration. RADIATION DOSAGE (If Supplied By Facility): CTDIvol = ( 34.80 ) mGy, DLP = ( 1483.44 ) mGycm TECHNIQUE: Transaxial CT imaging of the brain was performed without administration of intravenous contrast material. Limited examination due to patient motion artifact. Individualized dose optimization techniques were used for this CT. COMPARISON: No relevant priors. FINDINGS: Normal soft tissue structures. Normal calvarium. Normal size ventricles and extra-axial spaces for the patient''s age. Normal white matter tracts of the cerebral hemispheres. Normal basal ganglia and thalami. Normal brainstem. Normal cerebellum. There is no intracranial hemorrhage. There are no findings of an acute ischemic infarction. Mucosal thickening of the right maxillary sinus. Opacification of the ethmoid sinuses as well as fullness of the nasal fossa. CT/Brain/Head without Contrast IMPRESSION: Normal unenhanced CT scan of the brain. Sinusitis. Electronically Signed: Rome Oneil MD at 9:04 EST , CC: Endy Taveras DO; No Primary Care Physician Job Interviewer: Signed Normal [facility] CBC W/Diff, Automatedon 11- Absolute Lymph 3.09 X10 3/uL Normal 0.83-4.51 [facility] Comment on above: Performed By: #### L 505.5000, L300.3900, L501.9100, L500.2500, L300.4310, L100.0100 #### [facility] [address] [place], [address] Absolute Neut 11.5 X10 3/uL High 2.0-7.7 [facility] Comment on above: Performed By: #### L 505.5000, L300.3900, L501.9100, L500.2500, L300.4310, L100.0100 #### [facility] [address] [place], [address] Basophils/100 WBC (Bld) 0.4 % Normal 0-1 [facility] Comment on above: Performed By: #### L 505.5000, L300.3900, L501.9100, L500.2500, L300.4310, L100.0100 #### [facility] [address] [place], [address] Eosinophils/100 WBC (Bld) 3.5 % Normal 0-5 [facility] Comment on above: Performed By: #### L 505.5000, L300.3900, L501.9100, L500.2500, L300.4310, L100.0100 #### [facility] [address] [place], [address] Erythrocyte distribution width (RBC) [Ratio] 13.2 % Normal 11.6-14.6 [facility] Comment on above: Performed By: #### L 505.5000, L300.3900, L501.9100, L500.2500, L300.4310, L100.0100 #### [facility] [address] [place], [address] Hematocrit (Bld) [Volume fraction] 39.4 % Normal 37-47 [facility] Comment on above: Performed By: #### L 505.5000, L300.3900, L501.9100, L500.2500, L300.4310, L100.0100 #### [facility] [address] [place], [address] Hemoglobin (Bld) [Mass/Vol] 13.3 g/dL Normal 12.0-15.0 [facility] Comment on above: Performed By: #### L 505.5000, L300.3900, L501.9100, L500.2500, L300.4310, L100.0100 #### [facility] [address] [place], [address] IG% 0.400 Normal 0.0-0.9 [facility] Comment on above: Result Comment: IG% - Immature Granulocytes (promyelocytes, myelocytes and metamyelocytes) > 1% indicates that a LEFT SHIFT is Present. Performed By: #### L 505.5000, L300.3900, L501.9100, L500.2500, L300.4310, L100.0100 #### [facility] [address] [place], [address] Lymphocytes/100 WBC (Bld) 19.4 % Normal 19-41 [facility] Comment on above: Performed By: #### L 505.5000, L300.3900, L501.9100, L500.2500, L300.4310, L100.0100 #### [facility] [address] [place], [address] MCH (RBC) [Entitic mass] 29.8 pg Normal 27.0-32.0 [facility] Comment on above: Performed By: #### L 505.5000, L300.3900, L501.9100, L500.2500, L300.4310, L100.0100 #### [facility] [address] [place], [address] MCHC (RBC) [Mass/Vol] 33.8 g/dL Normal 32-36 [facility] Comment on above: Performed By: #### L 505.5000, L300.3900, L501.9100, L500.2500, L300.4310, L100.0100 #### [facility] [address] [place], [address] MCV (RBC) [Entitic vol] 88.1 fL Normal 81-99 [facility] Comment on above: Performed By: #### L 505.5000, L300.3900, L501.9100, L500.2500, L300.4310, L100.0100 #### [facility] [address] [place], [address] Monocytes/100 WBC (Bld) 4.1 % Normal 0-10 [facility] Comment on above: Performed By: #### L 505.5000, L300.3900, L501.9100, L500.2500, L300.4310, L100.0100 #### [facility] [address] [place], [address] Neutrophils/100 WBC (Bld) 72.2 % High 47-70 [facility] Comment on above: Performed By: #### L 505.5000, L300.3900, L501.9100, L500.2500, L300.4310, L100.0100 #### [facility] [address] [place], [address] Nucleated RBC (Bld) [#/Vol] 0 10*3/uL Normal 0-5 [facility] Comment on above: Performed By: #### L 505.5000, L300.3900, L501.9100, L500.2500, L300.4310, L100.0100 #### [facility] [address] [place], [address] Platelet mean volume (Bld) [Entitic vol] 10.5 fL Normal 6.2-12.0 [facility] Comment on above: Performed By: #### L 505.5000, L300.3900, L501.9100, L500.2500, L300.4310, L100.0100 #### [facility] [address] [place], [address] Platelets (Bld) [#/Vol] 260 10*3/uL Normal 150-450 [facility] Comment on above: Performed By: #### L 505.5000, L300.3900, L501.9100, L500.2500, L300.4310, L100.0100 #### [facility] [address] [place], [address] RBC (Bld) [#/Vol] 4.47 10*6/uL Normal 4.2-5.4 [facility] Comment on above: Performed By: #### L 505.5000, L300.3900, L501.9100, L500.2500, L300.4310, L100.0100 #### [facility] [address] [place], [address] RDW SD 42.7 fl Normal 35.1-43.9 [facility] Comment on above: Performed By: #### L 505.5000, L300.3900, L501.9100, L500.2500, L300.4310, L100.0100 #### [facility] [address] [place], [place], [id number] WBC (Bld) [#/Vol] 15.9 10*3/uL High 4.4-11.0 [facility] Comment on above: Performed By: #### L 505.5000, L300.3900, L501.9100, L500.2500, L300.4310, L100.0100 #### [facility] [address] [place], [place], [id number] CBC panel Auto (Bld)on 02-09 Erythrocyte distribution width (RBC) [Ratio] 13.2 % Normal 11.5-15.0 [facility] Comment on above: Order Comment: Speci men Type: BLOOD SPECIMENOrdering Facility: [facility] Address: [address] [place] [address] Performed By: #### 5 8410-2 ####[facility] LABORATORYCLIA [id number] [address] [facility] Hematocrit (Bld) [Volume fraction] 41.1 % Normal 36.0-46.0 [facility] Comment on above: Order Comment: Speci men Type: BLOOD SPECIMENOrdering Facility: [facility] Address: [address] [place] [address] Performed By: #### 5 8410-2 ####[facility] LABORATORYCLIA [id number] [address] [place] Hemoglobin (Bld) [Mass/Vol] 13.5 g/dL Normal 11.5-15.5 [facility] Comment on above: Order Comment: Speci men Type: BLOOD SPECIMENOrdering Facility: [facility] Address: [address] [place] [address] Performed By: #### 5 8410-2 ####[facility] LABORATORYCLIA [id number] [place] [address] MCH (RBC) [Entitic mass] 30.1 pg Normal 26.0-34.0 [facility] Comment on above: Order Comment: Speci men Type: BLOOD SPECIMENOrdering Facility: [facility] Address: [address] [place] [address] Performed By: #### 5 8410-2 ####[facility] LABORATORYCLIA [id number] [address] [place] MCHC (RBC) [Mass/Vol] 32.8 g/dL Normal 30.5-36.0 [facility] Comment on above: Order Comment: Speci men Type: BLOOD SPECIMENOrdering Facility: [facility] Address: [address] [place] [address] Performed By: #### 5 8410-2 ####[facility] LABORATORYCLIA [id number] [address] MCV (RBC) [Entitic vol] 91.7 fL Normal 80.0-100.0 [facility] Comment on above: Order Comment: Speci men Type: BLOOD SPECIMENOrdering Facility: [facility] Address: [address] [place] [address] Performed By: #### 5 8410-2 ####[facility] LABORATORYCLIA [id number] [address] Nucleated RBC (Bld) [#/Vol] 10*3/uL Normal <0.01 [facility] Comment on above: Order Comment: Speci men Type: BLOOD SPECIMENOrdering Facility: [facility] Address: [address] [place] [address] Performed By: #### 5 8410-2 ####[facility] LABORATORYCLIA [id number] [address] Platelet mean volume (Bld) [Entitic vol] 10.2 fL Normal 9.0-12.7 [facility] Comment on above: Order Comment: Speci men Type: BLOOD SPECIMENOrdering Facility: [facility] Address: [address] [place] [address] Performed By: #### 5 8410-2 ####[facility] LABORATORYCLIA [id number] [address] [facility] Platelets (Bld) [#/Vol] 225 10*3/uL Normal 150-400 [facility] Comment on above: Order Comment: Speci men Type: BLOOD SPECIMENOrdering Facility: [facility] Address: [address] [place] [address] Performed By: #### 5 8410-2 ####[facility] LABORATORYCLIA [id number] [address] [place] RBC (Bld) [#/Vol] 4.48 10*6/uL Normal 3.90-5.20 [facility] Comment on above: Order Comment: Speci men Type: BLOOD SPECIMENOrdering Facility: [facility] Address: [address] [place] [address] Performed By: #### 5 8410-2 ####[facility] LABORATORYCLIA [id number] [address] [facility] WBC (Bld) [#/Vol] 11.44 10*3/uL High 3.70-11.00 [facility] Comment on above: Order Comment: Speci men Type: BLOOD SPECIMENOrdering Facility: [facility] Address: [address] [place] [address] Performed By: #### 5 8410-2 ####[facility] LABORATORYCLIA [id number] [address] CONFIRM BLOOD TYPEon 024 ABO A Normal [facility] Comment on above: Order Comment: Speci men Type: BLOOD SPECIMENOrdering Facility: [facility] Address: [address] [place] [address] Performed By: #### C ONABO ####[facility] BLOOD BANKCLIA [id number] [address] [place] Rh Nom (Bld) Positive Normal [facility] Comment on above: Order Comment: Speci men Type: BLOOD SPECIMENOrdering Facility: [facility] Address: [address], [place] [address] Performed By: #### [facility] ####[facility] BLOOD BANKIA [id number] [address] [facility] CONSULTon 02-10-2024 CONSULT HNO ID: [id number] Author: OEBD BRYANT MD Service: General Surgery Author Type: Resident Type: Consults Filed: 02/11/2024 10:01 Note Text: Attestation signed by Obed Bryant MD at 02/11/2024 10:01 AM I personally saw and examined the patient on 02/10/24. I reviewed the resident's note. I agree with the resident's assessment and plan unless otherwise noted. Surgical Intensive Care Unit Consult Note SERVICE DATE: 02/10/2024 SERVICE TIME: 10:58 PM REASON FOR CONSULT: central cord syndrome REQUESTING PHYSICIAN: Dr. Arron Ram Jennifer Price is a 48 year old female with a PMH of HTN, HLD, depression, and a PSH of appendectomy in 1990, salpingectomy (?L) for ectopic , and tubal ligation. She reports that she was in her kitchen this morning, tripped over her cat, and hit her head on a counter. She reports LOC of unknown duration. When she came to, she was bleeding from her head and had severe pain in her bilateral arms with weakness and numbness. She had to scoot on the floor to get someone's attention and was subsequently taken to [facility] ED. She was found to have a scalp laceration superior to her frontal hair line, which was repaired with lenny. Imaging at [facility] included CT and MRI of her C-spine that showed concern for central cord syndrome. She was subsequently transferred to [facility], andOrtho Spine was consulted as well as Trauma Surgery. She continues to complain of severe pain as well as weakness in her bilateral upper extremities. She denies headache, blurry vision, chest pain/pressure, SOB, dyspnea, abdominal pain, nausea/vomiting, changes to bowel/bladder. She denies blood thinners. FUNCTIONAL STATUS: Independent PAST MEDICAL HISTORY Diagnosis Date Abnormal glandular Papanicolaou smear of cervix Abn. Pap smear (cervix) Depression History of miscarriage 6 Miscarriagies Hypercholesteremia 2006 improved Hypertension Marijuana use Vitamin D deficiency PAST SURGICAL HISTORY Procedure Laterality Date APPENDECTOMY 1990 ECTOPIC - TREATMENT salpingectomy ?left LIG/TRNSXJ FLP TUBE ABDL/VAG APPR UNI/BI FAMILY HISTORY Problem Relation Age of Onset Emphysema Mother Diabetes Maternal Grandmother Hypertension Maternal Grandmother other (lupus [Other]) Maternal Grandmother Hypertension Father Breast Cancer Maternal Aunt other (brain tumor [Other]) Maternal Aunt Social History Tobacco Use Smoking status: Never Smokeless tobacco: Never Substance Use Topics Alcohol use: No Drug use: Yes Comment: THC use LORazepam (ATIVAN) 0.5 mg tab, Take 1 tablet by mouth twice daily., Disp: 20 tablet, Rfl: 0 Cholecalciferol, Vitamin D3, 2,000 unit cap, Take 1 tablet by mouth once daily., Disp: 30 capsule, Rfl: 6 atenolol (TENORMIN) 50 mg tablet, Take 0.5 tablets by mouth once daily., Disp: 30 tablet, Rfl: 5 lisinopril (ZESTRIL) 5 mg tablet, Take 1 tablet by mouth once daily., Disp: , Rfl: 0 ondansetron orally disintegrating (ZOFRAN ODT) 8 mg disintegrating tablet, Take 1 tablet by mouth every 8 hours as needed., Disp: 20 tablet, Rfl: 0 pantoprazole (PROTONIX) 40 mg tablet, Take 1 tablet by mouth daily before breakfast. Take on empty stomach, 1/2 hr before meal., Disp: , Rfl: 0 potassium chloride SR (KLOR-CON M20) 20 mEq tablet, Take 2 tablets by mouth twice daily., Disp: , Rfl: 0 sertraline 100 mg tablet, Take 1 tablet by mouth once daily., Disp: 30 tablet, Rfl: 3 acetaminophen (TYLENOL) 325 mg tablet, Take 650 mg by mouth every 6 hours as needed., Disp: , Rfl: omeprazole 20 mg capsule, Take 1 capsule by mouth daily before breakfast. 1/2 hr before meal., Disp: 30 capsule, Rfl: 0 Current Facility-Administered Medications Medication Dose Route Frequency [Transfer Hold] bacitracin 500 unit/gram 1 Packet 1 Packet TOPICAL PRN [Transfer Hold] NaCl 0.9% iv flush bag 20 mL INTRAVENOUS PRN [Transfer Hold] iv contrast (radiology procedure) INTRAVENOUS DIRECTED PRN [Transfer Hold] iv contrast (radiology procedure) INTRAVENOUS DIRECTED PRN [Transfer Hold] sertraline 100 mg tab(s) (ZOLOFT) 100 mg ORAL DAILY [Transfer Hold] potassium chloride ER 20-40 mEq tab(s) (KLOR-CON) 20-40 mEq ORAL/FEEDING TUBE PRN Or [Transfer Hold] potassium chloride iv piggyback 20 mEq/100 mL 20 mEq INTRAVENOUS PRN [Transfer Hold] magnesium sulfate iv piggyback in sterile water 2 g 50 mL 2 g INTRAVENOUS PRN [Transfer Hold] phosphorus 500 mg tab(s) (K PHOS NEUTRAL) 500 mg ORAL/FEEDING TUBE PRN(NO DISPENSE) [Transfer Hold] calcium gluconate iv piggyback 2 g in NaCl (iso-osmotic) 100 mL 2 g INTRAVENOUS PRN(NO DISPENSE) [Transfer Hold] NaCl 0.9% iv infusion 100 mL/hr INTRAVENOUS CONTINUOUS [Transfer Hold] acetaminophen 1,000 mg tab(s) (TYLENOL) 1,000 mg ORAL q 6 H [Transfer (more content not included)... Normal [facility] CONSULT HNO ID: [id number] Author: CELSO KNOWLES MD Service: Orthopaedic Surgery Author Type: Physician Type: Consults Filed: 02/10/2024 22:20 Note Text: Orthopaedic Spine Surgery Attending Addendum I personally saw and evaluated the patient. I agree with the history, physical examination, assessment, and plan as documented in the resident's note with the following additions/changes: 48 year old female with history as below presenting severe pain in the bilateral upper extremities and upper extremity weakness. She sustained a fall today at work and struck her head. She endorses a brief episode of quadriplegia. Since that time she has regained function of the lower extremities. She continues to endorses severe weakness of the upper extremities. She additionally endorses severe dysesthetic pain in the bilateral upper extremities, right greater than left. Denies any preceding symptoms of numbness, paresthesias, weakness, gait instability, or difficulty with dexterity. Examination as below. Sensation intact to light touch C5-T1 and L1-S1. Severe dysesthetic pain in the bilateral upper extremities from C5-T1. Motor function 5/5 L2-S1, 2/5 C5-T1 on the right, 3/5 C5-T1 on the left. Browne's present bilaterally. Brisk, symmetric bilateral patellar and Achilles reflexes. Reviewed imaging including x-rays, CT, and MRI of the cervical spine and CT and MRI of the thoracic spine. Imaging demonstrates severe stenosis with cord compression and cord edema C3-6. Radiology reports also reviewed. Patient with incomplete spinal cord injury (central cord syndrome) with continued severe spinal stenosis and cord compression. Recommend urgent surgical decompression/stabili zation via C2-T2 PSF with C3-6 laminectomy (+/- levels of fusion as indicated). NPO for OR. IV Decadron 10 mg. MAP > 85 mmHg. OR at earliest availability. Discussed with patient who is in agreement. Celso Knowles MD Orthopaedic Spine Surgery Consultation requested by the emergency department. A summary of my findings and recommendations will be communicated back to the requesting physician via the shared electronic medical record. Orthopaedic Surgery Consultation Note Reason for Consultation: Concern for central cord syndrome Consulting Physician: Dr. Yana MD Date: February 10, 2024 Time: 3:10 PM History of Present Illness 48 year old female being evaluated today regarding concern for central cord syndrome. Patient states she was at work at 3am and she tripped over a cat and hit her head on the counter. States she initially had loss of function of both upper and lower extremities, but lower extremity movement has since resolved. She is no complaining of significant weakness and altered/painful sensation to bilateral upper extremities, right worse than left. She also sustained a head laceration that was managed by the ED. Presented to [facility] ED and had CT and MRI C-spine and was transferred here. Review of Systems 10-point ROS negative except as in HPI. History PAST MEDICAL HISTORY Diagnosis Date Abnormal glandular Papanicolaou smear of cervix Abn. Pap smear (cervix) Depression History of miscarriage 6 Miscarriagies Hypercholesteremia 2006 improved Hypertension Marijuana use Vitamin D deficiency PAST SURGICAL HISTORY Procedure Laterality Date APPENDECTOMY 1990 ECTOPIC - TREATMENT salpingectomy ?left LIG/TRNSXJ FLP TUBE ABDL/VAG APPR UNI/BI Annual PCP Team Chronic Disease Visit Never done Depression Screening Never done Anxiety Screening Never done Hepatitis C Screening Never done HIV Screening Never done BP Controlled (<130/80) Never done Hepatitis B Vaccine(1 of 3 - 19+ 3-dose series) Never done Mammogram Screening Never done Cervical Cancer Screening due on 07/13/2018 Lipid Screening due on 2022 Diabetes Screening due on 2022 Colorectal Cancer Screening Never done DTaP,Tdap,Td Vaccine(2 - Tdap) due on 11/26/2022 Influenza Vaccine(1) Never done Covid-19 Vaccine() Never done HPV Vaccine Aged Out A review of the patient's history was completed and is otherwise non-contributory to the patient's presenting condition. Medications LORazepam (ATIVAN) 0.5 mg tabTake 1 tablet by mouth twice daily.Disp: 20 tabletRfl: 0 Cholecalciferol, Vitamin D3, 2,000 unit capTake 1 tablet by mouth once daily.Disp: 30 capsuleRfl: 6 atenolol (TENORMIN) 50 mg tabletTake 0.5 tablets by mouth once daily.Disp: 30 tabletRfl: 5 lisinopril (ZESTRIL) 5 mg tabletTake 1 tablet by mouth once daily.Disp: Rfl: 0 ondansetron orally disintegrating (ZOFRAN ODT) 8 mg disintegrating tabletTake 1 tablet by mouth every 8 hours as needed.Disp: 20 tabletRfl: 0 pantoprazole (PROTONIX) 40 mg tabletTake 1 tablet by mouth daily before breakfast. Take on empty stomach, 1/2 hr before meal.Disp: Rfl: 0 potassium chloride SR (KLOR-CON M20) 20 mEq tabletTake 2 tablets by mouth (more content not included)... Normal [facility] CPK Total, Creatine Kinaseon 02-10-2024 CPK TOTAL 167 U/L Normal 26-192 [facility] Comment on above: Performed By: #### L 501.3620 #### [facility] [place], [address] CT BRAIN WO IVCONon 02-10-[address] BRAIN WO IVCON * * *Final Report* * * DATE OF EXAM: Feb 10 2024 4:14PM [facility] 0504 - CT BRAIN WO IVCON / PROCEDURE REASON: Head trauma, moderate-severe * * * * Physician Interpretation * * * * EXAMINATION: CT BRAIN WO IVCON CLINICAL HISTORY: Trauma. TECHNIQUE: Serial axial images without IV contrast were obtained from the vertex to the foramen magnum. MQ: CTBWO_3 CT Radiation dose: Integrated Dose-Length Product (DLP) for this visit = 3160 mGy*cm CT Dose Reduction Employed: Automated exposure control(AEC) and iterative recon COMPARISON: None. RESULT: Localizer images: No additional findings. Post-operative change: None. Acute change: No evidence of an acute infarct or other acute parenchymal process. Hemorrhage: No evidence of acute intracranial hemorrhage. ECASS hemorrhagic transformation score: Not Applicable Mass Lesion / Mass Effect: There is no evidence of an intracranial mass or extraaxial fluid collection. No significant mass effect. Chronic change: None apparent. Parenchyma: There is no significant volume loss. The brain parenchyma is otherwise within normal limits for age. Ventricles: The ventricles are within normal limits of size and configuration for age. Paranasal sinuses and skull base: Mucosal thickening bilateral maxillary and ethmoid and sphenoid sinuses.. Intact calvarium. Appearance of skin lenny high frontal scalp. IMPRESSION: No evidence of acute intracranial process Job Interviewer: MARIA E Transcribe Date/Time: Feb 10 2024 4:22P Dictated by : SOM FATIMA MD This examination was interpreted and the report reviewed and electronically signed by: SOM FATIMA MD on Feb 10 2024 4:30PM EST [id number] Normal [facility] CT CERVICAL SPINE WO IVCONon 02-10-2024 CT CERVICAL SPINE WO IVCON * * *Final Report* * * DATE OF EXAM: Feb 10 2024 5:09PM [facility] 0505 - CT CERVICAL SPINE WO IVCON / PROCEDURE REASON: Spine fracture, cervical, traumatic * * * * Physician Interpretation * * * * EXAMINATION: CT CERVICAL SPINE WO IVCON CLINICAL HISTORY: Trauma. Concern for cervical spine fracture. Prior nondiagnostic cervical spine imaging TECHNIQUE: Spiral, high resolution axial unenhanced images were obtained from the skull base to the cervicothoracic junction with sagittal and coronal planar reconstructions. MQ: CTCSPWO_5 CT Radiation dose: Integrated CT Dose-Length Product (DLP) for this visit = 467 mGy*cm CT Dose Reduction Employed: Automated exposure control(AEC) and iterative recon COMPARISON: Cervical spine CT and cervical spine MRI earlier same date RESULT: Counting reference: Craniocervical junction. Anatomic Variants: None. Flatwork Catcher (topogram) images: No additional significant findings Alignment: Alignment is anatomic. Craniocervical junction: Craniocervical junction is normal. Osseous structures/fracture: No evidence of a lytic or blastic process in the visualized spine. No evidence of acute or chronic fracture. Cervical soft tissues: The paraspinal soft tissues are within normal limits. Degenerative changes: Multilevel degenerative changes resulting in multilevel canal and foraminal stenoses as outlined on recent same day MRI again seen. IMPRESSION: Repeat CT imaging shows no convincing evidence of acute cervical spine fracture. Multilevel cervical spondylosis with multilevel resulting canal and foraminal stenoses, including severe spinal stenosis C3-C4 and C5-C6 again evident. Anatomic Variant: None. Assume 7 cervical vertebrae with counting from the craniocervical junction. Job Interviewer: MARIA E Transcribe Date/Time: Feb 10 2024 5:39P Dictated by : GILDARDO ROWLEY MD This examination was interpreted and the report reviewed and electronically signed by: GILDARDO ROWLEY MD on Feb 10 2024 5:53PM EST [id number] Normal [facility] CT CERVICAL SPINE WO IVCON * * *Final Report* * * DATE OF EXAM: Feb 10 2024 4:14PM [facility] 0505 - CT CERVICAL SPINE WO IVCON / PROCEDURE REASON: Spine fracture, cervical, traumatic * * * * Physician Interpretation * * * * EXAMINATION: CT CERVICAL SPINE WO IVCON, CT THORACIC SPINE WO IVCON CLINICAL HISTORY: Fall. TECHNIQUE: Spiral, high resolution axial unenhanced images were obtained from the skull base to the lumbosacral junction with sagittal and coronal planar reconstructions. MQ: CT Radiation dose: Integrated CT Dose-Length Product (DLP) for this visit = 3160 mGy*cm CT Dose Reduction Employed: Automated exposure control(AEC) and iterative recon COMPARISON: MRs obtained earlier same day. FINDINGS: Portions exam heavily affected by patient motion, particularly cervical spine. There is no definite prevertebral soft tissue edema. The atlantooccipital and atlantoaxial articulations are maintained. There appears to be grade 1 retrolisthesis C5 upon C6 although motion severely limits evaluation. Vertebral body heights are grossly maintained. Disc space heights in the cervical spine are not well evaluated secondary to motion, appear maintained and the thoracic spine. Facet alignment is maintained. The posterior elements appear grossly intact. IMPRESSION: 1. Evaluation of cervical spine severely limited by patient motion without definite traumatic abnormality, repeat imaging advised when patient condition permits to fully evaluate if clinical suspicion persists. 2. No acute fracture of the thoracic spine. Job Interviewer: MARIA E Transcribe Date/Time: Feb 10 2024 4:46P Dictated by : LONA RICHARDS MD This examination was interpreted and the report reviewed and electronically signed by: LONA RICHARDS MD on Feb 10 2024 5:00PM EST [id number] Normal [facility] CT LUMBAR SPINE WO IVCONon 1 04-11-2023 CT LUMBAR SPINE WO IVCON * * *Final Report* * * DATE OF EXAM: Feb 10 2024 4:14PM [facility] 0508 - CT LUMBAR SPINE WO IVCON / PROCEDURE REASON: Spine fracture, lumbar, traumatic * * * * Physician Interpretation * * * * EXAMINATION: CT LUMBAR SPINE WO IVCON CLINICAL HISTORY: Back pain status post fall TECHNIQUE: Spiral, high resolution axial unenhanced images were obtained from the thoracolumbar junction to the sacrum with sagittal and coronal planar reconstructions. MQ: [id number]_3 CT Radiation dose: Integrated Dose-Length Product (DLP) for this visit = 968.0 mGy*cm. CT Dose Reduction Employed: Automated exposure control(AEC) and iterative recon COMPARISON: CT abdomen pelvis 06/17/2023 RESULT: Counting reference: Lumbosacral junction. For the purposes of this report, L4-5 is considered the level of the iliac crest and assume there are 5 lumbar-type vertebrae. Anatomic variant: None. Flatwork Catcher (topogram) images: No additional significant findings Alignment: Alignment is anatomic. Bone marrow /fracture: No evidence of a lytic or blastic process in the visualized spine. No evidence of acute or chronic fracture. Paraspinal soft tissues: The paraspinal soft tissues planes are maintained. Lower thoracic spine: The visualized lower thoracic bony canal and foramina are patent. L1-L2: Canal and foramina are patent. L2-L3: Canal and foramina are patent L3-L4: Canal and foramina are patent L4-L5: Canal and foramina are patent L5-S1: Canal and foramina are patent Sacrum and iliac wings: The visualized sacrum and iliac wings are within normal limits. IMPRESSION: No evidence of acute lumbar spine fracture or subluxation Anatomic Lumbar Variant: None. L4-5 is considered the level of the iliac crest and assume there are 5 lumbar-type vertebrae. Job Interviewer: MARIA E Transcribe Date/Time: Feb 10 2024 4:34P Dictated by : GILDARDO ROWLEY MD This examination was interpreted and the report reviewed and electronically signed by: GILDARDO ROWLEY MD on Feb 10 2024 4:49PM EST [id number] N Normal [facility] CT THORACIC SPINE WO IVCONon 02-10-2024 CT THORACIC SPINE WO IVCON * * *Final Report* * * DATE OF EXAM: Feb 10 2024 4:14PM [facility] 0514 - CT THORACIC SPINE WO IVCON / PROCEDURE REASON: Spinal cord injury, follow up * * * * Physician Interpretation * * * * EXAMINATION: CT CERVICAL SPINE WO IVCON, CT THORACIC SPINE WO IVCON CLINICAL HISTORY: Fall. TECHNIQUE: Spiral, high resolution axial unenhanced images were obtained from the skull base to the lumbosacral junction with sagittal and coronal planar reconstructions. MQ: CT Radiation dose: Integrated CT Dose-Length Product (DLP) for this visit = 3160 mGy*cm CT Dose Reduction Employed: Automated exposure control(AEC) and iterative recon COMPARISON: MRs obtained earlier same day. FINDINGS: Portions exam heavily affected by patient motion, particularly cervical spine. There is no definite prevertebral soft tissue edema. The atlantooccipital and atlantoaxial articulations are maintained. There appears to be grade 1 retrolisthesis C5 upon C6 although motion severely limits evaluation. Vertebral body heights are grossly maintained. Disc space heights in the cervical spine are not well evaluated secondary to motion, appear maintained and the thoracic spine. Facet alignment is maintained. The posterior elements appear grossly intact. IMPRESSION: 1. Evaluation of cervical spine severely limited by patient motion without definite traumatic abnormality, repeat imaging advised when patient condition permits to fully evaluate if clinical suspicion persists. 2. No acute fracture of the thoracic spine. Job Interviewer: MARIA E Transcribe Date/Time: Feb 10 2024 4:46P Dictated by : LONA RICHARDS MD This examination was interpreted and the report reviewed and electronically signed by: LONA RICHARDS MD on Feb 10 2024 5:00PM EST [id number] N Normal [facility] Chest 1 View (Portable)on Chest 1 View (Portable) [facility] [address] [place] [address] Chest 1 View (Portable) MR#: [id number] Acct: [id number] Name: JENNIFER PRICE Andre Rep #: [id number] : 1975 F 48 From: Javy zavala MD PCP: Care Physician,No Primary Status: REG ER Study: Chest 1 View (Portable) Date of Exam: 02/10/24 Exam# [id number] Ordering Dr: Endy Taveras DO [id number] EXAM: XR CHEST, 1 VIEW CLINICAL INDICATION: fall TECHNIQUE: 2 frontal views. Of the chest. COMPARISON: Previous chest radiographs of 02/13/2016. FINDINGS: Patient is rotated to the left. LUNGS AND PLEURAL SPACES: Unremarkable. No consolidation or edema. No pneumothorax. No effusion. HEART: Unremarkable. Cardiac silhouette not enlarged. Normal pulmonary vasculature. MEDIASTINUM: Central airways and mediastinal contour are unremarkable. No mediastinal widening. BONES/JOINTS: Unremarkable. No acute fracture. SOFT TISSUES: Unremarkable. RAD/Chest 1 View (Portable) IMPRESSION: No significant interval change. No radiographic evidence of acute cardiopulmonary disease. Electronically Signed: Javy Gibson MD at 7:20 EST , CC: Endy Taveras DO; No Primary Care Physician Job Interviewer: Signed Normal [facility] Comprehensive metabolic 2000 panelon 02-10-2024 Albumin [Mass/Vol] 4.0 g/dL Normal 3.9-4.9 [facility] Comment on above: Order Comment: Speci men Type: BLOOD SPECIMENOrdering Facility: [facility] Address: [address] [place] [address] Performed By: #### 3 040-3, ####[facility] LABORATORYCLIA [id number] [address] STATES OF [facility] ALP [Catalytic activity/Vol] 42 U/L Normal 34-123 [facility] Comment on above: Order Comment: Speci men Type: BLOOD SPECIMENOrdering Facility: [facility] Address: [address] [place] [address] Performed By: #### 3 040-3, 46711-7 ####[facility] LABORATORYCLIA [id number] [address] [place] [facility] ALT With P-5'-P [Catalytic activity/Vol] 13 U/L Normal 7-38 [facility] Comment on above: Order Comment: Speci men Type: BLOOD SPECIMENOrdering Facility: [facility] Address: [address] [place] [address] Performed By: #### 3 040-3, 23837-1 ####[facility] LABORATORYCLIA [id number] [address] [place] [facility] Anion gap [Moles/Vol] 11 mmol/L Normal 8-15 [facility] Comment on above: Order Comment: Speci men Type: BLOOD SPECIMENOrdering Facility: [facility] Address: [address] [place] [address] Performed By: #### 3 040-3, 94373-6 ####[facility] LABORATORYCLIA [id number] [place] [address] [place] AST With P-5'-P [Catalytic activity/Vol] 32 U/L Normal 13-35 [facility] Comment on above: Order Comment: Speci men Type: BLOOD SPECIMENOrdering Facility: [facility] Address: [address] [place] [address] Performed By: #### 3 -3, ####[facility]ORATORYCLIA [id number] [place] [address] [place] Bilirubin [Mass/Vol] 0.3 mg/dL Normal 0.2-1.3 [facility] Comment on above: Order Comment: Speci men Type: BLOOD SPECIMENOrdering Facility: [facility] Address: [address] [place] [address] Performed By: #### 3 3, ####[facility]ATORYCLIA [id number] [place] [address] [place] Calcium [Mass/Vol] 8.9 mg/dL Normal 8.5-10.2 [facility] Comment on above: Order Comment: Speci men Type: BLOOD SPECIMENOrdering Facility: [facility] Address: [address] [place] [address] Performed By: #### 3 3, ####[facility]ORATORYCLIA [id number] [place] [address] [place] Chloride [Moles/Vol] 97 mmol/L Low 98-107 [facility] Comment on above: Order Comment: Speci men Type: BLOOD SPECIMENOrdering Facility: [facility] Address: [address] [place] [address] Performed By: #### 3 -3, ####[facility]ORATORYCLIA [id number] [place] [address] [place] CO2 [Moles/Vol] 24 mmol/L Normal 22-30 [facility] Comment on above: Order Comment: Speci men Type: BLOOD SPECIMENOrdering Facility: [facility] Address: [address] [place] [address] Performed By: #### 3 3, ####[facility]ATORYCLIA [id number] [address] [place] Creatinine [Mass/Vol] 1.16 mg/dL High 0.58-0.96 [facility] Comment on above: Order Comment: Oneida adame Type: BLOOD SPECIMENOrdering Facility: [facility] Address: [address] [place] [address] Performed By: #### 3 040-3, 22012-8 ####[facility] LABORATORYIA [id number] [address] Creatinine and Glomerular filtration rate.predicted panel (S/P/Bld) 59 mL/min/1.73m??? Low >=60 [facility] Comment on above: Order Comment: Oneida adame Type: BLOOD SPECIMENOrdering Facility: [facility] Address: [address] [place] [address] Result Comment: Xiomara mated Glomerular Filtration Rate (eGFR) is calculated using the 2020 CKD-EPI creatinine equation. This equation utilizes serum creatinine, sex, and age as parameters. The creatinine assay has traceable calibration to isotope dilution-mass spectrometry. Refer to KDIGO guidelines for clinical interpretation. In patients with unstable renal function, e.g. those with acute kidney injury, the eGFR may not accurately reflect actual GFR. Performed By: #### 3 040-3, 22529-0 ####[facility] LABORATORYIA [id number] [address] [place] [facility] Glucose [Mass/Vol] 98 mg/dL Normal 74-99 [facility] Comment on above: Order Comment: Oneida adame Type: BLOOD SPECIMENOrdering Facility: [facility] Address: [address] [place] [address] Result Comment: The [place] Diabetes Association (ADA) provides guidance for cutoff values for fasting glucose and random glucose. The ADA defines fasting as no caloric intake for at least 8 hours. Fasting plasma glucose results between 100 to 125 mg/dL indicate increased risk for diabetes (prediabetes). Fasting plasma glucose results greater than or equal to 126 mg/dL meet the criteria for diagnosis of diabetes. In the absence of unequivocal hyperglycemia, results should be confirmed by repeat testing. In a patient with classic symptoms of hyperglycemia or hyperglycemic crisis, random plasma glucose results greater than or equal to 200 mg/dL meet the criteria for diagnosis of diabetes. Reference: Standards of Medical Care in Diabetes 2016, [place] [employer] Association. Diabetes Care. 2016.39(Suppl 1). Performed By: #### 3 -3, 13371-2 ####[facility] LABORATORYCLIA [id number] [place] [address] [place] Potassium [Moles/Vol] 3.4 mmol/L Low 3.7-5.1 [facility] Comment on above: Order Comment: Speci men Type: BLOOD SPECIMENOrdering Facility: [facility] Address: [address] [place] [address] Performed By: #### 3 , 44288-2 ####[facility] LABORATORYCLIA [id number] [place] [address] [place] Protein [Mass/Vol] 6.5 g/dL Normal 6.3-8.0 [facility] Comment on above: Order Comment: Speci men Type: BLOOD SPECIMENOrdering Facility: [facility] Address: [address] [place] [address] Performed By: #### 3 3, 94484-3 ####[facility] LABORATORYCLIA [id number] [address] [place] Sodium [Moles/Vol] 132 mmol/L Low 136-144 [facility] Comment on above: Order Comment: Speci men Type: BLOOD SPECIMENOrdering Facility: [facility] Address: [address] [place] [address] Performed By: #### 3 3, 52054-3 ####[facility] LABORATORYCLIA [id number] [place] [address] [place] Urea nitrogen [Mass/Vol] 6 mg/dL Low 7-21 [facility] Comment on above: Order Comment: Speci men Type: BLOOD SPECIMENOrdering Facility: [facility] Address: [address] [place] [address] Performed By: #### 3 -3, 33529-8 ####[facility] LABORATORYCLIA [id number] [place] [address] [place] ECG COMPLETEon 02-10-2024 ECG COMPLETE Ventricular Rate : 100 BPM Atrial Rate : 100 BPM P-R Interval : 122 ms QRS Duration : 86 ms Q-T Interval : 338 ms QTC Calculation(Bazett) : 436 ms Calculated P [place] : 75 degrees Calculated R [place] : 54 degrees Calculated T [place] : 60 degrees NORMAL SINUS RHYTHM NONSPECIFIC ST ABNORMALITY ABNORMAL ECG NO PREVIOUS ECGS AVAILABLE Confirmed by DO BAEZ ROHIT ([id number]) on 02/10/2024 12:21:20 PM NAME : JENNIFER PRICE PID : [id number] : 1975 Gender : Female Race : ORD : [id number] Procedure Date : Feb 10 2024 12:20:06 Edit Date : Feb 10 2024 12:21:26 Diagnosis: NORMAL SINUS RHYTHM NONSPECIFIC ST ABNORMALITY ABNORMAL ECG NO PREVIOUS ECGS AVAILABLE Confirmed by DO BAEZ ROHIT ([id number]) on 02/10/2024 12:21:20 PM Test Reason : Chest Pain Location : 4 : [facility] EM Overread By : DO BAEZ ROHIT Edited By : DO BAEZ ROHIT Referred By : , Acquired by : STEPAN ROSS [facility] ED NOTEon 02-10-2024 ED NOTE HNO ID: [id number] Author: KAROLYN NI RN Service: ? Author Type: Registered Nurse Type: ED Notes Filed: 02/10/2024 22:58 Note Text: Report given to Oncoming RN on MICU [facility] ED NOTE HNO ID: [id number] Author: KAROLYN NI RN Service: ? Author Type: Registered Nurse Type: ED Notes Filed: 02/10/2024 21:51 Note Text: Resident at bedside removing collar [facility] ED NOTE HNO ID: [id number] Author: KAROLYN NI RN Service: ? Author Type: Registered Nurse Type: ED Notes Filed: 02/10/2024 20:28 Note Text: Family asking for update, this RN called and spoke to OR baler, previous surgery was longer than anticipated, pt is still on schedule to go next in about 45 min to 1.25 hours, patient and family updated. Refusing BP checks [facility] ED NOTE HNO ID: [id number] Author: STEPAN ROSS RN Service: Emergency Medicine Author Type: Registered Nurse Type: ED Notes Filed: 02/10/2024 18:10 Note Text: Normal [facility] ED NOTE HNO ID: [id number] Author: STEPAN ROSS RN Service: ? Author Type: Registered Nurse Type: ED Notes Filed: 02/10/2024 16:31 Note Text: Refusing bp checks Normal [facility] ED NOTE HNO ID: [id number] Author: STEPAN ROSS RN Service: Emergency Medicine Author Type: Registered Nurse Type: ED Notes Filed: 02/10/2024 15:00 Note Text: Spine consult@bedside [facility] ED NOTE HNO ID: [id number] Author: STEPAN ROSS RN Service: Emergency Medicine Author Type: Registered Nurse Type: ED Notes Filed: 02/10/2024 11:51 Note Text: Mri screening form faxed [facility] ED NOTE HNO ID: [id number] Author: HIRO [place] Medic Service: ? Author Type: Manager Of Radiology and B2B Outside Sales Representative Type: ED Notes Filed: 02/10/2024 11:06 Note Text: Bed: 21-ED Expected date: 02/10/24 Expected time: 10:46 AM Means of arrival: [facility] Comments: Squad when clean [facility] ED PROV NOTEon 02-10-2024 ED PROV NOTE HNO ID: [id number] Author: JOSIAS BAEZ DO Service: Emergency Medicine Author Type: Physician Type: ED Provider Notes Filed: 02/11/2024 11:56 Note Text: ED Provider Note Patient Name: Jennifer Price : 1975 SERVICE DATE: 02/10/24 History Patient presents with: Sent By Md: Pt had a fall 0430 today sent from [facility] ed for mri of c-spine HPI This is a 48-year-old female being transferred from [facility] for MRI. She had a mechanical fall at work overnight. She hit her face and is having trouble moving her arms. Imaging at the outside facility was reported to be negative for acute process. She denies bowel or bladder incontinence. No neck or back pain. No headache or dizziness. No chest pain, shortness of breath or abdominal pain. No nausea or vomiting. No other complaints. PAST MEDICAL HISTORY Diagnosis Date - Abnormal glandular Papanicolaou smear of cervix Abn. Pap smear (cervix) - Depression - History of miscarriage 6 Miscarriagies - Hypercholesteremia 2007 improved - Hypertension - Marijuana use - Vitamin D deficiency PAST SURGICAL HISTORY Procedure Laterality Date - APPENDECTOMY 1990 - ECTOPIC - TREATMENT salpingectomy ?left - LIG/TRNSXJ FLP TUBE ABDL/VAG APPR UNI/BI FAMILY HISTORY Problem Relation Age of Onset - Emphysema Mother - Diabetes Maternal Grandmother - Hypertension Maternal Grandmother - other (lupus [Other]) Maternal Grandmother - Hypertension Father - Breast Cancer Maternal Aunt - other (brain tumor [Other]) Maternal Aunt Social History Tobacco Use - Smoking status: Never - Smokeless tobacco: Never Substance and Sexual Activity - Alcohol use: No - Drug use: Yes Comment: THC use - Sexual activity: Yes Partners: Male control/protection: Tubal Ligation ALLERGIES Allergen Reactions - Hydrocodone-Acetami* Hives, Vomiting Review of Systems Musculoskeletal: Pain in both arms. Skin: Head laceration. Physical Exam Vitals [02/10/24 1108] BP Pulse Temp Temp src Resp SpO2 Weight Height 118/72 (!) 98 36 ?C (96.8 ?F) -- 16 95 % 68 kg (150 lb) 1.651 m (5' 5) Physical Exam Vitals and nursing note reviewed. Constitutional: General: She is not in acute distress. Appearance: She is not ill-appearing, toxic-appearing or diaphoretic. HENT: Head: Normocephalic. Laceration present. No raccoon eyes, right periorbital erythema or left periorbital erythema. Jaw: There is normal jaw occlusion. Right Ear: External ear normal. Left Ear: External ear normal. Nose: No nasal deformity or nasal tenderness. Right Nostril: No epistaxis. Left Nostril: No epistaxis. Mouth/Throat: Lips: [place]. Mouth: Mucous membranes are moist. Pharynx: Oropharynx is clear. Uvula midline. Eyes: Extraocular Movements: Extraocular movements intact. Conjunctiva/sclera: Conjunctivae normal. Pupils: Pupils are equal, round, and reactive to light. Neck: Comments: Cervical collar in place. Cardiovascular: Rate and Rhythm: Normal rate and regular rhythm. Pulses: Normal pulses. Heart sounds: Normal heart sounds. No murmur heard. Pulmonary: Effort: Pulmonary effort is normal. No respiratory distress. Breath sounds: Normal breath sounds. No stridor. Chest: Chest wall: No tenderness. Abdominal: General: Abdomen is flat. There is no distension. Palpations: Abdomen is soft. Tenderness: There is no abdominal tenderness. Musculoskeletal: Right shoulder: Tenderness present. No swelling or deformity. Decreased range of motion. Normal pulse. Left shoulder: Tenderness present. No swelling or deformity. Decreased range of motion. Normal pulse. Right upper arm: Tenderness present. No swelling, edema or deformity. Left upper arm: Tenderness present. No swelling, edema or deformity. Right elbow: Normal. Left elbow: Normal. Right forearm: Normal. Left forearm: Normal. Right wrist: Normal. Left wrist: Normal. Right hand: Normal. Left hand: Normal. Cervical back: Normal. No tenderness. Right hip: Normal. Left hip: Normal. Right upper leg: Normal. Left upper leg: Normal. Right knee: Normal. Left knee: Normal. Right lower leg: Normal. No edema. Left lower leg: Normal. No edema. Right ankle: Normal. Right Achilles Tendon: Normal. Left ankle: Normal. Left Achilles Tendon: Normal. Right foot: Normal. Left foot: Normal. Skin: General: Skin is warm and dry. Capillary Refill: Capillary refill takes less than 2 seconds. Coloration: Skin is not jaundiced or pale. Neurological: Mental Status: She is alert and oriented to person, place, and time. Cranial Nerves: No cranial nerve deficit. Sensory: No sensory deficit. Psychiatric: Mood and Affect: Mood is anxious. Speech: Speech normal. Diagnostic Testing ED Labs Ordered and Reviewed HIGH SENSITIVITY TROPONIN T (INITIAL) - Normal HIGH SENSITIVITY TROPONIN T (SECOND) Results for orders placed or pe (more content not included)... Normal [facility] Emergency Department Summary on 02-10-2024 Emergency Department Summary [facility] Medical Records Department [address] [place] [id number] Emergency Department Summary 02/10/24 MR#: [id number] Acct: [id number] Name: JENNIFER PRICE Rep #: [id number] : 1975 48 From: Endy Taveras DO PCP: Care Physician,No Primary Status:REG ER Location: ED HPI History of Present Illness Chief Complaint: Fall Informant: patient and EMS Narrative Narrative: Patient is a 48-year-old female with history of hypertension depression and cyclic vomiting syndrome. She states she was at work this evening when she tripped and fell and struck her head. She states she did sustain loss of consciousness. She states she does not have a bleeding disorder or take blood thinners. She reports that no one was around to witness the event and she is unsure of how long she was unconscious. She states when she awoke she noted that she had pain in her bilateral arms and it folic her right arm would not move. 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 Patient reports that the fall was mechanical that she slipped/tripped. However at this time she reports head and neck pain bilateral arm pain. She states her right arm is numb and that she cannot move it [facility] Medical History Barretts esophagus Home Medications ???Medication ???Instructions ???Recorded ???Last Taken ???Type NK 02/10/24 Unknown History Allergy/AdvReac Type Severity Reaction Status Date / Time hydrocodone bitartrate (From Allergy Hives Verified 02/10/24 04:11 Vicodin) Social History Smoking Status: Current every day smoker tobacco type: cigarettes ROS ROS ED Constitutional Constitutional ED: Denies chills or fever(s) Eyes Eyes: Denies blurry vision, change in vision or diplopia ENT ENT ED: Reports other Details: Positive nosebleed/nasal pain Cardiovascular Cardiovascular: Denies chest pain, palpitations or racing heartbeat Respiratory/Chest Respiratory/Chest: Denies cough or dyspnea Gastrointestinal Gastrointestinal: Denies abdominal pain, diarrhea, nausea or vomiting Musculoskeletal Musculoskeletal: Reports neck pain and other Details: Positive neck pain as well as bilateral arm pain Integumentary Reports other Details: Positive scalp abrasion/laceration Neurologic Neurologic: Reports headache(s), paresthesias and weakness Hematologic/Lymphatic Hematologic/Lymphatic : Denies easy bleeding or easy bruising EXAM Physical Exam Const Vital Signs: 02/10/24 04:04 02/10/24 04:18 02/10/24 05:04 Temperature 99.4 F H Temperature Source Oral Pulse Rate 78 71 Respiratory Rate 16 18 Blood Pressure 164/79 H Blood Pressure Mean 107 Pulse Ox 96 97 Oxygen Delivery Method Room Air Room Air Room Air 02/10/24 06:00 02/10/24 07:00 02/10/24 08:00 Temperature Temperature Source Pulse Rate 75 76 Respiratory Rate 18 18 Blood Pressure 142/73 H 142/86 H Blood Pressure Mean 96 104 Pulse Ox 97 98 Oxygen Delivery Method Positive well nourished and well developed General Appearance ED: well developed HEENT HEENT Narrative: Patient has a dermal layer abrasion that is roughly 2 cm in length to the midportion of the parietal section of the scalp without active bleeding. Otherwise no signs of depressed or basilar skull fracture No septal hematoma No obvious dental fracture or derangement to the maxilla or mandible Eyes PERRL and EOMs intact bilaterally Eyes Narrative: No subconjunctival hemorrhage noted No hyphema Neck Neck Narrative: No bony deformity or step-off of the cervical spine. There is diffuse pain on palpation of the neck Chest Wall palpation of chest normal Chest Narrative: No bony deformity or crepitance with palpation of the chest wall Resp normal respiratory effort and clear to auscultation bilaterally Cardio regular rate and regular rhythm GI normal to inspection, nondistended, normoactive bowel sounds, non-tender, non-distended and no masses GI Narrative: No voluntary guarding or rigidity or pulsatile mass Auscultation: normoactive bowel sounds Palpation: soft Back/Spine Back/Spine Narrative: No bony deformity or step-off of the thoracic or lumbar spine no midline tenderness to palpation Extremity Extremity Narrative: There is mild soft tissue swelling to the midportion of the right humerus. However there is no obvious bony deformity or joint effusion or sulcus sign noted. No obvious fracture noted. Pelvis is stable there is no shortening or external rotation of either lower extremity Patient's lower extremity and upper extremity compartments are soft and compressible belkis (more content not included)... Normal [facility] Ethanol [facility] 024 Ethanol [Mass/Vol] mg/dL Normal <11 [facility] Comment on above: Order Comment: Speci men Type: BLOOD SPECIMENOrdering Facility: [facility] Address: [address] [place] [address] Performed By: #### 5 643-2 ####[facility] [id number] [place] [address] [place] HCG Preg Ur Qlon 02-10-2024 HCG ( test) Ql (U) Negative Normal Negative [facility] Comment on above: Order Comment: Speci men Type: URINE SPECIMENOrdering Facility: [facility] Address: [address] [place] [address] Result Comment: This test is intended to aid in the early detection of . Very dilute urine samples, as indicated by a low specific gravity, may not contain parts representative levels of hCG. This test detects intact hCG only. This test does not reliably detect hCG degradation products, including free-beta subunit and beta-core fragment. Therefore, this test may show reduced reactivity in urine after 8 weeks gestation. A number of conditions other than , including trophoblastic disease and certain non-trophoblastic neoplasms cause elevated levels of hCG. As with any assay employing mouse antibodies, the possibility exists for interference by human anti-mouse antibodies (HAMA) in the specimen. The test provides a presumptive diagnosis for . Performed By: #### 2 106-3 ####[facility] [id number] [address] [place] HIGH SENSITIVITY TROPONIN T (INITIAL)on 02-10-2024 Troponin T.cardiac High sensitivity method [Mass/Vol] 9 ng/L Normal <12 [facility] Comment on above: Order Comment: Speci men Type: BLOOD SPECIMENOrdering Facility: [facility] Address: [address] [place] [address] Performed By: #### L [id number] ####[facility] LABORATORYCLIA [id number] [address] [place] HIGH SENSITIVITY TROPONIN T (SECOND)on 02-10-2024 Troponin T.cardiac High sensitivity method [Mass/Vol] 8 ng/L Normal <12 [facility] Comment on above: Order Comment: Speci men Type: BLOOD SPECIMENOrdering Facility: [facility] Address: [address] [place] [id number] Performed By: #### L [id number] ####[facility] LABORATORYCLIA [id number] [place] [address] [place] HISTORY PHYSICALon HISTORY PHYSICAL HNO ID: [id number] Author: TANYA BRITO MD Service: General Surgery Author Type: Resident Type: H&P Filed: 02/12/2024 13:25 Note Text: Attestation signed by Tanya Brito MD at 02/12/2024 1:25 PM Attending Note I evaluated the patient and personally participated in the baker components. I agree with the resident's findings and plan as documented and have discussed the case and management of the patient's care with the resident. Delayed entry, patient seen 02/10 Patient admitted after GLF with central cord syndrome and incomplete spinal cord injury. When seen this morning she was complaining of postoperative pain. Labs reviewed, hypokalemia/hypocalce kd/hypomagnesemia noted-- replace. Leukocytosis in the postoperative setting/steroid use. Imaging reviewed including new CT AP-- liver lesion, patient with no PCP so will pursue RUQ US this admission for further workup. Signature: Tanya Brito MD Date: 02/12/2024 Time: 1:11 PM [facility]: February 10, 2024 ARRIVAL TIME: 11:00 AM CATEGORY: ED Transfer from [facility], Trauma Consult INJURY DATE: February 10, 2024 INJURY TIME: 4:30 AM Subjective Jennifer Price is a 48 year old female with a PMH of HTN, HLD, depression, and a PSH of appendectomy in 1990, salpingectomy (?L) for ectopic , and tubal ligation. She reports that she was in her kitchen this morning, tripped over her cat, and hit her head on a counter. She reports LOC of unknown duration. When she came to, she was bleeding from her head and had severe pain in her bilateral arms with weakness and numbness. She had to scoot on the floor to get someone's attention and was subsequently taken to [facility] ED. She was found to have a scalp laceration superior to her frontal hair line, which was repaired with lenny. Imaging at [facility] included CT and MRI of her C-spine that showed concern for central cord syndrome. She was subsequently transferred to [facility], andOrtho Spine was consulted as well as Trauma Surgery. She continues to complain of severe pain as well as weakness in her bilateral upper extremities. She denies headache, blurry vision, chest pain/pressure, SOB, dyspnea, abdominal pain, nausea/vomiting, changes to bowel/bladder. HPI/CHIEF COMPLAINT: GLF BRIEF DESCRIPTION OF INJURIES: head laceration, bilateral upper extremity pain/weakness LAST FLUIDS/MEAL: prior to 6am CODE STATUS: Not discussed ALLERGIES Allergen Reactions Hydrocodone-Acetami* Hives, Vomiting (Not in a hospital admission) DATE OF LAST TETANUS: unknown Immunization History Administered Date(s) Administered diphtheria tetanus (DT) vaccine, pediatric 11/26/2012 PAST MEDICAL HISTORY Diagnosis Date Abnormal glandular Papanicolaou smear of cervix Abn. Pap smear (cervix) Depression History of miscarriage 6 Miscarriagies Hypercholesteremia 2007 improved Hypertension Marijuana use Vitamin D deficiency PAST SURGICAL HISTORY Procedure Laterality Date APPENDECTOMY 1990 ECTOPIC - TREATMENT salpingectomy ?left LIG/TRNSXJ FLP TUBE ABDL/VAG APPR UNI/BI Social History Tobacco Use Smoking status: Never Smokeless tobacco: Never Substance Use Topics Alcohol use: No Drug use: Yes Comment: THC use FAMILY HISTORY Problem Relation Age of Onset Emphysema Mother Diabetes Maternal Grandmother Hypertension Maternal Grandmother other (lupus [Other]) Maternal Grandmother Hypertension Father Breast Cancer Maternal Aunt other (brain tumor [Other]) Maternal Aunt ROS: Is the patient having any pain? Yes LOCATION: bilateral upper extremities Constitutional: Negative Eye/Ear/Nose: Negative Respiratory: Negative Cardiovascular: Negative GI/Liver/Biliary: Negative Genitourinary: Negative Psychiatric: Depression Neurologic: See HPI Musculoskeletal: See HPI Integument: Negative Endocrine: Negative Heme/Lymph: Negative Objective PRIMARY SURVEY AIRWAY: Patent BREATHING: Breath sounds equal CIRCULATION: PT/DP 2+, Radials 2+, Femoral 2+ DISABILITY: Eye: 4=Spontaneous Verbal: 5=Oriented and Converses Motor: 6=Obeys Commands Total GCS: 15=4 Resp Rate: 10 to 29=4 Syst BP: > than 89=4 REVISED TRAUMA SCORE: 12 EXPOSE / ENVIRONMENT: Not Applicable PROCEDURES: C-collar placed SECONDARY SURVEY VITALS: 02/10/24 1108 02/10/24 1200 02/10/24 1500 BP: 118/72 120/85 Pulse: (!) 98 (!) 103 (!) 101 Resp: 16 15 15 Temp: 36 ?C (96.8 ?F) SpO2: 95% 95% 95% Weight: 68 kg (150 lb) Height: 165.1 cm (5' 5) NEURO: Alert AND Oriented x 3, GCS 15, Cranial Nerves II-XII grossly Intact, Moves All Extremities, Weakness to bilateral upper extremities R>L, No Sensory Deficits. HEENT: Head: Laceration at crown of scalp just superior (more content not included)... Normal [facility] Humerus min 2 Viewson 2023 Humerus min 2 Views [facility] Imaging Services [address] [place], [place] [id number] Humerus min 2 Views MR#: [id number] Acct: [id number] Name: JENNIFER PRICE Rep #: [id number] : 1975 F 48 From: Javy zavala MD PCP: Care Physician,No Primary Status: REG ER Study: Humerus min 2 Views Date of Exam: 02/10/24 Exam# [id number] Ordering Dr: Endy Taveras DO [id number] EXAM: XR RIGHT HUMERUS, 2 OR MORE VIEWS CLINICAL INDICATION: pain TECHNIQUE: Frontal and lateral views of the right humerus. COMPARISON: No relevant prior studies available. FINDINGS: BONES/JOINTS: Unremarkable. No acute fracture. No subluxation. Normal alignment. Preservation of the joint space. No sclerotic or destructive changes observed. SOFT TISSUES: Unremarkable. No soft tissue swelling or gas. No radiopaque foreign body. OTHER: The visualized right ribs are intact. The visualized right lung is clear RAD/Humerus min 2 Views IMPRESSION: Negative right humerus x-rays. Electronically Signed: Javy Gibson MD at 7:18 EST , CC: Endy Taveras DO; No Primary Care Physician Job Interviewer: Signed Normal [facility] Humerus min 2 Views [facility] Imaging Services [address] [place] [address] Humerus min 2 Views MR#: [id number] Acct: [id number] Name: JENNIFER PRICE Rep #: [id number] : 1975 F 48 From: Javy zavala MD PCP: Care Physician,No Primary Status: REG ER Study: Humerus min 2 Views Date of Exam: 02/10/24 Exam# [id number] Ordering Dr: Endy Taveras DO [id number] EXAM: XR LEFT HUMERUS, 2 OR MORE VIEWS CLINICAL INDICATION: FALL TECHNIQUE: Frontal and lateral views of the left humerus. COMPARISON: No relevant prior studies available. FINDINGS: BONES/JOINTS: Unremarkable. No acute fracture. No subluxation. Normal alignment. Preservation of the joint space. No sclerotic or destructive changes observed. SOFT TISSUES: Unremarkable. No soft tissue swelling or gas. No radiopaque foreign body. RAD/Humerus min 2 Views IMPRESSION: Negative left humerus x-rays. Electronically Signed: Javy Gibson MD at 7:18 EST , CC: Endy Taveras DO; No Primary Care Physician Job Interviewer: Signed Normal [facility] Lipase SerPl-cCncon 02-10-20 24 Lipase [Catalytic activity/Vol] 8 U/L Low 16-61 [facility] Comment on above: Order Comment: Speci men Type: BLOOD SPECIMENOrdering Facility: [facility] Address: [address] [place] [address] Performed By: #### 3 040-3, 35113-7 ####[facility] LABORATORYCLIA [id number] [place] [address] [place] MRI CERVICAL SPINE WO IVCONo n 02-10-2024 MRI CERVICAL SPINE WO IVCON * * *Final Report* * * DATE OF EXAM: Feb 10 2024 1:46PM [facility] 0297 - MRI CERVICAL SPINE WO IVCON / PROCEDURE REASON: Spinal cord injury, follow up * * * * Physician Interpretation * * * * EXAMINATION: MRI CERVICAL SPINE WO IVCON, MRI THORACIC SPINE WO IVCON CLINICAL HISTORY: Spinal cord injury, follow up. Trauma, paresthesia TECHNIQUE: Routine cervical and thoracic spine MR protocol without gadolinium. MQ: MRCTWO_3 COMPARISON: Nondiagnostic CT cervical 02/10/2024 month side centimeter RESULT: CERVICAL: Counting reference: Craniocervical junction. Anatomic Variants: None. Localizer images: Alignment: Alignment is anatomic. Craniocervical junction: Craniocervical junction is normal. Cord: The cervical spinal cord is within normal limits of signal intensity and morphology. Bone marrow signal/fracture: No evidence of pathologic marrow infiltration. Normal vertebral body height without abnormal signal. At T2 sagittal image 4/STIR sagittal image 4, increased fluid in the right C3-4 facet joint with suggestion linear fluid at the level the right C4 facet which may represent facet injury and possible facet fracture. Cervical soft tissues: Nonspecific edematous changes of the dorsal soft tissues may be related to posterior ligamentous injury . Prevertebral fluid extending from C4 to C7 level C2-C3: Canal and foramina are patent. C3-C4: Severe degree of central canal and mild foraminal stenosis secondary disc osteophyte complex C4-C5: Moderate degree of central canal and mild bilateral foraminal stenosis C5-C6: Severe degree of central canal and moderate degree right foraminal stenosis C6-C7: Moderate degree of central canal and left foraminal stenosis C7-T1: Canal and foramina are patent. THORACIC: Counting reference: Cervical thoracic junction Localizer images: Unremarkable. Alignment: Alignment is anatomic. Cord: The thoracic spinal cord is within normal limits of signal intensity and morphology. Bone marrow signal/fracture: No evidence of pathologic marrow infiltration. No evidence of acute or prior fracture. Thoracic soft tissues: The paraspinal soft tissues are within normal limits. Canal and foramina: The thoracic canal and foramina are patent within the constraints of the study. IMPRESSION: 1. At T2 sagittal image 4/STIR sagittal image 4, increased fluid in the right C3-4 facet joint with suggestion linear fluid at the level of the right C4 facet which may represent facet injury and possible facet fracture. Coexisting prevertebral fluid as well as nonspecific edematous changes dorsal to the C3-4 vertebrae 2. Abnormal signal intrinsically involving the spinal cord from C3 to C6 level most likely acute cord contusion at the C3-4 and C5-6 levels superimposed on poststenotic myelomalacia changes. No MRI evidence of a ventral or dorsal epidural hematoma 3. Severe degree of central canal stenosis C3-4 and C5-6 levels. 4. Unremarkable MRI thoracic spine Repeat CT cervical spine is recommended to evaluate for fracture with attention to the right C4 facet Cervical Anatomic Variant: None. Assume 7 cervical vertebrae with counting from the craniocervical junction. URGENT RESULTS Acuity: Urgent Communication: Communicated with Dr. Baez on 1422 hours via verbal communication. --END OF FINDING-- Job Interviewer: MARIA E Transcribe Date/Time: Feb 10 2024 2:14P Dictated by : ALLISON LONG MD This examination was interpreted and the report reviewed and electronically signed by: ALLISON LONG MD on Feb 10 2024 2:31PM EST [id number] Normal [facility] MRI THORACIC SPINE WO IVCONo n 02-10-2024 MRI THORACIC SPINE WO IVCON * * *Final Report* * * DATE OF EXAM: Feb 10 2024 1:46PM [facility] 0325 - MRI THORACIC SPINE WO IVCON / PROCEDURE REASON: Spinal cord injury, follow up * * * * Physician Interpretation * * * * EXAMINATION: MRI CERVICAL SPINE WO IVCON, MRI THORACIC SPINE WO IVCON CLINICAL HISTORY: Spinal cord injury, follow up. Trauma, paresthesia TECHNIQUE: Routine cervical and thoracic spine MR protocol without gadolinium. MQ: MRCTWO_3 COMPARISON: Nondiagnostic CT cervical 02/10/2024 month side centimeter RESULT: CERVICAL: Counting reference: Craniocervical junction. Anatomic Variants: None. Localizer images: Alignment: Alignment is anatomic. Craniocervical junction: Craniocervical junction is normal. Cord: The cervical spinal cord is within normal limits of signal intensity and morphology. Bone marrow signal/fracture: No evidence of pathologic marrow infiltration. Normal vertebral body height without abnormal signal. At T2 sagittal image 4/STIR sagittal image 4, increased fluid in the right C3-4 facet joint with suggestion linear fluid at the level the right C4 facet which may represent facet injury and possible facet fracture. Cervical soft tissues: Nonspecific edematous changes of the dorsal soft tissues may be related to posterior ligamentous injury . Prevertebral fluid extending from C4 to C7 level C2-C3: Canal and foramina are patent. C3-C4: Severe degree of central canal and mild foraminal stenosis secondary disc osteophyte complex C4-C5: Moderate degree of central canal and mild bilateral foraminal stenosis C5-C6: Severe degree of central canal and moderate degree right foraminal stenosis C6-C7: Moderate degree of central canal and left foraminal stenosis C7-T1: Canal and foramina are patent. THORACIC: Counting reference: Cervical thoracic junction Localizer images: Unremarkable. Alignment: Alignment is anatomic. Cord: The thoracic spinal cord is within normal limits of signal intensity and morphology. Bone marrow signal/fracture: No evidence of pathologic marrow infiltration. No evidence of acute or prior fracture. Thoracic soft tissues: The paraspinal soft tissues are within normal limits. Canal and foramina: The thoracic canal and foramina are patent within the constraints of the study. IMPRESSION: 1. At T2 sagittal image 4/STIR sagittal image 4, increased fluid in the right C3-4 facet joint with suggestion linear fluid at the level of the right C4 facet which may represent facet injury and possible facet fracture. Coexisting prevertebral fluid as well as nonspecific edematous changes dorsal to the C3-4 vertebrae 2. Abnormal signal intrinsically involving the spinal cord from C3 to C6 level most likely acute cord contusion at the C3-4 and C5-6 levels superimposed on poststenotic myelomalacia changes. No MRI evidence of a ventral or dorsal epidural hematoma 3. Severe degree of central canal stenosis C3-4 and C5-6 levels. 4. Unremarkable MRI thoracic spine Repeat CT cervical spine is recommended to evaluate for fracture with attention to the right C4 facet Cervical Anatomic Variant: None. Assume 7 cervical vertebrae with counting from the craniocervical junction. URGENT RESULTS Acuity: Urgent Communication: Communicated with Dr. Baez on 1422 hours via verbal communication. --END OF FINDING-- Job Interviewer: PSCB Transcribe Date/Time: Feb 10 2024 2:14P Dictated by : ALLISON LONG MD This examination was interpreted and the report reviewed and electronically signed by: ALLISON LONG MD on Feb 10 2024 2:31PM EST [id number] Normal [facility] OPERATIVE NOon 02-10-2024 OPERATIVE NO HNO ID: [id number] Author: CELSO KNOWLES MD Service: Orthopaedic Surgery Author Type: Physician Type: Operative Report Filed: 02/11/2024 17:08 Note Text: Orthopaedic Surgery Operative Report Patient Name: Jennifer Price Log ID: [id number] Surgery/Procedure Date: 02/10/2024 Incision/Procedure Start Time: 11:31 PM Incision Close/Procedure End Time: 2:16 AM Surgeon(s): Celso Knowles MD Copy Lathe Operator(s): Surgeons and Role: * Celso Knowles MD - Primary * Esequiel Jeffries MD - Resident - Assisting No Additional Staff Pre-Op/Pre-Procedure Diagnosis: Cervical spinal stenosis with cord compression Incomplete cervical spinal cord injury (central cord syndrome) Post-Op/Post-Procedur e Diagnosis: Same Anesthesia: General Procedure(s) in Summary: C2-T2 posterior spinal fusion with instrumentation C3-6 laminectomy Application/removal of Walter head stabilization system Intraoperative neuromonitoring Instrumentation: Globus Quartex Operative Procedure: The patient was identified in the preoperative holding area. Consent and surgical level were verified. The risks, benefits, and alternatives of surgery were reviewed, and the patient accepted and desired to proceed. All questions were answered, and no guarantees were given or implied. The patient voiced an understanding of the surgical plan and postoperative care. The patient was brought into the operating theater where anesthesia was induced. Line access was performed. Neuromonitoring, including MEPs and SSEPs, was set up and followed for the duration of the procedure. The patient head was stabilized using the [place] cranial stabilization system. The patient was positioned prone. Care was taken to pad all bony prominences from the head, upper extremities, trunk, and lower extremities. The patient was prepped and draped in the standard surgical fashion. A time-out was performed with the attending physicians present from both Anesthesia and Surgery, as well as the nursing staff members. Images were reviewed and surgical level and plan confirmed. Antibiotics were administered, and we proceeded with the surgery. A cosmetic, linear incision was made centered over the spinous processes of C2 to T2. Sharp and blunt dissection was carried out down to the deep fascia. We began to dissect the spine in a subperiosteal fashion from the spinous processes down laterally to the laminas, extending laterally to expose the lateral masses in the cervical spine and transverse processes in the thoracic spine. Hemostasis was achieved throughout the case with bovie, bipolar electrocautery, injectable gelfoam, and gelfoam/thrombin. Fluoroscopy was utilized to confirm the surgical levels of interest. Once the exposure was completed, our attention was next turned to our posterior segmental instrumentation from C2 to T2. We first performed facetectomies at those levels bilaterally. Magerl lateral mass screw technique was utilized for lateral mass screws placed at C3-6, while pedicle screws were placed at T1-2. Pars screws were placed at C2 bilaterally. Each lateral mass screw was carefully measured and placed utilizing sequential drilling and probing. Each pedicle screw was carefully placed utilizing a pedicle finder. After an appropriate depth was reached, a ball-tip probe was used to ensure no cortical violation of the lateral masses or pedicles was present. Each screw was then advanced by hand to appropriate depth. Fluoroscopy was used to confirm satisfactory placement of the screws. Our attention was then turned to the decompression. New decompression was performed at C3-6 levelsr. We performed cervical laminectomy, facetectomy, and foraminotomy at the abovementioned levels. A bur was used to perform the laminectomy, and the laminas were removed en bloc in a lobster tail fashion, taking care to free all adhesions from the dura. We then used a Kerrison rongeur to complete our foraminotomies and used a nerve hook to ensure adequate decompression of the exiting nerve roots. Rods were then cut and contoured. These were placed into the screw tulips and provisionally tightened. A final hris developer was then used. Copious irrigation was undertaken with normal saline and Betadine saline solution. The posterior elements from C2 to T2 were decorticated. Local autograft and morselized allograft bone was placed for posterolateral spinal fusion at these levels after decortication of the posterior bony elements. A deep drain was placed. Vancomycin powder was applied in the wound. The wound was closed in layers. The muscles were approximated with interrupted 0-Ethibond. The fascia was closed with jgkdad-aw-dmyrj 0-Ethibond, followed by inverted 2-0 Vicryl dermal stitches and a running 2-0 Nylon for skin closure. A sterile dressing was applied. The patient was flipped supine, and the Walter was then removed. The patient was aw (more content not included)... Normal [facility] PT panel Coag (PPP)on 2023 INR Coag (PPP) [Relative time] 1.2 {INR} Normal 0.9-1.3 [facility] Comment on above: Order Comment: Speci men Type: BLOOD SPECIMENOrdering Facility: [facility] Address: [facility] [address], [place] [id number] Result Comment: Cami min K Antagonist (VKA) Therapeutic Range: INR 2 to 3 (Target INR of 2.5) Note: For patients treated with VKA drugs, such as warfarin, the [place] [employer] 2012 Guideline recommends a therapeutic INR range of 2 to 3 (target INR of 2.5). This recommendation includes high-risk patients with antiphospholipid syndrome with previous arterial or venous thromboembolism, current-generation mechanical or bioprosthetic aortic heart valve replacement. Note: Patients with mechanical aortic valve replacement and additional risk factors for thromboembolic events (atrial fibrillation, previous thromboembolism, LV dysfunction, hypercoagulable conditions) or an older generation mechanical AVR (i.e., ball in-Cage) or any mechanical MVR should have a INR therapeutic range of 2.5 to 3.5 (target INR of 3). Rosalind GH, et al. Chest 2012, 141:7S-47S Rosi PINEDO et al. JAC 2017, 70: 252-289 Performed By: #### 1 4979-9, 72310-6 ####[facility] LABORATORYCLIA [id number] [place] [address] [place] PT Coag (PPP) [Time] 13.0 s Normal 9.7-13.0 [facility] Comment on above: Order Comment: Speci men Type: BLOOD SPECIMENOrdering Facility: [facility] Address: [facility] [place] [address] Performed By: #### 1 4979-9, 15806-3 ####[facility] LABORATORYCLIA [id number] [place] [address] [facility] Partial Thromboplast Timeon 02-10-2024 aPTT Coag (Bld) [Time] 31.9 s Normal 24.1-36.2 [facility] Comment on above: Performed By: #### L 505.5000, L300.3900, L501.9100, L500.2500, L300.4310, L100.0100 #### [facility] [address] [place], [address] Pelvis 1 or 2 Viewson 2023 Pelvis 1 or 2 Views [facility] Imaging Services [address] [place] [address] Pelvis 1 or 2 Views MR#: [id number] Acct: [id number] Name: JENNIFER PRICE Andre Rep #: [id number] : 1975 F 48 From: Javy zavala MD PCP: Care Physician,No Primary Status: REG ER Study: Pelvis 1 or 2 Views Date of Exam: 02/10/24 Exam# [id number] Ordering Dr: Endy Taveras DO [id number] EXAM: XR PELVIS, 1 OR 2 VIEWS CLINICAL INDICATION: fall TECHNIQUE: Frontal view of the pelvis. COMPARISON: No relevant prior studies available. FINDINGS: BONES/JOINTS: Unremarkable. No displaced fracture. No destructive or sclerotic lesions. Note that overlapping bowel shadows may however obscure fine detail. Sacroiliac joints are unremarkable. No widening of the pubic symphysis. The articular structures are unremarkable. SOFT TISSUES: Unremarkable. No soft tissue swelling or gas. RAD/Pelvis 1 or 2 Views IMPRESSION: No acute fracture or dislocation. Electronically Signed: Javy Gibson MD at 7:20 EST , CC: Endy Taveras DO; No Primary Care Physician Job Interviewer: Signed Normal [facility] Prothrombin Time w/INRon INR Coag (PPP) [Relative time] 1.2 {INR} Normal [facility] Comment on above: Performed By: #### L 505.5000, L300.3900, L501.9100, L500.2500, L300.4310, L100.0100 #### [facility] [address] [place], [address] PT Coag (PPP) [Time] 14.9 s Normal 11.7-14.9 [facility] Comment on above: Performed By: #### L 505.5000, L300.3900, L501.9100, L500.2500, L300.4310, L100.0100 #### [facility] [address] [place], [address] Sinus/Facial Boneon 02-10-20 Sinus/Facial Bone [facility] Imaging Services [address] [place] [address] Sinus/Facial Bone MR#: [id number] Acct: [id number] Name: JENNIFER PRICE Rep #: [id number] : 1975 F 48 From: Javy zavala MD PCP: Care Physician,No Primary Status: REG ER Study: Sinus/Facial Bone Date of Exam: 02/10/24 Exam# [id number] Ordering Dr: Endy Taveras DO [id number] EXAM: CT MAXILLOFACIAL WITHOUT INTRAVENOUS CONTRAST CLINICAL INDICATION: head injury TECHNIQUE: Helically acquired images were obtained of the face without intravenous contrast. This CT exam was performed using one or more of the following dose reduction techniques: automated exposure control, adjustment of the mA and/or kV according to patient size, and/or use of iterative reconstruction technique. RADIATION DOSE: Total DLP: 1162.86 mGy-cm. COMPARISON: Cranial and cervical CT of this date. FINDINGS: BONES/JOINTS: There is slight irregularity of the distal tip of the nasal bone, consistent with old fracture. No acute facial bone fracture is identified. No discrete lytic or blastic abnormalities. No TMJ dislocation. SOFT TISSUES: Unremarkable. No focal subcutaneous swelling. No discrete fluid collections. ORBITS: Unremarkable. Both globes are unremarkable. Extraocular muscles are normal. Retrobulbar fat appears unremarkable. SINUSES: Mucosal thickening again noted at the base of both maxillary antra, right greater than left, with a right maxillary air-fluid level. Additional mucosal thickening noted within the anterior ethmoid air cells and extending into the inferior frontal sinuses. Minimal mucosal thickening noted within the sphenoid sinuses. MASTOID AIR CELLS: Unremarkable as visualized. Clear. DENTAL: Findings of periodontal disease and dental caries are noted. CT/Sinus/Facial Bone IMPRESSION: No acute facial bone fracture. Sinusitis. Dental caries and periodontal disease. Electronically Signed: Javy Gibson MD at 7:14 EST , CC: Endy Taveras DO; No Primary Care Physician Job Interviewer: Signed Normal [facility] Spine Cervical without Contr ason 02-10-2024 Spine Cervical without Contras [facility] Imaging Services [address] [place] [address] Spine Cervical without Contras MR#: [id number] Acct: [id number] Name: JENNIFER PRICE Rep #: [id number] : 1975 F 48 From: Javy zavala MD PCP: Care Physician,No Primary Status: REG ER Study: Spine Cervical without Contras Date of Exam: 04/11/23 Exam# [id number] Ordering Dr: Endy Taveras DO [id number] EXAM: CT CERVICAL SPINE WITHOUT INTRAVENOUS CONTRAST CLINICAL INDICATION: head injury TECHNIQUE: Helically acquired images were obtained of the cervical spine without intravenous contrast. 2D reformatted images were reviewed. This CT exam was performed using one or more of the following dose reduction techniques: automated exposure control, adjustment of the mA and/or kV according to patient size, and/or use of iterative reconstruction technique. RADIATION DOSE: Total DLP: 416.16 mGy-cm. COMPARISON: No relevant prior studies available. FINDINGS: LIMITATIONS: Multiple sets of images are obtained in an effort to include the entire cervical spine within the [id number]. Patient is tilted to the left. VERTEBRAE: Reversal of normal cervical lordosis is present due to patient positioning or muscle spasm. No compression fracture, posterior element fracture or facet dislocation. The odontoid is intact. Mild cervical facet arthritis is noted. DISCS/SPINAL CANAL/NEURAL FORAMINA: C5/6 and C6/7 disc spaces show degenerative narrowing with marginal osteophytes and uncinate hypertrophy. Broad-based annular bulges and posterior osteophytes mildly flatten the ventral aspect of the thecal sac at the degenerated levels ; uncinate hypertrophy causes left-sided neural foraminal encroachment at the C6/7 level. OTHER BONES/JOINTS: Mucosal thickening noted of the base of both maxillary antra, right greater than left, with a right maxillary air-fluid level. SOFT TISSUES: No precervical soft tissue swelling. MASTOID AIR CELLS: Visualized mastoid air cells are clear. DENTAL: Findings of periodontal disease and dental caries are demonstrated. LUNG APICES: No apical pneumothorax is identified. Visualized upper ribs and medial clavicles are intact. CT/Spine Cervical without Contras IMPRESSION: 1. Limited study. 2. Lower cervical degenerative disc disease. 3. No acute fracture or subluxation identified. Electronically Signed: Javy Gibson MD at 7:09 EST , CC: Endy Taveras DO; No Primary Care Physician Job Interviewer: Signed Normal [facility] TOXICOLOGY SCREEN, ROUTINE U RINEon 02-10-2024 Amphetamines Confirm (U) [Mass/Vol] Negative Normal Negative [facility] Comment on above: Order Comment: Speci men Type: URINE SPECIMENOrdering Facility: [facility] Address: [address] [place] [address] Result Comment: Cuto ff threshold at 1000 ng/mL. Performed By: #### U TOX2 ####[facility]ORY[facility]IA [id number] [place] [address] [place] BARBITURATES, URINE Negative Normal Negative [facility] Comment on above: Order Comment: Speci men Type: URINE SPECIMENOrdering Facility: [facility] Address: [address] [place] [address] Result Comment: Cuto ff threshold at 200 ng/mL. Performed By: #### U TOX2 ####[facility]ORYCLIA [id number] [place] [address] [place] BENZODIAZEPINES, UR Positive Abnormal Negative [facility] Comment on above: Order Comment: Speci men Type: URINE SPECIMENOrdering Facility: [facility] Address: [address] [place] [address] Result Comment: Cuto ff threshold at 200 ng/mL. Performed By: #### U TOX2 ####[facility]ORYCLIA [id number] [place] [address] [place] Cannabinoids Screen Ql (U) Positive Abnormal Negative [facility] Comment on above: Order Comment: Speci men Type: URINE SPECIMENOrdering Facility: [facility] Address: [address] [place] [address] Result Comment: Cuto ff threshold at 50 ng/mL. Performed By: #### U TOX2 ####[facility]ORYCLIA [id number] [place] [address] [place] Cocaine Ql (U) Negative Normal Negative [facility] Comment on above: Order Comment: Speci men Type: URINE SPECIMENOrdering Facility: [facility] Address: [address] [place] [address] Result Comment: Cuto ff threshold at 300 ng/mL. Performed By: #### U TOX2 ####[facility]ORYCLIA [id number] [address] [place] Ethanol (U) [Mass/Vol] <11 Normal <11 [facility] Comment on above: Order Comment: Speci men Type: URINE SPECIMENOrdering Facility: [facility] Address: [address] [place] [address] Performed By: #### U TOX2 ####[facility] LABORATORYCLIA [id number] [address] Opiates Screen Ql (U) Negative Normal Negative [facility] Comment on above: Order Comment: Speci men Type: URINE SPECIMENOrdering Facility: [facility] Address: [address] [place] [address] Result Comment: Cuto ff threshold at 300 ng/mL. Performed By: #### U TOX2 ####[facility] LABORATORYCLIA [id number] [address] oxyCODONE cutoff Screen (U) [Mass/Vol] Negative Normal Negative [facility] Comment on above: Order Comment: Speci men Type: URINE SPECIMENOrdering Facility: [facility] Address: [address] [place] [address] Result Comment: Cuto ff threshold at 100 ng/mL. Performed By: #### U TOX2 ####[facility] LABORATORYCLIA [id number] [address] Phencyclidine Ql (U) Negative Normal Negative [facility] Comment on above: Order Comment: Speci men Type: URINE SPECIMENOrdering Facility: [facility] Address: [address] [place] [address] Result Comment: Cuto ff threshold at 25 ng/mL. Performed By: #### U TOX2 ####[facility]ORYCLIA [id number] [address] [place] TYPE + SCREENon 02-10-2024 ABO A Normal [facility] Comment on above: Order Comment: Speci men Type: BLOOD SPECIMEN [facility] Address: [address] [place] [address] Performed By: #### T SCR #### [facility] CLIA [id number] [address] Rh Nom (Bld) Positive Normal [facility] Comment on above: Order Comment: Speci men Type: BLOOD SPECIMEN [facility] Address: [address] [place] [address] Performed By: #### T SCR #### [facility] CLIA [id number] [address] TYPE AND SCREEN EXPIRATION 02/13/2024 23:59 Normal [facility] Comment on above: Order Comment: Speci men Type: BLOOD SPECIMEN [facility] Address: [address] [place] [address] Performed By: #### T SCR #### [facility] CLIA [id number] [address] Urinalysis complete panel (U )on 02-10-2024 Bacteria LM.HPF (Urine sed) [#/Area] Moderate Abnormal None Seen [facility] Comment on above: Order Comment: Speci men Type: URINE SPECIMENOrdering Facility: [facility] Address: [address] [place] [address] Performed By: #### 2 4356-8 ####[facility] LABORATORYCLIA [id number] [address] Bilirubin Ql (U) Negative Normal Negative [facility] Comment on above: Order Comment: Speci men Type: URINE SPECIMENOrdering Facility: [facility] Address: [address] [place] [address] Performed By: #### 2 4356-8 ####[facility] LABORATORYCLIA [id number] [address] Clarity (Unsp spec) Turbid Abnormal Clear [facility] Comment on above: Order Comment: Speci men Type: URINE SPECIMENOrdering Facility: [facility] Address: [address] [place] [address] Performed By: #### 2 4356-8 ####[facility] LABORATORYCLIA [id number] [address] [place] Color (U) Yellow Normal yellow [facility] Comment on above: Order Comment: Speci men Type: URINE SPECIMENOrdering Facility: [facility] Address: [address] [place] [address] Performed By: #### 2 4356-8 ####[facility] LABORATORYCLIA [id number] [address] Epithelial cells LM.HPF (Urine sed) [#/Area] Few Normal [facility] Comment on above: Order Comment: Speci men Type: URINE SPECIMENOrdering Facility: [facility] Address: [address] [place] [address] Performed By: #### 2 4356-8 ####[facility] LABORATORYCLIA [id number] [address] [place] Glucose Test strip (U) [Mass/Vol] Negative Normal Trace, Negative [facility] Comment on above: Order Comment: Speci men Type: URINE SPECIMENOrdering Facility: [facility] Address: [address] [place] [address] Performed By: #### 2 4356-8 ####[facility] LABORATORYCLIA [id number] [place] [address] [place] Hemoglobin Ql (U) Negative Normal Negative, Trace [facility] Comment on above: Order Comment: Speci men Type: URINE SPECIMENOrdering Facility: [facility] Address: [address] [place] [address] Performed By: #### 2 4356-8 ####[facility] LABORATORYCLIA [id number] [address] [place] Ketones Ql (U) 2+ Abnormal Negative, Trace [facility] Comment on above: Order Comment: Speci men Type: URINE SPECIMENOrdering Facility: [facility] Address: [address] [place] [address] Performed By: #### 2 4356-8 ####[facility] LABORATORYCLIA [id number] [address] Leukocyte esterase Test strip Ql (U) Negative Normal Negative, 25 Vesta/uL [facility] Comment on above: Order Comment: Speci men Type: URINE SPECIMENOrdering Facility: [facility] Address: [address] [place] [address] Performed By: #### 2 4356-8 ####[facility]ORATORYCLIA [id number] [address] Nitrite Ql (U) Negative Normal Negative [facility] Comment on above: Order Comment: Speci men Type: URINE SPECIMENOrdering Facility: [facility] Address: [address] [place] [address] Performed By: #### 2 4356-8 ####[facility]ORATORYCLIA [id number] [address] [place] pH (U) 7.0 [pH] Normal 5.0-8.0 [facility] Comment on above: Order Comment: Speci men Type: URINE SPECIMENOrdering Facility: [facility] Address: [address] [place] [address] Performed By: #### 2 4356-8 ####[facility]ORATORYCLIA [id number] [address] Protein (U) [Mass/Vol] Trace Normal Trace , Negative [facility] Comment on above: Order Comment: Speci men Type: URINE SPECIMENOrdering Facility: [facility] Address: [address] [place] [address] Performed By: #### 2 4356-8 ####[facility]ORATORYCLIA [id number] [address] [place] RBC LM.HPF (Urine sed) [#/Area] 0-3 /HPF Normal 0-3 /HPF [facility] Comment on above: Order Comment: Speci men Type: URINE SPECIMENOrdering Facility: [facility] Address: [address] [place] [address] Performed By: #### 2 4356-8 ####[facility] LABORATORYCLIA [id number] [place] [id number] [place] Specific gravity (U) [Rel density] 1.024 Normal 1.005-1.030 [facility] Comment on above: Order Comment: Speci men Type: URINE SPECIMENOrdering Facility: [facility] Address: [address] [place] [address] Performed By: #### 2 4356-8 ####[facility]ORATORYCLIA [id number] [place] [id number] [place] Urobilinogen Ql (U) 1+ Abnormal Normal [facility] Comment on above: Order Comment: Speci men Type: URINE SPECIMENOrdering Facility: [facility] Address: [address] [place] [address] Performed By: #### 2 4356-8 ####[facility] LABORATORYCLIA [id number] [place] [id number] [place] WBC LM.HPF (Urine sed) [#/Area] 0-5 /HPF Normal 0-5 /HPF [facility] Comment on above: Order Comment: Speci men Type: URINE SPECIMENOrdering Facility: [facility] Address: [address] [place] [address] Performed By: #### 2 4356-8 ####[facility] LABORATORYCLIA [id number] [place] [address] [place] Urine Drug Screen (VISTA)on 02-10-2024 AMPHETAMINES Positive Abnormal <1000 ng/mL [facility] Comment on above: Performed By: #### L 505.5000, L300.3900, L501.9100, L500.2500, L300.4310, L100.0100 #### [facility] [address] [place], [address] BARBITIURATES Negative Normal < 200 ng/mL [facility] Comment on above: Performed By: #### L 505.5000, L300.3900, L501.9100, L500.2500, L300.4310, L100.0100 #### [facility] [address] [place] [address] BENZODIAZIPINE Negative Normal < 200 ng/mL [facility] Comment on above: Performed By: #### L 505.5000, L300.3900, L501.9100, L500.2500, L300.4310, L100.0100 #### [facility] [address] [place] [address] COCAINE Negative Normal < 300 ng/mL [facility] Comment on above: Performed By: #### L 505.5000, L300.3900, L501.9100, L500.2500, L300.4310, L100.0100 #### [facility] [address] [place] [address] ECSTACY Positive Abnormal < 500 ng/mL [facility] Comment on above: Performed By: #### L 505.5000, L300.3900, L501.9100, L500.2500, L300.4310, L100.0100 #### [facility] [place] [address] METHADONE Negative Normal < 300 ng/mL [facility] Comment on above: Performed By: #### L 505.5000, L300.3900, L501.9100, L500.2500, L300.4310, L100.0100 #### [facility] [address] [place] [address] OPIATES Positive Abnormal < 300 ng/mL [facility] Comment on above: Performed By: #### L 505.5000, L300.3900, L501.9100, L500.2500, L300.4310, L100.0100 #### [facility] [address] [place], [address] PCP Negative Normal < 25 ng/mL [facility] Comment on above: Performed By: #### L 505.5000, L300.3900, L501.9100, L500.2500, L300.4310, L100.0100 #### [facility] [address] [place], [address] THC Positive Abnormal < 50 ng/mL [facility] Comment on above: Performed By: #### L 505.5000, L300.3900, L501.9100, L500.2500, L300.4310, L100.0100 #### [facility] [address] [place], [address] VISTA UDS PH 6 Normal [facility] Comment on above: Performed By: #### L 505.5000, L300.3900, L501.9100, L500.2500, L300.4310, L100.0100 #### [facility] [address] [place], [address] XR CERVICAL 2V AP/LATon 11-2 XR CERVICAL 2V AP/LAT * * *Final Report* * * DATE OF EXAM: Feb 10 2024 5:05PM AKX [id number] - XR CERVICAL 2V AP/LAT / PROCEDURE REASON: Trauma * * * * Physician Interpretation * * * * EXAM: XR CERVICAL 2V AP/LAT HISTORY: Trauma COMPARISON: None available FINDINGS: There is straightening of the normal cervical lordosis, likely due to spasm or positioning. No prevertebral soft tissue swelling. Vertebral body heights are maintained. Minimal reactive endplate changes are present. IMPRESSION: No traumatic subluxation or fracture in the cervical spine. Job Interviewer: PSCB Transcribe Date/Time: Feb 10 2024 6:06P Dictated by : JESUS MINOR MD This examination was interpreted and the report reviewed and electronically signed by: JESUS MINOR MD on Feb 10 2024 6:08PM EST [id number] N Normal [facility] aPTT PPPon 02-10-2024 aPTT Coag (PPP) [Time] 31.9 s Normal 23.0-32.4 [facility] Comment on above: Order Comment: Speci men Type: BLOOD SPECIMENOrdering Facility: [facility] Address: [address] [place] [address] Performed By: #### 1 4979-9, 72783-4 ####[facility] LABORATORYCLIA [id number] [place] [address] [place] [facility] Absolute lymphocyte countOrd ered By: Rex Pedersen on 02-24-2023 Lymphocytes Auto (Unsp spec) [#/Vol] 1.57 10*3/uL 0.83-4.51 [facility] Basophil percentageOrdered B y: eRx Pedersen on 02-24-2023 Basophils/100 WBC (Bld) 0.5 % 0-1 [facility] Bilirubin [Mass/Vol] 0.60 mg/dL 0.20-1.00 [facility] Comment on above: For patients on eltr ombopag therapy, use of Dimension [place] TBIL is not recommended. Chloride [Moles/Vol] 103 mmol/L 98-107 [facility] Eosinophils/100 WBC (Bld) 0.7 % 0-5 [facility] Glucose [Mass/Vol] 137 mg/dL 74-106 [facility] Comment on above: Fasting Glucose resu lt greater than or equal to 126 mg/dL suggests DIABETES MELLITUS per A.D.A. criteria. Lactate [Moles/Vol] 2.0 mmol/L 0.4-2.0 [facility] Comment on above: Critical Result(s) C alled at: 11:06:33 02/24/2023 by: Briana Bishop. Results read back by same. Neutrophils (Bld) [#/Vol] 12.4 10*3/uL 2.0-7.7 [facility] Neutrophils/100 WBC (Bld) 84.6 % 47-70 [facility] Potassium [Moles/Vol] 3.4 mmol/L 3.5-5.1 [facility] Protein [Mass/Vol] 7.5 g/dL 6.4-8.2 [facility] Sodium [Moles/Vol] 136 mmol/L 136-145 [facility] WBC (Bld) [#/Vol] 14.7 10*3/uL 4.4-11.0 [facility] Blood erythrocytes count (nu mber/volume)Ordered By: Rex Pedersen on 02-24-2023 RBC (Bld) [#/Vol] 5.04 10*6/uL 4.2-5.4 [facility] Blood hemoglobin measurement (mass/volume)Ordered By: Rex Pedersen on 02-24-2023 Hemoglobin (Bld) [Mass/Vol] 15.1 g/dL 12.0-15.0 [facility] Blood lymphocytes/100 leukoc ytesOrdered By: Rex Pedersen on 02-24-2023 Lymphocytes/100 WBC (Bld) 10.7 % 19-41 [facility] Blood monocytes/100 leukocyt esOrdered By: Rex Pedersen on 02-24-2023 Monocytes/100 WBC (Bld) 3.1 % 0-10 [facility] Blood platelet mean volumeOr dered By: Rex Pedersen on 02-24-2023 Platelet mean volume (Bld) [Entitic vol] 10.1 fL 6.2-12.0 [facility] Determination of erythrocyte mean corpuscular volume (MCV)Ordered By: Rex Pedersen on 02-24-2023 MCV (RBC) [Entitic vol] 89.9 fL 81-99 [facility] Comment on above: Delta: 99.6 on 02/22-1249 Hematocrit Auto (Bld) [Volum e fraction]Ordered By: Rex Pedersen on 02-24-2023 Hematocrit (Bld) [Volume fraction] 45.3 % 37-47 [facility] - Chemistry and C hemistry - challengeOrdered By: Rex Pedersen on 02-24-2023 ALP [Catalytic activity/Vol] 35 U/L 45-117 [facility] ALT [Catalytic activity/Vol] 23 U/L 13-56 [facility] CO2 [Moles/Vol] 22.0 mmol/L 21.0-32.0 [facility] Globulin (S) [Mass/Vol] 3.4 g/dL 2.2-4.2 [facility] Lipase [Catalytic activity/Vol] 13 U/L 13-75 [facility] Comment on above: Please note:LIPASE r evised reference range effective 22. New Lipase methodology. Expected to produce lower values than the previous assay method. NEW Reference Range: 13 - 75 U/L Urea nitrogen/Creatinine [Mass ratio] 11.0 mg/mg 10-20 [facility] - Hematology and Cell countsOrdered By: Rex Pedersen on 02-24-2023 Erythrocyte distribution width (RBC) [Entitic vol] 43.0 fL 35.1-43.9 [facility] Erythrocyte distribution width (RBC) [Ratio] 13.0 % 11.6-14.6 [facility] Immature granulocytes/100 WBC (Bld) 0.400 % 0.0-0.9 [facility] Comment on above: IG% - Immature Granu locytes (promyelocytes, myelocytes and metamyelocytes) > 1% indicates that a LEFT SHIFT is Present. MCH (RBC) [Entitic mass] 30.0 pg 27.0-32.0 [facility] Nucleated RBC/100 WBC (Bld) [Ratio] 0 % 0-5 [facility] MCHC Auto (RBC) [Mass/Vol]Or dered By: Rex Pedersen on 02-24-2023 MCHC (RBC) [Mass/Vol] 33.3 g/dL 32-36 [facility] Comment on above: Delta: 30.5 on 02/22-1249 No Panel InformationOrdered By: Rex Pedersen on 02-24-2023 Estimated Creatinine Clearance Calc 77.96 ml/min [facility] Estimated GFR (MDRD) Amer 97 mL/min >60 [facility] Comment on above: GFR Calc Estimated GFR (MDRD) Non-Af Amer 80 mL/min >60 [facility] Comment on above: Non- GFR Calc Platelets bldOrdered By: aFrhad Pedersen on 02-24-2023 Platelets (Bld) [#/Vol] 279 10*3/uL 150-450 [facility] Serum or plasma albumin bonnie urement (mass/volume)Ordered By: Rex Pedersen on 02-24-2023 Albumin [Mass/Vol] 4.1 g/dL 3.2-5.0 [facility] Serum or plasma albumin/glob ulin mass ratioOrdered By: Rex Pedersen on 02-24-2023 Albumin/Globulin [Mass ratio] 1.2 {ratio} 0.9-2.4 [facility] Serum or plasma calcium bonnie urement (mass/volume)Ordered By: Rex Pedersen on 02-24-2023 Calcium [Mass/Vol] 9.2 mg/dL 8.5-10.1 [facility] Serum or plasma creatinine m easurement (mass/volume)Ordered By: Rex Pedersen on 02-24-2023 Creatinine [Mass/Vol] 0.82 mg/dL 0.55-1.02 [facility] Comment on above: The validity of the calculated GFR & GFRAA in patients over 70 years has not been determined. Clinical correlation is essential. Serum or plasma urea nitroge n measurement (mass/volume)Ordered By: Rex Slava on 02-24-2023 Urea nitrogen [Mass/Vol] 9 mg/dL 7-18 [facility] Thin prep Papanicolaou smear with manual screeningOrdered By: Rex Slava on 02-24-2023 Thin prep Papanicolaou smear with manual screening 24 U/L 15-37 [facility] Thin prep Papanicolaou smear with manual screening 11 5-15 [facility] Absolute lymphocyte countOrd ered By: ED PROVIDER on 02-22-2023 Lymphocytes Auto (Unsp spec) [#/Vol] 1.18 10*3/uL 0.83-4.51 [facility] Basophil percentageOrdered B y: Serafin Cody on 02-22-2023 Basophil percentage 10-25 SEEN /hpf 0-5 [facility] Basophil percentageOrdered B y: ED PROVIDER on 02-22-2023 Chloride [Moles/Vol] 106 mmol/L 98-107 [facility] Glucose [Mass/Vol] 152 mg/dL 74-106 [facility] Comment on above: Fasting Glucose resu lt greater than or equal to 126 mg/dL suggests DIABETES MELLITUS per A.D.A. criteria. Potassium [Moles/Vol] 4.0 mmol/L 3.5-5.1 [facility] Comment on above: Slight Hemolysis, Re sult may be falsely increased. Sodium [Moles/Vol] 137 mmol/L 136-145 [facility] Basophils/100 WBC (Bld) 0.4 % 0-1 [facility] [place] Eosinophils/100 WBC (Bld) 0.1 % 0-5 [facility] Neutrophils (Bld) [#/Vol] 17.1 10*3/uL 2.0-7.7 [facility] Neutrophils/100 WBC (Bld) 90.3 % 47-70 [facility] WBC (Bld) [#/Vol] 18.9 10*3/uL 4.4-11.0 [facility] Bilirubin Test strip Ql (U)O rdered By: Serafin Cody on 02-22-2023 Bilirubin Ql (U) Negative Negative [facility] Blood erythrocytes count (nu mber/volume)Ordered By: ED PROVIDER on 02-22-2023 RBC (Bld) [#/Vol] 4.91 10*6/uL 4.2-5.4 [facility] Blood hemoglobin measurement (mass/volume)Ordered By: ED PROVIDER on 02-22-2023 Hemoglobin (Bld) [Mass/Vol] 14.9 g/dL 12.0-15.0 [facility] Blood lymphocytes/100 leukoc ytesOrdered By: ED PROVIDER on 02-22-2023 Lymphocytes/100 WBC (Bld) 6.2 % 19-41 [facility] Blood monocytes/100 leukocyt esOrdered By: ED PROVIDER on 02-22-2023 Monocytes/100 WBC (Bld) 2.5 % 0-10 [facility] Blood platelet mean volumeOr dered By: ED PROVIDER on 02-22-2023 Platelet mean volume (Bld) [Entitic vol] 10.8 fL 6.2-12.0 [facility] Determination of erythrocyte mean corpuscular volume (MCV)Ordered By: ED PROVIDER on 02-22-2023 MCV (RBC) [Entitic vol] 99.6 fL 81-99 [facility] [place] Hematocrit Auto (Bld) [Volum e fraction]Ordered By: ED PROVIDER on 02-22-2023 Hematocrit (Bld) [Volume fraction] 48.9 % 37-47 [facility] Ketones Test strip Ql (U)Ord ered By: Serafin Cody on 02-22-2023 Ketones Ql (U) 15 mg/dl Negative [facility] Laboratory - Chemistry and C hemistry - challengeOrdered By: ED PROVIDER on 02-22-2023 CO2 [Moles/Vol] 23.0 mmol/L 21.0-32.0 [facility] Urea nitrogen/Creatinine [Mass ratio] 16.1 mg/mg 10-20 [facility] Laboratory - Chemistry and C hemistry - challengeOrdered By: Serafin Cody on 02-22-2023 Lipase [Catalytic activity/Vol] 11 U/L 13-75 [facility] Comment on above: Please note:LIPASE r evised reference range effective 22. New Lipase methodology. Expected to produce lower values than the previous assay method. NEW Reference Range: 13 - 75 U/L Laboratory - Hematology and Cell countsOrdered By: ED PROVIDER on 02-22-2023 Erythrocyte distribution width (RBC) [Entitic vol] 48.9 fL 35.1-43.9 [facility] Erythrocyte distribution width (RBC) [Ratio] 13.3 % 11.6-14.6 [facility] Immature granulocytes/100 WBC (Bld) 0.500 % 0.0-0.9 [facility] Comment on above: IG% - Immature Granu locytes (promyelocytes, myelocytes and metamyelocytes) > 1% indicates that a LEFT SHIFT is Present. MCH (RBC) [Entitic mass] 30.3 pg 27.0-32.0 [facility] Nucleated RBC/100 WBC (Bld) [Ratio] 0 % 0-5 [facility] MCHC Auto (RBC) [Mass/Vol]Or dered By: ED PROVIDER on 02-22-2023 MCHC (RBC) [Mass/Vol] 30.5 g/dL 32-36 [facility] Mucus LM Ql (Urine sed)Order ed By: Serafin Cody on 02-22-2023 Mucus Ql (Urine sed) 0 SEEN /hpf [facility] Nitrite Test strip Ql (U)Ord ered By: Serafin Cody on 02-22-2023 Nitrite Ql (U) Positive Negative [facility] No Panel InformationOrdered By: ED PROVIDER on 02-22-2023 Estimated Creatinine Clearance Calc 73.48 ml/min [facility] Estimated GFR (MDRD) Amer 90 mL/min >60 [facility] Comment on above: GFR Calc Estimated GFR (MDRD) Non-Af Amer 75 mL/min >60 [facility] Comment on above: Non- GFR Calc Platelets bldOrdered By: ED PROVIDER on 02-22-2023 Platelets (Bld) [#/Vol] 276 10*3/uL 150-450 [facility] Protein Test strip Ql (U)Ord ered By: Serafin Cody on 02-22-2023 Protein Ql (U) 100 mg/dl Negative [facility] Serum or plasma calcium bonnie urement (mass/volume)Ordered By: ED PROVIDER on 02-22-2023 Calcium [Mass/Vol] 9.2 mg/dL 8.5-10.1 [facility] Serum or plasma creatinine m easurement (mass/volume)Ordered By: ED PROVIDER on 02-22-2023 Creatinine [Mass/Vol] 0.87 mg/dL 0.55-1.02 [facility] Comment on above: The validity of the calculated GFR & GFRAA in patients over 70 years has not been determined. Clinical correlation is essential. Serum or plasma urea nitroge n measurement (mass/volume)Ordered By: ED PROVIDER on 02-22-2023 Urea nitrogen [Mass/Vol] 14 mg/dL 7-18 [facility] Squamous epithelial cells de tection in urine sediment by light microscopyOrdered By: Serafin Cody on 02-22-2023 Epithelial cells.squamous LM Ql (Urine sed) 0-5 SEEN /hpf 5-10 [facility] Thin prep Papanicolaou smear with manual screeningOrdered By: ED PROVIDER on 02-22-2023 Thin prep Papanicolaou smear with manual screening 8 5-15 [facility] Urine blood detectionOrdered By: Serafin Cody on 02-22-2023 RBC Ql (U) 250 /ul Negative [facility] RBC Ql (U) > 100 SEEN /hpf 0-5 [facility] Comment on above: Microscopic field is filled. Other elements may be obscured. Urine clarityOrdered By: Yesenia Cody on 02-22-2023 Clarity (U) Cloudy Clear [facility] Urine color determinationOrd ered By: Serafin Cody on 02-22-2023 Color (U) Vale Yellow [facility] Urine glucose detectionOrder ed By: Serafin Cody on 02-22-2023 Glucose Ql (U) Normal mg/dl Normal [facility] Urine leukocyte esterase det ection by dipstickOrdered By: Serafin Cody on 02-22-2023 Leukocyte esterase Test strip Ql (U) 500 /ul Negative [facility] Urine pHOrdered By: Serafin lassiter on 02-22-2023 pH (U) 6.5 [pH] 5.0 - 8.0 [facility] Urine sediment bacteria coun t by microscopy (number/high power field)Ordered By: Serafin Cody on 02-22-2023 Bacteria LM.HPF (Urine sed) [#/Area] 1 /[HPF] None Seen [facility] Urine specific gravity measu rementOrdered By: Serafin Cody on 02-22-2023 Specific gravity (U) [Rel density] 1.010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 Refill Celso Knowles MD Work Phone: [facility] Comment on above: Refill Request Start: 02-23-2024 End: 02-23-2024 Patient encounter procedure Celso Knowles MD Work Phone: [facility] Comment on above: Status post cervical spinal fusion (Primary Dx); Central cord syndrome, subsequent encounter ([facility]) Start: 02-23-2024 End: 02-23-2024 ambulatory CELSO KNOWLES Facility:[id number] Start: 02-23-2024 End: 02-23-2024 Subsequent hospital visit by physician [facility] Comment on above: S/P cervical spinal fusion [Z98.1] Start: 02-21-2024 End: 02-21-2024 Telephone encounter Celso Knowles MD Work Phone: [facility] Comment on above: Appointment (Receive d message from Dr. Knowles asking me to scheduled a post op visit) Appointment Start: 02-17-2024 End: 02-20-2024 ambulatory SABINO PAGE Facility:[facility] Start: 02-17-2024 End: 02-20-2024 Subsequent hospital visit by physician Kenny Fisher DO Work Phone: [facility] Start: 02-10-2024 Emergency department patient visit Facility:[facility] Start: 02-10-2024 End: 02-10-2024 Emergency department patient visit No Primary Care Physician Facility:[facility] Start: 01-08-2024 End: 01-08-2024 Emergency department patient visit DR LISA GASPAR MD [facility] Start: 02-24-2023 End: 02-24-2023 Emergency department patient visit [facility] Work Phone: Start: 02-22-2023 End: 02-22-2023 Emergency department patient visit [facility] Work Phone: Start: 02-18-2023 End: 02-18-2023 Emergency department patient visit DR JUANCARLOS ALVARADO DO Facility:[facility] Start: 12-08-2022 End: 12-09-2022 Emergency department patient visit HERLINDA CLARKE MD Facility:[facility] Start: 12-08-2022 End: 12-08-2022 Emergency department patient visit HERLINDA CLARKE MD [facility] Start: 12-03-2022 End: 12-03-2022 Emergency department patient visit HERLINDA CLARKE MD Facility:[facility] Start: 12-03-2022 End: 12-03-2022 Emergency department patient visit HERLINDA CLARKE MD [facility] Start: 12-05-2021 End: 12-05-2021 Emergency department patient visit PRASHANTH WEBER MD [facility] Procedures Date Procedure Procedure Detail Performing Clinician Start: 10-03-2024 Plain X-ray of shoulder Dr. Juancarlos murcia DO Work Phone: Start: 10-03-2024 X-ray of chest, PA and lateral views Dr. Juancarlos Alvarado DO Work Phone: Start: 02-18-2024 Basic metabolic panel calcium total Samantha Mccloud MD Work Phone: Start: 02-10-2024 Antibody screen Comment on above: Order Comment: Specimen Type: BLOOD SPEC IMEN Ordering Facility: [facility] Address: [address] [place] [address] Performed By: #### T SCR #### [facility] CLIA [id number] [address] [facility] Start: 02-22-2023 Computed tomography of abdomen and pelvis with contrast Start: 02-05-2014 Lipid 1996 panel - Serum or Plasma George Haddadek DO Work Phone: Appendectomy PRASHANTH VICENTE MD Appendectomy Appendectomy( Confirmed ) PRASHANTH WEBER MD Colonoscopy PRASHANTH VICENTE MD Dilation and curettage PRASHANTH WEBER MD Esophagogastroduodenoscopy Manuel WEBER MD Ligation of fallopian tube Manuel WEBER MD Plan of Treatment Date Care Activity Detail Author Start: 02-17-2027 Diabetes Screening Diabetes Screenin g [facility] Start: 11-20-2024 Influenza vaccination Influenza Vacc ine (#1) [facility] Start: 11-02-2024 End: 11-02-2024 Patient encounter procedure 11/02/2024 7:45 AM EDT Office Visit [facility] [address] [place] [address] [place] [address] Celso Knowles MD [address] [place] [address] [address] [place] [address] neck pain / low back pain [facility] Comment on above: neck pain / low back pain Start: 10-03-2024 [facility] Start: 04-17-2024 End: 04-17-2024 Patient encounter procedure 04/17/2024 3:00 PM EST Office Visit [facility] [address] [place], [place] [id number] Mirlande Pacheco DO [address] [place] [address] establish care [facility] Comment on above: establish care Start: 04-11-2024 End: 04-11-2024 Patient encounter procedure 04/11/2024 1:45 PM EST Office Visit [facility] [address] [place] [address] [address] BAR[address]W CUONG [address] [place] [address] Celso Knowles MD [address] [place] [address] 4 wk follow up [facility] Comment on above: 4 wk follow up [facility] Start: 03-28-2024 End: 03-28-2024 Patient encounter procedure 03/28/2024 3:30 PM EST Office Visit [facility] [address] [place] [address] [address]W [address] [place] [address] Celso Knowles MD [address] [place] [address] 4 week follow up [facility] Comment on above: 4 week follow up Start: 03-01-2024 End: 03-01-2024 Patient encounter procedure [facility] Comment on above: est care physical NEW est care physica l Start: 02-23-2024 End: 02-23-2024 Patient encounter procedure 02/23/2024 2:00 PM EST Office Visit [facility] [address] [place], [place] [address]Beatriz [address] [place] [address] Celso Knowles MD [address] [place] [address] [address] [place] [address] post op c2-T2 spinal fusion 02/10/24 [facility] Comment on above: post op c2-T2 spinal fusion 02/10/24 Start: 11-21-2023 Covid-19 Vaccine ( season) Covid-19 Vaccine () [facility] Start: 11-21-2023 Influenza vaccination Influenza Vacc ine (#1) [facility] Start: 02-22-2023 [facility] Start: 11-26-2022 Urine microalbumin profile DTaP,Tdap,Td Vaccine (2 - Tdap) [facility] Start: 2022 Lipid panel Lipid Screening [facility] Start: 2022 Screening for malign ant neoplasm of colon [facility] Start: 07-13-2018 Screening for malign ant neoplasm of cervix Cervical Cancer Screening [facility] Start: 2017 Screening for malign ant neoplasm of breast Mammogram Screening [facility] Start: 1996 Hepatitis B Vaccine (1 of 3 - 19+ 3-dose series) Hepatitis B Vaccine (1 of 3 - 19+ 3-dose series) [facility] Start: 06-28-1995 Annual PCP Team 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 yecenia Disease Visit Annual PCP Team Chronic Disease Visit [facility] Start: 06-28-1995 Anxiety Screening Anxiety Screening [facility] Start: 06-28-1995 BP Controlled (<130/80) BP Con trolled (<130/80) [facility] Start: 06-28-1995 Depression Screening Depression Scre ening [facility] Start: 06-28-1995 Hepatitis C screening Hepatitis C Sc reening [facility] Start: 06-28-1995 HIV screening HIV Screening [facility] Patient Education [facility] Work Phone: Patient referral [facility] Work Phone: XR Cervical spine AP and Lateral XR CERV GENERAL 2V AP/LAT Radiology Routine S/P cervical spinal fusion 02/23/2024 1:45 PM EST [facility] Work Phone: Immunizations Immunization Date Immunization Notes Care Provider Joe cespedes 11-26-2012 diphtheria and tetan us toxoids, adsorbed for pediatric use Kennysalas Fisher DO Work Phone: [facility] Work Phone: Payers Date Payer Category Payer Unknown [id number] 2024 Self-pay [id number] 2022 Unknown [id number] 2022 Unknown [id number] 2021 Medicaid [id number] 2021 Unknown [id number] 2018 Unknown [id number] 1977 Unknown [id number] 2.16.8 [id number] 1977 Unknown [id number] 2.16.8 [id number] 1977 Unknown [id number] 2.16.8 [id number] 1977 Unknown [id number] 2.16.8 [id number] 1977 Unknown [id number] 2.16.8 [id number] 1977 Unknown [id number] 2.16.8 [id number] Unknown [facility] [employer] [id number] Unknown [id number] 2.16.8 [id number] Unknown [id number] 2.16.8 [id number] Unknown [id number] 2.16.8 [id number] Unknown [id number] 2.16.8 [id number] Unknown [id number] 2.16.8 [id number] Unknown [id number] 2.16.8 [id number] Unknown [id number] 2.16.8 [id number] Unknown [id number] 2.16.8 [id number] Unknown [id number] 2.16.8 [id number] Unknown [id number] 2.16.8 [id number] Unknown [id number] 2.16.8 [id number] Social History Date Type Detail Facility Tobacco smoking status Smokes to bacco daily (finding) [facility] Start: 1975 Sex Assigned At Female A [facility] Start: 02-22-2023 End: 02-24-2023 Tobacco smoking status WYIS Unknown if ever smoked [facility] Start: 06-20-2013 Spouse/ Signif icant Other [facility] Start: 01-08-2024 Tobacco smoking status Heavy t obacco smoker (finding) [facility] Start: 07-13-2013 Tobacco smoking stat us NHIS Never smoked tobacco [facility] Work Phone: Start: 07-13-2013 Tobacco use and exposure Smoke less tobacco non-user [facility] Start: 11-05-2021 End: 02-23-2024 Alcoholic beverage intake Current non-drinker of alcohol (finding) [facility] Start: 02-11-2024 End: 02-23-2024 History of Social function [facility] Work Phone: Start: 02-11-2024 End: 02-23-2024 [facility] Utilities [facility] Work Phone: Has the electric, [employer], oil, or water company threatened to shut off services in your home in past 12Mo Patient declined [facility] Work Phone: Start: 1975 Sex assigned at Not on file C [facility] Sexual Orientation [facility] Start: 09-14-2018 Sex Female (finding) [facility] Start: 10-03-2024 Tobacco smoking stat NHIS Current Light tobacco smoker [facility] Medical Equipment Procedure Code Equipment Code Equipment Origin al Text Equipment Identifier Dates Graft Bone Sub D bm Putty Osteosurge - [id number] Start: 02-11-2024 Graft Bone Sub L Demineralized Bone Fiber Syringe Strand - [id number] Start: 02-11-2024 Cap Quartex Lock ing Thread Spine - [id number] Start: 02-11-2024 Screw Quartex 3. 5mm 12mm Bone Polyaxial Spine [id number] Start: 02-11-2024 Quartex Polyaxia l Screw 5.0mm X 26mm [id number] Start: 02-11-2024 Quartex Polyaxia l Screw 5.0mm X 24mm [id number] Start: 02-11-2024 Quartex Polyaxia l Screw 3.5mm X 10mm [id number] Start: 02-11-2024 Quartex Polyaxia l Screw 3.5mm X 16mm [id number] Start: 02-11-2024 Quartex Curved R od 4.0mm X 110mm [id number] [id number] Start: 02-11-2024 Functional Status Date Assessment Result Facility 05-02-2024 [facility] Functional Status Standard Safet y ID band on, Allergy Band on, Call device within reach, Bed in low position, Wheels locked [facility] 02-17-2024 Are you deaf, or do you have serious difficulty hearing No 02/17/2024 9:57 AM Sydnee Nam, SOFIA No [facility] 02-17-2024 Are you blind, or do you have serious difficulty seeing, even when wearing glasses No 02/17/2024 9:57 AM Sydnee Nam, SOFIA No [facility] 02-17-2024 Do you have serious difficulty walking or climbing stairs No 02/17/2024 9:57 AM Sydnee Nam, SOFIA No [facility] 02-17-2024 Do you have difficul ty dressing or bathing No 02/17/2024 9:57 AM Sydnee Nam, SOFIA No [facility] 02-17-2024 Because of a physica l, mental, or emotional condition, do you have difficulty doing errands alone such as visiting a physician's office or shopping No 02/17/2024 9:57 AM Sydnee Nam, SOFIA No [facility] 01-08-2024 Functional Status Standard Safet y ID band on, Allergy Band on, Call device within reach, Bed in low position, Wheels locked, Bedside Cart Locked, Safety level maintained [facility] 12-08-2022 Functional Status ID band on, Safety level maintained [facility] [facility] 12-08-2022 Functional Status [facility] 12-03-2022 Functional Status Up ad trevor [facility] 12-03-2022 Functional Status Standard Safet y ID band on, Call device within reach, Bed in low position, Wheels locked, Upper/Half-Length side-rails up, Bedside Cart Locked, Safety level maintained [facility] 12-05-2021 Functional Status Standard Safet y ID band on, Allergy Band on, Call device within reach, Bed in low position, Wheels locked, Upper/Half-Length side-rails up, Bedside Cart Locked, Safety level maintained [facility] Mental Status Date Assessment Result Facility 05-02-2024 Mental Status Orientation Oriented x 4 [facility] 05-02-2024 Mental Status [facility] 02-17-2024 Because of a physica l, mental, or emotional condition, do you have serious difficulty concentrating, remembering, or making decisions 02/17/2024 9:57 AM EST Sydnee Qureshi, SOFIA No [facility] 01-08-2024 Mental Status Oriented x 4 [facility] 12-08-2022 Mental Status Orientation Oriented x 4 [facility] 12-03-2022 Mental Status Orientation Oriented x 4 [facility] 12-03-2022 Mental Status [facility] 12-05-2021 Mental Status Orientation Oriented x 4 [facility] Clinical Notes 12-05-2021 to 10-05-2024 Telephone Encounter - Kenyetta Bloom - 10/05/2024 9:21 AM EDTTelephone Encounter - Kenyetta Bloom - 10/05/2024 9:21 AM EDT Note Date & Type Note Facility 10-05-2024 Telephone encounter Note Form atting of this note might be different from the original. Called patient to schedule a follow up with Dr Knowles, I had to leave a VM [facility] 10-05-2024 Miscellaneous Notes Formattin g of this note might be different from the original. Called patient to schedule a follow up with Dr Knowles, I had to leave a VM documented in this encounter [facility] 10-03-2024 Discharge summary [facility] 10-03-2024 Radiology Diagnostic study note [facility] Imaging Services [address] [place] [address] Chest PA and Lateral MR#: [id number] Acct: [id number] Name: JENNIFER PRICE Rep #: [id number] : 1975 F 49 From: Vj Craig MD PCP: Dr. Juancarlos Alvarado, DO Status: REG ER Study:Chest PA and Lateral Date of Exam: 10/03/24 Exam# [id number] Ordering Dr: Mikel Stevenson MD PROCEDURE: CHEST PA AND LATERAL 10/03/2024 REASON FOR EXAM: FALL AND RIGHT LOWER POSTERIOR RIB INJURY TECHNIQUE: CHEST PA AND LATERAL COMPARISON: 05/11/2024 FINDINGS: Lungs/Pleura: Clear. Hazy opacities projecting over the agyxa-eibjbmn-fvdy-leftmid lung zones secondary to shadow summation artifact from overlying breast soft tissues. Heart/Mediastinum: Normal in size. Bones/Soft tissues: Unremarkable. No acute right-sided rib fractures are seen. Partially imaged cervicothoracic metallic posterior instrumented fusion hardware. RAD/Chest PA and Lateral IMPRESSION: No acute cardiopulmonary disease. No acute fracture identified. Reading Location: [facility] CC: Dr. Brian Stevenson MD; Dr. Juancarlos Alvarado DO ~ Job Interviewer: Signed [facility] 10-03-2024 Radiology Diagnostic study note [facility] Imaging Services [address] [place] [id number] Shoulder min 2 Views MR#: [id number] Acct: [id number] Name: JENNIFER PRICE Rep #: [id number] : 1975 F 49 From: Vj Craig MD PCP: Dr. Juancarlos Alvarado DO Status: REG ER Study:Shoulder min 2 Views Date of Exam: 10/03/24 Exam# [id number] Ordering Dr: Mikel Stevenson MD PROCEDURE: SHOULDER MIN 2 VIEWS 10/03/2024 REASON FOR EXAM: FALL TECHNIQUE: SHOULDER MIN 2 VIEWS COMPARISON: None. FINDINGS: No acute fracture or dislocation. Alignment is anatomic. Well preserved glenohumeral joint space. Mild degenerative arthrosis of the right AC joint. Partially imaged cervicothoracic metallic posterior instrumented fusion hardware. Imaged right lung field is clear. Unremarkable soft tissues. RAD/Shoulder min 2 Views IMPRESSION: No acute fracture or dislocation. Reading Location: [facility] CC: Dr. Brian Stevenson MD; Dr. Juancarlos Alvarado DO ~ Job Interviewer: Signed [facility] 10-03-2024 Discharge summary Note Date/Time October 03, 2024 5:40pm [facility] Medical Records Department [address] [place] [address] Emergency Department Summary 10/03/24 MR#: [id number] Acct: [id number] Name: JENNIFER PRICE Rep #:[id number] : 1975 49 From: Brian Stevenson MD PCP: Dr. Juancarlos Alvarado DO Status: REG ER Location: ED HPI History of Present Illness Chief Complaint: Back Informant: patient Onset/Context/Timing Onset: Today Mechanism/Context: Blunt Injury and Fall (Slipped and fell injuring her right shoulder and right posterior lower rib cage.) Location of pain/injuries: Right shoulder Quality of Pain: Sharp Current Severity: Moderate Maximum Severity: Moderate Associated Symptoms Associated Symptoms: Negative for Parasthesias, Weakness, Loss of function, Inability to ambulate, Loss of consciousness or Amnesia Narrative Narrative: 49-year-old female history of cervical fracture where she had surgical repair. She has a neck brace. She was walking to her home yesterday slipped fell down about 3 steps injuring her right shoulder and right posterior rib cage. No headinjury. No neck injury. She had her neck brace on. Complaining of pain and difficulty moving the right shoulder. And pain in the right posterior rib cage. Prior similar symptoms: No Recent Illness/Hospitalization: No PFSH PFSH Medical History Bilateral pneumonia Former tobacco use GERD (gastroesophageal reflux disease) HTN (hypertension) Cyclical vomiting Cannabis dependence Anxiety and depression Barretts esophagus Home Medications ?Medication ?Instructions ?Recorded ?Last Taken ?Type albuterol sulfate 90 mcg/actuation 2 inh inhalation Q6 H PRN shortness 05/11/24 Unknown History breath activated powder inhaler of breath benzonatate 100 mg capsule 100 mg PO BID PRN cough Unknown History lisinopril 5 mg tablet 5 mg PO DAILY bp 05/11/24 Un known History methocarbamol 500 mg tablet 500 mg PO 4X/DAY 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 05/11/24 Unknown History sertraline 100 mg tablet 100 mg PO Q24H depression Unknown History cefdinir 300 mg capsule 300 mg PO Q12 5 days #10 cap s 05/14/24 Unknown Rx dextromethorphan-guaifenesin ER 60 1 tab PO BID 7 days #14 tabs 05/14/24 Unknown Rx mg-1,200 mg tab,extend release,12hr oxycodone-acetaminophen 5 mg-325 1 tab PO Q8H PRN pain 2 days #4 10/03/24 Unknown Rx mg tablet (Percocet) tabs Allergy/AdvReac Type Severity Reaction Status Date / Time hydrocodone bitartrate (From Allergy Hives Verified 10/03/24 16:46 Vicodin) Family History Mother COPD (chronic obstructive pulmonary disease) ETOH abuse Father ETOH abuse Surgical History S/P appendectomy Hx of spinal surgery Social History household members: other details: Currently staying with her mother while she recovers from her trauma. housing: house Smoking Status: Light Smoker (<10/day) how long ago did patient quit smoking: Quit 02/10/24, smoked ~ 1 ppd since teenuntil quit. alcohol intake: never substance use type: marijuana ROS ROS ED ROS Narrative Denies recent illness. Constitutional Constitutional ED: Denies chills or fever(s) Eyes Eyes: Denies blurry vision ENT ENT ED: Denies ear pain Cardiovascular Cardiovascular: Denies chest pain Respiratory/Chest Respiratory/Chest: Denies cough or dyspnea Gastrointestinal Gastrointestinal: Denies abdominal pain, diarrhea, nausea or vomiting Genitourinary Genitourinary ED: Denies dysuria or hematuria Musculoskeletal Musculoskeletal: Denies arthralgias or back pain Integumentary Denies abscess or Abrasions Neurologic Neurologic: Denies headache(s) Psychiatric Psychiatric: Denies anxiety Endocrine Endocrinology: Denies cold intolerance Hematologic/Lymphatic Hematologic/Lymphatic: Denies easy bleeding, easy bruising or lymphadenopathy Allergic/Immunologic Allergic/Immunologic ED: Denies mouth swelling, tongue swelling or urticaria EXAM Physical Exam Narrative Exam Narrative: Presenting female sitting upright in bed. Vital signs are stable afebrile. H EENT exam pupils round react to light. Moist mucous membranes. No trauma to her face or scalp. She is in a cervical collar. C-spine nontender. Lungs clear to auscultation bilaterally. Heart regular rhythm no murmur rate about 80. Anterior chest wall and anterior ribs are nontender. Abdomen soft nontender. Pelvic girdle intact. Moving all 4 extremities. No deformity. Shehas tenderness of the right shoulder and right posterior shoulder. There is no deformity. It is not dislocated. She is unable to lift her right arm overhead. Bilateral elbows forearms wrist and hands are nontender normal needle control cheniller strength and sensation. Hips knees and ankles are nontender. Back her cervical, thoracic and lumbar spine are nontender. There is no bruising. She has pain topalpation of her right posterior rib cage. Neurologically she is awake alert. GCS 15. Answer questions following commands. Const Vital Signs: 10/03/24 15:00 10/03/24 17:01 Temperature 97.4 F L Temperature Source Temporal Pulse Rate 83 89 Respiratory Rate 21 H 15 Blood Pressure 117/87 H Blood Pressure Mean 97 Pulse Ox 97 100 Oxygen Delivery Method Room Air Positive well nourished and well developed; Negative for obese, cachectic, contractures or unkempt General Appearance ED: well developed; Negative for unkempt, cachectic, contractures or NAD Nutritional Appearance: Negative for cachectic or obese HEENT atraumatic; Negative for trauma or tenderness Eyes PERRL and EOMs intact bilaterally Neck No full ROM Neck Narrative: Nontender in a c-collar. Chest Wall inspection of chest normal and palpation of chest normal Resp normal respiratory effort and clear to auscultation bilaterally Cardio regular rhythm, S1 normal heart sound, S2 normal heart sound and no murmurs GI normal to inspection, nondistended, normoactive bowel sounds, non-tender, non-distended and no masses Auscultation: normoactive bowel sounds Palpation: soft; Negative for tender or guarding Back/Spine normal to inspection and no thoracic nor lumbar tenderness Back/Spine Narrative: Spine nontender. Right posterior rib cage tenderness. No crepitance. Extremity normal to inspection and full ROM Extremity Narrative: Except tenderness to the right shoulder with limited range of motion. She is unable to raise her right arm over her shoulder. There is no gross bony deformity. There is tenderness primarily posteriorly. Distal humerus, elbow, forearm, wrist and hand are nontender normal needle control cheniller strength normal sensation. General Extremety ED: Yes tenderness; Negative for deformity or edema General Extremity: Negative for deformity or edema Neuro oriented x3, CN's II-XII intact bilaterally, moves all extremities, no focal motor deficits and no sensory deficits noted Gladis Coma Scale: document GCS findings Spontaneous Obeys Commands Oriented 15 Sensorium / Orientation: alert, oriented to place and oriented to time; Negativefor orientation impaired Motor Exam: strength 5/5 throughout Psych mental status grossly normal Appearance: Negative for unkempt Mood & Affect: tearful Skin no rashes or lesions noted, no wounds, skin turgor normal and no jaundice Rashes: No rashes noted Trauma: Negative for abrasion Wounds: Negative for wounds noted MDM MDM MDM Narrative Medical decision making narrative: 49-year-old female fell last night at 3 AM this morning complaining of right shoulder and right posterior rib cage pain both will be x-rayed. Concern for possible rotator cuff is limited range of motion of the right shoulder might also be due to pain. Should be given IM morphine and p.o. Zofran. She has no spine tenderness. I do not think she needs any CAT scans. Repeat exam patient doing well at 5:35 PM. Pains improved after the IM injection of morphine. She still has limited range of motion in her right shoulder and this may be due to pain. We discussed if is not improving she needs further orthopedic evaluation to rule out a rotator cuff injury. The x-ray of her right shoulder and chest x-ray and ribs was unremarkable. Ice to allsore areas. Motrin Tylenol for pain. A total of 4 Percocet were prescribed formore severe pain. Radiography Diagnostic Testing: Clinical Impression(s) from Imaging Studies Shoulder X-Ray 10/03/24 16:35 IMPRESSION: No acute fracture or dislocation. Reading Location: [id number] Right shoulder x-ray, 4 views, interpreted both by myself and the radiologist shows no acute fracture. No dislocation. Chest x-ray, 2 views interpreted by myself again shows no acute fracture. No pneumothorax. Normal lung koenig. Normal cardiac silhouette. Discharge Plan Triage Chief Complaint: Back ED Provider: Brian Stevenson Dx/Rx/DC Orders Clinical Impression: Fall, Right shoulder strain, Contusion of rib on right side Instructions: ED Muscle Strain, Extremity Prescriptions: New oxycodone-acetaminophen [Percocet] 5-325 mg tablet 1 tab PO Q8H PRN (Reason: pain) 2 Days Qty: 4 0RF No Action benzonatate 100 mg capsule 100 mg PO BID PRN (Reason: cough) methocarbamol 500 mg tablet 500 mg PO 4X/DAY albuterol sulfate 90 mcg/actuation aerosol powdr breath activated 2 inh inhalation Q6H PRN (Reason: shortness of breath) lisinopril 5 mg tablet 5 mg PO DAILY sertraline 100 mg tablet 100 mg PO Q24H cefdinir 300 mg Capsule 300 mg PO Q12 5 Days Qty: 10 0RF dextromethorphan-guaifenesin 60-1,200 mg tablet extended release 12 hr 1 tab PO BID 7 Days Qty: 14 0RF Primary Care Provider: Juancarlos Alvarado Referrals: Heladio Tucker DO [Med Staff - Active Staff] - 10-14 Days if not better Juancarlos Alvarado DO [Primary Care Provider] - 1 Week if not improving Activity Restrictions/Additional Instructions: Ice to your right shoulder and right posterior rib cage. The x-rays were negative. Nothing broken or dislocated. The shoulder should progressively start getting better. Ice. Motrin and Tylenol for pain and swelling. Percocet for limited pain. If the shoulder is not getting better you need to have further evaluation with an orthopedic surgeon. If you do not get normal range of motion back you may need an MRI of the shoulder. But it may just be limited currently due to the pain. Percocet for more severe pain. Print Language: Azeri Disposition Disposition: Home, Self Care What to do if you have Problems For any increased pain, shortness of breath, bleeding, nausea or vomiting, chestpain, or any unexpected problems, contact your Primary Care Provider. Call [employer] [facility] ([phone]) or report to the closest Emergency Room. Call 911 if necessary. 10/03/24 0995 <Electronically signed by Brian Stevenson MD> Cosigner Signature (if applicable): CC: Dr. Juancarlos Alvarado DO ~ Signed [facility] Work Phone: [phone]) 376-421202-23-2025 [facility] Medical Records Department [address] [place] [address] Discharge Summary 05/14/24 1110 MR#: [id number] Acct: [id number] Name: JENNIFER PRICE Rep #: [id number] : 1975 48 From: Hakeem Quiroz MD PCP: Care Physician,No Primary Status:ADM IN Location: [facility] XX215-7 Providers Date of Admission: 05/13/24 Date of Discharge: 05/14/24 Primary Care Physician: No Primary Care Phys Reason For Visit: PNA, FAILED OUTPATIENT Diagnosis Discharge Diagnosis (1) Bilateral pneumonia: Status: Acute Code(s): J18.9 - Pneumonia, unspecified organism (2) Failure of outpatient treatment: Status: Acute Code(s): Z78.9 - Other specified health status Plan The patient is a 48 y/o F came to ED with increased shortness of breath, persistent cough, dyspnea worse with exertion in addition to fever chills body aches, decreased appetite and nausea without vomiting for last 2 weeks. She was diagnosed with pneumonia and was started on Augmentin about a week ago #1. Bilateral LL Pneumonia, failed outpatient treatment: Patient is admitted MedSurg floor. Failed outpatient treatment. On IV azithromycin and Rocephin. DuoNeb, Mucinex DM, incentive spirometry and Pep. Respiratory panel, urinary antigens are negative 05/13: Patient on IV antibiotic. Cough and shortness of breath is better. Gram stain of sputum culture shows normal respiratory [place] 05/14: Patient respiratory symptoms including shortness of breath and cough much improved. Lungs clear. Discharged on 5 days of cefdinir. She had 3 days of inpatient antibiotics. #2. Normocytic anemia, chronic: H H 10.7/33.2%. On baseline. No significant change #3. Recent history of significant trauma with neck fractures: Status post trauma 01/2024 transfer to tertiary facility, underwent significant intervention in the spine, continues to wear neck brace, encourage continued follow-up with her surgeon as previously arranged, will continue PT/OT evaluations which are ongoing outpatient. 05/13: Posterior surgical incision at C-spine well-healed. She is tender that she is told not to laterally rotate her neck or flex or extend. PT and OT on board. 05/14: Advised follow-up with the [facility] spine surgeon. She has pain medication and muscle relaxant at home #4. Hypertension: Not on antihypertensive medication. Monitor BP #5. Anxiety depression: Not on medication. Follow with PCP #6. Chronic cannabis usage with history of previous cyclic emesis syndrome: Patient is send she quit smoking cigarettes, cannabis use about 3 months ago. #7. Former tobacco use: Encourage continued tobacco cessation. #8. GERD with history of Stovall's esophagus: We will have Mylanta as needed. #9. DVT prophylaxis: Lovenox. Discharge medication reconciliation done. Discharge follow-up instructions completed. Discharge process discussed with the patient and all questions were answered to patient's satisfaction. Follow with PCP in 1 to 2 weeks Total time spent, exact 35 minutes on discharge meds reconciliation, examination, coordination of care with nurses and ancillary staff, review of imaging and blood test and discussion with the patient on follow-up instructions. Medications at Discharge Home Medications albuterol sulfate 90 mcg/actuation breath activated powder inhaler 2 inh inhalation Q6H PRN shortness of breath 05/11/24 benzonatate 100 mg capsule 100 mg PO BID PRN cough 05/11/24 lisinopril 5 mg tablet 5 mg PO DAILY bp 05/11/24 methocarbamol 500 mg tablet 500 mg PO 4X/DAY pain/ cramps 05/11/24 sertraline 100 mg tablet 100 mg PO Q24H depression 05/11/24 cefdinir 300 mg capsule 300 mg PO Q12 5 days #10 caps 05/14/24 dextromethorphan-guaifenesin ER 60 mg-1,200 mg tab,extend release,12hr 1 tab PO BID 7 days #14 tabs 05/14/24 Physical Exam Narrative Seen and examined. Shortness of breath and cough much better. No fever. Neck pain is also improved. She has history of smoking since teenage a pack per day quit 3 months ago when she had neck surgery Physical exam General: Alert, Oriented x3, Cooperative HEENT: Atraumatic, PERRLA, EOMI, Normocephalic Oral: No Gingival or Mucosal Lesions/ Ulcerations Neck: Wearing a hard collar. recent cervical spine surgery. Chest wall/Lungs: Air entry diminished in bilateral lung bases. Dyspnea and tachypnea resolved. Wheezing much improved. Cardiovascular: Regular rate, Regular Rhythm, Normal S1, Normal S2, No M/G/R Abdomen: Bowel Sounds Present, Soft, Non Tender, Non-Distended : No dysuria. No renal angle tenderness. No suprapubic tenderness. Extremities: No edema, Capillary Refill Less than 3 Seconds Skin: No rashes, No breakdown Musculoskeletal: No Tenderness to Palpation of Joints or Extremities Neurological: Cranial nerves II-XII grossly intact, DTR 2+/4. No acute focal neurological deficit. Psych/Mental Status: No (more content not included)...[facility] 05-05-2024 Hospital Discharge instructions Patient Education 05/05/2024 15:56:23 Self-Care for Strains and Sprains Self-Care for Strains and Sprains Most minor strains and sprains can be treated with self-care. Recovering from a strain or sprain may take 6 to 8 weeks. Your self-care goal is to reduce pain and immobilize the injury to speed healing. A sprain injures ligaments (tissue that connects bones to bones). A strain injures muscles or tendons (tissue that connects muscles to bones). Support the injured area Wrapping the injured area provides support for short, necessary activities. Be careful not to wrap the area too tightly. This could cut off the blood supply. Support a wrist, elbow, or shoulder with a sling. Wrap an ankle or knee with an elastic bandage. Tape a finger or toe to the one next to it. Use cold and heat Cold reduces swelling. Both cold and heat reduce pain. Heat should not be used in the initial treatment of the injury. When using cold or heat, always place a thin towel between the pack and your skin. Apply ice or a cold pack 10 to 15 minutes every hour you re awake for the first 2 days. After the swelling goes down, use cold or heat to control pain. Don t use heat late in the day, since it can cause swelling when you re not active. Rest and elevate Rest and elevation help your injury heal faster. Raise the injured area above your heart level. Keep the injured area from moving. Limit the use of the joint or limb. Use medicine Aspirin reduces pain and swelling. (Note: Don t give aspirin to a child 18 or younger unless prescribed by the doctor.) Non-steroidal anti-inflammatory medicines, such as ibuprofen, may reduce pain and swelling, as well. Ask your healthcare provider for advice. When to call your healthcare provider Call your healthcare provider if: The injured joint won t move, or bones make a grating sound when they move You can t put weight on the injured area, even after 24 hours The injured body part is cold, blue, tingling, or numb The joint or limb appears bent or crooked. Pain increases or doesn t improve in 4 days When pressing along the injured area, you notice a spot that is especially painful [id number] [employer]. [address] [place] [address]. All rights reserved. This information is not intended as a substitute for professional medical care. Always follow yourhealthcare professional's instructions. Follow Up Care 05/05/2024 14:16:50 With:JUANCARLOS ALVARADO DO Address: [address] [place] [phone] When:2-4 days [facility] 02-14-2025 Emergency department Discharge summary Discharge Instructions Thank you for allowing [place] to assist you with your healthcare needs. The following is importantdischarge information regarding your hospital visit. Diagnosis from Today's Visit Neck pain Right shoulder pain What to Do Next Instructions from Your Care Team Please call your neurosurgeon to schedule a follow up appointment. Continue to take your steroids and antibiotics for your pneumonia. Please follow up with your primary care physician. No qualifying data available. Post Acute Orders No qualifying data available. You Need to Schedule the Following Appointments Follow Up with JUANCARLOS ALVARADO DO When:Within 2-4 days Where:[address] [place] [phone] [phone] Allergies Phenergan Vicodin Hives, Emesis Medications Please ask your primary doctor or pharmacist before taking any other medication not listed, including over the counter drugs, herbal medications, vitamins and or supplements as they may interact withyour home medications. What How Much When Why Instructions Last Dose New oxyCODONE (oxyCODONE 5 mg oral tablet ( IMMEDIATErelease )) 1 tab(s) by mouth Every 6 hours as needed for for pain Neck pain Right shoulder pain Duration: 2 Days Printed Prescription Unchanged acetaminophen (Tylenol 325 mg oral capsule) 2 cap by mouth Every 4 hours as needed for as needed for pain Unchanged albuterol (albuterol MDI (90 mcg/ inh) CFC free inhalation aerosol) 2 puff(s) by inhalation Every 4 hours Unchanged amoxicillin-clavulanate (amoxicillin-clavulanate 875 mg-125 mg oral tablet) 1 tab(s) by mouth Every 12 hours Duration: 7 Days Unchanged benzonatate (Tessalon Perles 100 mg oral capsule) 1 cap by mouth Every 8 hours Duration: 10 Days Unchanged predniSONE (prednisone 10mg tab (TAPER)) Taper 40-30-20-10 x 3 days each dose by mouth Once a day Duration: 12 Days Take with food/ meal Please take this list to your next doctor s visit. Bring all medications you take, including over the counter medications, herbals and other supplements with you to your doctor s visit. Patients and families are reminded to discard old lists and to update any records with all medication providers or retail pharmacies. Education Materials Self-Care for Strains and Sprains Most minor strains and sprains can be treated with self-care. Recovering from a strain or sprain may take 6 to 8 weeks. Your self-care goal is to reduce pain and immobilize the injury to speed healing. A sprain injures ligaments (tissue that connects bones to bones). A strain injures muscles or tendons (tissue that connects muscles to bones). Support the injured area Wrapping the injured area provides support for short, necessary activities. Be careful not to wrap the area too tightly. This could cut off the blood supply. Support a wrist, elbow, or shoulder with a sling. Wrap an ankle or knee with an elastic bandage. Tape a finger or toe to the one next to it. Use cold and heat Cold reduces swelling. Both cold and heat reduce pain. Heat should not be used in the initial treatment of the injury. When using cold or heat, always place a thin towel between the pack and your skin. Apply ice or a cold pack 10 to 15 minutes every hour you re awake for the first 2 days. After the swelling goes down, use cold or heat to control pain. Don t use heat late in the day, since it can cause swelling when you re not active. Rest and elevate Rest and elevation help your injury heal faster. Raise the injured area above your heart level. Keep the injured area from moving. Limit the use of the joint or limb. Use medicine Aspirin reduces pain and swelling. (Note: Don t give aspirin to a child 18 or younger unless prescribed by the doctor.) Non-steroidal anti-inflammatory medicines, such as ibuprofen, may reduce pain and swelling, as well. Ask your healthcare provider for advice. When to call your healthcare provider Call your healthcare provider if: The injured joint won t move, or bones make a grating sound when they move You can t put weight on the injured area, even after 24 hours The injured body part is cold, blue, tingling, or numb The joint or limb appears bent or crooked. Pain increases or doesn t improve in 4 days When pressing along the injured area, you notice a spot that is especially painful [id number] [employer]. [address] [place] [address]. All rights reserved. This information is not intended as a substitute for professional medical care. Always follow yourhealthcare professional's instructions. Additional Information VACCINATE! IT SAVES LIVES! Members of the community who have not yet received the COVID-19 vaccine and would like to receive it can visit one of [facility] vaccine clinics. There are many vaccine clinic locations within the [facility]. For locations and available times, please visit [email or web address]/. It is important to note that some COVID mobile vaccine clinics are held outdoors and may be canceled in rainy or stormy conditions. To learn more about pediatric vaccinations (ages 5-11), we invite you to visit the [facility] webpage. [email or web address] learn more about the COVID-19 vaccine, we invite you to visit the CDC website for a list of frequently asked questions. https://www.cdc.gov/coronavirus/2019-ncov/vaccines/faq.html [facility] Patient Portal Access Instructions: Stay connected with your healthcare team and access your personal medical information anytime with the [facility] Patient Portal. If you would like a full copy of your medical records please contact the [facility] Medical Records Department Wednesday through Wednesday between 8a.m. and 4:30p.m. Please follow the directions below to access the portal: 1.Access the email account you provided upon registration to the hospital.2.Look for an invitation email from [facility].3.Open the email and access the invitation link: Accept Invitation to [facility]4.Fill in the required koenig to create your account. Sign into [email or web address] with your username and password that you created in the above steps to stay up to date. You can then view a summary of results, a summary of your visits, and the ability to download your summaries to your computer or send the information securely to a physician. Remember that your healthcare information is confidential, so carefully consider who you will allow to register on the [facility] Patient Portal for access to your information. You can also access the [facility] Patient Portal on the [employer]. Simply click on Health Records under Chatty and then click on the [facility] logo. HOW TO SAFELY DISPOSE OF PRESCRIPTION MEDICATIONS Please use one of the following methods to safely dispose of your unused medications. 1.Use a drug disposal kit: the drug disposal pouch allows you to safely discard your old and unuseddrugs. Ask your nurse to give you one when you are discharged.2.Visit a local take-back location: Many local pharmacies and police departments have programs that collect old and unwanted prescriptiondrugs. Call your local pharmacy or go to http://Schrodinger.Fighters/0T1Jf7b to find one close to you.3.Make use of household items: Use cat litter or old coffee grounds to dispose medications if other options arenot available. Mix your drugs with these household products, seal them in an airtight container andthrow it into the garbage. Call [facility]: [phone] to be sure your drugs can be disposed of in this way. Some medicines may require a different approach.4.Never flush your medications down the toilet. IF YOU HAVE BEEN PRESCRIBED AN OPIOIDS FOR PAIN If you have been prescribed an opioid (such as hydrocodone, oxycodone or morphine), it is critical to understand the possible side effects and risks of opioid pain medications. Even when taken as directed, opioids can have several side effects including: Tolerance, meaning you might need to take more of a medication for the same pain relief. Nausea, vomiting and/or constipation. Sleepiness, dizziness, dry mouth, confusion, depression or itching. Physical dependence, meaning you have withdrawal symptoms when a medication is stopped ? this can develop within a few days. KNOW YOUR RESPONSIBILITIES It is important to know exactly how much and how often to take the opioid pain medications you are prescribed. Never take opioids in higher amounts or more often than prescribed. Do not combine opioids with alcohol or other drugs that cause drowsiness, such as benzodiazepines, also known as benzos,including diazepam and alprazolam, muscle relaxants or sleep aids. Never sell or share prescriptionopioids. This is illegal. Store opioids in a secure place and out of reach of others (including children, family, friends and visitors). The last page(s) of this document has been signed and retained as a CHART COPY Signatures Patient Education Materials Self-Care for Strains and Sprains Medication Leaflets My discharge plan and instructions have been reviewed and explained to me and IALBERT PAULA M understand my current condition and have read and understand these discharge instructions. I have received a written copy of the plan/instructions. If I have questions, I am aware that I should contact my doctor. Patient/Genetics Physician Signature: Date/Time: Relationship to Patient: Witness Name/Signature: Date/Time: [facility]02-14-2025 Note* Exam Date Time Procedure Performing Provider Status 05/05/24 3:07 PM XR Shoulder Minimum 2 Views Right SANDRA SILVER MD; Auth (Verified) [id number] ORIGINAL EXAMINATION: XR right shoulder four views 05/05/2024 3:16 pm COMPARISON: None HISTORY: ORDERING SYSTEM PROVIDED HISTORY: Reason for Exam: FALL IN JANUARY. COUGH/PNEUMONIA RECENTLY & INCREASING PAIN IN RIGHT SHOULDER FOR LAST 2 DAYS. Pain; previous neck surgery, FINDINGS: No acute fracture, dislocation, bony lytic process or periosteal reaction is seen in the visualized bones and joints. No significant degenerative or erosive type of arthritis or soft tissue calcification. Glenohumeral and AC joints are normal. No decrease in subacromial space. IMPRESSION: No significant skeletal abnormality is seen. Interpreted by: Sandra Bourgeois MD Preliminary Report By: Sandra Bourgeois MD Electronically signed By Sandra Bourgeois MD Dictated Date: 05/05/2024 3:32:34 PM Prelim Date: 05/05/2024 3:33:10 PM Sign Date: 05/05/2024 3:33:10 PM Ordering Provider: CARLYN MENDOZA [facility]02-11-2025 Hospital Discharge instructions Patient Education 05/02/2024 15:34:21 Pneumonia (Adult) Pneumonia (Adult) Pneumonia is an infection deep within the lungs. It is in the small air sacs (alveoli). Pneumonia may be caused by a virus or bacteria. Pneumonia caused by bacteria is usually treated with an antibiotic. Severe cases may need to be treated in the hospital. Milder cases can be treated at home. Symptoms usually start to get better during the first 2 days of treatment. Home care Follow these guidelines when caring for yourself at home: Rest at home for the first 2 to 3 days, or until you feel stronger. Don t let yourself get overly tired when you go back to your activities. Stay away from cigarette smoke yours or other people s. You may use acetaminophen or ibuprofen to control fever or pain, unless another medicine was prescribed. If you have chronic liver or kidney disease, talk with your healthcare provider before using these medicines. Also talk with your provider if you ve had a stomach ulcer or gastrointestinal bleeding. Don t give aspirin to anyone younger than 18 years of age who is ill with a fever. It may causesevere liver damage. Your appetite may be poor, so a light diet is fine. Drink 6 to 8 glasses of fluids every day to make sure you are getting enough fluids. Beverages can include water, sport drinks, sodas without caffeine, juices, tea, or soup. Fluids will help loosen secretions in the lung. This will make it easier for you to cough up the phlegm (sputum). If you alsohave heart or kidney disease, check with your healthcare provider before you drink extra fluids. Take antibiotic medicine prescribed until it is all gone, even if you are feeling better after a few days. Follow-up care Follow up with your healthcare provider in the next 2 to 3 days, or as advised. This is to be sure the medicine is helping you get better. If you are 65 or older, you should get a pneumococcal vaccine and a yearly flu (influenza) shot. You should also get these vaccines if you have chronic lung disease like asthma, emphysema, or COPD. Recently, a second type of pneumonia vaccine has become available for everyone over 65 years old. This is in addition to the previous vaccine. Ask your provider about this. When to seek medical advice Call your healthcare provider right away if any of these occur: You don t get better within the first 48 hours of treatment Shortness of breath gets worse Rapid breathing (more than 25 breaths per minute) Coughing up blood Chest pain gets worse with breathing Fever of 100.4 F (38 C) or higher that doesn t get better with fever medicine Weakness, dizziness, or fainting that gets worse Thirst or dry mouth that gets worse Sinus pain, headache, or a stiff neck Chest pain not caused by coughing [id number] [employer]. [address] [place] [address]. All rights reserved. This information is not intended as a substitute for professional medical care. Always follow yourhealthcare professional's instructions. Follow Up Care 05/02/2024 13:43:50 With:JUANCARLOS ALVARADO DO Address: [address] [place] [address] [place] [address]- [phone] When:2-4 days [facility] 02-11-2025 Note Discharge Instructions Thank you for allowing [facility] to assist you with your healthcare needs. The following is importantdischarge information regarding your hospital visit. Diagnosis from Today's Visit COPD exacerbation Pneumonia What to Do Next Instructions from Your Care Team Please start taking your antibiotics and using your inhaler every 4 hours as needed for coughing/wheezing. Take the steroids as directed. If you are having worsening shortness of breath, please return to the ER. No qualifying data available. Post Acute Orders No qualifying data available. You Need to Schedule the Following Appointments Follow Up with JUANCARLOS ALVARADO DO When:Within 2-4 days [facility] [place] [address]- [phone] Allergies Phenergan Vicodin Hives, Emesis Medications Please ask your primary doctor or pharmacist before taking any other medication not listed, including over the counter drugs, herbal medications, vitamins and or supplements as they may interact withyour home medications. What How Much When Instructions Last Dose New albuterol (albuterol MDI (90 mcg/ inh) CFC free inhalation aerosol) 2 puff(s) by inhalation Every 4 hours Printed Prescription New amoxicillin-clavulanate (amoxicillin-clavulanate 875 mg-125 mg oral tablet) 1 tab(s) by mouth Every 12 hours Duration: 7 Days Printed Prescription New benzonatate (Tessalon Perles 100 mg oral capsule) 1 cap by mouth Every 8 hours Duration: 10 Days Printed Prescription New predniSONE (prednisone 10mg tab (TAPER)) Taper 40-30-20-10 x 3 days each dose by mouth Once a day Duration: 12 Days Take with food/ meal Printed Prescription Unchanged acetaminophen (Tylenol 325 mg oral capsule) 2 cap by mouth Every 4 hours as needed for as needed for pain Please take this list to your next doctor s visit. Bring all medications you take, including over the counter medications, herbals and other supplements with you to your doctor s visit. Patients and families are reminded to discard old lists and to update any records with all medication providers or retail pharmacies. Medication Leaflets benzonatate (darling nguyễn) What is the most important information I should know about benzonatate? Never suck or chew on a benzonatate capsule. Swallow the pill whole. Sucking or chewing the capsulemay cause serious side effects. Benzonatate is not approved for use by anyone younger than 10 years old. An overdose of benzonatatecan be fatal to a young child. What is benzonatate? Benzonatate is used to relieve coughing. Benzonatate is a non-narcotic cough medicine that numbs the throat and lungs, making the cough reflex less active. Benzonatate may also be used for purposes not listed in this medication guide. What should I discuss with my healthcare provider before taking benzonatate? You should not use this medicine if you are allergic to benzonatate or topical numbing medicines such as tetracaine or procaine (found in some insect bite and sunburn creams). Tell your doctor if you are or . Benzonatate is not approved for use by anyone younger than 10 years old. An overdose of benzonatatecan be fatal, especially to a young child who has accidentally swallowed the medicine. How should I take benzonatate? Follow all directions on your prescription label and read all medication guides or instruction sheets. Use the medicine exactly as directed. Never suck or chew on a benzonatate capsule. Swallow the pill whole. Sucking or chewing the capsulemay cause serious side effects. Store at room temperature away from moisture, heat, and light. What happens if I miss a dose? Skip the missed dose and use your next dose at the regular time. Do not use two doses at one time. What happens if I overdose? Seek emergency medical attention or call the Poison Help line at . An overdose of benzonatate can be fatal, especially to a child. Accidental has occurred in children under 10 years old. Overdose symptoms may include tremors, feeling restless, seizure (convulsions), slow heart rate, weak pulse, fainting, and slow breathing (breathing may stop). What should I avoid while taking benzonatate? Avoid eating or drinking anything while you feel numbness or tingling in your mouth or throat. What are the possible side effects of benzonatate? Stop taking this medicine and get emergency medical help if you have signs of an allergic reaction:hives; difficult breathing; swelling of your face, lips, tongue, or throat. Call your doctor at once if you have: severe drowsiness or dizziness; confusion, hallucinations. ongoing numbness or tingling in your mouth, throat, or face; numbness in your chest; a choking feeling; chills; or burning in your eyes. Some of these side effects may result from chewing or sucking on a benzonatate capsule. Common side effects may include: headache, dizziness; nausea, upset stomach; constipation; itching, rash; or stuffy nose. This is not a complete list of side effects and others may occur. Call your doctor for medical advice about side effects. You may report side effects to FDA at 1-487-YLE-5037. What other drugs will affect benzonatate? Using benzonatate with other drugs that make you drowsy can worsen this effect. Ask your doctor before using opioid medication, a sleeping pill, a muscle relaxer, or medicine for anxiety or seizures. Other drugs may affect benzonatate, including prescription and tcrn-fng-drdxwwd medicines, vitamins, and herbal products. Tell your doctor about all your current medicines and any medicine you start or stop using. Where can I get more information? Your pharmacist can provide more information about benzonatate. Remember, keep this and all other medicines out of the reach of children, never share your medicines with others, and use this medication only for the indication prescribed. Every effort has been made to ensure that the information provided by [employer]. ('[employer]') is accurate, up-to-date, and complete, but no guarantee is made to that effect. Drug information contained herein may be time sensitive. [employer] information has been compiled for use by healthcare practitioners and consumers in the [place] and therefore [employer] does not warrant that uses outside of the [place] are appropriate, unless specifically indicated otherwise. [employer] drug information does not endorse drugs, diagnose patients or recommend therapy. [employer] drug information isan informational resource designed to assist licensed healthcare practitioners in caring for their p atients and/or to serve consumers viewing this service as a supplement to, and not a substitute for, the expertise, skill, knowledge and judgment of healthcare practitioners. The absence of a warningfor a given drug or drug combination in no way should be construed to indicate that the drug or drug combination is safe, effective or appropriate for any given patient. [employer] does not assume any responsibility for any aspect of healthcare administered with the aid of information [employer] provides. The information contained herein is not intended to cover all possible uses, directions, precautions, warnings, drug interactions, allergic reactions, or adverse effects. If you have questions about the drugs you are taking, check with your doctor, nurse or pharmacist. Copyright 3415-2315 [employer]. Version: 11.. Revision Date: 10/22/2022. amoxicillin and clavulanate potassium (am OK i BOBO in KLAV ue GIOVANNA ate taryn TAS ee um) Augmentin What is the most important information I should know about amoxicillin and clavulanate potassium? You should not use this medicine if you have severe kidney disease, if you have had liver problems or jaundice while taking amoxicillin and clavulanate potassium, or if you are allergic to any penicillin or cephalosporin antibiotic, such as Amoxil, Ceftin, Cefzil, Moxatag, Omnicef, and others. What is amoxicillin and clavulanate potassium? Amoxicillin is a penicillin antibiotic. Clavulanate potassium helps prevent certain bacteria from becoming resistant to amoxicillin. Amoxicillin and clavulanate potassium is a combination medicine used to treat many different infections caused by bacteria, such as sinusitis, pneumonia, ear infections, bronchitis, urinary tract infections, and infections of the skin. Amoxicillin and clavulanate potassium may also be used for purposes not listed in this medication guide. What should I discuss with my healthcare provider before taking amoxicillin and clavulanate potassium? You should not use this medicine if you are allergic to it, or if: you have severe kidney disease (or if you are on dialysis); you have had liver problems or jaundice while taking amoxicillin and clavulanate potassium; or you are allergic to any penicillin or cephalosporin antibiotic, such as Amoxil, Ceftin, Cefzil, Moxatag, Omnicef, and others. Tell your doctor if you have ever had: liver disease (hepatitis or jaundice); kidney disease; or mononucleosis. The liquid or chewable tablet may contain phenylalanine. Tell your doctor if you have phenylketonuria (PKU). Tell your doctor if you are or . Amoxicillin and clavulanate potassium can make control pills less effective. Ask your doctor about using a non-hormonal control (condom, diaphragm, cervical cap, or contraceptive sponge) to prevent . Do not give this medicine to a child without medical advice. How should I take amoxicillin and clavulanate potassium? Follow all directions on your prescription label and read all medication guides or instruction sheets. Use the medicine exactly as directed. Amoxicillin and clavulanate potassium may work best if you take it at the start of a meal. Take the medicine every 12 hours. Do not crush or chew the extended-release tablet. Swallow the pill whole, or break the pill in halfand take both halves one at a time. Tell your doctor if you have trouble swallowing a whole or halfpill. You must chew the chewable tablet before you swallow it. Shake the oral suspension (liquid) before you measure a dose. Use the dosing syringe provided, or use a medicine dose-measuring device (not a kitchen spoon). This medicine can affect the results of certain medical tests. Tell any doctor who treats you that you are using amoxicillin and clavulanate potassium. Use this medicine for the full prescribed length of time, even if your symptoms quickly improve. Skipping doses can increase your risk of infection that is resistant to medication. Amoxicillin and clavulanate potassium will not treat a viral infection such as the flu or a common cold. Store the tablets at room temperature away from moisture and heat. Store the liquid in the refrigerator. Throw away any unused liquid after 10 days. What happens if I miss a dose? Take the medicine as soon as you can, but skip the missed dose if it is almost time for your next dose. Do not take two doses at one time. What happens if I overdose? Seek emergency medical attention or call the Poison Help line at . Overdose can cause nausea, vomiting, stomach pain, diarrhea, skin rash, drowsiness, hyperactivity, and decreased urination. What should I avoid while taking amoxicillin and clavulanate potassium? Avoid taking this medicine together with or just after eating a high-fat meal. This will make it harder for your body to absorb the medication. Antibiotic medicines can cause diarrhea, which may be a sign of a new infection. If you have diarrhea that is watery or bloody, call your doctor before using anti-diarrhea medicine. What are the possible side effects of amoxicillin and clavulanate potassium? Get emergency medical help if you have signs of an allergic reaction (hives, difficult breathing, swelling in your face or throat) or a severe skin reaction (fever, sore throat, burning eyes, skin pain, red or purple skin rash with blistering and peeling). Stop using amoxicillin and clavulanate potassium and seek medical treatment if you have a serious drug reaction that can affect many parts of your body. Symptoms may include skin rash, fever, swollenglands, muscle aches, severe weakness, unusual bruising, or yellowing of your skin or eyes. Call your doctor at once if you have: severe stomach pain, diarrhea that is watery or bloody (even if it occurs months after your last dose); pale or yellowed skin, dark colored urine, fever, confusion or weakness; loss of appetite, upper stomach pain; little or no urination; or easy bruising or bleeding. Common side effects may include: nausea, vomiting; diarrhea; rash, itching; vaginal itching or discharge; or diaper rash. This is not a complete list of side effects and others may occur. Call your doctor for medical advice about side effects. You may report side effects to FDA at 6-886-DPG-1282. What other drugs will affect amoxicillin and clavulanate potassium? Tell your doctor about all your other medicines, especially: allopurinol; probenecid; or a blood thinner--warfarin, Coumadin, Jantoven. This list is not complete. Other drugs may affect amoxicillin and clavulanate potassium, including prescription and zgpv-mrs-zzynhky medicines, vitamins, and herbal products. Not all possible drug interactions are listed here. Where can I get more information? Your doctor or pharmacist can provide more information about amoxicillin and clavulanate potassium. Remember, keep this and all other medicines out of the reach of children, never share your medicines with others, and use this medication only for the indication prescribed. Every effort has been made to ensure that the information provided by [employer]. ('[employer]') is accurate, up-to-date, and complete, but no guarantee is made to that effect. Drug information contained herein may be time sensitive. [employer] information has been compiled for use by healthcare practitioners and consumers in the [place] and therefore [employer] does not warrant that uses outside of the [place] are appropriate, unless specifically indicated otherwise. [employer] drug information does not endorse drugs, diagnose patients or recommend therapy. [employer] drug information isan informational resource designed to assist licensed healthcare practitioners in caring for their p atients and/or to serve consumers viewing this service as a supplement to, and not a substitute for, the expertise, skill, knowledge and judgment of healthcare practitioners. The absence of a warningfor a given drug or drug combination in no way should be construed to indicate that the drug or drug combination is safe, effective or appropriate for any given patient. [employer] does not assume any responsibility for any aspect of healthcare administered with the aid of information [employer] provides. The information contained herein is not intended to cover all possible uses, directions, precautions, warnings, drug interactions, allergic reactions, or adverse effects. If you have questions about the drugs you are taking, check with your doctor, nurse or pharmacist. Copyright 1014-1413 [employer]. Version: 14.. Revision Date: 12/26/2021. prednisone (PRED shakir Cornelius What is the most important information I should know about prednisone? You should not use prednisone if you have a fungal infection anywhere in your body. You should not stop using prednisone suddenly. Follow your doctor's instructions about tapering your dose. What is prednisone? Prednisone is a steroid that reduces inflammation in the body, and also suppresses your immune system. Prednisone is used to treat many different conditions such as hormonal disorders, skin diseases, arthritis, lupus, psoriasis, allergic conditions, ulcerative colitis, Crohn's disease, eye diseases, lung diseases, asthma, tuberculosis, blood cell disorders, kidney disorders, leukemia, lymphoma, multi ple sclerosis, organ transplant rejection, swelling from a brain tumor or injury. Prednisone may also be used for purposes not listed in this medication guide. What should I discuss with my healthcare provider before taking prednisone? You should not use prednisone if you are allergic to it, or if you have a fungal infection anywherein your body. Steroid medication can weaken your immune system, making it easier for you to get an infection or worsening an infection you already have. Tell your doctor about any illness or infection you've had within the past several weeks. Tell your doctor if you have ever had: heart problems, high blood pressure, or a heart attack; glaucoma or cataracts; herpes infection of the eyes; past or present tuberculosis; a parasite infection that causes diarrhea (such as threadworms); any illness that causes diarrhea; underactive thyroid; diabetes; a stomach ulcer, diverticulitis; a colostomy or ileostomy; osteoporosis or low bone mineral density (steroid medication can increase your risk of bone loss); low levels of calcium or potassium in your blood; cirrhosis or other liver disease; mental illness or psychosis; or a muscle disorder such as myasthenia gravis. Long-term use of steroids may lead to bone loss (osteoporosis), especially if you smoke or drink alcohol, if you do not exercise, or if you do not get enough vitamin D or calcium in your diet. It is not known whether this medicine will harm an unborn baby. Tell your doctor if you are or plan to become . You should not breastfeed while using prednisone. How should I take prednisone? Follow all directions on your prescription label and read all medication guides or instruction sheets. Your doctor may occasionally change your dose. Use the medicine exactly as directed. Prednisone is taken daily or every other day, depending on the condition being treated. You may need to take the medicine at a certain time of day. Follow your doctor's instructions about when and how often to take this medicine. Take with food if prednisone upsets your stomach. Measure liquid medicine carefully. Use the dosing syringe provided, or use a medicine dose-measuring device (not a kitchen spoon). Swallow the delayed-release tablet whole and do not crush, chew, or break it. Prednisone can weaken (suppress) your immune system, and you may get an infection more easily. Callyour doctor if you have signs of infection (fever, weakness, cold or flu symptoms, skin sores, diarrhea, frequent or recurring illness). If you have major surgery or a severe injury or infection, your prednisone dose needs may change. Make sure any doctor caring for you knows you are using this medicine. If you use this medicine long-term, you may need medical tests and vision exams. In case of emergency, wear or carry medical identification to let others know you use a steroid. You should not stop using prednisone suddenly. Follow your doctor's instructions about tapering your dose. Store at room temperature away from moisture, heat, and light. What happens if I miss a dose? Take the medicine as soon as you can, but skip the missed dose if it is almost time for your next dose. Do not take two doses at one time. What happens if I overdose? Seek emergency medical attention or call the Poison Help line at . High doses or long-term use of prednisone can lead to thinning skin, easy bruising, changes in bodyfat (especially in your face, neck, back, and waist), increased acne or facial hair, menstrual problems, impotence, or loss of interest in sex. What should I avoid while taking prednisone? Do not receive a 'live' vaccine while using prednisone. The vaccine may not work as well and may not fully protect you from disease. Live vaccines include measles, mumps, rubella (MMR), polio, rotavirus, typhoid, yellow fever, varicella (chickenpox), zoster (shingles), and nasal flu (influenza) vaccine. Avoid being near people who are sick or have infections. Call your doctor for preventive treatment if you are exposed to chickenpox or measles. These conditions can be serious or even fatal in peoplewho are using steroid medicine. Avoid drinking alcohol. What are the possible side effects of prednisone? Get emergency medical help if you have signs of an allergic reaction: hives; difficult breathing; swelling of your face, lips, tongue, or throat. Call your doctor at once if you have: muscle pain or weakness; blurred vision, tunnel vision, eye pain, or seeing halos around lights; severe depression, changes in personality, unusual thoughts or behavior; bloody or tarry stools, coughing up blood or vomit that looks like coffee grounds; swelling, rapid weight gain, feeling short of breath; irregular heartbeats; severe headache, pounding in your neck or ears; decreased adrenal gland hormones--muscle weakness, tiredness, diarrhea, nausea, menstrual changes, skin discoloration, craving salty foods, and feeling light- headed; or low potassium level--leg cramps, constipation, irregular heartbeats, fluttering in your chest, increased thirst or urination, numbness or tingling, muscle weakness or limp feeling. Prednisone can affect growth in children. Tell your doctor if your child is not growing at a normalrate while using this medicine. Common side effects may include: weight gain (especially in your face or your upper back and torso); increased appetite; mood changes, trouble sleeping; changes in your menstrual periods; problems with memory or thought; muscle or joint pain; weakness; headache, dizziness, spinning sensation; nausea, bloating, loss of appetite; slow wound healing; or acne, increased sweating, thinning skin, bruising, pinpoint spots under your skin. This is not a complete list of side effects and others may occur. Call your doctor for medical advice about side effects. You may report side effects to FDA at 0-885-WPY-4663. What other drugs will affect prednisone? Sometimes it is not safe to use certain medications at the same time. Some drugs can affect your blood levels of other drugs you take, which may increase side effects or make the medications less effective. Tell your doctor about all your current medicines. Many drugs can affect prednisone, especially: bupropion; cyclosporine; digoxin; ketoconazole; an antibiotic; control pills or hormone replacement therapy; a diuretic or 'water pill'; insulin or oral diabetes medicine; a blood thinner--warfarin, Coumadin, Jantoven; or NSAIDs (nonsteroidal anti-inflammatory drugs)--aspirin, ibuprofen (Advil, Motrin), naproxen (Aleve), celecoxib, diclofenac, indomethacin, meloxicam, and others. This list is not complete and many other drugs may affect prednisone. This includes prescription and xfbb-mvh-bmshrmx medicines, vitamins, and herbal products. Not all possible drug interactions are listed here. Where can I get more information? Your pharmacist can provide more information about prednisone. Remember, keep this and all other medicines out of the reach of children, never share your medicines with others, and use this medication only for the indication prescribed. Every effort has been made to ensure that the information provided by [employer]. ('[employer]') is accurate, up-to-date, and complete, but no guarantee is made to that effect. Drug information contained herein may be time sensitive. [employer] information has been compiled for use by healthcare practitioners and consumers in the [place] and therefore [employer] does not warrant that uses outside of the [place] are appropriate, unless specifically indicated otherwise. [employer] drug information does not endorse drugs, diagnose patients or recommend therapy. [employer] drug information isan informational resource designed to assist licensed healthcare practitioners in caring for their p atients and/or to serve consumers viewing this service as a supplement to, and not a substitute for, the expertise, skill, knowledge and judgment of healthcare practitioners. The absence of a warningfor a given drug or drug combination in no way should be construed to indicate that the drug or drug combination is safe, effective or appropriate for any given patient. [employer] does not assume any responsibility for any aspect of healthcare administered with the aid of information [employer] provides. The information contained herein is not intended to cover all possible uses, directions, precautions, warnings, drug interactions, allergic reactions, or adverse effects. If you have questions about the drugs you are taking, check with your doctor, nurse or pharmacist. Copyright 8831-6831 [employer]. Version: 10.01. Revision Date: 06/16/2018. Education Materials Pneumonia (Adult) Pneumonia is an infection deep within the lungs. It is in the small air sacs (alveoli). Pneumonia may be caused by a virus or bacteria. Pneumonia caused by bacteria is usually treated with an antibiotic. Severe cases may need to be treated in the hospital. Milder cases can be treated at home. Symptoms usually start to get better during the first 2 days of treatment. Home care Follow these guidelines when caring for yourself at home: Rest at home for the first 2 to 3 days, or until you feel stronger. Don t let yourself get overly tired when you go back to your activities. Stay away from cigarette smoke yours or other people s. You may use acetaminophen or ibuprofen to control fever or pain, unless another medicine was prescribed. If you have chronic liver or kidney disease, talk with your healthcare provider before using these medicines. Also talk with your provider if you ve had a stomach ulcer or gastrointestinal bleeding. Don t give aspirin to anyone younger than 18 years of age who is ill with a fever. It may causesevere liver damage. Your appetite may be poor, so a light diet is fine. Drink 6 to 8 glasses of fluids every day to make sure you are getting enough fluids. Beverages can include water, sport drinks, sodas without caffeine, juices, tea, or soup. Fluids will help loosen secretions in the lung. This will make it easier for you to cough up the phlegm (sputum). If you alsohave heart or kidney disease, check with your healthcare provider before you drink extra fluids. Take antibiotic medicine prescribed until it is all gone, even if you are feeling better after a few days. Follow-up care Follow up with your healthcare provider in the next 2 to 3 days, or as advised. This is to be sure the medicine is helping you get better. If you are 65 or older, you should get a pneumococcal vaccine and a yearly flu (influenza) shot. You should also get these vaccines if you have chronic lung disease like asthma, emphysema, or COPD. Recently, a second type of pneumonia vaccine has become available for everyone over 65 years old. This is in addition to the previous vaccine. Ask your provider about this. When to seek medical advice Call your healthcare provider right away if any of these occur: You don t get better within the first 48 hours of treatment Shortness of breath gets worse Rapid breathing (more than 25 breaths per minute) Coughing up blood Chest pain gets worse with breathing Fever of 100.4 F (38 C) or higher that doesn t get better with fever medicine Weakness, dizziness, or fainting that gets worse Thirst or dry mouth that gets worse Sinus pain, headache, or a stiff neck Chest pain not caused by coughing [id number] [employer]. [address] [place] [address]. All rights reserved. This information is not intended as a substitute for professional medical care. Always follow yourhealthcare professional's instructions. Additional Information VACCINATE! IT SAVES LIVES! Members of the community who have not yet received the COVID-19 vaccine and would like to receive it can visit one of [facility] vaccine clinics. There are many vaccine clinic locations within the [facility]. For locations and available times, please visit www.[email or web address].[place].gov/. It is important to note that some COVID mobile vaccine clinics are held outdoors and may be canceled in rainy or stormy conditions. To learn more about pediatric vaccinations (ages 5-11), we invite you to visit the [facility] webpage. [email or web address]/[email or web address] [email or web address] learn more about the COVID-19 vaccine, we invite you to visit the CDC website for a list of frequently asked questions. https://www.cdc.gov/coronavirus/2019-ncov/vaccines/faq.html [facility] Patient Portal Access Instructions: Stay connected with your healthcare team and access your personal medical information anytime with the [facility] Patient Portal. If you would like a full copy of your medical records please contact the [facility] Medical Records Department Wednesday through Wednesday between 8a.m. and 4:30p.m. Please follow the directions below to access the portal: 1.Access the email account you provided upon registration to the [facility].2.Look for an invitation email from [facility].3.Open the email and access the invitation link: Accept Invitation to [facility]4.Fill in the required koenig to create your account. Sign into [email or web address] with your username and password that you created in the above steps to stay up to date. You can then view a summary of results, a summary of your visits, and the ability to download your summaries to your computer or send the information securely to a physician. Remember that your healthcare information is confidential, so carefully consider who you will allow to register on the [facility] Patient Portal for access to your information. You can also access the [facility] Patient Portal on the [employer]. Simply click on Health Records under Chatty and then click on the [employer] logo. HOW TO SAFELY DISPOSE OF PRESCRIPTION MEDICATIONS Please use one of the following methods to safely dispose of your unused medications. 1.Use a drug disposal kit: the drug disposal pouch allows you to safely discard your old and unuseddrugs. Ask your nurse to give you one when you are discharged.2.Visit a local take-back location: Many local pharmacies and police departments have programs that collect old and unwanted prescriptiondrugs. Call your local pharmacy or go to http://Schrodinger.Fighters/4I4Mr1m to find one close to you.3.Make use of household items: Use cat litter or old coffee grounds to dispose medications if other options arenot available. Mix your drugs with these household products, seal them in an airtight container andthrow it into the garbage. Call [facility]: [phone] to be sure your drugs can be disposed of in this way. Some medicines may require a different approach.4.Never flush your medications down the toilet. IF YOU HAVE BEEN PRESCRIBED AN OPIOIDS FOR PAIN If you have been prescribed an opioid (such as hydrocodone, oxycodone or morphine), it is critical to understand the possible side effects and risks of opioid pain medications. Even when taken as directed, opioids can have several side effects including: Tolerance, meaning you might need to take more of a medication for the same pain relief. Nausea, vomiting and/or constipation. Sleepiness, dizziness, dry mouth, confusion, depression or itching. Physical dependence, meaning you have withdrawal symptoms when a medication is stopped ? this can develop within a few days. KNOW YOUR RESPONSIBILITIES It is important to know exactly how much and how often to take the opioid pain medications you are prescribed. Never take opioids in higher amounts or more often than prescribed. Do not combine opioids with alcohol or other drugs that cause drowsiness, such as benzodiazepines, also known as benzos,including diazepam and alprazolam, muscle relaxants or sleep aids. Never sell or share prescriptionopioids. This is illegal. Store opioids in a secure place and out of reach of others (including children, family, friends and visitors). The last page(s) of this document has been signed and retained as a CHART COPY Signatures Patient Education Materials Pneumonia (Adult) Medication Leaflets benzonatate, amoxicillin and clavulanate potassium, prednisone My discharge plan and instructions have been reviewed and explained to me and IALBERT JENNIFER Powell understand my current condition and have read and understand these discharge instructions. I have received a written copy of the plan/instructions. If I have questions, I am aware that I should contact my doctor. Patient/Genetics Physician Signature: Date/Time: Relationship to Patient: Witness Name/Signature: Date/Time: [facility]02-11-2025 Note* Exam Date Time Procedure Performing Provider Status 05/02/24 3:02 PM XR Chest 1 View SANDRA BOURGEOIS MD; Auth (Verified) [id number] ORIGINAL EXAMINATION: ONE XRAY VIEW OF THE CHEST05/02/2024 3:04 pm COMPARISON: 12/04/2019 HISTORY: ORDERING SYSTEM PROVIDED HISTORY: Reason for Exam: Cough, congestion, SOB; former smoker FINDINGS: Cardiomediastinal contours are within normal limits. Hazy infiltrative changes can be seen within the right lower lung. There is no edema. No pneumothorax or pleural effusion. No acute osseous abnormalities. Postsurgical changes of the lower cervical spine are noted with hardware intact. IMPRESSION: Right lower lung pneumonia, follow-up to complete resolution.. I have personally reviewed the images of this examination and agree with the resident's findings and interpretation. Interpreted by: Sandra Bourgeois MD Preliminary Report By: Pau Hayward Electronically signed By Sandra Bourgeois MD Dictated Date: 05/02/2024 3:09:26 PM Prelim Date: 05/02/2024 3:24:51 PM Sign Date: 05/02/2024 3:24:51 PM Ordering Provider: [facility]01-28-2025 Telephone encounter Note* Telephone Encounter - Rosa Palomino MA - 04/18/2024 7:31 AM EST Jennifer called into the office asking for an Oxycodone refill. I informed her that we will not be able to fill this-per Dr. Knowles. She hasn't completed the scheduled post op appointments, and she is 8 weeks out from surgery. She then stated that she would like an [facility] appointment for shoulder pain-and would need pain medication for this. I advised her that Dr. Knowles doesn't treat shoulder. She verbalized understanding. [facility]01-28-2025 Miscellaneous Notes* Telephone Encounter - Rosa Palomino MA - 04/18/2024 7:31 AM EST Jennifer called into the office asking for an Oxycodone refill. I informed her that we will not be able to fill this-per Dr. Knowles. She hasn't completed the scheduled post op appointments, and she is 8 weeks out from surgery. She then stated that she would like an [facility] appointment for shoulder pain-and would need pain medication for this. I advised her that Dr. Knowles doesn't treat shoulder. She verbalized understanding. [facility] Telephone encounter Note * Telephone Encounter - Kenyetta Bloom - 04/11/2024 4:07 PM EST [facility] No-Show Documentation Jennifer Price no showed for an appointment on 04-11-24 with Celso Knowles MD. at 1:45 pm. The patient was was scheduled for a post-operative visit. I called and spoke with the patient regarding missed appointment. No The patient stated the reason that they missed the appointment was because no reason given I had toleave a VM . Resources discussed/offered to patient: No No show determined to be fault of patient: Yes This is the patients second no show in the last 12 months. Patient was no rescheduled. Letter mailed regular mail AND certified : No Is this the Third or Fourth No Show? No Kenyetta Bloom April 11, 2024 4:07 PM [facility]01-21-2025 Miscellaneous Notes* Telephone Encounter - Kenyetta Bloom - 04/11/2024 4:07 PM EST [facility] No-Show Documentation Jennifer Price no showed for an appointment on 04-11-24 with Celso Knowles MD. at 1:45 pm. The patient was was scheduled for a post-operative visit. I called and spoke with the patient regarding missed appointment. No The patient stated the reason that they missed the appointment was because no reason given I had toleave a VM . Resources discussed/offered to patient: No No show determined to be fault of patient: Yes This is the patients second no show in the last 12 months. Patient was no rescheduled. Letter mailed regular mail AND certified : No Is this the Third or Fourth No Show? No Kenyetta Bloom April 11, 2024 4:07 PM documented in this encounterBet[facility] Telephone encounter Note * Telephone Encounter - Kenyetta Bloom - 04/05/2024 12:55 PM EST Spoke to patient to inform her to have x-rays done before seeing Dr Knowles on 04-11-24, she will do so. [facility]01-15-[facility] Miscellaneous Notes* Telephone Encounter - Kenyetta Bloom - 04/05/2024 12:55 PM EST Spoke to patient to inform her to have x-rays done before seeing Dr Knowles on 04-11-24, she will do so. documented in this encounterBethesda [facility] Hospital01-08-2025 Telephone encounter Note * Telephone Encounter - Celso Knowles MD - 03/29/2024 8:06 AM EST I did these yesterday myself. Duplicate. [facility] Work Phone: [phone] Miscellaneous Notes* Telephone Encounter - Celso Knowles MD - 03/29/2024 8:06 AM EST I did these yesterday myself. Duplicate. documented in this encounterBethesda [facility] Hospital12-30-2024 Telephone encounter Note * Telephone Encounter - Rosa Palomino MA - 03/20/2024 11:09 AM EST Spoke with Jennifer. She is aware to complete xrays prior to her appointment on 03/28/2024 [facility]12-30[facility] Miscellaneous Notes* Telephone Encounter - Rosa Palomino MA - 03/20/2024 11:09 AM EST Spoke with Jennifer. She is aware to complete xrays prior to her appointment on 03/28/2024 documented in this encounterBethesda [facility] Hospital12-06-2024 Telephone encounter Note * Telephone Encounter - Charo Biswas - 02/25/2024 2:29 PM EST Patient was advised that Dr. Knowles send in 5MG IR. She will pick that up from the pharmacy and take as directed. [facility]12-06-[facility] Miscellaneous Notes* Telephone Encounter - Charo Jones - 02/25/2024 2:29 PM EST Patient was advised that Dr. Knowles send in 5MG IR. She will pick that up from the pharmacy and take as directed. * Telephone Encounter - Charo Biswas - 02/25/2024 1:59 PM EST ----- Message from Rahc Shannon sent at 02/25/2024 12:42 PM EST ----- Regarding: Vsiry-Zljzp-Ghvijyrvib refiil issue Subject Line Format: Orthopedics / [Provider Name or Open & Body Part] / [Issue] Patient has been identified by name and Date of (Y/N): y Patient: Jennifer Price Date of : 1975 Previous Provider Seen: Yana Body Part(s) Identified: back Diagnosis/Reason For Visit: n/a Reason for the call/escalation: Patient states medication instructions or dosage is wrong for her oxycodone States that it needs to be 10mg 1 week supply-------pharmacy [facility] If reason for call/escalation is discharge from ED/ER or Hospital, which facility was the patient seen at: n/a Was an appointment scheduled (Y/N): n/a Person calling if other than patient: n/a Return call to if other than patient: n/a Best contact number: [phone] Thank you, Rach Lopez February 25, 2024 12:42 PM documented in this encounterBethesda North Hospital12-06-2024 Telephone encounter Note * Telephone Encounter - Charo Biswas - 02/25/2024 1:59 PM EST ----- Message from Rach Shannon sent at 02/25/2024 12:42 PM EST ----- Regarding: Lxtmy-Lvxkv-Cktzrotime refiil issue Subject Line Format: Orthopedics / [Provider Name or Open & Body Part] / [Issue] Patient has been identified by name and Date of (Y/N): y Patient: Jennifer Price Date of : 1975 Previous Provider Seen: Yana Body Part(s) Identified: back Diagnosis/Reason For Visit: n/a Reason for the call/escalation: Patient states medication instructions or dosage is wrong for her oxycodone States that it needs to be 10mg 1 week supply-------pharmacy [facility] If reason for call/escalation is discharge from ED/ER or Hospital, which facility was the patient seen at: n/a Was an appointment scheduled (Y/N): n/a Person calling if other than patient: n/a Return call to if other than patient: n/a Best contact number: [phone] Thank you, Rach Lopez February 25, 2024 12:42 PM [facility]12-04-[facility]24 NoteHNO ID: [id number] Author: CELSO KNOWLES MD Service: ? Author Type: Physician Type: Progress Notes Filed: 02/23/2024 14:29 Note Text: Celso Knowles MD [facility] General Orthopedics - Orthopaedic Spine Surgeon [address] [facility], [address], [place] [address] Phone: [phone] ([phone]) FAX: [phone] Spine Surgery Post-op Follow-up Service Date: 02/23/2024 Surgery Date: 02/10/2024 Surgery(ies): C2-T2 PSF, C3-6 laminectomy Pre-operative Symptoms: Dysesthetic upper extremity pain, bilateral hand weakness, episode of quadriplegia HPI: Jennifer Pirce is seen for 2 week post operative follow up. She is doing very well. She has had almost complete resolution of numbness and dysesthetic pain in the upper extremities. Has had significant improvement in bilateral upper extremity strength. She was discharged from [facility] secondary to rapid improvement in symptoms. She has at home and plans to start outpatient physical therapy soon. She has been compliant with collar wear. She has minimal pain in cervical spine. ALLERGIES Allergen Reactions Hydrocodone-Acetami* Hives, Vomiting Current Outpatient Medications Medication Sig Dispense Refill acetaminophen (TYLENOL) 500 mg tablet Take 2 tablets by mouth four times daily. 240 tablet 0 polyethylene glycol 3350 17 gram packet Take 1 Packet by mouth once daily. Dissolve dose in 4 - 8 ounces of liquid and take as directed. 30 Packet 0 senna-docusate (SENNA-S) 8.6-50 mg per tablet Take 1 tablet by mouth two times a day. 60 tablet 0 gabapentin (NEURONTIN) 300 mg capsule Take 2 capsules by mouth three times a day for 4 doses. 8 capsule 0 No current facility-administered medications for this visit. Physical Examination: Vital Signs: Pulse 68 Ht 165.1 cm (5' 5) Wt 64.4 kg (142 lb) LMP 05/28/2014 SpO2 98% BMI 23.63 kg/m? General Appearance: Well nourished, well developed, and no apparent distress. Incision: Clean, dry, and intact. No active drainage. No erythema. Sensory: Sensation intact to light touch in C5-T1 and L1-S1 dermatomes. 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 Long Tract Signs: No clonus. No Hoffmanns. Reflexes: Symmetric, non-brisk. Imaging AP and lateral x-rays of the cervical spine were obtained independent interpreted. Imaging demonstrates C2-T2 posterior spinal fusion instrumentation in stable position as compared to postoperative images. No evidence of hardware loosening or failure. Assessment 48 year old female who presents 2 weeks status-post C2-T2 PSF, C3-6 laminectomy: recovering well. Plan Hard cervical collar at all times except showering. Continue with restrictions on bending, lifting, and twisting. Referral to outpatient PT provided. Follow-up in 4 weeks for repeat x-rays and evaluation. Advised to call the office if symptoms worsen or new symptoms develop. Patient expressed understanding and is in agreement with plan. Celso Knowles MD Orthopaedic Spine Surgery This note was generated all or in part using [employer] voice recognition software. Please excuse any minor errors in spelling, grammar, or punctuation.[facility]12-04-[facility] History of Present illness Narrative* Celso Knowles MD - 02/23/2024 2:25 PM EST Images from the original note were not included. Celso Knowles MD [facility] Orthopedics - Orthopaedic Spine Surgeon [address] [facility], [address], [facility] [address], [place] [address] Phone: [phone] ([phone]) FAX: [phone] Spine Surgery Post-op Follow-up Service Date: 02/23/2024 Surgery Date: 02/10/2024 Surgery(ies): C2-T2 PSF, C3-6 laminectomy Pre-operative Symptoms: Dysesthetic upper extremity pain, bilateral hand weakness, episode of quadriplegia HPI: Jennifer Price is seen for 2 week post operative follow up. She is doing very well. She has hadalmost complete resolution of numbness and dysesthetic pain in the upper extremities. Has had significant improvement in bilateral upper extremity strength. She was discharged from [facility] secondary to rapid improvement in symptoms. She has at home and plans to start outpatient physical therapy soon. She has been compliant with collar wear. She has minimal pain in cervical spine. ALLERGIES Allergen Reactions Hydrocodone-Acetami* Hives, Vomiting Current Outpatient Medications Medication Sig Dispense Refill acetaminophen (TYLENOL) 500 mg tablet Take 2 tablets by mouth four times daily. 240 tablet 0 polyethylene glycol 3350 17 gram packet Take 1 Packet by mouth once daily. Dissolve dose in 4 - 8 ounces of liquid and take as directed. 30 Packet 0 senna-docusate (SENNA-S) 8.6-50 mg per tablet Take 1 tablet by mouth two times a day. 60 tablet 0 gabapentin (NEURONTIN) 300 mg capsule Take 2 capsules by mouth three times a day for 4 doses. 8 capsule 0 No current facility-administered medications for this visit. Physical Examination: Vital Signs: Pulse 68 Ht 165.1 cm (5' 5) Wt 64.4 kg (142 lb) LMP 05/28/2014 SpO2 98% BMI23.63 kg/m General Appearance: Well nourished, well developed, and no apparent distress. Incision: Clean, dry, and intact. No active drainage. No erythema. Sensory: Sensation intact to light touch in C5-T1 and L1-S1 dermatomes. 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 Long Tract Signs: No clonus. No Hoffmanns. Reflexes: Symmetric, non-brisk. Imaging AP and lateral x-rays of the cervical spine were obtained independent interpreted. Imaging demonstrates C2-T2 posterior spinal fusion instrumentation in stable position as compared to postoperative images. No evidence of hardware loosening or failure. Assessment 48 year old female who presents 2 weeks status-post C2-T2 PSF, C3-6 laminectomy: recovering well. Plan Hard cervical collar at all times except showering. Continue with restrictions on bending, lifting, and twisting. Referral to outpatient PT provided. Follow-up in 4 weeks for repeat x-rays and evaluation. Advised to call the office if symptoms worsen or new symptoms develop. Patient expressed understanding and is in agreement with plan. Celso Knowles MD Orthopaedic Spine Surgery This note was generated all or in part using [employer] voice recognition software. Please excuse any minor errors in spelling, grammar, or punctuation. * Rosa Palomino MA - 02/23/2024 1:51 PM EST 48 y/o female presents to office for a routine post op. She had fallen at work and fell. She reports she was unable to use any limbs for a few minutes. She presented to the ED and had surgery of C2-T2 fusion. She states she is overall feeling much better. She is still finding it difficult with her right arm. She was completing PT in rehab, but will need a new order for PT. She will also need a refill on her pain medication. documented in this encounterBethesda [facility] Hospital12-04-2024 NoteHNO ID: [id number] Author: ROSA PALOMINO MA Service: ? Author Type: Blow Molding Machine Tender Type: Progress Notes Filed: 02/23/2024 14:29 Note Text: 48 y/o female presents to office for a routine post op. She had fallen at work and fell. She reports she was unable to use any limbs for a few minutes. She presented to the ED and had surgery of C2-T2 fusion. She states she is overall feeling much better. She is still finding it difficult with her right arm. She was completing PT in rehab, but will need a new order for PT. She will also need a refill on her pain medication.[facility]12-04-[facility] History of Present illness Narrative* Karolyn Mcginnis, RT(R) - 02/23/2024 1:00 PM EST Summary: xray Radiology Service Progress Note PATIENT NAME: Jennifer Price DATE OF SERVICE: February 23, 2024 TIME: 1:41 PM PATIENT IDENTITY VERIFICATION COMPLETED USING TWO (2) IDENTIFIERS: Name and Date of confirmedby patient verbally. FALL SCREENING: Has the patient had 2 falls in the last year or 1 fall with injury or currently using an Ambulatory Assistive Device (Walker, Cane, Wheelchair, Crutches, etc.)? No PATIENT GENDER DATA: Female. status: : No status: N/A PATIENT RELEVANT IMPLANT DATA REVIEWED: Not Applicable PATIENT PRESENTS WITH AN IMPLANTABLE OR ATTACHED ANIMAL CARE ASSISTANT: No RADIOLOGY DEPARTMENT: General X-ray: Exam(s) Completed: Spine X-Ray(s): Cervical AP / LAT PERIPHERAL IV DATA: Not applicable SIGNED BY: RT Elmer(Miguel) February 23, 2024 1:41 PM documented in this encounterBethesda North Hospital12-04-2024 NoteHNO ID: [id number] Author: KAROLYN MCGINNIS RT(R) Service: Radiology Author Type: Technologist Type: Progress Notes Filed: 02/23/2024 13:41 Note Text: Summary: xray Radiology Service Progress Note PATIENT NAME: Jennifer Price DATE OF SERVICE: February 23, 2024 TIME: 1:41 PM PATIENT IDENTITY VERIFICATION COMPLETED USING TWO (2) IDENTIFIERS: Name and Date of confirmed by patient verbally. FALL SCREENING: Has the patient had 2 falls in the last year or 1 fall with injury or currently using an Ambulatory Assistive Device (Walker, Cane, Wheelchair, Crutches, etc.)? No PATIENT GENDER DATA: Female. status: : No status: N/A PATIENT RELEVANT IMPLANT DATA REVIEWED: Not Applicable PATIENT PRESENTS WITH AN IMPLANTABLE OR ATTACHED ANIMAL CARE ASSISTANT: No RADIOLOGY DEPARTMENT: General X-ray: Exam(s) Completed: Spine X-Ray(s): Cervical AP / LAT PERIPHERAL IV DATA: Not applicable SIGNED BY: RT Elmer(Miguel) February 23, 2024 1:41 [facility]MSamaritan [facility]12-02-[facility]24 Telephone encounter Note * Telephone Encounter - Anthony Byrd - 02/21/2024 10:02 AM EST Spoke to the patient to let her know that Dr. Knowles would like for her to have xrays done prior to the time of her appointment. I made her aware that if these are not completed we will have to reschedule her appointment. She understood and said she will have them done here at [facility] prior to her appointment on 02/23/24. [facility]12-02-2024 Miscellaneous Notes* Telephone Encounter - Anthony Byrd - 02/21/2024 10:02 AM EST Spoke to the patient to let her know that Dr. Knowlse would like for her to have xrays done prior to the time of her appointment. I made her aware that if these are not completed we will have to reschedule her appointment. She understood and said she will have them done here at [facility] prior to her appointment on 02/23/24. documented in this encounterBethesda North Hospital12-02-2024 Telephone encounter Note * Telephone Encounter - Benton Vargas - 02/21/2024 9:59 AM EST Patient has been scheduled at [facility]. Benton Kennedy February 21, 2024 10:00 AM [facility]12-02-2024 Miscellaneous Notes* Telephone Encounter - Benton Vargas - 02/21/2024 9:59 AM EST Patient has been scheduled at [facility]. Benton Kennedy February 21, 2024 10:00 AM * Telephone Encounter - Benton Vargas - 02/21/2024 9:58 AM EST ----- Message from Lilian Fierro sent at 02/21/2024 8:05 AM EST ----- Regarding: Orthopedics / Celso Knowles) Neck: (Cervical) Pain / Post Op Within 90 Day Period Celso Aguillon) Neck: (Cervical) Pain / Post Op Within 90 Day Period Patient has been identified by name and Date of (Y/N): Y Patient: Jennifer Price Date of : 1975 Previous Provider Seen: Conry Body Part(s) Identified: Neck Diagnosis/Reason For Visit: Post Op Reason for the call/escalation: Pt needs post op appt scheduled has been released from [facility] If reason for call/escalation is discharge from ED/ER or Hospital, which facility was the patient seen at: na Was an appointment scheduled (Y/N): n Person calling if other than patient: pt Return call to if other than patient: pt Best contact number: [phone] Thank you, Lilian Gutierrez February 21, 2024 8:05 AM documented in this encounterBethesda North Hospital12-02-2024 Telephone encounter Note * Telephone Encounter - Benton Vargas - 02/21/2024 9:58 AM EST ----- Message from Lilian Fierro sent at 02/21/2024 8:05 AM EST ----- Regarding: Orthopedics / Celso Knowles) Neck: (Cervical) Pain / Post Op Within 90 Day Period Celso Aguillon) Neck: (Cervical) Pain / Post Op Within 90 Day Period Patient has been identified by name and Date of (Y/N): Y Patient: Jennifer Price Date of : 1975 Previous Provider Seen: Conry Body Part(s) Identified: Neck Diagnosis/Reason For Visit: Post Op Reason for the call/escalation: Pt needs post op appt scheduled has been released from [facility] If reason for call/escalation is discharge from ED/ER or Hospital, which facility was the patient seen at: na Was an appointment scheduled (Y/N): n Person calling if other than patient: pt Return call to if other than patient: pt Best contact number: [phone] Thank you, Lilian Gutierrez February 21, 2024 8:05 AM [facility]11-28-2024 NoteHNO ID: [id number] Author: CLARY GLOVER RN Service: Care Management Author Type: Registered Nurse Type: Care Mgt Progress Note Filed: 02/17/2024 09:43 Note Text: CARE MANAGEMENT DISCHARGE NOTE SERVICE DATE: February 17, 2024 SERVICE TIME: 9:40 AM Admission Date: 02/10/2024 LOS: 7 days Discharge Arrangement Discharge Arrangement: Acute Rehabilitation Facility Provider Name: [facility] Caregiver Assessment Caregiver is ready, willing and able to meet the patient's needs as recommended by the inter-professional team: Yes Name of Caregiver: [facility] Transportation Arrangements Transportation Arrangements: Car Handoff Communication: Handoff to: Other Caregiver Other Caregiver Name/Phone: [facility]/ Bedside RN Spoke with patient. Discharge today. Discharge orders complete. Plan is for acute rehab placement at discharge. [facility] is able to accept. Insurance authorization obtained and valid 02/15-02/21. Patient states her spouse Hasmukh will provide discharge [facility] 1100[facility] SIGNATURE: Clary Glover RN PATIENT NAME: Jennifer Price DATE: February 17, 2024 TIME: 9:40 AM CONTACT #: [id number] [facility]11-27-[facility]24 NoteHNO ID: [id number] Author: GILDARDO JOSÉ MD Service: Orthopaedic Surgery Author Type: Resident Type: Plan of Care Filed: 02/16/2024 16:19 Note Text: Orthopaedic Surgery- Plan of Care: Drain Removal The patient is POD #6 s/p C2-T2 posterior spinal fusion with C3-C6 posterior cervical decompression . KAI drain had 20 cc recorded output in the last 8 hours after which the drain was removed. Prior surgical dressing was taken down and the skin and incision site evaluated. It appears clean,dry and intact. The drain was then removed and the site was covered with 4x4 and tegaderm. Reinforce as needed. Ortho spine will sign off, patient is OK for DC from our perspective and can follow-up with Dr. Knowles in 2 weeks. Gildardo José MD Orthopedic Surgery 4:18pm 02/16/24[facility]11[facility]24 NoteHNO ID: [id number] Author: TRACEE VILLANUEVA RN Service: Care Management Author Type: Registered Nurse Type: Care Mgt Progress Note Filed: 02/16/2024 14:06 Note Text: CARE MANAGEMENT PROGRESS NOTE SERVICE DATE: 02/16/2024 SERVICE TIME: 2:04 PM LOS: 6 days Needs Prior to Discharge: To Be Determined;Precertification;Discharge Transportation Auth still pending to [facility] CHUNG. There is a possibility that her insurance is closed through the holiday until Wednesday and primary team has been updated. If so, patient will need updated notes on Wednesday for insurance company. If auth approved, she will need cot transport through [employer]. CM will continue to follow and transport packet next to green chart. SIGNATURE: Tracee Villanueva RN PATIENT NAME: Jennifer Price DATE: February 16, 2024 TIME: 2:04 PM PAGER/CONTACT #: [phone] Light [facility]11-27-2024 NoteHNO ID: [id number] Author: GILDARDO DRAKE MD Service: General Surgery Author Type: Resident Type: Progress Notes Filed: 03/20/2024 17:38 Note Text: Attestation signed by Gildardo Drake MD at 03/20/2024 5:38 PM I personally saw and examined the patient on 02/16/24. I reviewed the resident's note. I agree with the resident's assessment and plan unless otherwise noted. Trauma Surgery Progress Note SERVICE DATE: 02/16/2024 Trauma Service Pager: For questions or concerns Mon-Fri 6a-5p please page [phone]. After 5pm and on Weekends and Holidays, please page [phone] if in ICU or [phone] if on RNF. SUBJECTIVE: No acute overnight events. C-collar in place. KAI with minimal serosanguinous drainage. She reports that her right arm weakness and numbness continues to improve daily, and currently she only has numbness to her right thumb and index finger. She states that her pain has been controlled with her current regimen. Patient denies headaches, dizziness, chest pain, shortness of breath, abdominal pain, nausea, vomiting. OBJECTIVE: Vitals: Temp (24hrs), Av.8 ?C (98.2 ?F), Min:36.6 ?C (97.9 ?F), Max:37 ?C (98.6 ?F) BP 154/86 Pulse 67 Temp 37 ?C (98.6 ?F) (Oral) Resp 18 Ht 165.1 cm (5' 5) Wt 64.8 kg (142 lb 13.7 oz) LMP 05/28/2014 SpO2 97% BMI 23.77 kg/m? O2 Therapy: Room Air IANDO: Date 02/15/24 07 - 02/16/24 0659 02/16/24 07 - 02/17/24 0659 Shift 3651-4160 7333-9923 2424-1971 24 Hour Total 8106-9163 1785-1270 9205-9385 24 Hour Total INTAKE PO 240 240 PO 240 240 Supplements (mL) 0 0 Shift Total 240 240 OUTPUT Urine Urine Not Saved. 1 x 1 x 1 x 1 x Tubes 15 15 40 70 Drain/Tube Output (Drain/Tube 02/11/24 0140 Jose Miguel López Posterior Neck) 15 15 40 70 # of BMs Number of BMs 1 x 1 x Shift Total 15 15 40 70 Weight (kg) 64.8 64.8 64.8 64.8 64.8 64.8 64.8 64.8 MEDICATIONS: Current Facility-Administered Medications Medication Dose Route Frequency gabapentin 600 mg cap(s) (NEURONTIN) 600 mg ORAL TID lidocaine 4 % 2 Patch (SALONPAS) 2 Patch TRANSDERMAL DAILY And lidocaine patch - REMOVE OTHER AT BEDTIME And lidocaine - VERIFY PATCH OTHER q 8 H bacitracin 500 unit/gram 1 Packet 1 Packet TOPICAL BID PRN morphine 2 mg injection 2 mg INTRAVENOUS q 4 H PRN acetaminophen 1,000 mg tab(s) (TYLENOL) 1,000 mg ORAL QID methocarbamol 750 mg tab(s) (ROBAXIN) 750 mg ORAL TID prochlorperazine 5 mg injection (COMPAZINE) 5 mg INTRAVENOUS q 6 H PRN NaCl 0.9% iv flush bag 20 mL INTRAVENOUS PRN oxyCODONE IR 5-10 mg tab(s) (ROXICODONE) 5-10 mg ORAL q 4 H PRN ondansetron 4 mg tab(s) (ZOFRAN) 4 mg ORAL q 6 H PRN Or ondansetron (PF) 4 mg injection (ZOFRAN) 4 mg INTRAVENOUS q 6 H PRN senna-docusate 8.6-50 mg 1 tablet (SENNA-S) 1 tablet ORAL BID polyethylene glycol 3350 17 g packet 17 g ORAL DAILY Labs: Recent Labs 02/16/24 0001 02/15/24 0111 02/14/24 0303 NA 133* 133* 133* K 4.0 4.4 3.9 CHLOR 96* 97* 98 CO2 23 23 26 BUN 10 11 9 CREAT 0.57* 0.56* 0.58 GLUC 126* 115* 88 ANION 14 13 9 CA 9.3 8.8 8.7 MG -- -- 1.6* P -- -- 3.5 WBC 12.40* 9.27 11.21* HB 15.8* 14.2 13.5 HCT 48.4* 43.7 41.4 PLT 220 191 183 PHYSICAL EXAM: Genl: Appears age appropriate. No acute distress. Resting comfortably. Head/Face: Normocephalic. Atraumatic Eyes: EOMI. PERRLA. Sclera not icteric, not injected Neck: No mid-line masses. C-collar. Dressing clean, dry, intact. KAI with minimal serosanguinous drainage. Back: No midline tenderness, step-offs or deformities. Resp: Equal excursion bilaterally, breathing comfortably on room air. CVS: RRR as above. GI: Abdomen is soft, non-tender, non-distended. No guarding or peritoneal signs. MSK: No gross deformities. No clubbing, cyanosis or edema. Normal AROM x 4. Skin: Warm and dry. Not jaundiced. Neuro: AANDOx3. Strength and sensation grossly intact in all extremities. BHANDARI. +Right upper extremity weakness and decreased sensation. GCS15. Psych: Normal mood. Normal affect. Appropriate insight into current situation. ASSESSMENT AND PLAN: Assessment Active Hospital Problems Diagnosis Date Noted Central cord syndrome at C3 level of cervical spinal cord, initial encounter ([facility]) 02/10/2024 Nicotine use disorder, F17.2 02/14/2024 48-year old female s/p fall on 02/10/24 (Trauma transfer) Imaging performed: CT C-spine, CT face ([facility] 02/09) CT HNTL-spine, MRI C/T-spine, CT C-spine, XR C-spine (02/09) XR C-spine x 3, Xr right humerus, CXR, PXR, CTAP (02/10) US RUQ, XR right hand (02/12) Traumatic Injuries: Severe stenosis with cord compression and cord edema C3-C6 Operations/Procedures: OR with Dr. Knowles on 02/09: C2-T2 posterior spinal fusion with instrumentation C3-6 laminectomy Care Plan: Central cord syndrome (more content not included)...[facility]11-27-2024 NoteHNO ID: [id number] Author: CELSO KNOWLES MD Service: Orthopaedic Surgery Author Type: Physician Type: Progress Notes Filed: 02/16/2024 17:35 Note Text: Orthopaedic Spine Surgery Attending Addendum I personally saw and evaluated the patient. I agree with the history, physical examination, assessment, and plan as documented in the resident's note with the following additions/changes: Feeling very well this evening. Pre-op dysesthetic pain resolved. RUE strength continues to improve. LUE feels normal to patient. Examination 4/5 RUE and 5/5 LUE in all myotomes. Drain removed this evening. Discharge to rehab tomorrow. Arrangements made. Celso Knowles MD Orthopaedic Spine Surgery ASSESSMENT: 48 yo female who is POD#6 s/p C2-T2 posterior spinal fusion with C3-C6 posterior cervical decompression . PLAN: -Management per primary -Pain control -Dressings: Mepilex dressing x 10 days -Diet: per primary -DVTppx: SCDs, hold chemo ppx -Ancef 2g x 2 doses given -Decadron 6mg q6hr x 24hrs given -Maintain weiss -Maintain cervical collar at all times -KAI drain 40 cc out over last 8 hrs -Postop XR c-spine completed -PT/OT recommending acute rehab, accepted to [facility] -Dispo: per primary team INTERVAL HPI: Patient States she is feeling very well this morning, pain is controlled. Feels her left hand continues to gain strength back. OBJECTIVE: BP 154/84 Pulse 67 Temp 36.8 ?C (98.2 ?F) (Oral) Resp 18 Ht 165.1 cm (5' 5) Wt 64.8 kg (142 lb 13.7 oz) LMP 05/28/2014 SpO2 96% BMI 23.77 kg/m? Exam: General: Resting comfortably in bed. Inspection: Cervical collar in place. KAI drain to suction with SS output. Sensation: Sensation intact to light touch in C5-T1 and L1-S1 dermatomes. Motor: Upper Extremities Right Left Deltoid (C5) 5 5 Biceps (C6) 5 5 Triceps (C7) 5 5 Creping Machine Operator Helper (C8) 4 5 Interossei (T1) 3 5 Lower Extremities Right Left Psoas (L2) 5 5 Quadriceps (L3) 5 5 Dorsiflexion (L4) 5 5 EHL (L5) 5 5 Plantarflexion (S1) 5 5 Special tests: Larry's present bilaterally Recent Labs 02/16/24 0001 02/15/24 0111 02/14/24 0303 CREAT 0.57* 0.56* 0.58 BUN 10 11 9 NA 133* 133* 133* K 4.0 4.4 3.9 CHLOR 96* 97* 98 CO2 23 23 26 ANION 14 13 9 GLUC 126* 115* 88 CA 9.3 8.8 8.7 P -- -- 3.5 MG -- -- 1.6* WBC 12.40* 9.27 11.21* HB 15.8* 14.2 13.5 HCT 48.4* 43.7 41.4 PLT 220 191 183 COAGS: APTT 31.9 02/10/2024 INR 1.2 02/10/2024 SED RATE/CRP: No results found for this basename: wsr:*,crp:* Imaging: NNOI Gildardo José MD Orthopaedic Surgery 02/16/2024 6:20 [facility]11-26-2024 NoteHNO ID: [id number] Author: FARZANEH NEWMAN APRN.CNP Service: General Surgery Author Type: Nurse Practitioner Type: Progress Notes Filed: 02/15/2024 14:01 Note Text: Trauma Surgery Progress Note SERVICE DATE: 02/15/2024 Trauma Service Pager: For questions or concerns Mon-Fri 6a-5p please page [phone]. After 5pm and on Weekends and Holidays, please page [phone] if in ICU or [phone] if on RNF. SUBJECTIVE: No acute overnight events. Patient is alert and oriented x 3, FC, BHANDARI. No new focal deficits. C-collar in place. KAI with minimal serosanguinous drainage. She reports that her right arm weakness and numbness continues to improve daily. She states that her pain has been controlled with her current regimen. Patient denies headaches, dizziness, chest pain, shortness of breath, abdominal pain, nausea, vomiting. OBJECTIVE: Vitals: Temp (24hrs), Av.9 ?C (98.5 ?F), Min:36.7 ?C (98 ?F), Max:37.3 ?C (99.1 ?F) BP 131/85 Pulse (!) 53 Temp 36.8 ?C (98.2 ?F) (Oral) Resp 14 Ht 165.1 cm (5' 5) Wt 64.8 kg (142 lb 13.7 oz) LMP 05/28/2014 SpO2 95% BMI 23.77 kg/m? O2 Therapy: Room Air IANDO: Date 02/14/24699 - 02/15/24 0659 02/15/24 0700 - 02/16/24 0659 Shift 3041-4718 2992-3996 3726-8068 24 Hour Total 1367-5451 4754-3996 9193-2924 24 Hour Total INTAKE PO 360 120 480 PO 360 120 480 Shift Total 360 120 480 OUTPUT Urine 119 165 9759 Void (ml) 287 408 8148 Urine Not Saved. 3 x 3 x 1 x 1 x Tubes 20 10 70 100 15 15 Drain/Tube Output (Drain/Tube 02/11/24 0140 Jose Miguel López Posterior Neck) 20 10 70 100 15 15 # of BMs Number of BMs 1 x 1 x Shift Total 920 181 66 0614 15 15 Weight (kg) 64.8 64.8 64.8 64.8 64.8 64.8 64.8 64.8 MEDICATIONS: Current Facility-Administered Medications Medication Dose Route Frequency gabapentin 600 mg cap(s) (NEURONTIN) 600 mg ORAL TID lidocaine 4 % 2 Patch (SALONPAS) 2 Patch TRANSDERMAL DAILY And lidocaine patch - REMOVE OTHER AT BEDTIME And lidocaine - VERIFY PATCH OTHER q 8 H bacitracin 500 unit/gram 1 Packet 1 Packet TOPICAL BID PRN morphine 2 mg injection 2 mg INTRAVENOUS q 4 H PRN acetaminophen 1,000 mg tab(s) (TYLENOL) 1,000 mg ORAL QID methocarbamol 750 mg tab(s) (ROBAXIN) 750 mg ORAL TID prochlorperazine 5 mg injection (COMPAZINE) 5 mg INTRAVENOUS q 6 H PRN NaCl 0.9% iv flush bag 20 mL INTRAVENOUS PRN oxyCODONE IR 5-10 mg tab(s) (ROXICODONE) 5-10 mg ORAL q 4 H PRN ondansetron 4 mg tab(s) (ZOFRAN) 4 mg ORAL q 6 H PRN Or ondansetron (PF) 4 mg injection (ZOFRAN) 4 mg INTRAVENOUS q 6 H PRN senna-docusate 8.6-50 mg 1 tablet (SENNA-S) 1 tablet ORAL BID polyethylene glycol 3350 17 g packet 17 g ORAL DAILY Labs: Recent Labs 02/15/24 0111 02/14/24 0303 02/13/24 0209 NA 133* 133* 135* K 4.4 3.9 4.1 CHLOR 97* 98 98 CO2 23 26 29 BUN 11 9 9 CREAT 0.56* 0.58 0.60 GLUC 115* 88 97 ANION 13 9 8 CA 8.8 8.7 8.8 MG -- 1.6* 2.1 P -- 3.5 3.3 WBC 9.27 11.21* 13.84* HB 14.2 13.5 13.1 HCT 43.7 41.4 39.3 PLT 191 183 225 PHYSICAL EXAM: Genl: Appears age appropriate. No acute distress. Resting comfortably. Head/Face: Normocephalic. Atraumatic Eyes: EOMI. PERRLA. Sclera not icteric, not injected Neck: No mid-line masses. C-collar. Dressing clean, dry, intact. KAI with minimal serosanguinous drainage. Back: No midline tenderness, step-offs or deformities. Resp: Lungs CTAB. No wheezes, rales or rhonchi. Respiratory status stable on RA @ 95%. CVS: RRR as above. 2+ RA, DP, PT pulses bilaterally. GI: Abdomen is soft, non-tender, non-distended. No guarding or peritoneal signs. MSK: No gross deformities. No clubbing, cyanosis or edema. Normal AROM x 4. Skin: Warm and dry. Not jaundiced. Neuro: AANDOx3. Strength and sensation grossly intact in all extremities. BHANDARI. +Right upper extremity weakness and decreased sensation. GCS15. Psych: Normal mood. Normal affect. Appropriate insight into current situation. ASSESSMENT AND PLAN: Assessment Active Hospital Problems Diagnosis Date Noted Central cord syndrome at C3 level of cervical spinal cord, initial encounter ([facility]) 02/10/2024 Nicotine use disorder, F17.2 02/14/2024 48-year old female s/p fall on 02/10/24 (Trauma transfer) Imaging performed: CT C-spine, CT face ([facility] 02/09) CT HNTL-spine, MRI C/T-spine, CT C-spine, XR C-spine (02/09) XR C-spine x 3, Xr right humerus, CXR, PXR, CTAP (02/10) US RUQ, XR right hand (02/12) Traumatic Injuries: Severe stenosis with cord compression and cord edema C3-C6 Operations/Procedures: OR with Dr. Knowles on 02/09: C2-T2 posterior spinal fusion with instrumentation C3-6 laminectomy Care Plan: Central cord syndrome Orthopedic spine surgery consulted, appreciate recommendations MRI C-spine (02/09): Severe stenosis with cord compression and cord edema C3-C6 POD #5 C2-T2 PSF with C3-C6 posterior cervical decompression Received Decadron 6 mg x 24 hours (02/09) Neuro checks every 4 hours M (more content not included)...[facility]11-26-2024 NoteHNO ID: [id number] Author: TRACEE VILLANUEVA RN Service: Care Management Author Type: Registered Nurse Type: Care Mgt Progress Note Filed: 02/15/2024 14:32 Note Text: CARE MANAGEMENT PROGRESS NOTE SERVICE DATE: 02/15/2024 SERVICE TIME: 11:20 AM LOS: 5 days Needs Prior to Discharge: To Be Determined;Accepting Facility;Bed Availability;Precertification;Discharge Transportation Patient skilled for AR and asked CM to send referral to [facility]. If they cannot accept she asked CM to send referral to next closest AR to her home. She will need auth and transport. CM will continue to follow. 1339- [facility] unable to accept due to out of network with patient insurance. CM sending referrals to other [facility]s near her home. 1432-[facility] accepted to [facility] and agreeable to dc there. [facility] initiating auth due to holiday weekend approaching. Once drain is removed she will be medically ready for dc. SIGNATURE: Tracee Villanueva RN PATIENT NAME: Jennifer Price DATE: February 15, 2024 TIME: 11:20 AM PAGER/CONTACT #: [phone] NoteHNO ID: [id number] Author: YASMINE MENDEZ MD Service: Orthopaedic Surgery Author Type: Resident Type: Progress Notes Filed: 02/15/2024 06:02 Note Text: ASSESSMENT: 48 yo female who is POD#5 s/p C2-T2 posterior spinal fusion with C3-C6 posterior cervical decompression . PLAN: -Management per primary -Pain control -Dressings: Mepilex dressing x 10 days -Diet: per primary -DVTppx: SCDs, hold chemo ppx -Ancef 2g x 2 doses -Decadron 6mg q6hr x 24hrs -Maintain weiss -Maintain cervical collar at all times -KAI drain 70 cc out over last 8 hrs, recheck this PM -Postop XR c-spine completed -PT/OT recommending acute rehab -Dispo: per primary team INTERVAL HPI: Patient moved to regular floor yesterday evening. States she is feeling very well this morning, sitting up at edge of bed on my evaluation. Feels her left hand has gained more strength back. OBJECTIVE: BP 114/64 Pulse (!) 49 Temp 36.7 ?C (98 ?F) (Oral) Resp 19 Ht 165.1 cm (5' 5) Wt 64.8 kg (142 lb 13.7 oz) LMP 05/28/2014 SpO2 98% BMI 23.77 kg/m? Exam: General: Resting comfortably in bed. Inspection: Cervical collar in place. KAI drain to suction with SS output. Sensation: Sensation intact to light touch in C5-T1 and L1-S1 dermatomes. Motor: Upper Extremities Right Left Deltoid (C5) 5 5 Biceps (C6) 5 5 Triceps (C7) 5 5 Creping Machine Operator Helper (C8) 4 4 Interossei (T1) 4 5 Lower Extremities Right Left Psoas (L2) 5 5 Quadriceps (L3) 5 5 Dorsiflexion (L4) 5 5 EHL (L5) 5 5 Plantarflexion (S1) 5 5 Special tests: Larry's present bilaterally Recent Labs 02/15/24 0111 02/14/24 0303 02/13/24 0209 CREAT 0.56* 0.58 0.60 BUN 11 9 9 NA 133* 133* 135* K 4.4 3.9 4.1 CHLOR 97* 98 98 CO2 23 26 29 ANION 13 9 8 GLUC 115* 88 97 CA 8.8 8.7 8.8 P -- 3.5 3.3 MG -- 1.6* 2.1 WBC 9.27 11.21* 13.84* HB 14.2 13.5 13.1 HCT 43.7 41.4 39.3 PLT 191 183 225 COAGS: APTT 31.9 02/10/2024 INR 1.2 02/10/2024 SED RATE/CRP: No results found for this basename: wsr:*,crp:* Imaging: MAGDALENA Mendez MD Orthopaedic Surgery 02/15/2024 5:20 [facility]11-25-2024 NoteHNO ID: [id number] Author: PAWAN BRAGG LSW Service: Care Management Author Type: Vice President Financial Type: Care Mgt Progress Note Filed: 02/14/2024 13:20 Note Text: CARE MANAGEMENT PROGRESS NOTE SERVICE DATE: 02/14/2024 SERVICE TIME: 1:17 PM LOS: 4 days ALCOHOL USE HISTORY: 1. Consumption Screening Female 4 or more drinks in one session:No More than 1 drink per day:No More than 7 drinks per week:No 2. Have you ever felt you should cut down on your drinking? No 3. Have people annoyed you by criticizing your drinking? No 4. Have you ever felt bad or guilty about drinking? No 5. Have you ever had a drink first thing in the morning to steady your nerves or get rid of a hangover (eye parent educator)? No 6. CAGE Screening? No 7. If patient has a positive screen CAGE or Consumption, what is their total number of drinks per day? na 8. Date of last alcohol use: na ALCOHOL/DRUG HISTORY: Alcohol Has drinking/drug use affected your work performance? No Has drinking/drug use caused you to miss work? No Has drinking/drug use affected your relationships? No Has drinking/drug use affected your health? No Has drinking/drug use had legal consequences? No Do you have a history of substance abuse treatment? No MENTAL HEALTH HISTORY: Do you have a history of mental health issues? No Have you ever had any behavioral problems/anger management issues? No PSYCHOSOCIAL ASSESSMENT: Current living situation: family Social supports: family Do you have a family history of alcohol/drug use? No Do you have a family history of mental health issues? No Significant childhood events (trauma, abuse, neglect)? No Current or past history of abuse/neglect? No Cultural beliefs related to alcohol/drug use? No Self care issues? No Difficulty communicating with others? No Financial difficulties? No Currently employed? Yes Student? No Past or present ? 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 Patient independent with adl's. Patient sitting up in the chair today and feeling well. Patient beginning to move her right arm and hand. Patient states she uses marijuana but does not have any issue with marijuana. Patient states she does not need resources. SIGNATURE: JOSELIN Vang PATIENT NAME: Jennifer Price DATE: February 14, 2024 TIME: 1:16 PM [facility]AGER[facility]CONTACT [phone] NoteHNO ID: [id number] Author: TANYA BRITO MD Service: General Surgery Author Type: Resident Type: Progress Notes Filed: 02/14/2024 12:14 Note Text: Attestation signed by Tanya Brito MD at 02/14/2024 12:14 PM Attending Note I evaluated the patient and personally participated in the baker components. I agree with the resident's findings and plan as documented and have discussed the case and management of the patient's care with the resident. Patient completes MAP goals today and I anticipate transfer to [facility]. Noted drain still in place from surgery and spine note from today mentions plan to maintain for now. Otherwise, she is approaching discharge readiness in the next couple days. Acute rehab planning, appreciate CM assistance De escalate pain regimen. Encourage ambulation with collar in place. IS. Clarify plan for DVT ppx with spine surgery. Signature: Tanya Brito MD Date: 02/14/2024 Time: 12:11 PM Trauma Surgery Progress Note SERVICE DATE: 02/14/2024 Trauma Service Pager: For questions or concerns Mon-Wed 6a-5p please page [phone]. After 5pm and on Weekends and Holidays, please page [phone] if in ICU or [phone] if on RNF. SUBJECTIVE: NAEO. Patient doing well overall. Improved mobility to RUE, sensation improved on RUE, sensation AND strength intact LLE and bilateral LE. OBJECTIVE: Vitals: Temp (24hrs), Av.1 ?C (98.7 ?F), Min:36.8 ?C (98.2 ?F), Max:37.2 ?C (99 ?F) BP 164/94 Pulse (!) 56 Temp 37 ?C (98.6 ?F) (Oral) Resp 9 Ht 165.1 cm (5' 5) Wt 64.8 kg (142 lb 13.7 oz) LMP 05/28/2014 SpO2 95% BMI 23.77 kg/m? O2 Therapy: Room Air IANDO: Date 02/13/24 07 - 02/14/24 0659 02/14/24 07 - 02/15/24 0659 Shift 0787-3443 6337-2796 0653-6042 24 Hour Total 4175-8023 7018-3216 2560-6172 24 Hour Total INTAKE PO 200 760 960 PO 200 760 960 IV 1757 111 7058 Volume (mL) (NaCl 0.9% 1,000 mL iv bolus) 1000 1000 Volume (mL) (magnesium sulfate iv piggyback in sterile water 2 g 50 mL) 50 50 Volume (mL) (calcium gluconate iv piggyback 2 g in NaCl (iso-osmotic) 100 mL) 200 200 Shift Total 200 0110 450 3632 OUTPUT Urine 590 8627 481 1173 Void (ml) 590 365 520 9674 Amount Voided Before Bladder Scan 120 120 Urine Not Saved. 5 x 4 x 9 x Tubes 15 15 35 65 Drain/Tube Output (Drain/Tube 02/11/24 0140 Jose Miguel López Posterior Neck) 15 15 35 65 # of BMs Number of BMs 0 x 0 x Shift Total 605 6126 263 9971 Weight (kg) 64.7 64.7 64.8 64.8 64.8 64.8 64.8 64.8 MEDICATIONS: Current Facility-Administered Medications Medication Dose Route Frequency NORepinephrine 16 mg in D5W 250 mL (LEVOPHED) 0.6-15 mcg/min INTRAVENOUS CONTINUOUS phentolamine injection 5 mg (REGITINE) Extravasation Antidote 5 mg SUBCUTANEOUS PRN HYDROmorphone 0.4 mg injection (DILAUDID) 0.4 mg INTRAVENOUS q 3 H PRN acetaminophen 1,000 mg tab(s) (TYLENOL) 1,000 mg ORAL QID methocarbamol 750 mg tab(s) (ROBAXIN) 750 mg ORAL TID potassium chloride 20-40 mEq oral powder (KLOR-CON) 20-40 mEq ORAL/FEEDING TUBE PRN Or potassium chloride iv piggyback 20 mEq/100 mL 20 mEq INTRAVENOUS PRN magnesium sulfate iv piggyback in sterile water 2 g 50 mL 2 g INTRAVENOUS PRN calcium gluconate iv piggyback 2 g in NaCl (iso-osmotic) 100 mL 2 g INTRAVENOUS PRN(NO DISPENSE) gabapentin 300 mg cap(s) (NEURONTIN) 300 mg ORAL TID phosphorus 250 mg tab(s) (K PHOS NEUTRAL) 250 mg ORAL PC and HS prochlorperazine 5 mg injection (COMPAZINE) 5 mg INTRAVENOUS q 6 H PRN bacitracin 500 unit/gram 1 Packet 1 Packet TOPICAL PRN NaCl 0.9% iv flush bag 20 mL INTRAVENOUS PRN oxyCODONE IR 5-10 mg tab(s) (ROXICODONE) 5-10 mg ORAL q 4 H PRN ondansetron 4 mg tab(s) (ZOFRAN) 4 mg ORAL q 6 H PRN Or ondansetron (PF) 4 mg injection (ZOFRAN) 4 mg INTRAVENOUS q 6 H PRN senna-docusate 8.6-50 mg 1 tablet (SENNA-S) 1 tablet ORAL BID polyethylene glycol 3350 17 g packet 17 g ORAL DAILY Labs: Recent Labs 02/14/24 0303 02/13/24 0209 NA 133* 135* K 3.9 4.1 CHLOR 98 98 CO2 26 29 BUN 9 9 CREAT 0.58 0.60 GLUC 88 97 ANION 9 8 CA 8.7 8.8 MG 1.6* 2.1 P 3.5 3.3 WBC 11.21* 13.84* HB 13.5 13.1 HCT 41.4 39.3 PLT 183 225 PHYSICAL EXAM: GENERAL: Alert. No distress. Resting comfortably. NEURO: AANDOx3. No focal neurologic deficits. Sensation grossly intact. HEENT: Normocephalic. Atraumatic. EOMI. LUNGS: Unlabored breathing. Equal excursion bilaterally. CARDIAC: Regular rate. Good perfusion throughout. ABDOMEN: Soft, non-tender, non-distended. No rebound or guarding. EXTREMITIES: BHANDARI. No deformities. Improved sensation AND strength on Rue, intact LUE sensation 7 strength AND bilat LE SKIN: No obvious jaundice or pallor. Back Kai drain sero sang. ASSESSMENT AND PLAN: Assessment Active Hospital Problems Diagnosis Date Noted Ce (more content not included)...[facility]11-25-2024 NoteHNO ID: [id number] Author: VALENTÍN VALDERRAMA DO Service: Orthopaedic Surgery Author Type: Physician Type: Progress Notes Filed: 02/14/2024 13:08 Note Text: ORTHOPAEDIC SURGERY DAILY PROGRESS NOTE Orthopaedic Spine Surgery Attending Addendum I saw and examined the patient. I agree with the resident's assessment, plan, and exam unless otherwise stated. No acute events overnight. Their Preoperative symptoms are greatly improved. Exam: MOTOR: Upper Extremity Left Right Deltoids 5/5 5/5 Biceps 5/5 5/5 Triceps 5/5 5/5 Creping Machine Operator Helper 4/5 4/5 Interossei 5/5 3/5 Lower Extremity Hip Flexors 5/5 5/5 Quadriceps 5/5 5/5 Dorsiflexion 5/5 5/5 EHL/EDC 5/5 5/5 Plantar Flexion 5/5 5/5 Assessment: POD#4 from a C2-T2 posterior spinal fusion with C3-6 laminectomy decompression Plan: Remove drain-20 cc over last shift MAP goal reached Okay for regular nursing floor Orthopedic spine surgery will sign off at this time. Please contact the spine team at the patient develops any new or worsening symptoms. Patient will follow-up with Dr. Knowles in 2 weeks. Valentín Valderrama DO Orthopaedic Spine Surgery ASSESSMENT: 48 yo female who is POD#4 s/p C2-T2 posterior spinal fusion with C3-C6 posterior cervical decompression . PLAN: -Management per primary -Pain control -MAP goal >80, last day today -Dressings: Mepilex dressing x 10 days -Diet: per primary -DVTppx: SCDs, hold chemo ppx -Ancef 2g x 2 doses -Decadron 6mg q6hr x 24hrs -Maintain weiss -Maintain cervical collar at all times -KAI drain to suction; record output q 8hr shift -Last recorded 35 cc out. Maintain. -Postop XR c-spine completed -PT/OT recommending acute rehab -Dispo: pending drain removal and placement INTERVAL HPI: Patient continues to endorse neck pain. This morning complains of pain to right index finger since fall. Denies any new numbness or tingling in upper extremities. OBJECTIVE: BP 134/84 Pulse 60 Temp 37 ?C (98.6 ?F) (Oral) Resp 14 Ht 165.1 cm (5' 5) Wt 64.7 kg (142 lb 10.2 oz) LMP 05/28/2014 SpO2 94% BMI 23.74 kg/m? Exam: General: Resting comfortably in bed. Inspection: Cervical collar in place. KAI drain to suction with SS output. Sensation: Sensation intact to light touch in C5-T1 and L1-S1 dermatomes. Motor: Upper Extremities Right Left Deltoid (C5) 5 5 Biceps (C6) 5 5 Triceps (C7) 5 5 Creping Machine Operator Helper (C8) 4 4 Interossei (T1) 3 5 Lower Extremities Right Left Psoas (L2) 5 5 Quadriceps (L3) 5 5 Dorsiflexion (L4) 5 5 EHL (L5) 5 5 Plantarflexion (S1) 5 5 Special tests: Larry's present bilaterally Recent Labs 02/14/24 0303 02/13/24 0209 02/12/24 0420 CREAT 0.58 0.60 0.50* BUN 9 9 7 NA 133* 135* 129* K 3.9 4.1 3.5* CHLOR 98 98 93* CO2 26 29 25 ANION 9 8 11 GLUC 88 97 156* CA 8.7 8.8 8.8 P 3.5 3.3 2.9 MG 1.6* 2.1 1.9 WBC 11.21* 13.84* 14.93* HB 13.5 13.1 13.3 HCT 41.4 39.3 39.3 PLT 183 225 236 COAGS: APTT 31.9 02/10/2024 INR 1.2 02/10/2024 SED RATE/CRP: No results found for this basename: wsr:*,crp:* Imaging: XR right hand reviewed, demonstrates no acute fracture or dislocation. Yasmine Mendez MD Orthopaedic Surgery 02/14/2024 5:20 [facility]11-24-2024 NoteHNO ID: [id number] Author: CHAD MICHAUD MD Service: General Surgery Author Type: Resident Type: Plan of Care Filed: 02/13/2024 16:36 Note Text: General Surgery Plan of Care Concern for right finger swelling and pain s/p fall. Never imaged at the initial presentation. Will obtain 3 v XR of right hand. Results pending. Will follow them up. Chad Michaud M.D. General Surgery PGY-5 02/13/2024 4:36 [facility]11-24-2024 NoteHNO ID: [id number] Author: TANYA BRITO MD Service: General Surgery Author Type: Resident Type: Progress Notes Filed: 02/13/2024 12:42 Note Text: Attestation signed by Tanya Brito MD at 02/13/2024 12:42 PM Attending Note I evaluated the patient and personally participated in the baker components. I agree with the resident's findings and plan as documented and have discussed the case and management of the patient's care with the resident. Patient sitting up in chair at bedside. Pain well controlled. Continues to have improvement in mobility of hands. RUE with worse mobility than left. Plan to keep in ICU until tomorrow for MAP goals, acute rehab planning as soon as tomorrow . Signature: Tanya Brito MD Date: 02/13/2024 Time: 12:40 PM Trauma Surgery Progress Note SERVICE DATE: 02/13/2024 Trauma Service Pager: For questions or concerns Mon-Fri 6a-5p please page [phone]. After 5pm and on Weekends and Holidays, please page [phone] if in ICU or [phone] if on RNF. SUBJECTIVE: Feeling in better spirits, improved mobility to RUE, sensation improved on RUE, sensation AND strength intact LLE and bilateral LE. OBJECTIVE: Vitals: Temp (24hrs), Av.6 ?C (97.9 ?F), Min:36.5 ?C (97.7 ?F), Max:36.8 ?C (98.2 ?F) BP 95/58 Pulse 65 Temp 36.5 ?C (97.7 ?F) (Oral) Resp 10 Ht 165.1 cm (5' 5) Wt 64.7 kg (142 lb 10.2 oz) LMP 05/28/2014 SpO2 91% BMI 23.74 kg/m? O2 Therapy: Room Air IANDO: Date 02/12/24 07 - 02/13/24 0659 02/13/24 07 - 02/14/24 0659 Shift 8453-6376 8491-2649 1678-5719 24 Hour Total 1030-0084 6149-3160 1965-9337 24 Hour Total INTAKE PO 500 300 800 PO 500 300 800 Shift Total 500 300 800 OUTPUT Urine 1000 660 416 4842 Void (ml) 400 079 378 6353 Urine Not Saved. 2 x 2 x 4 x Output ([REMOVED] External Collection Device 02/12/24 0300 [facility] 02/12/24 1000) 600 600 Tubes 40 30 50 120 Drain/Tube Output (Drain/Tube 02/11/24 0140 Jose Miguel López Posterior Neck) 40 30 50 120 # of BMs Number of BMs 0 x 0 x Shift Total 1040 235 293 8855 Weight (kg) 63.1 63.1 64.7 64.7 64.7 64.7 64.7 64.7 MEDICATIONS: Current Facility-Administered Medications Medication Dose Route Frequency NORepinephrine 16 mg in D5W 250 mL (LEVOPHED) 0.6-15 mcg/min INTRAVENOUS CONTINUOUS phentolamine injection 5 mg (REGITINE) Extravasation Antidote 5 mg SUBCUTANEOUS PRN HYDROmorphone 0.4 mg injection (DILAUDID) 0.4 mg INTRAVENOUS q 3 H PRN ALPRAZolam 0.5 mg tab(s) (XANAX) 0.5 mg ORAL TID PRN acetaminophen 1,000 mg tab(s) (TYLENOL) 1,000 mg ORAL QID methocarbamol 750 mg tab(s) (ROBAXIN) 750 mg ORAL TID potassium chloride 20-40 mEq oral powder (KLOR-CON) 20-40 mEq ORAL/FEEDING TUBE PRN Or potassium chloride iv piggyback 20 mEq/100 mL 20 mEq INTRAVENOUS PRN magnesium sulfate iv piggyback in sterile water 2 g 50 mL 2 g INTRAVENOUS PRN calcium gluconate iv piggyback 2 g in NaCl (iso-osmotic) 100 mL 2 g INTRAVENOUS PRN(NO DISPENSE) gabapentin 300 mg cap(s) (NEURONTIN) 300 mg ORAL TID phosphorus 250 mg tab(s) (K PHOS NEUTRAL) 250 mg ORAL PC and HS prochlorperazine 5 mg injection (COMPAZINE) 5 mg INTRAVENOUS q 6 H PRN bacitracin 500 unit/gram 1 Packet 1 Packet TOPICAL PRN NaCl 0.9% iv flush bag 20 mL INTRAVENOUS PRN oxyCODONE IR 5-10 mg tab(s) (ROXICODONE) 5-10 mg ORAL q 4 H PRN ondansetron 4 mg tab(s) (ZOFRAN) 4 mg ORAL q 6 H PRN Or ondansetron (PF) 4 mg injection (ZOFRAN) 4 mg INTRAVENOUS q 6 H PRN senna-docusate 8.6-50 mg 1 tablet (SENNA-S) 1 tablet ORAL BID polyethylene glycol 3350 17 g packet 17 g ORAL DAILY Labs: Recent Labs 02/13/24 0209 02/12/24 0420 02/11/24 0424 02/10/24 1724 NA 135* 129* < > 132* K 4.1 3.5* < > 3.4* CHLOR 98 93* < > 97* CO2 29 25 < > 24 BUN 9 7 < > 6* CREAT 0.60 0.50* < > 1.16* GLUC 97 156* < > 98 ANION 8 11 < > 11 CA 8.8 8.8 < > 8.9 MG 2.1 1.9 < > -- P 3.3 2.9 < > -- ALB -- -- -- 4.0 AST -- -- -- 32 ALT -- -- -- 13 ALKPHOS -- -- -- 42 TBILI -- -- -- 0.3 WBC 13.84* 14.93* < > 11.44* HB 13.1 13.3 < > 13.5 HCT 39.3 39.3 < > 41.1 PLT 225 236 < > 225 INR -- -- -- 1.2 < > = values in this interval not displayed. PHYSICAL EXAM: GENERAL: Alert. No distress. Resting comfortably. NEURO: AANDOx3. No focal neurologic deficits. Sensation grossly intact. HEENT: Normocephalic. Atraumatic. EOMI. LUNGS: Unlabored breathing. Equal excursion bilaterally. CARDIAC: Regular rate. Good perfusion throughout. ABDOMEN: Soft, non-tender, non-distended. No rebound or guarding. EXTREMITIES: BHANDARI. No deformities. Improved sensation AND strength on Rue, intact LUE sensation 7 strength AND bilat LE SKIN: No obvious jaundice or pallor. Back Kai drain sero sang. ASSESSMENT AND PLAN: Assessment Active Hospital Problems (more content not included)...[facility]11-24-2024 NoteHNO ID: [id number] Author: CELSO KNOWLES MD Service: Orthopaedic Surgery Author Type: Physician Type: Progress Notes Filed: 02/13/2024 09:04 Note Text: Orthopaedic Spine Surgery Attending Addendum I personally saw and evaluated the patient. I agree with the history, physical examination, assessment, and plan as documented in the resident's note with the following additions/changes: No acute events overnight. Pain well controlled. Notes continued improvement in BUE today. Dysesthesias improved. Examination stable, as below. Drain output 50 mL, maintain. Continue MAP therapy until tomorrow. DC planning for acute rehab. Celso Knowles MD Orthopaedic Spine Surgery ORTHOPAEDIC SURGERY DAILY PROGRESS NOTE ASSESSMENT: 48 yo female who is POD#3 s/p C2-T2 posterior spinal fusion with C3-C6 posterior cervical decompression . PLAN: -Management per primary -Pain control -MAP goal >80 until Wednesday, required pressors and new isabel overnight but maintaining without pressors this AM -Dressings: Mepilex dressing x 10 days -Diet: per primary -DVTppx: SCDs, hold chemo ppx -Ancef 2g x 2 doses -Decadron 6mg q6hr x 24hrs -Maintain weiss -Maintain cervical collar at all times -KAI drain to suction; record output q 8hr shift -Last recorded 50cc out. Maintain. -Postop XR c-spine completed -PT/OT recommending acute rehab -Dispo: pending drain removal and placement INTERVAL HPI: Pain appears to be better controlled this morning. Patient feels her left hand dexterity is improving. She has no new paresthesias. OBJECTIVE: BP 95/58 Pulse 65 Temp 36.5 ?C (97.7 ?F) (Oral) Resp 10 Ht 165.1 cm (5' 5) Wt 64.7 kg (142 lb 10.2 oz) LMP 05/28/2014 SpO2 91% BMI 23.74 kg/m? Exam: General: Resting comfortably in bed. Inspection: Cervical collar in place. KAI drain to suction with SS output. Sensation: Sensation intact to light touch in C5-T1 and L1-S1 dermatomes. Motor: Upper Extremities Right Left Deltoid (C5) 5 5 Biceps (C6) 5 5 Triceps (C7) 5 5 Creping Machine Operator Helper (C8) 4 4 Interossei (T1) 3 5 Lower Extremities Right Left Psoas (L2) 5 5 Quadriceps (L3) 5 5 Dorsiflexion (L4) 5 5 EHL (L5) 5 5 Plantarflexion (S1) 5 5 Special tests: Larry's present bilaterally Recent Labs 02/13/24 0209 02/12/24 0420 02/11/24 0424 02/10/24 1724 CREAT 0.60 0.50* 0.55* 1.16* BUN 9 7 6* 6* NA 135* 129* 134* 132* K 4.1 3.5* 3.5* 3.4* CHLOR 98 93* 100 97* CO2 29 25 22 24 ANION 8 11 12 11 GLUC 97 156* 153* 98 CA 8.8 8.8 8.0* 8.9 P 3.3 2.9 2.7 -- MG 2.1 1.9 1.5* -- ALB -- -- -- 4.0 AST -- -- -- 32 ALT -- -- -- 13 ALKPHOS -- -- -- 42 TBILI -- -- -- 0.3 WBC 13.84* 14.93* 17.33* 11.44* HB 13.1 13.3 12.9 13.5 HCT 39.3 39.3 38.3 41.1 PLT 225 236 231 225 COAGS: APTT 31.9 02/10/2024 INR 1.2 02/10/2024 SED RATE/CRP: No results found for this basename: wsr:*,crp:* Imaging: Upright imaging c-spine obtained, reviewed and interpreted, demonstrates stable screw fixation from C2-T2 Yasmine Mendez MD Orthopaedic Surgery 02/13/2024 6:20 [facility]11-23-2024 NoteHNO ID: [id number] Author: LEO TORRES DO Service: General Surgery Author Type: Resident Type: Procedures Filed: 02/12/2024 23:07 Note Text: BEDSIDE PROCEDURE NOTE ART LINE/SHEATH Date/Start Time: 02/12/2024 11:06 PM Date/Stop Time: 02/12/2024 11:06 PM Performed by: Leo Torres DO Authorized by: Obed Bryant MD Where was Patient When this Procedure was Performed: Bedside/Unscheduled Procedure Room This procedure has been performed by a resident/fellow without an attending's supervision Informed Consent Consent Obtained: Written [place] Protocol SIGN IN Sign in communication not applicable due to emergent procedure. Personnel directly involved with the procedure wore the appropriate PPE. Special Equipment: N/A Patient/Surrogate Stated/Verified: Patient name and Date of TIME OUT Intended patient and procedure match the source document(s). Consent documented and matches the intended procedure. No relevant labs, photos, and/or imaging studies were applicable for review. No correct side/site applicable for marking and visibility. No medications required for procedure. No fire risk assessment and interventions applicable. No implant(s) inserted. Pre-Procedure Details: The area was prepped with chlorhexidine (Chloroprep) and allowed to dry. A sterile partial body drape was applied following the usual aseptic technique. Medications: Local Anesthesia (see MAR): Lidocaine 1% Procedure Details: Indication: Monitoring of vital bodily functions and frequent ABGs and labs Arterial Line Type: arterial line Site: right radial Technique: Direct stick The vessel was cannulated under direct ultrasound visualization with a 18 gauge catheter. A straight-tipped spring wire was passed into the artery through the indwelling catheter and left in situ while the catheter was advanced. The catheter was left in situ while the guidewire was removed. Arterial Sheath Size: 8 Fr Pulsatile blood flow exited the catheter. Arterial waveform was noted on the monitor when the catheter was transduced. Securement/Dressing: Sterile sutures and sterile, transparent, occlusive dressing Number of attempts: 2 Successful Placement: Yes Post-Procedure Details: Patient Tolerance: Patient tolerated the procedure well with no immediate complications Estimated Blood Loss: scant Specimens Sent: none SIGN OUT No specimen collected. No instruments, equipment or retained foreign bodies applicable. Post-procedure follow-up management communicated and Plan of Care Visit completed when applicable SIGNATURE: Leo Sutton DO PATIENT NAME: Jennifer Price DATE: February 12, 2024 TIME: 11:06 [facility]11-23-2024 NoteHNO ID: [id number] Author: MICHELLE TAVAREZ RPh Service: Pharmacy Author Type: Pharmacist Type: Plan of Care Filed: 02/15/2024 10:43 Note Text: PHARMACY MEDICATION REVIEW Patient Name: Jennifer Price : 1975 The following medications were updated within the SENIOR NATIONAL ACCOUNT MANAGER medication list: Medications ADDED to SENIOR NATIONAL ACCOUNT MANAGER medication list Medications CHANGED on SENIOR NATIONAL ACCOUNT MANAGER medication list Medications REMOVED from SENIOR NATIONAL ACCOUNT MANAGER medication list Additional comments: I was able to talk with pt. about her home medications. She states she is not taking any RX medications at this current time. I have removed 1 OTC supplement from the SENIOR NATIONAL ACCOUNT MANAGER list- Vit D3 (not taking per pt.) I have not added or changed any other SENIOR NATIONAL ACCOUNT MANAGER medications and pt. states she uses [facility]. Medication history completed by Historian. No nursing follow up required. The below information represents the best possible medication history: Yes Medication history completed by: B2B Outside Sales Representative: Denilson Robbins (Identification Printing Machine Setter) Source of history: Patient: Reliability of source: Appears reliable, clearly identified: Medication name, Medication dose, Medication route, and Medication frequency and Pharmacy records: Epic e-script [place] Medication nonadherence identified: No barriers noted Reconciliation completed: Yes Completed by: Michelle Tavarez PharmD, [facility] Nursing Unit Based Pharmacist Ext: [phone] All SENIOR NATIONAL ACCOUNT MANAGER medications addressed by LIP Patient interested in Bedside Delivery Services or using [facility] OP Pharmacy at discharge? No Preferred outpatient pharmacy: [id number] [place] [address] [address] [facility] [phone] [address] [facility] Allergies: Hydrocodone-Acetami* Hives, Vomiting Prior to Admission Medications Prescriptions Last Dose Informant Patient Reported? Taking? acetaminophen (TYLENOL) 500 mg tablet Yes Yes Sig: Take 1,000 mg by mouth every 6 hours as needed for pain. Facility-Administered Medications: None Denilson Robbins (Identification Printing Machine Setter) phone [phone] 02/12/2024 I have reviewed and agree with the medication history note completed by the medication historian as documented above. All medications reviewed and reconciled appropriately. Michelle Tavarez, PharmD, [facility] Nursing Unit Based Pharmacist Ext: [phone] NoteHNO ID: [id number] Author: TANYA BRITO MD Service: General Surgery Author Type: Resident Type: Progress Notes Filed: 02/12/2024 13:28 Note Text: Attestation signed by Tanya Brito MD at 02/12/2024 1:28 PM Attending Note I evaluated the patient and personally participated in the baker components. I agree with the resident's findings and plan as documented and have discussed the case and management of the patient's care with the resident. Patient much more comfortable today. Sitting up in chair. Improving BUE strength and sensation. Working with therapy. Spouse updated bedside as well, plan for ICU admission through Wednesday for MAP goals. Continue to replace potassium. Continue C collar per spine surgery Signature: Tanya Brito MD Date: 02/12/2024 Time: 1:26 PM Trauma Surgery Progress Note SERVICE DATE: 02/12/2024 Trauma Service Pager: For questions or concerns Mon-Fri 6a-5p please page [phone]. After 5pm and on Weekends and Holidays, please page [phone] if in ICU or [phone] if on RNF. SUBJECTIVE: Emesis of 300 cc after dinner, states she is not nauseas or had another episode. Denies GRIDER, increase sensation and strength to RUE, BHANDARI otherwise, sensation and strength intact to other extremities. OBJECTIVE: Vitals: Temp (24hrs), Av.8 ?C (98.3 ?F), Min:36.6 ?C (97.9 ?F), Max:37.1 ?C (98.8 ?F) BP 157/87 Pulse 65 Temp 36.6 ?C (97.9 ?F) (Oral) Resp 23 Ht 165.1 cm (5' 5) Wt 63.1 kg (139 lb 1.8 oz) LMP 05/28/2014 SpO2 96% BMI 23.15 kg/m? O2 Therapy: Nasal Cannula IANDO: Date 02/11/24699 - 02/12/2459 02/12/24 07 - 02/13/24 0659 Shift 5816-1324 6146-8660 5944-7831 24 Hour Total 0801-1472 2829-7467 5841-0303 24 Hour Total INTAKE PO 120 120 PO 120 120 IV 500 300 800 Volume (mL) (magnesium sulfate iv piggyback in sterile water 2 g 50 mL) 100 100 Volume (mL) (calcium gluconate iv piggyback 2 g in NaCl (iso-osmotic) 100 mL) 200 200 Volume (mL) (potassium phosphate 45 mmol in NaCl 0.9% 500 mL) 500 500 Shift Total 500 120 300 920 OUTPUT Urine 1000 0141 915 3533 Void (ml) 850 1200 2050 Urine Incontinence/Not Saved 2 x 2 x Urine Not Saved. 1 x 1 x Output ( External Collection Device 02/12/24 0300 [facility]) 700 700 Output ([REMOVED] Indwelling Urinary Catheter 02/10/24 2249 [facility] Weiss 16 Fr 02/11/24 1000) 150 150 Emesis 150 150 Emesis (ml) 150 150 Tubes 90 70 40 200 Drain/Tube Output (Drain/Tube 02/11/24 0140 Jose Miguel López Posterior Neck) 90 70 40 200 Shift Total 1090 6165 295 2853 Weight (kg) 66.4 66.4 63.1 63.1 63.1 63.1 63.1 63.1 MEDICATIONS: Current Facility-Administered Medications Medication Dose Route Frequency potassium phosphate 45 mmol in NaCl 0.9% 500 mL 45 mmol INTRAVENOUS ONCE NORepinephrine 16 mg in D5W 250 mL (LEVOPHED) 0.6-15 mcg/min INTRAVENOUS CONTINUOUS phentolamine injection 5 mg (REGITINE) Extravasation Antidote 5 mg SUBCUTANEOUS PRN HYDROmorphone 0.4 mg injection (DILAUDID) 0.4 mg INTRAVENOUS q 3 H PRN ALPRAZolam 0.5 mg tab(s) (XANAX) 0.5 mg ORAL TID PRN acetaminophen 1,000 mg tab(s) (TYLENOL) 1,000 mg ORAL QID methocarbamol 750 mg tab(s) (ROBAXIN) 750 mg ORAL TID potassium chloride 20-40 mEq oral powder (KLOR-CON) 20-40 mEq ORAL/FEEDING TUBE PRN Or potassium chloride iv piggyback 20 mEq/100 mL 20 mEq INTRAVENOUS PRN magnesium sulfate iv piggyback in sterile water 2 g 50 mL 2 g INTRAVENOUS PRN calcium gluconate iv piggyback 2 g in NaCl (iso-osmotic) 100 mL 2 g INTRAVENOUS PRN(NO DISPENSE) gabapentin 300 mg cap(s) (NEURONTIN) 300 mg ORAL TID phosphorus 250 mg tab(s) (K PHOS NEUTRAL) 250 mg ORAL PC and HS prochlorperazine 5 mg injection (COMPAZINE) 5 mg INTRAVENOUS q 6 H PRN bacitracin 500 unit/gram 1 Packet 1 Packet TOPICAL PRN NaCl 0.9% iv flush bag 20 mL INTRAVENOUS PRN oxyCODONE IR 5-10 mg tab(s) (ROXICODONE) 5-10 mg ORAL q 4 H PRN ondansetron 4 mg tab(s) (ZOFRAN) 4 mg ORAL q 6 H PRN Or ondansetron (PF) 4 mg injection (ZOFRAN) 4 mg INTRAVENOUS q 6 H PRN senna-docusate 8.6-50 mg 1 tablet (SENNA-S) 1 tablet ORAL BID polyethylene glycol 3350 17 g packet 17 g ORAL DAILY Labs: Recent Labs 02/12/24 0420 02/11/24 0424 02/10/24 1724 NA 129* 134* 132* K 3.5* 3.5* 3.4* CHLOR 93* 100 97* CO2 25 22 24 BUN 7 6* 6* CREAT 0.50* 0.55* 1.16* GLUC 156* 153* 98 ANION 11 12 11 CA 8.8 8.0* 8.9 MG 1.9 1.5* -- P 2.9 2.7 -- ALB -- -- 4.0 AST -- -- 32 ALT -- -- 13 ALKPHOS -- -- 42 TBILI -- -- 0.3 WBC 14.93* 17.33* 11.44* HB 13.3 12.9 13.5 HCT 39.3 38.3 41.1 PLT 236 231 225 INR -- -- 1.2 PHYSICAL EXAM: GENERAL: Alert. No distress. Resting comfortably. NEURO: AANDOx3. No focal neurologic deficits. Sensation grossly intact. HEENT: Normocephalic. (more content not included)...[facility] 02-12-2024 NoteHNO ID: [id number] Author: CELSO KNOWLES MD Service: Orthopaedic Surgery Author Type: Physician Type: Progress Notes Filed: 02/12/2024 08:30 Note Text: Orthopaedic Spine Surgery Attending Addendum I personally saw and evaluated the patient. I agree with the history, physical examination, assessment, and plan as documented in the resident's note with the following additions/changes: No acute events overnight. Continued improvement in RUE dysesthesia and numbness. Motor function continues to improve, as well. Tolerating cervical collar. Examination as below. Drain output 70 mL, maintain. Continue with MAP therapy until Wednesday morning. Celso Knowles MD Orthopaedic Spine Surgery ORTHOPAEDIC SURGERY DAILY PROGRESS NOTE ASSESSMENT: 48 yo female who is POD#2 s/p C2-T2 posterior spinal fusion with C3-C6 posterior cervical decompression . PLAN: -Management per primary -Pain control -MAP goal >80 until Wednesday -Dressings: Mepilex dressing x 10 days -Diet: per primary -DVTppx: SCDs, hold chemo ppx -Ancef 2g x 2 doses -Decadron 6mg q6hr x 24hrs -Maintain weiss -Maintain cervical collar at all times -KAI drain to suction; record output q 8hr shift -Last recorded 70cc out. Maintain. -Bed rest pending upright cervical films -Dispo: pending INTERVAL HPI: Pain appears to be better controlled this morning. Patient endorsing some increased urinary symptoms this morning. Otherwise has no new paresthesias. OBJECTIVE: BP 157/87 Pulse 70 Temp 36.8 ?C (98.2 ?F) (Oral) Resp 20 Ht 165.1 cm (5' 5) Wt 66.4 kg (146 lb 6.2 oz) LMP 05/28/2014 SpO2 97% BMI 24.36 kg/m? Exam: General: Resting comfortably in bed. Inspection: Cervical collar in place. KAI drain to suction with SS output. Sensation: Sensation intact to light touch in C5-T1 and L1-S1 dermatomes. Motor: Upper Extremities Right Left Deltoid (C5) 5 4 Biceps (C6) 5 4 Triceps (C7) 5 4 Creping Machine Operator Helper (C8) 4 4 Interossei (T1) 3 4 Lower Extremities Right Left Psoas (L2) 5 5 Quadriceps (L3) 5 5 Dorsiflexion (L4) 5 5 EHL (L5) 5 5 Plantarflexion (S1) 5 5 Special tests: Larry's present bilaterally Recent Labs 02/12/24 0420 02/11/24 0424 02/10/24 1724 CREAT 0.50* 0.55* 1.16* BUN 7 6* 6* NA 129* 134* 132* K 3.5* 3.5* 3.4* CHLOR 93* 100 97* CO2 25 22 24 ANION 11 12 11 GLUC 156* 153* 98 CA 8.8 8.0* 8.9 P 2.9 2.7 -- MG 1.9 1.5* -- ALB -- -- 4.0 AST -- -- 32 ALT -- -- 13 ALKPHOS -- -- 42 TBILI -- -- 0.3 WBC 14.93* 17.33* 11.44* HB 13.3 12.9 13.5 HCT 39.3 38.3 41.1 PLT 236 231 225 COAGS: APTT 31.9 02/10/2024 INR 1.2 02/10/2024 SED RATE/CRP: No results found for this basename: wsr:*,crp:* Imaging: Uprights pending Yasmine Mendez MD Orthopaedic Surgery 02/12/2024 6:20 [facility]11-22-2024 NoteHNO ID: [id number] Author: GILDARDO JOSÉ MD Service: Orthopaedic Surgery Author Type: Resident Type: Plan of Care Filed: 02/11/2024 15:33 Note Text: Orthopedic Surgery Plan of Care: Upright cervical x-rays reviewed status post C2-T2 posterior spinal fusion with C3-C6 posterior cervical decompression overnight on 02/10. Postoperative upper right x-rays demonstrate new stable orthopedic hardware in good position. Cervical spine appears reduced and stable. Patient okay to mobilize in her c-collar. Remainder of orthopedic spine care per most recent progress note. Please page #[phone] with any questions or concerns. Gildardo José MD Orthopaedic Surgery - PGY 1 3:26 PM 02/11/2024 Pager #[phone] NoteHNO ID: [id number] Author: PAWAN BRAGG LSW Service: Care Management Author Type: Vice President Financial Type: Care Mgt Initial Assessment Filed: 02/11/2024 14:52 Note Text: CARE MANAGEMENT: ASSESSMENT AND DISCHARGE PLAN SERVICE DATE: February 11, 2024 SERVICE TIME: 2:44 PM PCP: No primary care provider on file. Primary Contact: Extended Emergency Contact Information Primary Emergency Contact: PriceHasmukh Coridea Relation: Spouse Secondary Emergency Contact: Belia Cabral Relation: Mother Admission Status: Inpatient Insurance Provider: ANA LAURA RAMIREZ MEDICAID Discharge Planning requested by: Per Department Practice Potential Transition Plans To Be Determined Advance Directives Current Advance Directive: None Morphology Teacher Attempted to Assist with AD Completion: Yes Action: Patient Unwilling Current Living Arrangements and Support Lives with: Spouse/significant other Type of Residence: Private Residence (House) Does the patient have to climb stairs at home?: Yes Support: Family members, Spouse/significant other How do you manage to accomplish the following: Independent: Ambulation;Bathe/Shower;Dress;Meals/Meal Prep;Going to the bathroom;Medication Management;Transportation to appointments/community Current Services/Equipment Current Post-Acute Service(s): None Discharge Planning Patient Goal(s): Be able to go home, General wellness, Independent living [place] of Choice Explained: [place] of [place] Given: No Reason Not Given: Unable to complete with this assessment - revisit Are you interested in bedside delivery of your medications? Yes Discharge Planning Participant(s): Patient;Spouse/significant other Patient/Family Comments: Caregiver Assessment: Caregiver is ready, willing and able to meet the patient's needs as recommended by the inter-professional team: No and ALCOHOL USE/ABUSE CAGE ASSESSMENT Two or More Affirmative Responses Suggest a Client is a Problem Drinker. - Have you felt the need to cut down on your drinking? unk - Do you feel annoyed by people complaining about your drinking? unk - Do you ever feel guilty about your drinking? unk - Do you ever drink an eye-parent educator in the morning to relieve shakes? unk Transport at Discharge: Transportation Arrangements: To Be Determined Needs Prior to Discharge: Needs Prior to Discharge: OT/PT Evaluation (medical clearance) Post-Acute Discharge Plan: Sw met with patient and at bedside, patient from home with and family. Patient in a lot of pain and laying in bed with eyes close. Patient's answered questions. Patient independent with adl's. Patient drives. Patient employed. Patient does not have any medical equip at home. Patient may benefit from pt/ot evaluation for safe discharge plan once medically able. Sw to follow and complete trauma assessment once patient is medically able. Patient was positive for marijuana on tox screen at admit. Sw/jw to follow. SIGNATURE: JOSELIN Vang PATIENT NAME: Jennifer Price DATE: February 11, 2024 TIME: 2:44 PM CONTACT #: [phone]24 Note HNO ID: [id number] Author: TANYA BRITO MD Service: General Surgery Author Type: Resident Type: Progress Notes Filed: 02/12/2024 13:26 Note Text: Attestation signed by Tanya Brito MD at 02/12/2024 1:26 PM See HANDP from 02/09 Tanya Brito MD Trauma Surgery Progress Note SERVICE DATE: 02/11/2024 Trauma Service Pager: For questions or concerns Mon-Wed 6a-5p please page [phone]. After 5pm and on Weekends and Holidays, please page [phone] if in ICU or [phone] if on RNF. SUBJECTIVE: Patient seen and examined at bedside, she was uncomfortable in bed. She had her spinal surgery last night. OBJECTIVE: Vitals: Temp (24hrs), Av.5 ?C (97.7 ?F), Min:36 ?C (96.8 ?F), Max:36.8 ?C (98.2 ?F) BP 169/91 Pulse 87 Temp 36.7 ?C (98.1 ?F) Resp 17 Ht 165.1 cm (5' 5) Wt 66.4 kg (146 lb 6.2 oz) LMP 05/28/2014 SpO2 97% BMI 24.36 kg/m? O2 Therapy: Nasal Cannula IANDO: Date 02/10/24699 - 02/11/2465802/11/24699 - 02/12/24 0659 Shift 2773-1111 2253-0580 5046-7755 24 Hour Total 9696-0274 6014-2799 2458-6509 24 Hour Total INTAKE IV 1800 1800 Volume (mL) (ceFAZolin iv piggyback 2 g in D5W (iso-osmotic) 100 mL (ANCEF)) 100 100 Volume (mL) (vancomycin iv piggyback 1 g in D5W 200 mL (VANCOCIN)) 200 200 Volume (mL) (tranexamic acid (CYKLOKAPRON) in NaCl 0.7% 1,000 mg 100 mL) 100 100 Volume (mL) (NaCl 0.9% iv infusion) 1400 1400 Shift Total 1800 1800 OUTPUT Urine 600 600 OR Urine Output 300 300 Output ( Indwelling Urinary Catheter 02/10/24 2249 [facility] Weiss 16 Fr) 300 300 Tubes 30 30 Drain/Tube Output (Drain/Tube 02/11/24 0140 Jose Miguel López Posterior Neck) 30 30 Blood 50 50 Estimated Blood loss 50 50 Shift Total 680 680 Weight (kg) 68 68 66.4 66.4 66.4 66.4 66.4 66.4 MEDICATIONS: Current Facility-Administered Medications Medication Dose Route Frequency ceFAZolin iv piggyback 2 g in D5W (iso-osmotic) 100 mL (ANCEF) 2 g INTRAVENOUS q 8 HR dexAMETHasone sodium phosphate 6 mg injection (DECADRON) 6 mg INTRAVENOUS q 6 H NORepinephrine 16 mg in D5W 250 mL (LEVOPHED) 0.6-15 mcg/min INTRAVENOUS CONTINUOUS phentolamine injection 5 mg (REGITINE) Extravasation Antidote 5 mg SUBCUTANEOUS PRN gabapentin 100 mg cap(s) (NEURONTIN) 100 mg ORAL TID methocarbamol 750 mg tab(s) (ROBAXIN) 750 mg ORAL TID PRN HYDROmorphone 0.4 mg injection (DILAUDID) 0.4 mg INTRAVENOUS q 3 H PRN bacitracin 500 unit/gram 1 Packet 1 Packet TOPICAL PRN NaCl 0.9% iv flush bag 20 mL INTRAVENOUS PRN iv contrast (radiology procedure) INTRAVENOUS DIRECTED PRN iv contrast (radiology procedure) INTRAVENOUS DIRECTED PRN sertraline 100 mg tab(s) (ZOLOFT) 100 mg ORAL DAILY potassium chloride ER 20-40 mEq tab(s) (KLOR-CON) 20-40 mEq ORAL/FEEDING TUBE PRN Or potassium chloride iv piggyback 20 mEq/100 mL 20 mEq INTRAVENOUS PRN magnesium sulfate iv piggyback in sterile water 2 g 50 mL 2 g INTRAVENOUS PRN phosphorus 500 mg tab(s) (K PHOS NEUTRAL) 500 mg ORAL/FEEDING TUBE PRN(NO DISPENSE) calcium gluconate iv piggyback 2 g in NaCl (iso-osmotic) 100 mL 2 g INTRAVENOUS PRN(NO DISPENSE) NaCl 0.9% iv infusion 100 mL/hr INTRAVENOUS CONTINUOUS acetaminophen 1,000 mg tab(s) (TYLENOL) 1,000 mg ORAL q 6 H oxyCODONE IR 5-10 mg tab(s) (ROXICODONE) 5-10 mg ORAL q 4 H PRN ondansetron 4 mg tab(s) (ZOFRAN) 4 mg ORAL q 6 H PRN Or ondansetron (PF) 4 mg injection (ZOFRAN) 4 mg INTRAVENOUS q 6 H PRN senna-docusate 8.6-50 mg 1 tablet (SENNA-S) 1 tablet ORAL BID polyethylene glycol 3350 17 g packet 17 g ORAL DAILY pantoprazole DR 40 mg tab(s) (PROTONIX) 40 mg ORAL BEFORE BREAKFAST DAILY Labs: Recent Labs 02/11/24 0424 02/10/24 1724 NA 134* 132* K 3.5* 3.4* CHLOR 100 97* CO2 22 24 BUN 6* 6* CREAT 0.55* 1.16* GLUC 153* 98 ANION 12 11 CA 8.0* 8.9 MG 1.5* -- P 2.7 -- ALB -- 4.0 AST -- 32 ALT -- 13 ALKPHOS -- 42 TBILI -- 0.3 WBC 17.33* 11.44* HB 12.9 13.5 HCT 38.3 41.1 PLT 231 225 INR -- 1.2 PHYSICAL EXAM: GENERAL: Alert. Appears uncomfortable in bed. NEURO: AANDOx3. Sensation grossly intact. Patient still had right sided upper extremity and left upper extremity weakness, right worse than left. HEENT: Normocephalic. Atraumatic. EOMI. LUNGS: Unlabored breathing. Equal excursion bilaterally. CARDIAC: Regular rate. Good perfusion throughout. ABDOMEN: Soft, non-tender, non-distended. No rebound or guarding. EXTREMITIES: BHANDARI. No deformities. SKIN: No obvious jaundice or pallor. ASSESSMENT AND PLAN: Assessment Active Hospital Problems Diagnosis Date Noted Central cord syndrome at C3 level of cervical spinal cord, initial encounter ([facility]) 02/10/2024 Jennifer Price is a 48 year old female with a PMH of HTN, HLD, depression, and a PSH of appendectomy in 199 (more content not included)...[facility]11-22-2024 NoteHNO ID: [id number] Author: CELSO KNOWLES MD Service: Orthopaedic Surgery Author Type: Physician Type: Progress Notes Filed: 02/11/2024 17:11 Note Text: Orthopaedic Spine Surgery Attending Addendum I personally saw and evaluated the patient. I agree with the history, physical examination, assessment, and plan as documented in the resident's note with the following additions/changes: No issues since surgery. Reports that pain in the cervical spine is well-controlled. Pre-op dysesthetic pain in upper extremities significantly improved. Numbness also improved. Strength in LUE improved, as below. RUE strength stable. Post-op x-rays show C2-T2 PSF instrumentation in appropriate position. Maintain C-collar at all times. Okay to mobilize. Continue MAP goals for 3 days post-op. Celso Knowles MD Orthopaedic Spine Surgery ORTHOPAEDIC SURGERY DAILY PROGRESS NOTE ASSESSMENT: 48 yo female who is POD#0 s/p C2-T2 posterior spinal fusion with C3-C6 posterior cervical decompression . PLAN: -Management per primary -Pain control -MAP goal >80 -Dressings: Mepilex dressing x 10 days -Diet: per primary -DVTppx: SCDs, hold chemo ppx -Ancef 2g x 2 doses -Decadron 6mg q6hr x 24hrs -Upright cervical films in collar -Maintain weiss -Maintain cervical collar at all times -KAI drain to suction; record output q 8hr shift -Last recorded 30 cc out. Maintain. -Bed rest pending upright cervical films -Dispo: pending INTERVAL HPI: Pain appears to be better controlled this morning. Still significant discomfort in extremities and neck. Subjective improvement in numbness to bilateral upper extremities since OR. OBJECTIVE: BP 169/91 Pulse 87 Temp 36.7 ?C (98.1 ?F) Resp 17 Ht 165.1 cm (5' 5) Wt 66.4 kg (146 lb 6.2 oz) LMP 05/28/2014 SpO2 97% BMI 24.36 kg/m? Exam: General: Resting comfortably in bed. Inspection: Cervical collar in place. KAI drain to suction with SS output. Sensation: Sensation intact to light touch in C5-T1 and L1-S1 dermatomes. Motor: Upper Extremities Right Left Deltoid (C5) 3 4 Biceps (C6) 3 4 Triceps (C7) 3 4 Creping Machine Operator Helper (C8) 3 4 Interossei (T1) 2 4 Lower Extremities Right Left Psoas (L2) 5 5 Quadriceps (L3) 5 5 Dorsiflexion (L4) 5 5 EHL (L5) 5 5 Plantarflexion (S1) 5 5 Special tests: Larry's present on the left. Recent Labs 02/11/24 0424 02/10/24 1724 CREAT 0.55* 1.16* BUN 6* 6* NA 134* 132* K 3.5* 3.4* CHLOR 100 97* CO2 22 24 ANION 12 11 GLUC 153* 98 CA 8.0* 8.9 P 2.7 -- MG 1.5* -- ALB -- 4.0 AST -- 32 ALT -- 13 ALKPHOS -- 42 TBILI -- 0.3 WBC 17.33* 11.44* HB 12.9 13.5 HCT 38.3 41.1 PLT 231 225 COAGS: APTT 31.9 02/10/2024 INR 1.2 02/10/2024 SED RATE/CRP: No results found for this basename: wsr:*,crp:* Imaging: Uprights pending Esequiel Jeffries MD Orthopaedic Surgery 02/11/2024 6:20 [facility]11-22-2024 NoteHNO ID: [id number] Author: ESEQUIEL JEFFRIES MD Service: Orthopaedic Surgery Author Type: Resident Type: Progress Notes Filed: 02/11/2024 05:22 Note Text: Orthopaedic Surgery Post-Op Check Subjective Since anesthesia, no acute events. MAP goals met appropriately. Very uncomfortable in bed. Pain medication being adjusted by ICU. Otherwise, she does report some subjective improvement in numbness to bilateral upper extremities. Denies any new numbness at the moment. Objective Vitals BP 169/91 Pulse 87 Temp 36.7 ?C (98.1 ?F) Resp 17 Ht 165.1 cm (5' 5) Wt 66.4 kg (146 lb 6.2 oz) LMP 05/28/2014 SpO2 97% BMI 24.36 kg/m? General Apparent discomfort and agitation. Cannot lay comfortable in bed. Spine Inspection: Cervical collar in place. Sensation: Sensation intact to light touch in C5-T1 and L1-S1 dermatomes. While preforming assessment of motor function, difficult to gauge patient participation secondary to pain and general discomfort. Motor: Upper Extremities Right Left Deltoid (C5) 3 4 Biceps (C6) 3 4 Triceps (C7) 3 4 Creping Machine Operator Helper (C8) 3 4 Interossei (T1) 2 4 Lower Extremities Right Left Psoas (L2) 5 5 Quadriceps (L3) 5 5 Dorsiflexion (L4) 5 5 EHL (L5) 5 5 Plantarflexion (S1) 5 5 Assessment Jennifer Price is a 48 year old female who is POD #0 status-post C2-T2 posterior spinal fusion with C3-C6 posterior cervical decompression . At the time, patient in discomfort. Difficult to assess true motor due to difficult participation in exam. Pain medication being adjusted by ICU. Will reassess shortly once pain is better controlled. Plan Continue routine post-operative care as outlined in brief operative note. Reji Jeffries MD [facility] NoteHNO ID: [id number] Author: PATITO DE LA PAZ MD Service: Anesthesiology Author Type: Anesthesiologist Type: Anesthesia Procedure Notes Filed: 02/10/2024 23:42 Note Text: ANESTHESIOLOGY PROCEDURE NOTE PIV General Information Procedure Start Time/Medication Administration: 02/10/2024 10:50 PM Procedure End Time: 02/10/2024 10:50 PM Patient Location: OR Staffing Anesthesiologist: Patito De La Paz MD Performed by: anesthesiologist Preparation Sterility Preparation: hand hygiene performed prior to procedure, surgical cap used, mask used, skin prep agent completely dried prior to procedure Site Prep: chlorhexidine Procedure Details Indication: need for IV access Needle Size/Type: 14 gauge angiocath Orientation: Left Location: Antecubital Imaging Guidance Used: Yes Image in Chart: No SIGNATURE: Patito De La Paz MD PATIENT NAME: Jennifer Price DATE: February 10, 2024 TIME: 11:42 PM [facility]: [id number] NoteHNO ID: [id number] Author: PATITO DE LA PAZ MD Service: Anesthesiology Author Type: Anesthesiologist Type: Anesthesia Procedure Notes Filed: 02/10/2024 23:42 Note Text: ANESTHESIOLOGY PROCEDURE NOTE A-Line General Information Procedure Start Time/Medication Administration: 02/10/2024 10:50 PM Procedure End Time: 02/10/2024 10:50 PM Patient location during procedure: OR Indications: continuous blood pressure monitoring Staffing Anesthesiologist: Patito De La Paz MD Performed by: anesthesiologist Preparation Sterility Preparation: hand hygiene performed prior to procedure, sterile gloves, drapes, and procedure tray, surgical cap used, mask used, skin prep agent completely dried prior to procedure Site Prep: chlorhexidine Procedure Details Catheter Type: arterial line Laterality: left Site: radial artery Ultrasound Guided: Yes Image in Chart: No Sites: potential access sites evaluated, selected vessel patent, concurrent real time ultrasound visualization of vascular needle entry Vessel: target vessel identified and guidewire advanced into vessel Line Secured: tape and Tegaderm Events Events: patient tolerated procedure well with no complications Comments 1 attempt, site prepped, ultrasound guided, positive flash, catheter advanced with ease, patient tolerated procedure well with no complications SIGNATURE: Patito De La Paz MD PATIENT NAME: Jennifer Price DATE: February 10, 2024 TIME: 11:41 PM [facility]: [id number] NoteHNO ID: [id number] Author: RICHARD LINARES APRN.ABSTRACT CLERK Service: Anesthesiology Author Type: Nurse Merchandising Team Lead Type: Anesthesia Procedure Notes Filed: 02/10/2024 22:56 Note Text: ANESTHESIOLOGY PROCEDURE NOTE Airway General Information Procedure Start Time/Medication Administration: 02/10/2024 10:36 PM Procedure End Time: 02/10/2024 10:36 PM Patient location during procedure: OR Timeout Performed Pre-procedure: timeout performed Consent Obtained: Yes Patient identity confirmed: arm band, care athletic team physician and patient sedated or unresponsive Staffing ABSTRACT CLERK: Richard Linares APRN.ABSTRACT CLERK Performed by: MISTY Indications and Patient Condition Indications for airway management: anesthesia and airway protection Preoxygenated: yes anesthesia circuit Patient position: sniffing Method: sleep Cricoid Pressure: No Manual In-Line Stabilization: No Difficult Mask: No Final Airway Details Final airway type: endotracheal airway Final Endotracheal Airway: ETT Cuffed: yes Successful intubation technique: video laryngoscopy Devices used: Gogo Endotracheal tube insertion site: oral Blade: Sandie Blade size: #3 ETT size (mm): 7.5 Measured from: lips Measurement (cm): 21 Placement verified by: capnometry Cormack-Lehane Classification: grade I - full view of glottis Number of attempts at approach: 1 Failed airway: no Unrecognized esophageal intubation: no Airway not difficult Comments Head neutral throughout procedure SIGNATURE: Richard Linares APRN.CRNA PATIENT NAME: Jennifer Price DATE: February 10, 2024 TIME: 10:55 PM [facility]: [id number] NoteHNO ID: [id number] Author: TRISTA WRIGHT LSW Service: Care Management Author Type: Vice President Financial Type: Care Mgt Progress Note Filed: 02/10/2024 21:04 Note Text: CARE MANAGEMENT PROGRESS NOTE SERVICE DATE: 02/10/2024 SERVICE TIME: 9:01 PM LOS: 0 days Patient was transported to [facility] as a trauma following a After she tripped. SW was counsulted due to patient having a tested positive for THC on admission. SW attempted to meet with patient. Patient stated that she is currently in pain and requested that sw return at a later time. SW will continue to follow clinical course. SIGNATURE: JOSELIN Hoffmann PATIENT NAME: Jennifer Price DATE: February 10, 2024 TIME: 8:57 PM PAGER/CONTACT #: [phone] Discharge instructions Patient Education 01/08/2024 14:11:50 Understanding Tooth Decay Understanding Tooth Decay Plaque is a sticky coating of bacteria and other substances that forms on your teeth and gums. It can cause 2 serious problems: tooth decay and gum disease. These problems damage the teeth and gums. They may even lead to tooth loss. When the mouth is well cared for, tooth decay and gum disease can be reversed in their early stages. Better yet, you can prevent these problems from starting by: Brushing and flossing daily Not snacking between meals on foods high in sugar and starch How tooth decay occurs Tooth decay happens when bacteria in plaque make acids that eat away at the tooth. Cavities (also called caries) are holes that form in the teeth. They are most common in places that are hard to reach with a toothbrush. This includes the grooves at the tops of the back teeth, and on the sides wherethe teeth touch. In late stages, tooth decay can be painful. It can also lead to tooth loss. Treating tooth decay Tooth decay can be treated to keep it from moving farther into the tooth. This is often done by filling cavities. First any tooth decay is removed. This protects the tooth from more damage. Then the cavity is filled with a hard material. This filling protects the damaged tooth and restores the tooth's surface. If the tooth is severely damaged by decay, other treatments are available. Follow-up visits Visit your dental team at least every 6 months for a checkup and cleaning. If you re being treated for tooth decay or gum disease, you may need more frequent visits. These visits will likely decreaseas your mouth care efforts start to pay off. Keep flossing and brushing, and maintain a healthy diet. Follow any special instructions your dentist or dental hygienist gives you. And enjoy flashing your healthy smile! [phone] [employer]. [address] [place] [address]. All rights reserved. This information is not intended as a substitute for professional medical care. Always follow yourhealthcare professional's instructions. Follow Up Care 01/08/2024 13:35:16 With:Dentist Address: When:5 to 7 days With:JUANCARLOS ALVARADO DO Address: [address] [place] [phone] When:2-4 days [facility] 10-19-2024 Emergency department Discharge summary Discharge Instructions Thank you for allowing [facility] to assist you with your healthcare needs. The following is importantdischarge information regarding your hospital visit. What to Do Next Instructions from Your Care Team Discharge Return to Work, School, or Sports (Return to Work, School, or Sports) - Ordered -- 01/08/24 14:33:00 EDT, @ employer, 01/08/24, 01/11/24, May return to: work, 01/08/24 14:32:00 EDT Post Acute Orders No qualifying data available. You Need to Schedule the Following Appointments Follow Up with Dentist When:Within 5 to 7 days Follow Up with JUANCARLOS ALVARADO DO When:Within 2-4 days [facility] [facility] [place] [address] [phone] Allergies Phenergan Vicodin Hives, Emesis Medications Please ask your primary doctor or pharmacist before taking any other medication not listed, including over the counter drugs, herbal medications, vitamins and or supplements as they may interact withyour home medications. What How Much When Instructions Last Dose New amoxicillin-clavulanate (amoxicillin-clavulanate 875 mg-125 mg oral tablet) 1 tab(s) by mouth Every 12 hours Duration: 7 Days Printed Prescription Unchanged acetaminophen (Tylenol 325 mg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 or bitter taste in the mouth Trouble swallowing or opening the mouth Fever Swollen or enlarged glands in the neck Diagnosing a dental abscess An abscess is diagnosed by looking at your teeth and gums. You will be told if any tests are needed, such as dental X-rays. Treating a dental abscess Treatments for a dental abscess may include the following: Antibiotic medicines. These treat the underlying infection. Pain relievers. These help you feel more comfortable. Your healthcare provider may prescribe a medicine for you. Or you may use aobd-dmo-vhrkmot pain relievers, such as acetaminophen or ibuprofen. Warm saltwater rinses. These can soothe discomfort and help clear away pus. Root canal surgery. This may be done if needed to save the tooth. With a root canal, the infected part of the tooth is removed. A special substance is then used to fill the empty space in the tooth. Draining the abscess. This may be doneif needed. Incisions are made to allow the infected material to drain from the tooth. Removing the tooth. This is done in cases of severe infection that can t be treated another way. You may need to be admitted to a hospital if the infection is severe, has spread, or doesn t respond to treatment. When to call the dentist Call your dentist right away if you have any of the following: Fever of 100.4 F (38 C) or higher Increased pain, redness, drainage, or swelling in the treated area Swelling of the face or jawbone Pain that can't be controlled with medicines Preventing dental abscess To prevent another abscess in the future, keep your teeth clean and healthy. [place] twice a day and floss at least once daily. See your dentist for regular tooth cleanings. And stay away from sugary foods and drinks that can lead to tooth decay. [phone] [employer]. [address] [place] [address]. All rights reserved. This information is not intended as a substitute for professional medical care. Always follow yourhealthcare professional's instructions. Additional Information VACCINATE! IT SAVES LIVES! Members of the community who have not yet received the COVID-19 vaccine and would like to receive it can visit one of [facility] vaccine clinics. There are many vaccine clinic locations within the [facility]. For locations and available times, please visit [email or web address]. It is important to note that some COVID mobile vaccine clinics are held outdoors and may be canceled in rainy orstormy conditions. To learn more about pediatric vaccinations (ages 5-11), we invite you to visit the [facility] webpage. https://www.[facility].org/pages/8583-Ybkfa-Biicivfyszb-Xqqxhmjyec-Swnom-Qno stions.htmlTo learn more about the COVID-19 vaccine, we invite you to visit the [facility] website for a list of frequently asked questions. https://crestlinePlatformQ/assets/Zdjtxemg-uzr-Teynqbob/hoklt-Slpgbqg-Zetevbtaxh _Asked-Questions.pdf [facility] Patient Portal Access Instructions: Stay connected with your healthcare team and access your personal medical information anytime with the [facility] Patient Portal. If you would like a full copy of your medical records please contact the [facility] Medical Records Department Wednesday through Wednesday between 8a.m. and 4:30p.m. Please follow the directions below to access the portal: 1.Access the email account you provided upon registration to the [facility].2.Look for an invitation email from [facility].3.Open the email and access the invitation link: Accept Invitation to [facility]4.Fill in the required koenig to create your account. Sign into [email or web address] with your username and password that you created in the above steps to stay up to date. You can then view a summary of results, a summary of your visits, and the ability to download your summaries to your computer or send the information securely to a physician. Remember that your healthcare information is confidential, so carefully consider who you will allow to register on the [facility] Patient Portal for access to your information. You can also access the [facility] Patient Portal on the [employer] otilia. Simply click on Health Records under HealthData and then click on the [facility] logo. HOW TO SAFELY DISPOSE OF PRESCRIPTION MEDICATIONS Please use one of the following methods to safely dispose of your unused medications. 1.Use a drug disposal kit: the drug disposal pouch allows you to safely discard your old and unuseddrugs. Ask your nurse to give you one when you are discharged.2.Visit a local take-back location: Many local pharmacies and police departments have programs that collect old and unwanted prescriptiondrugs. Call your local pharmacy or go to http://bit.Fighters/9Z4Fw6n to find one close to you.3.Make use of household items: Use cat litter or old coffee grounds to dispose medications if other options arenot available. Mix your drugs with these household products, seal them in an airtight container andthrow it into the garbage. Call [facility]: [phone] to be sure your drugs can be disposed of in this way. Some medicines may require a different approach.4.Never flush your medications down the toilet. IF YOU HAVE BEEN PRESCRIBED AN OPIOIDS FOR PAIN If you have been prescribed an opioid (such as hydrocodone, oxycodone or morphine), it is critical to understand the possible side effects and risks of opioid pain medications. Even when taken as directed, opioids can have several side effects including: Tolerance, meaning you might need to take more of a medication for the same pain relief. Nausea, vomiting and/or constipation. Sleepiness, dizziness, dry mouth, confusion, depression or itching. Physical dependence, meaning you have withdrawal symptoms when a medication is stopped ? this can develop within a few days. KNOW YOUR RESPONSIBILITIES It is important to know exactly how much and how often to take the opioid pain medications you are prescribed. Never take opioids in higher amounts or more often than prescribed. Do not combine opioids with alcohol or other drugs that cause drowsiness, such as benzodiazepines, also known as benzos,including diazepam and alprazolam, muscle relaxants or sleep aids. Never sell or share prescriptionopioids. This is illegal. Store opioids in a secure place and out of reach of others (including children, family, friends and visitors). The last page(s) of this document has been signed and retained as a CHART COPY Signatures Patient Education Materials Dental Abscess Medication Leaflets My discharge plan and instructions have been reviewed and explained to me and ALBERT Moya PAULA M understand my current condition and have read and understand these discharge instructions. I have received a written copy of the plan/instructions. If I have questions, I am aware that I should contact my doctor. Patient/Genetics Physician Signature: Date/Time: Relationship to Patient: Witness Name/Signature: Date/Time: [facility] RicEvaluation + Plan note No data available for this section [facility] Evaluation noteNo assessment information available [facility] Work Phone: Evaluation note* Diagnosis Status post cervical spinal fusion- Primary Arthrodesis status Central cord syndrome, subsequent encounter (HCC) documented in this encounter [facility] note* Diagnosis S/P cervical spinal fusion Arthrodesis status [facility] Diagnosis Spinal cord injury at C5-C7 level without injury of spinal bone, initial encounter (HCC) documented in this encounter [facility] note* Diagnosis Status post cervical spinal fusion Arthrodesis status documented in this encounter [facility] note* Diagnosis Status post cervical spinal fusion Arthrodesis status documented in this encounter [facility] note* Diagnosis Status post cervical spinal fusion- Primary Arthrodesis status documented in this encounter [facility] note* Diagnosis Status post cervical spinal fusion Arthrodesis status documented in this encounter [facility] note* Diagnosis Status post cervical spinal fusion Arthrodesis status [facility] Additional Instructions Continue increasing fluids. You can use Zofran, Phenergan suppositories, and Valium as needed to help with nausea, vomiting abdominal cramping. Continue taking your antibiotics tomorrow. You had 1 dose of an antibiotic that is good for 24 hours, continue medications tomorrow. Follow-up with PCP. Blood pressure medication when you get [facility] Work Phone: Hospital Discharge instructionsAdditional Instructions Ice to your right shoulder and right posterior rib cage. The x-rays were negative. Nothing broken or dislocated. The shoulder should progressively start getting better. Ice. Motrin and Tylenol for pain and swelling. Percocet for limited pain. If the shoulder is not getting better you need to have further evaluation with an orthopedic surgeon. If you do not get normal range of motion back you may need an MRI of the shoulder. But it may just be limited currently due to the pain. Percocet for more severe pain.[facility] Work Phone: Reason for referral (narrative)No reason for referral information availableWSelect [facility] [place] Work Phone: Reason for visit Narrative* Diagnostic Procedure Only (Routine) - Closed Specialty Diagnoses / Procedures Referred By Contac t Referred To Contact XR IMAGING Diagnoses S/P cervical spinal fusion Procedures XR CERV GENERAL 2V AP/LAT RADEX SPINE CERVICAL 2 OR 3 VIEWS Celso Knowles MD [address] [place] [address] [place] [id number] [place] [address] Referral ID Status Reason Start Date Expiration Date V isits Requested Visits Authorized [id number] Closed Auto-Generate d Referral 02/21/2024 03/22/2025 1 1 [facility] Chief Complaint and Reason for Visit Chief Complaint NAUSEA/VOMITING Chief Complaint NAUSEA/VOMITING vomiting Chief Complaint Admit Date back October 03, 2024 2:59 pm Family History Relationship Condition Age at Onset Recorded Date/T rose mother Chronic obstructive pulmonary disease Unk nown Alcohol abuse Unknown father Alcohol abuse Unknown No Family History Records Found Relationship Condition Age at Onset Recorded Date/T rose Unknown Family History?No pe rtinent history Unknown June 20, 2013 1:43pm Family History?No pe rtinent history Unknown January 20, 2014 5:18am Advance Directives No Advanced Directives Records Found Advance Directive Response Recorded Date/ Time Advance Directives No January 20, 2014 5:55am Living Will No February 22 1:12pm Power of Color Developer No February 22, 2023 1:12pm Advance Directive Response Recorded Date/ Time Advance Directives No January 20, 2014 5:55am Living Will No February 24 10:55am Power of Color Developer No February 24, 2023 10:55am Date Activated Date Inactivated Comments 02/11/2024 8:21 AM 02/17/2024 2:57 PM Question Answer Comments Full Code Order Discussed With: Patient Date Activated Date Inactivated Comments 02/11/2024 8:21 AM 02/17/2024 2:57 PM Question Answer Comments Full Code Order Discussed With: Patient Advance Directive Response Recorded Date/ Time Do you have a Healthcare Power of Color Developer? No October 03, 2024 5:05pm Advance Directives No January 20, 2014 6:55am Summary Purpose Reason for Referral Specialty Diagnoses / Procedures Referred By Contac t Referred To Contact [facility] Diagnoses Status post cervical spinal fusion Central cord syndrome, subsequent encounter (HCC) Procedures CONSULT TO PHYSICAL THERAPY PHYSICAL THERAPY EVALUATION HIGH COMPLEX 45 MINS Celso Knowles MD [address] [place] [address] [facility] [place] [id number] Referral ID Status Reason Start Date Expiration Date Visits Requested Visits Authorized [id number] Pending Review Auto-Generat ed Referral 02/23/2024 02/22/2025 1 1 Additional Source Comments Care Team (unrecognized sect ion and content) Care Team Personnel Name: JUANCARLOS ALVARADO DO Position: P4 Physician - Primary Care Med Service: Active Provider Member Role: Primary Care Physician Address: Address: [address] [place] [address] Care Team Related Persons Name: RAYSHAWN, BELIA Name: RAYSHAWN, BELIA Name: RAYSHAWN, BELIA Name: RAYSHAWN, BLEIA Name: RAYSHAWN, BELIA Name: RAYSHAWN, BELIA Name: RAYSHAWN, BELIA Name: RAYSHAWN, BELIA Name: RAYSHAWN, BELIA Name: RAYSHAWN, BELIA Name: RAYSHAWN, BELIA Name: RAYSHAWN, BELIA Name: RAYSHAWN, BELIA Name: TRACEE PRICE Address: Home [address] Patient Care team informatio n (unrecognized section and content) Team Status: Active Member Role Status Dates No Primary Care Physician Family Provider Active No Primary Care Physician Primary Care Provider Active Team Status: Inactive Member Role Status Dates No Primary Care Physician Primary Care Provider Active Dr. Serafin Cody , DO Emergency Provider Active Team Status: Inactive Member Role Status Dates No Primary Care Physician Primary Care Provider Active Dr. Rex Pedersen , DO Referring Provider, Emergency Pro vider Active Team Status: Active Member Role/Relationship Status Dates Dr. Juancarlos Alvarado , Primary Care Provider Activ e Team Status: Inactive Member Role/Relationship Status Dates Dr. Juancarlos Alvarado DO Primary Care Provider Activ e Start: October 03, 2024 End: October 03, 2024 Dr. Brian Stevenson MD Emergency Provider Active S tart: October 03, 2024 End: October 03, 2024 Goals (unrecognized section and content) Goals may be documented in a n alternate section INFORMATION SOURCE (unrecogn ized section and content) DATE CREATED AUTHOR 02/26/2023 [facility] ([place]) DATE CREATED AUTHOR AUTHOR'S ORGANIZ ATION 02/21/2024 [facility] DATE CREATED AUTHOR AUTHOR'S ORGANIZ ATION 03/22/2024 [facility] DATE CREATED AUTHOR AUTHOR'S ORGANIZ ATION 05/12/2024 [facility] DATE CREATED AUTHOR AUTHOR'S ORGANIZ ATION 10/18/2024 [facility] DATE CREATED AUTHOR AUTHOR'S ORGANIZ ATION 10/28/2024 [facility] nter Source Comments (unrecognize d section and content) In the event this informatio n is protected by the Federal Confidentiality of Alcohol and Drug Abuse Patient Records regulations: The Federal rules restrict any use of the information to criminally investigate or prosecute any alcohol or drug abuse patient.[facility] the event this information is protected by the Federal Confidentiality of Alcohol and Drug Abuse Patient Records regulations: The Federal rules restrict any use of the information to criminally investigate or prosecute any alcohol or drug abuse patient.[facility] the event this information is protected by the Federal Confidentiality of Alcohol and Drug Abuse Patient Records regulations: The Federal rules restrict any use of the information to criminally investigate or prosecute any alcohol or drug abuse patient.[facility] the event this information is protected by the Federal Confidentiality of Alcohol and Drug Abuse Patient Records regulations: The Federal rules restrict any use of the information to criminally investigate or prosecute any alcohol or drug abuse patient.[facility] the event this information is protected by the Federal Confidentiality of Alcohol and Drug Abuse Patient Records regulations: The Federal rules restrict any use of the information to criminally investigate or prosecute any alcohol or drug abuse patient.[facility] the event this information is protected by the Federal Confidentiality of Alcohol and Drug Abuse Patient Records regulations: The Federal rules restrict any use of the information to criminally investigate or prosecute any alcohol or drug abuse patient.[facility] the event this information is protected by the Federal Confidentiality of Alcohol and Drug Abuse Patient Records regulations: The Federal rules restrict any use of the information to criminally investigate or prosecute any alcohol or drug abuse patient.[facility] the event this information is protected by the Federal Confidentiality of Alcohol and Drug Abuse Patient Records regulations: The Federal rules restrict any use of the information to criminally investigate or prosecute any alcohol or drug abuse patient.[facility] the event this information is protected by the Federal Confidentiality of Alcohol and Drug Abuse Patient Records regulations: The Federal rules restrict any use of the information to criminally investigate or prosecute any alcohol or drug abuse patient.[facility] the event this information is protected by the Federal Confidentiality of Alcohol and Drug Abuse Patient Records regulations: The Federal rules restrict any use of the information to criminally investigate or prosecute any alcohol or drug abuse patient.[facility] Hospital[facility] the event this information is protected by the Federal Confidentiality of Alcohol and Drug Abuse Patient Records regulations: The Federal rules restrict any use of the information to criminally investigate or prosecute any alcohol or drug abuse patient.[facility] Hospital[facility] the event this information is protected by the Federal Confidentiality of Alcohol and Drug Abuse Patient Records regulations: The Federal rules restrict any use of the information to criminally investigate or prosecute any alcohol or drug abuse patient.[facility] the event this information is protected by the Federal Confidentiality of Alcohol and Drug Abuse Patient Records regulations: The Federal rules restrict any use of the information to criminally investigate or prosecute any alcohol or drug abuse patient.[facility] Hospital[facility] the event this information is protected by the Federal Confidentiality of Alcohol and Drug Abuse Patient Records regulations: The Federal rules restrict any use of the information to criminally investigate or prosecute any alcohol or drug abuse patient.[facility] Hospital[facility] the event this information is protected by the Federal Confidentiality of Alcohol and Drug Abuse Patient Records regulations: The Federal rules restrict any use of the information to criminally investigate or prosecute any alcohol or drug abuse patient.[facility] Hospital[facility] the event this information is protected by the Federal Confidentiality of Alcohol and Drug Abuse Patient Records regulations: The Federal rules restrict any use of the information to criminally investigate or prosecute any alcohol or drug abuse patient.[facility] Hospital[facility] the event this information is protected by the Federal Confidentiality of Alcohol and Drug Abuse Patient Records regulations: The Federal rules restrict any use of the information to criminally investigate or prosecute any alcohol or drug abuse patient.[facility] Hospital[facility] the event this information is protected by the Federal Confidentiality of Alcohol and Drug Abuse Patient Records regulations: The Federal rules restrict any use of the information to criminally investigate or prosecute any alcohol or drug abuse patient.[facility] Hospital[facility] the event this information is protected by the Federal Confidentiality of Alcohol and Drug Abuse Patient Records regulations: The Federal rules restrict any use of the information to criminally investigate or prosecute any alcohol or drug abuse patient.[facility] Reason for Visit (unrecogniz ed section and content) Specialty Diagnoses / Procedures Referred By Odell norman Referred To Contact [facility] Diandrahenri Summers [address] [place] [address] Referral ID Status Reason Start Date Expiration Date V isits Requested Visits Authorized [id number] New Request 02/18/2024 04/18/2024 Reason Comments Appointment Received message chon Knowles asking me to scheduled a post op visit Reason Comments Appointment Reason Comments Post Op C2-T2 fusion 02/09 Reason Onset Date Comments Refill Request 02/24/2024 Reason Comments Patient Question RX Reason Onset Date Comments Refill Request 03/13/2024 Reason Onset Date Comments Refill Request 03/02/2024 Reason Onset Date Comments Refill Request 03/20/2024 Reason Onset Date Comments Refill Request 03/28/2024 Reason Onset Date Comments Refill Request 04/04/2024 Reason Onset Date Comments Refill Request 04/18/2024 FOR RECORDS PERTAINING TO PATIENTS WHO ARE OR HAVE BEEN ENROLLED IN A CHEMICAL DEPENDENCY/SUBSTANCEABUSE PROGRAM, SOME INFORMATION MAY BE OMITTED. This clinical summary was aggregated from multiple sources. Caution should be exercised in using it in the provision of clinical care. This summary normalizes information from multiple sources, and as a consequence, information in this document may materially change the coding, format and clinical context of patient data. In addition, data may be omitted in some cases. CLINICAL DECISIONS SHOULD BE BASED ON THE PRIMARY CLINICAL RECORDS. [facility]. provides no warranty or guarantee of the accuracy or completeness of information in this document.
[2025-02-11 17:17] LABS: Hematocrit 43.3 % (37-47); Hemoglobin 14.4 g/dL (12.0-15.0); Immature Granulocytes Count 0.020 X10^3/uL (0.0-0.0); Mean Corp Hgb Conc 33.3 g/dL (32-36); Mean Corpuscular Volume 89.1 fL (81-99); Mean Platelet Vol. 10.3 fl (6.2-12.0); NRBC Flagged by Analyzer 0 % (0-5); Platelet Count 177 K/mm3 (150-450); RBC Distribution Width CV 13.5 % (11.6-14.6); RBC Distribution Width SD 44.3 fl (35.1-43.9); Red Blood Count 4.86 M/mm3 (4.2-5.4); White Blood Count 10.5 K/mm3 (4.4-11.0)
--- NOTE | 2025-02-11 17:40 | EX.ED.DYSGE1 ---
HPI History of Present Illness Chief Complaint: Other, Pain/Inj Detail of Chief Complaint: Neck pain and right upper extremity pain after minimal trauma 1 week ago Informant: patient Onset/Context/Timing Onset: Weeks Context: Sudden Onset Timing: Continuous Quality: Pain in a radicular pattern with numbness C6 dermatome on the right Location: Right upper extremity Current Severity: Moderate Maximum Severity: Severe Worsened by: Movement Relieved by: Nothing Associated Symptoms Associated Symptoms: Weakness of her right upper extremity and numbness of her right thumb Narrative Narrative: Patient is a 49-year-old woman. She had a traumatic fracture of her neck requiring open reduction internal fixation several years ago. She presents with pain in her right upper extremity C6 dermatome with numbness of her thumb and C6 dermatomal pattern with weakness in the right upper extremity. She states she bumped up against objects. It was not significant. She had no head trauma. She denies cardiac or respiratory symptoms. She is complaining of severe pain. Prior similar symptoms: No Recent Illness/[facility]: [facility] Medical History Bilateral pneumonia Former tobacco use GERD (gastroesophageal reflux disease) HTN (hypertension) Cyclical vomiting Cannabis dependence Anxiety and depression Barretts esophagus Home Medications ?Medication ?Instructions ?Recorded ?Last Taken ?Type albuterol sulfate 90 mcg/actuation 2 inh inhalation Q6H PRN shortness 05/11/24 Unknown History breath activated powder inhaler of breath benzonatate 100 mg capsule 100 mg PO BID PRN cough 05/11/24 Unknown History lisinopril 5 mg tablet 5 mg PO DAILY bp 05/11/24 Unknown History methocarbamol 500 mg tablet 500 mg PO 4X/DAY pain/ cramps 05/11/24 Unknown History sertraline 100 mg tablet 100 mg PO Q24H depression 05/11/24 Unknown History cefdinir 300 mg capsule 300 mg PO Q12 5 days #10 caps 05/14/24 Unknown Rx dextromethorphan-guaifenesin ER 60 1 tab PO BID 7 days #14 tabs 05/14/24 Unknown Rx mg-1,200 mg tab,extend release,12hr oxycodone-acetaminophen 5 mg-325 1 tab PO Q8H PRN pain 2 days #4 10/03/24 Unknown Rx mg tablet (Percocet) tabs methylprednisolone 4 mg tablets in 4 mg PO UD ##1 02/11/25 Unknown Rx a dose pack naproxen 500 mg tablet 500 mg PO BID #14 tabs 02/11/25 Unknown Rx oxycodone-acetaminophen 5 mg-325 1 tab PO Q6H PRN PRN pain 5 days 02/11/25 Unknown Rx mg tablet #20 TABLETS Allergy/AdvReac Type Severity Reaction Status Date / Time hydrocodone bitartrate (From Allergy Hives Verified 02/11/25 15:04 Vicodin) Family History Mother COPD (chronic obstructive pulmonary disease) ETOH abuse Father ETOH abuse Surgical History S/P appendectomy Hx of spinal surgery Social History household members: other details: Currently staying with her mother while she recovers from her trauma. housing: house Smoking Status: Light Smoker (<10/day) how long ago did patient quit smoking: Quit 02/10/24, smoked ~ 1 ppd since teen until quit. alcohol intake: never substance use type: marijuana ROS ROS ED Constitutional Constitutional ED: Denies chills, fever(s), subjective, sweats or weight loss Eyes Eyes: Denies blurry vision or change in vision ENT ENT ED: Denies ear pain, rhinorrhea or sore throat Cardiovascular Cardiovascular: Denies chest pain or palpitations Respiratory/Chest Respiratory/Chest: Denies cough, dyspnea or dyspnea on exertion Gastrointestinal Gastrointestinal: Denies nausea or vomiting Musculoskeletal Musculoskeletal: Reports back pain, neck pain and other Details: Back pain is near the right scapula. ; Denies arthralgias or myalgias Integumentary Denies rash Neurologic Neurologic: Reports paresthesias RUE and weakness Psychiatric Psychiatric: Reports anxiety Endocrine Endocrinology: Denies cold intolerance or heat intolerance Hematologic/Lymphatic Hematologic/Lymphatic: Reports systems reviewed and no addt'l complaints, except as documented EXAM Physical Exam Const Vital Signs: 02/11/25 15:04 02/11/25 19:03 02/11/25 19:12 Temperature 97.8 F Temperature Source Temporal Pulse Rate 85 56 L Respiratory Rate 18 22 H Respiratory Effort Normal Respiratory Pattern Normal Blood Pressure 112/87 H Blood Pressure Mean 95 Pulse Ox 95 99 Oxygen Delivery Method Room Air Room Air Positive well nourished and well developed Constitutional Narrative: Person appears in discomfort. Does not appear well. She looks like she is may have lost weight. General Appearance ED: well developed; Negative for pallor HEENT Reports moist mucous membranes HEENT Narrative: Head is atraumatic normocephalic. Ears normal. Nares patent. Eyes PERRL and EOMs intact bilaterally General Eye ED: Negative for pale conjunctiva or scleral icterus Neck no lymphadenopathy, supple and no JVD Neck Narrative: Posterior surgical scar noted. Able to see the spinous process of her lower cervical spine. Chest Wall palpation of chest normal Resp normal respiratory effort and clear to auscultation bilaterally Cardio regular rate, regular rhythm, S1 normal heart sound, S2 normal heart sound and no murmurs Back/Spine Thoracic Spine / Upper Back: Negative for thoracic spinal tenderness Extremity normal to inspection Extremity Narrative: Radial pulses palpable and symmetric. General Extremety ED: Negative for edema General Extremity: Negative for edema Neuro oriented x3, CN's II-XII intact bilaterally and No no sensory deficits noted Neuro Narrative: Decrease sensation C6 dermatome on the right. Positive Larry sign bilaterally. Brachioradialis and bicep reflex are diminished on the right compared to the left. They are 1+ on the right and 2+ on the left. Tricep is 2+. Patient does not have clonus or Babinski sign noted bilaterally. Her grasp is weak which may be due to pain. Psych Mood & Affect: depressed Skin no rashes or lesions noted, no wounds and skin turgor normal General Skin Exam: Negative for jaundice or pallor MDM MDM MDM Narrative Medical decision making narrative: Patient has objective neurologic findings. Will obtain CT of the neck to determine there is any significant abnormality will require emergent intervention otherwise will refer to spine for follow-up and outpatient MRI since 1 cannot be obtained at this time. Patient was medicated with IV ketorolac, morphine for her pain. Lab Data Labs: Laboratory Results - last 24 hr 02/11/25 02/11/25 02/11/25 17:10 17:45 18:37 WBC 10.5 RBC 4.86 Hgb 14.4 Hct 43.3 MCV 89.1 MCH 29.6 MCHC 33.3 RDW Std Deviation 44.3 H RDW Coeff of Fina 13.5 Plt Count 177 MPV 10.3 Immature Gran % (Auto) 0.200 Neut % (Auto) 58.2 Lymph % (Auto) 33.7 Preble % (Auto) 5.3 Eos % (Auto) 2.0 Baso % (Auto) 0.6 Absolute Neuts (auto) 6.1 Absolute Lymphs (auto) 3.52 Nucleated RBC % 0 Sodium Cancelled Cancelled 138 Potassium Cancelled Cancelled 4.0 Chloride Cancelled Cancelled 103 Carbon Dioxide Cancelled Cancelled 24.8 Anion Gap Cancelled Cancelled 10 BUN Cancelled Cancelled 10 Creatinine Cancelled Cancelled 0.73 Estim Creat Clear Calc Cancelled Cancelled 77.84 Est GFR (MDRD) Non-Af Cancelled Cancelled 103 BUN/Creatinine Ratio Cancelled Cancelled 13.7 Glucose Cancelled Cancelled 82 Calcium Cancelled Cancelled 9.1 Radiography Diagnostic Testing: Clinical Impression(s) from Imaging Studies Cervical Spine CT 02/11/25 16:53 IMPRESSION: Multilevel bony foraminal stenosis. Negative for fracture. If there is specific radiculopathy, recommend MRI Reading Location: [facility] [address] Treatment and Re-Evaluation :: Patient was remedicated with opiate analgesia. She was informed of her CT results. She was informed that she will need follow-up with the spine surgeon in [place]. She was discharged home with prescription for methylprednisolone, opiate analgesia and NSAIDs. Discharge Plan Triage Chief Complaint: Other, Pain/Inj ED Provider: Sher Lamb Dx/Rx/DC Orders Clinical Impression: C6 radiculopathy, Browne's reflex positive, DDD (degenerative disc disease), cervical Instructions: Cervical Radiculopathy, ED Back and Neck Pain, General Prescriptions: New oxycodone-acetaminophen 5-325 mg tablet 1 tab PO Q6H PRN PRN (Reason: pain) 5 Days Qty: 20 0RF methylprednisolone 4 mg tablets,dose pack 4 mg PO UD Qty: 1 0RF naproxen 500 mg tablet 500 mg PO BID Qty: 14 0RF No Action benzonatate 100 mg capsule 100 mg PO BID PRN (Reason: cough) methocarbamol 500 mg tablet 500 mg PO 4X/DAY albuterol sulfate 90 mcg/actuation aerosol powdr breath activated 2 inh inhalation Q6H PRN (Reason: shortness of breath) lisinopril 5 mg tablet 5 mg PO DAILY sertraline 100 mg tablet 100 mg PO Q24H cefdinir 300 mg Capsule 300 mg PO Q12 5 Days Qty: 10 0RF dextromethorphan-guaifenesin 60-1,200 mg tablet extended release 12 hr 1 tab PO BID 7 Days Qty: 14 0RF oxycodone-acetaminophen [Percocet] 5-325 mg tablet 1 tab PO Q8H PRN (Reason: pain) 2 Days Qty: 4 0RF Primary Care Provider: Jossie Alvarado Referrals: Jossie Alvaardo, [Primary Care Provider, Family Practice] Activity Restrictions/Additional Instructions: 1. You need to contact your spine surgeon for follow-up. Let him know that you have decreased reflexes bicep and brachialis. He also positive Larry sign bilaterally and numbness C6 dermatome on the right Print Language: Zambian Disposition Disposition: Home, Self Care
[2025-02-11 19:03] VITALS: PULSE 56; RESP 22; O2SAT 99
[2025-02-11 19:19] LABS: Anion Gap 10 (5-15); BUN 10 mg/dL (4-19); BUN/Creat Ratio 13.7 RATIO (10-20); Calcium,Total 9.1 mg/dL (7.6-11.0); Carbon Dioxide 24.8 mmol/L (21.0-32.0); Chloride 103 mmol/L (98-108); Estimated Creatinine Clearance 77.84 ml/min (50-250); Glucose 82 mg/dL (70-99); Potassium 4.0 mmol/L (3.3-5.1)
[2025-02-11 20:16] VITALS: BP 157/74; PULSE 72; RESP 18; TEMP 36.4; O2SAT 100
== END 2025-02-11 20:16 | disposition home or self-care (01) ==
PROVIDERS: Emergency Provider Emergency Medicine; Visit Provider Emergency Medicine
DX: M50.122 Cervical disc disorder at C5-C6 level with radiculopathy (principal); I10 Essential (primary) hypertension; R29.2 Abnormal reflex; W22.09XA Striking against other stationary object, initial encounter; Z79.899 Other long term (current) drug therapy; F41.8 Other specified anxiety disorders; Z90.49 Acquired absence of other specified parts of digestive tract; F17.200 Nicotine dependence, unspecified, uncomplicated
CPT/HCPCS: 72125; 80048; 85025; 96374; 96375; 96376; 99283; A4216; J2405